=== PATIENT | male | born 1945 | race African-American/Black ===

== ENCOUNTER 2016-09-16 20:23 | Inpatient (IN) | payer MEDICARE, OTHER ==
[~2016-09-16] VITALS: Ht 175.3 cm; Wt 57.6 kg
[~2016-09-16 20:23] MED LIST: ASPI-650; AVAPRO; [UNRECOGNIZED DRUG - OTHER]
--- NOTE | 2016-09-16 20:32 | ERA ---
ER Documentation Chief Complaint Date/Time DATE: 09/16/16 TIME: 20:32 Chief Complaint Low O2 saturation HPI The patient is a 71-year-old male, presenting to the ER because of low O2 saturation, associated with cough and fever according to the new accounts representative. He is unable to provide any history, the history is is also obtained from the medical record from the long term. Past medical history: Chronic respiratory failure, anxiety, GERD, COPD, dysphagia, chronic kidney disease, anemia, overactive bladder Past surgical history: Tracheostomy, gastrostomy tube ROS All systems reviewed and are negative except as per history of present illness. Medications Home Meds Reported Medications Aspirin (Aspirin) 81 Mg Tablet 03/31/10 [Blodd Pressure Meds] No Conflict Check 03/31/10 [Avapro] TAB No Conflict Check 03/31/10 Allergies Allergies: Coded Allergies: No Known Allergies (Verified Allergy, Unknown, 03/31/10) PMhx/Soc History of Surgery: Yes (HEMMORHOIDECTOMY) Anesthesia Reaction: No Hx Neurological Disorder: No Hx Respiratory Disorders: No Hx Cardiac Disorders: Yes (TRANS ISCHEMIC ATTACK-SEPTEMBER 2009) Hx Psychiatric Problems: No Hx Miscellaneous Medical Probl: No Hx Alcohol Use: Yes Hx Substance Use: No Hx Tobacco Use: Yes (3-4 YEARS AGO) Physical Exam Vitals Vital Signs Date Time Temp Pulse Resp B/P Pulse Ox O2 Delivery O2 Flow Rate FiO2 09/17/16 00:07 100.5 106 28 122/61 97 Mask 6.0 Trach Collar 09/16/16 23:43 96 10.0 40 09/16/16 23:41 101 26 96 Aerosol 10.0 40 09/16/16 22:47 103 28 114/67 100 Mask 10.0 Trach Collar 09/16/16 20:43 Simple Mask 10 09/16/16 20:43 Simple Mask 10.0 09/16/16 20:37 101.7 149 43 144/74 86 09/16/16 20:35 100 10.0 100 09/16/16 20:35 89 44 98 Non Rebreather Mask 15.0 100 Physical Exam Const: Mild acute distress. Dehydrated Head: Atraumatic. Eyes: Normal Conjunctiva. ENT: Normal External Ears, Nose and Mouth. Neck: Full range of motion. No meningismus. Resp: Bilateral rhonchi anterior and lateral, tachypneic Cardio: Regular but tachycardic Abd: Soft, non distended, normal bowel sounds, non tender. Positive G -tube Skin: No petechiae or rashes. Back: No midline or flank tenderness. Ext: Contracted Neur: Unable to perform due to his condition Psych: Unable to perform due to his condition Result Diagram: 09/16/16212209/16/162122 Results 24 hrs Laboratory Tests Test 09/16/16 20:33 09/16/16 21:15 09/16/16 21:23 09/16/16 23:33 Blood Gas Specimen Source Blood arterial Arterial Blood Date Drawn 09/16/2016 9:00:42 PM Arterial Blood pH (Temp corrected) 7.542 Arterial Blood pCO2 (Temp correct) 29.9mmhg Arterial Blood pO2 (Temp corrected) 79.3mmHG Arterial Blood HCO3 25.1mmol/L Arterial Blood Base Excess 2.8mmol/L Arterial Blood Oxygen Saturation 95.8mmHG [place] Test N/A Arterial Blood Gas Puncture Site Right Brachial Arterial Blood Carboxyhemoglobin 0.3% Arterial Blood Methemoglobin 0.2% Blood Gas A-a O2 Differential 603.8mmHg Oxyhemoglobin Percent 95.3% Total Hemoglobin 9.1g/dl Blood Gas Temperature 37.0C Blood Gas Actual Respiration Rate 44 Blood Gas Modality TRACH COLLAR FiO2 100.0% Blood Gas Critical Value Read Back Mari HWANG Blood Gas Notified Whom BL Blood Gas Notified Time 09/16/2016 9:15:36 PM Urine Color LT. YELLOW Urine Clarity CLEAR Urine pH 7.0 Urine Specific [place] <=1.005 Urine Ketones NEGATIVE Urine Nitrite NEGATIVE Urine Bilirubin NEGATIVE Urine Urobilinogen 0.2 E.U./dL Urine Leukocyte Esterase NEGATIVE Urine Microscopic RBC 2-5/HPF Urine Microscopic WBC 0-2/HPF Urine Squamous Epithelial Cells MODERATE Urine Bacteria MODERATE Urine Hemoglobin TRACE Urine Glucose NEGATIVE% Urine Total Protein 1+ White Blood Count 17.110^3/ul Red Blood Count 3.6110^6/ul Hemoglobin 8.8g/dl Hematocrit 27.5% Mean Corpuscular Volume 76.2fl Mean Corpuscular Hemoglobin 24.4pg Mean Corpuscular Hemoglobin Concent 32.0g/dl Red Cell Distribution Width 19.8% Platelet Count 29016^3/UL Mean Platelet Volume 9.6fl Neutrophils % 91.3% Lymphocytes % 3.7% Monocytes % 3.9% Eosinophils % 0.4% Basophils % 0.2% Nucleated Red Blood Cells % 0.4/100WBC Neutrophils # 15.610^3/ul Lymphocytes # 0.610^3/ul Monocytes # 0.710^3/ul Eosinophils # 0.110^3/ul Basophils # 0.010^3/ul Nucleated Red Blood Cells # 0.110^3/ul Prothrombin Time 16.0Sec Prothrombin Time Ratio 1.3 INR International Normalized Ratio 1.27 Activated Partial Thromboplast Time 42.1Sec Sodium Level 149mmol/L Potassium Level 5.5mmol/L Chloride Level 114mmol/L Carbon Dioxide Level 27mmol/L Anion Gap 14 Blood Urea Nitrogen 48mg/dl Creatinine 1.19mg/dl Glucose Level 166mg/dl Lactic Acid Level 3.0mmol/L 0.6mmol/L Calcium Level 9.7mg/dl Total Bilirubin 0.3mg/dl Direct Bilirubin 0.00mg/dl Indirect Bilirubin 0.3mg/dl Aspartate Amino Transf (AST/SGOT) 49IU/L Alanine Aminotransferase (ALT/SGPT) 35IU/L Alkaline Phosphatase 90IU/L Troponin I < 0.012ng/ml Total Protein 9.8g/dl Albumin 3.5g/dl Globulin 6.30g/dl Albumin/Globulin Ratio 0.55 Current Medications Medications (Trade) Dose Ordered Sig/Lina Route PRN Reason Start Time Stop Time Status Last Admin Dose Admin Acetaminophen 650 mg 650 mg ONCE ONCE PA 09/16/16 21:00 09/16/16 21:01 DC 09/16/16 21:52 Sodium Chloride 2,110 ml @ 2,110 mls/hr BOLUS X1 ONCE IV 09/16/16 21:00 09/16/16 21:59 DC 09/16/16 21:52 Vancomycin HCl 250 ml @ 125 mls/hr ONCE IVPB 09/16/16 22:00 09/16/16 23:59 DC 09/16/16 22:40 Meropenem (Merrem 500 Mg/ 100 ml (Pmx)) 100 ml @ 200 mls/hr ONCE STAT IVPB 09/16/16 21:56 09/16/16 22:25 DC 09/16/16 22:14 Procedures/MDM [place] [address] Radiology Main Line: [phone] DIAGNOSTIC IMAGING REPORT Patient: FRANCI ALBRECHT : 1945 Age: 71 Sex: M MR #: [id number] DOS: 09/16/162032 Ordering MD: KRISTEN ROCHA MD Location: E/R Room/Bed: PROCEDURE: XR Chest. CLINICAL INDICATION: Sepsis TECHNIQUE: Anterior chest x-ray. COMPARISON: 04/20/2015 FINDINGS: There has been interval removal of tracheostomy tube and right-sided PICC line. There is pleural thickening in the right lung apex. There is central lucency in the right lung apex and there is patchy consolidation inferior to the area of apical lucency in the right suprahilar region. This finding is relatively stable compared to exam dated 03/31/2015, however there is more soft tissue density along the inferior aspect of the cavity. The right mid and lower lung is clear. The left lung is clear. No pleural effusion identified. There is no evidence of pneumothorax. The cardiomediastinal silhouette is unremarkable. The soft tissues are normal. Osseous structures are unremarkable. IMPRESSION: 1. There is abnormal density in the right lung apex in an area which measures 12 x 7 cm with pleural thickening and central lucency in the right lung apex, suggesting cavitary lesion. This is seen with patchy consolidation along the inferior aspect of the cavitary lesion, measuring 4 x 4 cm, which could represent pulmonary mass or large granuloma. The findings are overall nearly stable, however there is more soft tissue component along the inferior aspect of the cavitary lesion compared to exam from March 2015. The findings may represent granulomatous disease or malignancy. CT with contrast is suggested for further evaluation. 2. Interval removal of tracheostomy tube and right-sided PICC line. RPTAT: II .Donell Ceja MD, Date Time Electronically viewed and signed by .Donell Ceja MD, on 09/16/2016 21: 47 .M/ CC: KRISTEN ROCHA MD EKG: Read by emergency physician Rate/Rhythm: Sinus tachycardia 141 beats/min QRS, ST, T-waves: No ST elevation, no T inversion, artifacts, inferior ST and T abnormality Impression: Abnormal EKG MEDICAL MAKING DECISION: The patient is a 71-year-old male, presenting to the ER because of acute severe sepsis, acute pneumonia, acute dehydration, acute hyperkalemia. He was treated with normal saline 30 mL/kg IV, vancomycin IV, meropenem IV. Admit MDM: Patient's infectious symptoms have not stabilized and the patient is at risk of rapid decompensation. The patient will be admitted for careful hydration, antibiotic therapy, and infectious source control. Severe Sepsis criteria: Infectious source: Pneumonia End organ damage indicated by: Lactate > 2.0 mmol/L Acute Resp Failure (sat < 92% w/o oxygen) Sepsis Management: Time of recognition of severe sepsis/septic shock:9:30 PM Within 3 hours of recognition: Blood cultures x 2 before broad-spectrum antibiotics: Yes 30 ml/kg NS bolus completed Initial lactate 3 Repeat lactate pending Critical Care: Critical care time 35 minutes Emergent fluid management while maintaining close respiratory support. Provision of immediate and broad-spectrum antibiotic therapy. Simultaneous assessment for possible sources in order to direct targeted therapy. Consideration for invasive and chemical support to prevent cardiopulmonary collapse. Departure Diagnosis: Primary Impression: Severe sepsis Additional Impressions: Pneumonia Dehydration Hyperkalemia Condition: Stable Comments I discussed the findings with the patient. I discussed the patient with the on- call hospitalist Dr. Cruz who was made aware of the lab, the treatment, the patient condition. The patient is admitted to telemetry at 10:50 PM KRISTEN ROCHA MD September 16, 2016 20:32
[2016-09-16] MEDS ORDERED: ACETAMINOPHEN 650 MG SUPP PR ONE (21:00)
[2016-09-16] MEDS ORDERED: SOD CHLORIDE 0.9% 2,110 ML IV ONE (21:00)
[2016-09-16 21:16] LABS: AADO2 Arterial 603.8 mmHg (7.0-24.0); Arterial Base Excess 2.8 mmol/L (-3.0-3); Arterial COHb 0.3 % (0.0-3.0); Arterial Fraction of Oxyhgb 95.3 % (93.0-99.0); Arterial HCO3 25.1 mmol/L (22.0-26.0); Arterial MetHb 0.2 % (0.0-1.5); Arterial Total Hemglobin 9.1 g/dl (12.0-18.0); MODE TRACH COLLAR
[2016-09-16 21:38] LABS: ADD UMIC YES; URINE BILIRUBIN (Dip) NEGATIVE (NEGATIVE); URINE BLOOD (Dip) TRACE (NEGATIVE); URINE COLOR LT. YELLOW (YELLOW); URINE GLUCOSE (Dip) NEGATIVE (NEGATIVE); URINE KETONES (Dip) NEGATIVE (NEGATIVE); URINE LEUKOCYTE ESTERASE (Dip) NEGATIVE (NEGATIVE); URINE NITRITE (Dip) NEGATIVE (NEGATIVE); URINE TOTAL PROTEIN (Dip) 1+ (NEGATIVE); URINE UROBILINOGEN (Dip) 0.2 E.U./dL (0.1-1.0)
[2016-09-16 21:40] LABS: ADD SCAN DIFF NO
[2016-09-16 21:43] LABS: BASOPHILS % 0.2 % (0.0-2.0); EOSINOPHILS # 0.1 10^3/ul (0.0-0.5); EOSINOPHILS % 0.4 % (0.0-7.0); HEMATOCRIT 27.5 % (42.0-52.0); HEMOGLOBIN 8.8 g/dl (14.0-18.0); LYMPHOCYTES # 0.6 10^3/ul (0.8-2.9); LYMPHOCYTES % 3.7 % (15.0-51.0); MEAN CORPUSCULAR HEMOGLOBIN 24.4 pg (29.0-33.0); MEAN CORPUSCULAR VOLUME 76.2 fl (82.0-101.0); MEAN PLATELET VOLUME 9.6 fl (7.4-10.4); MONOCYTE # 0.7 10^3/ul (0.3-0.9); MONOCYTES % 3.9 % (0.0-11.0); NEUTROPHIL # 15.6 10^3/ul (1.6-7.5); NEUTROPHILS % 91.3 % (39.0-77.0); NUCLEATED RED BLOOD CELLS # 0.1 10^3/ul (0.0-0.0); NUCLEATED RED BLOOD CELLS% 0.4 /100WBC (0.0-0.0); PLATELET COUNT 422 10^3/UL (140-415); RED BLOOD COUNT 3.61 10^6/ul (4.70-6.10); RED CELL DISTRIBUTION WIDTH 19.8 % (11.5-14.5); WHITE BLOOD COUNT 17.1 10^3/ul (4.8-10.8)
--- NOTE | 2016-09-16 21:47 | RADRPT ---
PROCEDURE: XR Chest. CLINICAL INDICATION: Sepsis TECHNIQUE: Anterior chest x-ray. COMPARISON: 04/20/2015 FINDINGS: There has been interval removal of tracheostomy tube and right-sided PICC line. There is pleural thickening in the right lung apex. There is central lucency in the right lung apex and there is patchy consolidation inferior to the area of apical lucency in the right suprahilar re gion. This finding is relatively stable compared to exam dated 03/31/2015, however there is more soft tiss ue density along the inferior aspect of the cavity. The right mid and lower lung is clear. The left lung is clear. No pleural effusion identified. There is no evidence of pneumothorax. The cardiomediastinal silhouette is unremarkable. The soft tissues are normal. Osseous structures are unremarkable. IMPRESSION: 1. There is abnormal density in the right lung apex in an area which measures 12 x 7 cm with pleura l thickening and central lucency in the right lung apex, suggesting cavitary lesion. This is seen w ith patchy consolidation along the inferior aspect of the cavitary lesion, measuring 4 x 4 cm, which could represent pulmonary mass or large granuloma. The findings are overall nearly stable, however there is more soft tissue component along the inferior aspect of the cavitary lesion compared to exa m from March 2015. The findings may represent granulomatous disease or malignancy. CT with cont rast is suggested for further evaluation. 2. Interval removal of tracheostomy tube and right-sided PICC line. RPTAT: II .Donell Ceja MD, MD Date Time Electronically viewed and signed by .Donell Ceja MD, on 09/16/2016 21:47 .M/
[2016-09-16 21:50] LABS: BACTERIA,URINE MODERATE; SQUAMOUS EPITHELIAL CELL,UR MODERATE
[2016-09-16] MEDS ORDERED: MEROPENEM 500 MG/100 ML (PMX) 100 ML IVPB STA (21:56)
[2016-09-16] MEDS ORDERED: VANCOMYCIN 1 GM (PMX) 250 ML IVPB SCH (22:00)
[2016-09-16 22:11] LABS: ALBUMIN 3.5 g/dl (3.3-4.9); INR 1.27; PT RATIO 1.3
[2016-09-16 22:12] LABS: CHLORIDE 114 mmol/L (97-110); PARTIAL THROMBOPLASTIN TIME 42.1 Sec (25.0-35.0); POTASSIUM 5.5 mmol/L (3.5-5.1); SODIUM 149 mmol/L (135-144)
[2016-09-16 22:14] LABS: ANION GAP 14 (8-16); ASPARTATE AMINO TRANSFERASE 49 IU/L (15-46); BILIRUBIN,INDIRECT 0.3 mg/dl (0-1.1); BILIRUBIN,TOTAL 0.3 mg/dl (0.2-1.3); CARBON DIOXIDE 27 mmol/L (21-31); CREATININE 1.19 mg/dl (0.61-1.24)
[2016-09-16 22:15] LABS: ALANINE AMINOTRANSFERASE 35 IU/L (13-69); ALBUMIN/GLOBULIN RATIO 0.55; ALKALINE PHOSPHATASE 90 IU/L (42-121); BLOOD UREA NITROGEN 48 mg/dl (7-20); CALCIUM 9.7 mg/dl (8.4-10.2); GLUCOSE 166 mg/dl (70-220); TOTAL PROTEIN 9.8 g/dl (6.1-8.1)
[2016-09-16 22:28] LABS: TROPONIN-I < 0.012 ng/ml (0.00-0.12)
[2016-09-17] VITALS (13 sets, daily range): BP systolic 103–123; BP diastolic 43–56; PULSE 86–106; RESP 16–22; TEMP 100.5; Ht 175.3 cm; Wt 57.6 kg
[2016-09-17] MEDS ORDERED: POLY17PO6 PO (03:40)
[2016-09-17] MEDS ORDERED: OMEP40CA6 G-TUBE (03:40)
[2016-09-17] MEDS ORDERED: ASPI81TA3 G-TUBE (03:40)
[2016-09-17] MEDS ORDERED: HYDR-906 PO (03:40)
[2016-09-17] MEDS ORDERED: UDCOL GTB (03:40)
[2016-09-17] MEDS ORDERED: ASC500 G-TUBE (03:40)
[2016-09-17] MEDS ORDERED: MULT-761 PO (03:40)
[2016-09-17] MEDS ORDERED: LACTINEX PO (03:40)
[2016-09-17] MEDS ORDERED: ACET-2047 G-TUBE (03:40)
[2016-09-17] MEDS ORDERED: BETH25TA G-TUBE (03:40)
[2016-09-17] MEDS ORDERED: IPRA3AMP INHALATION (03:40)
[2016-09-17] MEDS ORDERED: SENS PO (03:40)
[2016-09-17] MEDS ORDERED: BISA10SU55 RC (03:40)
[2016-09-17] MEDS ORDERED: ALBUTEROL/IPRATROPIUM (NEB) 3 ML AMP HHN PRN (04:00)
[2016-09-17] MEDS ORDERED: HYDROCODONE/APAP (5/325) TAB PO PRN (04:00)
[2016-09-17] MEDS ORDERED: BISACODYL 10 MG SUPP PR PRN (04:00)
[2016-09-17] MEDS: ALBUTEROL/IPRATROPIUM (NEB) 3 ML AMP HHN SCH ×5 (04:50→20:52)
[2016-09-17] MEDS: LEVOFLOXACIN 500MG/D5W (PMX) 100 ML IVPB SCH (06:05)
[2016-09-17] MEDS: LANSOPRAZOLE 30 MG CAP GTB SCH (06:05)
[2016-09-17] MEDS: ACETAMINOPHEN 325 MG TAB GTB PRN (06:54)
--- NOTE | 2016-09-17 07:28 | HP ---
DATE OF ADMISSION: 09/17/2016 CHIEF COMPLAINT: Low oxygenation, cough and fever. HISTORY OF PRESENT ILLNESS: The patient is a 71-year-old male with a history of chronic respiratory failure, status post tracheostomy, anxiety, GERD, COPD, chronic kidney disease and anemia, bl adder, and dysphagia status post G-tube who was sent from [facility] for the above stated chief complaint. It seems like the family noted decreased oxygenation which had been fluctu ating. He had cough and fever, and as such, he was brought to the ER. The patient is not able to p rovide any history, and as such, information is gathered from chart review and from the ER physician . When he presented to the ER, blood pressure was 100/98, heart rate was 89, respiratory rate 44, oxyg en saturation was 86% on 10 liters. Shortly after, within about 2 to 3 minutes, his vitals were rec hecked today which showed a temperature of 101.7. Laboratory value shows a WBC of 17, hemoglobin 8. 8, platelet count 422, sodium 149, potassium 5.5, chloride 114, initial lactic acid 3, repeat 0.6. Chest x-ray shows abnormal density in the lung apex in an area which measures 14 x 17 cm with pleura l thickening suggesting cavitary lesion. While the patient was in the ER, very thick fluid was suctioned from his stoma. REVIEW OF SYSTEMS: Negative except as per the HPI. PAST MEDICAL HISTORY: As per HPI. SOCIAL HISTORY: Unknown. No reported alcohol or illicit drug use. ALLERGIES: NO KNOWN DRUG ALLERGIES. HOME MEDICATIONS: 1. Botanical . 2 Albuterol. 3. Tylenol. 4. Aspirin. 5. [place] 6. Dulcolax. 7. Lactobacillus. 8. Prilosec. 9. MiraLax. 10. Senna 11. Ascorbic acid. 12. Multi-vitamin. 13. Avapro. PHYSICAL EXAMINATION: VITAL SIGNS: Stable except heart rate in the high 90s. GENERAL: The patient lying in bed, looks in mild discomfort. CHEST: Decreased breath sounds at bases bilaterally. ABDOMEN: Soft with G-tube in place. Positive bowel sounds. EXTREMITIES: No edema. NEUROLOGIC: No focal deficits. LABORATORY DATA: Sodium 149, potassium 5.5, chloride 111. WBC 17,000, hemoglobin 8.8, platelet cou nt 422. IMPRESSION: 1. Sepsis as evidenced by tachycardia, fever and leukocytosis, most likely from pneumonia. 2. Hyponatremia. 3. History of chronic respiratory failure with tracheostomy. 4. GERD, COPD, chronic kidney disease. PLAN: He will placed on antibiotics. He will receive breathing treatments. We will add Mucomyst a s needed to help with thick secretions. We will also attempt to send tracheal aspirate for gram sta in and culture. We will continue his home medication with adjustment as needed. We will also follo w up on the blood culture and urine culture results. We will also obtain blood culture and urine cu lture results. The patient will have physical therapy prior to discharge. We will correct electrol ytes as needed, namely hypokalemia and hypernatremia in this case. Further workup and management per clinical course. Dictated By: YESI BYRD/ARPITA Conf#: [id number] DID#: [id number]
[2016-09-17] MEDS ORDERED: NON-FORMULARY/PATIENT OWN MED (Omeprazole* 40 MG) G-TUBE SCH (09:00)
[2016-09-17] MEDS ORDERED: NON-FORMULARY/PATIENT OWN MED (Lactobacillus Acidophilus* (Lactinex*) 1 TAB) PO SCH (09:00)
[2016-09-17] MEDS ORDERED: SENNA (PO SYG) PO SCH (09:00)
[2016-09-17] MEDS: ASPIRIN 81 MG TAB GTB SCH (09:17)
[2016-09-17] MEDS: L ACIDOPHIL/B LACTIS/B LONGUM CAPSULE PO SCH ×2 (09:17→20:38)
[2016-09-17] MEDS: DOCUSATE SODIUM 10 MG/ML (10ML CUP) GTB SCH ×2 (09:17→20:38)
[2016-09-17] MEDS: MULTIVITAMINS THERAPEUTIC TAB PO SCH (09:17)
[2016-09-17] MEDS: POLYETHYLENE GLYCOL 17 GM PACKET PO SCH (09:18)
[2016-09-17] MEDS: BETHANECHOL 25 MG TAB GTB SCH ×3 (09:18→20:38)
[2016-09-17] MEDS: ASCORBIC ACID 500 MG TAB GTB SCH (09:18)
[2016-09-17] MEDS: SENNA TAB GTB SCH (09:20)
[2016-09-17] MEDS: SOD CHLORIDE 0.45% 1,000 ML IV SCH ×2 (15:20→23:00)
--- NOTE | 2016-09-17 16:10 | CONS ---
Date/Time of Note Date/Time of Note DATE: 09/17/16 TIME: 16:08 Assessment/Plan Assessment/Plan Chief Complaint/Hosp Course RENAL [id number] CONSULT RITA DEHYDRATION AZOTEMIA PEG PNEUMONIA PLAN LYTES IV FREEE WATER Problems: Consultation Date/Type/Reason Admit Date/Time September 17, 2016 at 00:34 Initial Consult Date Type of Consultation: renal 24 HR Interval Summary Constitutional: no complaints Exam/Review of Systems Vital Signs Vitals Vital Signs Date Time Temp Pulse Resp B/P Pulse Ox O2 Delivery O2 Flow Rate FiO2 09/17/16 16:05 94 09/17/16 15:04 98.9 16 103/43 93 09/17/16 13:07 Aerosol Mask 10.0 40 T Tube Intake and Output 09/16/16 09/16/16 09/17/16 15:00 23:00 07:00 Intake Total 220 ml Output Total 200 ml Balance 20 ml Exam Constitutional: alert Head: normocephalic Eyes: nl conjunctiva ENMT: nl external ears & nose Neck: other (trach positive) Respiratory: clear to auscultation Cardiovascular: regular rate and rhythm Gastrointestinal: bowel sounds, soft Extremities: normal pulses Results Result Diagram: 09/16/16212209/16/162122 Results 24 hrs Laboratory Tests Test 09/16/16 20:33 09/16/16 21:15 09/16/16 21:23 09/16/16 23:33 Blood Gas Specimen Source Blood arterial Arterial Blood Date Drawn 09/16/2016 9:00:42 PM Arterial Blood pH (Temp corrected) 7.542 H Arterial Blood pCO2 (Temp correct) 29.9 L Arterial Blood pO2 (Temp corrected) 79.3 L Arterial Blood HCO3 25.1 Arterial Blood Base Excess 2.8 Arterial Blood Oxygen Saturation 95.8 [place] Test N/A Arterial Blood Gas Puncture Site Right Brachial Arterial Blood Carboxyhemoglobin 0.3 Arterial Blood Methemoglobin 0.2 Blood Gas A-a O2 Differential 603.8 H Oxyhemoglobin Percent 95.3 Total Hemoglobin 9.1 L Blood Gas Temperature 37.0 Blood Gas Actual Respiration Rate 44 Blood Gas Modality TRACH COLLAR FiO2 100.0 Blood Gas Critical Value Read Back Mari HWANG Blood Gas Notified Whom BL Blood Gas Notified Time 09/16/2016 9:15:36 PM Urine Color LT. YELLOW Urine Clarity CLEAR Urine pH 7.0 Urine Specific [place] <=1.005 L Urine Ketones NEGATIVE Urine Nitrite NEGATIVE Urine Bilirubin NEGATIVE Urine Urobilinogen 0.2 E.U./dL Urine Leukocyte Esterase NEGATIVE Urine Microscopic RBC 2-5 Urine Microscopic WBC 0-2 Urine Squamous Epithelial Cells MODERATE Urine Bacteria MODERATE Urine Hemoglobin TRACE Urine Glucose NEGATIVE Urine Total Protein 1+ H White Blood Count 17.1 #H Red Blood Count 3.61 L Hemoglobin 8.8 L Hematocrit 27.5 L Mean Corpuscular Volume 76.2 L Mean Corpuscular Hemoglobin 24.4 L Mean Corpuscular Hemoglobin Concent 32.0 Red Cell Distribution Width 19.8 H Platelet Count 422 H Mean Platelet Volume 9.6 # Neutrophils % 91.3 H Lymphocytes % 3.7 L Monocytes % 3.9 Eosinophils % 0.4 Basophils % 0.2 Nucleated Red Blood Cells % 0.4 H Neutrophils # 15.6 H Lymphocytes # 0.6 L Monocytes # 0.7 Eosinophils # 0.1 Basophils # 0.0 Nucleated Red Blood Cells # 0.1 H Prothrombin Time 16.0 H Prothrombin Time Ratio 1.3 INR International Normalized Ratio 1.27 Activated Partial Thromboplast Time 42.1 H Sodium Level 149 H Potassium Level 5.5 H Chloride Level 114 H Carbon Dioxide Level 27 Anion Gap 14 Blood Urea Nitrogen 48 H Creatinine 1.19 Glucose Level 166 Lactic Acid Level 3.0 H 0.6 Calcium Level 9.7 Total Bilirubin 0.3 Direct Bilirubin 0.00 Indirect Bilirubin 0.3 Aspartate Amino Transf (AST/SGOT) 49 H Alanine Aminotransferase (ALT/SGPT) 35 Alkaline Phosphatase 90 Troponin I < 0.012 Total Protein 9.8 H Albumin 3.5 Globulin 6.30 H Albumin/Globulin Ratio 0.55 Medications Medications Current Medications Acetaminophen (Tylenol Tab) 650 mg Q6H PRN GTB PAIN AND OR ELEVATED TEMP Last administered on 09/17/16 06:54; Admin Dose 650 MG; Start 09/17/16 at 04:00 Ascorbic Acid (Vitamin C) 500 mg DAILY GTB Last administered on 09/17/16 09:18 ; Admin Dose 500 MG; Start 09/17/16 at 09:00 Aspirin (Aspirin) 81 mg DAILY GTB Last administered on 09/17/16 09:17; Admin Dose 81 MG; Start 09/17/16 at 09:00 Bethanechol Chloride (Urecholine) 25 mg TID GTB Last administered on 09/17/16 12:55; Admin Dose 25 MG; Start 09/17/16 at 09:00 Bisacodyl (Dulcolax Supp) 10 mg DAILY PRN ID CONSTIPATION; Start 09/17/16 at 04 :00 Docusate Sodium (Colace Liquid Cup) 100 mg BID GTB Last administered on 09:17; Admin Dose 100 MG; Start 09/17/16 at 09:00 Acetaminophen/ Hydrocodone Bitart ([place] (5/325)) 1 tab Q6 PRN PO PAIN; Start 09/17/16 at 04:00 Multivitamins Therapeutic (Theragran) 1 tab DAILY PO Last administered on 09:17; Admin Dose 1 TAB; Start 09/17/16 at 09:00 Polyethylene Glycol (Miralax) 8.5 gm DAILY PO Last administered on 09/17/16 09 :18; Admin Dose 8.5 GM; Start 09/17/16 at 09:00 Ondansetron HCl 4 mg 4 mg Q6H PRN IV NAUSEA AND/OR VOMITING; Start 09/17/16 at 04:00 Levofloxacin/ Dextrose (Levaquin 500mg/ D5W 100 ml (Pmx)) 100 ml @ 100 mls/hr Q24H IVPB Last administered on 09/17/16 06:05; Admin Dose 100 MLS/HR; Start at 04:00 Lactobacillus Acidophilus (Florajen3 Capsule) 1 each BID PO Last administered on 09/17/16 09:17; Admin Dose 1 EACH; Start 09/17/16 at 09:00 Senna (Senokot) 1 tab DAILY GTB Last administered on 09/17/16 09:20; Admin Dose 1 TAB; Start 09/17/16 at 09:00 Lansoprazole 30 mg 30 mg DAILY@06 GTB Last administered on 09/17/16 06:05; Admin Dose 30 MG; Start 09/17/16 at 06:00 Sodium Chloride (1/2 NS) 1,000 ml @ 125 mls/hr Q8H IV Last administered on 15:20; Admin Dose 125 MLS/HR; Start 09/17/16 at 15:00 KANDICE DIXON MD September 17, 2016 16:10
--- NOTE | 2016-09-17 18:32 | CONS ---
DATE OF ADMISSION: 09/17/2016 DATE OF CONSULTATION: TYPE OF CONSULTATION: Nephrology . Thank you, Dr. Saleh, for kindly asking me to see this patient in nephrology consultation with Dr. Tato Cruz. HISTORY OF PRESENT ILLNESS: The patient is a 71-year-old male with a history of chronic respiratory failure, history of GERD, COPD, anxiety, tracheostomy and G-tube placement, [facility] with electrolyte imbalance and sepsis. The patient has tachycardia and electrolyte imbalance an d nephrology consultation requested. PAST MEDICAL HISTORY: Positive for tracheostomy and G-tube placement, COPD, GERD. The patient has history of dyspepsia. ALLERGY HISTORY: NEGATIVE. FAMILY HISTORY: Noncontributory at this point. SOCIAL HISTORY: Negative. MEDICATION HISTORY: Patient's home medication is to include: 1. Tylenol. 2. Albuterol. 3. Atrovent. 4. Ascorbic acid. 5. Aspirin. 6. Betacol. 7. Bisacodyl. 8. Docusate sodium. 9. Hydrocodone. 10. Lactobacillus. 11. Multiple vitamin. 12. Omeprazole. 13. MiraLax. 14. Senna. 15. Avapro. REVIEW OF HEENT: Unremarkable. RESPIRATORY: Unremarkable. CARDIOVASCULAR: No chest pain on palpitation. ABDOMEN: No diarrhea. GENITOURINARY: Unremarkable for any dysuria, hematuria. EXTREMITIES: Unremarkable. PHYSICAL EXAMINATION: GENERAL: Thin-looking male, awake, alert. VITAL SIGNS: Pulse 92, blood pressure 103/43. HEAD: Atraumatic, normocephalic. Pupils equal, reactive. NECK: Supple. Tracheostomy present. LUNGS: Few rhonchi. CARDIOVASCULAR: S1, S2 normal. ABDOMEN: Soft. SKIN: G-tube in place. EXTREMITIES: No cyanosis, clubbing, or edema. LABORATORY DATA: WBC 17.1, hematocrit 27.5, platelet count of 422. Sodium 149, potassium 5.5, BUN 14, creatinine 1.19. Lactic acid 3, albumin 3.5. Chest x-ray shows abnormal density in the right lung apex in the area which measures 12 x 7 cm with a little thickening and central lucency in the right lung apex, suggesting cavitary lesion. The aruna ent also has patchy consolidation in the inferior aspect of the ____, pulmonary mass or large granul sury. IMPRESSION: 1. Patient has acute kidney injury. 2. Prerenal azotemia. 3. Hypernatremia. 4. Hyperkalemia. 5. Azotemia. 6. Lung mass. 7. Pneumonia. 8. Cavitary lung lesion. 9. Tracheostomy and G-tube placement. 10. Sepsis. PLAN: The patient is currently on normal saline at 125 cm an hour, ascorbic acid, aspirin, urecholi ne, Colace, multiple vitamin, MiraLax. The patient is also getting G-tube water. Patient's electro lytes will be monitored very closely. Thank you, Dr. Cruz and Dr. Saleh, for kindly asking me to see this patient in nephrology consulta tion. Dictated By: KANDICE DIXON MD BS/NTS Conf#: [id number] DID#: [id number] CC: MANAV SALEH MD;*EndCC*
[2016-09-18] VITALS (14 sets, daily range): BP systolic 114–143; BP diastolic 53–67; PULSE 83–114; RESP 18–20
[2016-09-18] MEDS: ALBUTEROL/IPRATROPIUM (NEB) 3 ML AMP HHN SCH ×6 (01:14→21:10)
[2016-09-18] MEDS: LEVOFLOXACIN 500MG/D5W (PMX) 100 ML IVPB SCH (04:02)
[2016-09-18] MEDS: SOD CHLORIDE 0.45% 1,000 ML IV SCH ×4 (04:24→21:04)
[2016-09-18] MEDS: LANSOPRAZOLE 30 MG CAP GTB SCH (05:20)
[2016-09-18] MEDS: DOCUSATE SODIUM 10 MG/ML (10ML CUP) GTB SCH ×2 (08:39→21:01)
[2016-09-18] MEDS: SENNA TAB GTB SCH (08:40)
[2016-09-18] MEDS: POLYETHYLENE GLYCOL 17 GM PACKET PO SCH (08:40)
[2016-09-18] MEDS: BETHANECHOL 25 MG TAB GTB SCH ×3 (08:40→21:01)
[2016-09-18] MEDS: ASCORBIC ACID 500 MG TAB GTB SCH (08:40)
[2016-09-18] MEDS: MULTIVITAMINS THERAPEUTIC TAB PO SCH (08:40)
[2016-09-18] MEDS: ACETAMINOPHEN 325 MG TAB GTB PRN (08:40)
[2016-09-18] MEDS: L ACIDOPHIL/B LACTIS/B LONGUM CAPSULE PO SCH ×2 (08:40→21:01)
[2016-09-18] MEDS: ASPIRIN 81 MG TAB GTB SCH (08:43)
[2016-09-18] MEDS ORDERED: SOD CHLORIDE 0.9% 100 ML ONE (10:11)
[2016-09-18] MEDS ORDERED: IODIXANOL LOCM 100 ML BTL ONE (10:11)
--- NOTE | 2016-09-18 10:49 | RADRPT ---
PROCEDURE: CT Chest with contrast. CLINICAL INDICATION: Possible mass TECHNIQUE: CT scan of the chest with contrast was performed on the [employer] CT scanner. The pat ient was scanned following the uncomplicated intravenous administration of 80 cc of Visipaque 320 in travenous contrast. Coronal and sagittal reformatted images were obtained from the axial source imag es. One or more of the following dose reduction techniques were used: - Automated exposure control. - Adjustment of the mA and/or kV according to patient size. Use of iterative reconstruction technique. DLP 464.3 mGycm CTDIvol 12.3 mGy COMPARISON: Chest x-ray 09/16/2016 FINDINGS: Prominent emphysema is seen in the lungs bilaterally. There is a confluent area of opacity in the r ight upper lobe where there is a cavitary lesion and this measures up to 8.5 x 7.4 cm which is indet erminate and could wall. Surrounding consolidation is seen within the right upper lung which has a peribronchial appearance. There is a trace amount of layering left pleural fluid and there is a sma ll amount of right apical pleural fluid along with a small amount of pleural air at the right lung a pex. There is soft tissue thickening seen around the right upper lobe airway which has a slightly i rregular appearance. Mild edematous changes seen in the remainder of the lungs. There is bilateral airways wall thickening seen with scattered foci of mucus plugging near the bases. There is an enlarged lymph nodes seen within the precarinal space that measures 2.2 x 1.2 cm on seri es 3, image 36. Other mildly enlarged lymph nodes are seen in the right paratracheal space. There are no enlarged axillary nodes. Aortic and coronary artery atherosclerotic calcifications are present. The heart is borderline enla rged. There is no acute upper abdominal abnormality. Gallstone is seen in the gallbladder which is contra cted. Hepatic cysts are present. There is a gastrostomy tube in place. Degenerative changes are s een within the thoracic spine and shoulders with no acute osseous abnormality. There is a defect in the anterior neck seen extending from the airway to the calcaneus surface. IMPRESSION: There is a confluent area of consolidation in the right upper lobe with a large cavitary lesion and this is also seen with a small amount of apical air and fluid in the pleural space and this could re present a cavitary neoplasm or cavitary infection. Enlarged mediastinal and carinal lymph nodes could represent reactive nodes of infection or neoplast ic nodes depending on the right upper lobe abnormality. Emphysema is seen within the lungs bilaterally with findings of pulmonary edema. There is a trace l ayering left effusion. Airways wall thickening is seen bilaterally suggestive for airways inflammation with foci of mucus p lugging. There is cardiomegaly and prominent atherosclerotic disease. There is a defect in the anterior neck seen extending from the trachea to the cutaneous surface and could represent sequelae of a prior tracheostomy. Gastrostomy tube is present. Cholelithiasis. RPTAT: AA .Eveline Alicia MD, MD Date Time Electronically viewed and signed by .Eveline Alicia MD, on 09/18/2016 10:49 .J/
--- NOTE | 2016-09-18 11:13 | PN ---
Date/Time of Note Date/Time of Note DATE: 09/18/16 TIME: 11:01 Assessment/Plan VTE Prophylaxis VTE Prophylaxis Intervention: SCD's Lines/Catheters IV Catheter Type (from Nrs): Peripheral IV Urinary Cath still in place: Yes Reason Cath still needed: other (indicate) Assessment/Plan Assessment/Plan 1. Sepsis with lactic acidosis likely secondary to #2 and 3 2. Probable bilateral pneumonia which could be obstructive from #4 3. Highly probable urinary tract infection 4. Chronic respiratory failure status post tracheostomy 5. Large right upper lobe cavitary lesion which could be neoplasm versus infection, associated enlarged mediastinal and carinal nodes 6. Hypernatremic dehydration 7. Hyperkalemia likely secondary to #6 8. Hypochromic anemia 9. Hx of GERD 10. Hx of COPD 11. Chronic dysphagia status post G-tube 12. Refusal of therapy 13. PVD with toe ulcer PLAN: * Unable to do much without labs * Spoke with patient's daughter, she will come speak to him / recommended PICC line. * Continue current abx and fluids / Patient clinically improved. * Also recommended tele Psych. Patient's daughter wants to speak with him first * Will review CT findings with family once present at bedside * Continue bronchodilators and mucolytics * f/u final cultures Subjective 24 Hr Interval Summary Free Text/Dictation patient reports being "ok" refusing all lab and blood draw despite multiple explanations of risks Patient frustrated by inability to communicate easily Exam/Review of Systems Vital Signs Vitals Vital Signs Date Time Temp Pulse Resp B/P Pulse Ox O2 Delivery O2 Flow Rate FiO2 09/18/16 09:39 101 20 92 Aerosol 10.0 40 09/18/16 07:54 98.0 114/53 Intake and Output 09/17/16 09/17/16 09/18/16 15:00 23:00 07:00 Intake Total 1385 ml 1350 ml Output Total 800 ml 1600 ml Balance 585 ml -250 ml Exam Constitutional: alert, frail, non-verbal (2/2 trach), other (calm) Psych: other (?frustration) Head: normocephalic Eyes: PERRL Neck: other (Trach to Tpiece with thick secretions) Respiratory: diminished breath sounds, other (coarse breath sounds) Cardiovascular: regular rate and rhythm, No murmurs/extra sounds Gastrointestinal: soft Musculoskeletal: other (chronic msc wasting) Neurological: No confused Results Result Diagram: 09/16/16212209/16/162122 Results 24 hrs Laboratory Tests Test 09/18/16 00:05 Urine Osmolality 601 Urine Random Sodium > 198 H Medications Medications Current Medications Acetaminophen (Tylenol Tab) 650 mg Q6H PRN GTB PAIN AND OR ELEVATED TEMP Last administered on 09/18/16 08:40; Admin Dose 650 MG; Start 09/17/16 at 04:00 Ascorbic Acid (Vitamin C) 500 mg DAILY GTB Last administered on 09/18/16 08:40 ; Admin Dose 500 MG; Start 09/17/16 at 09:00 Aspirin (Aspirin) 81 mg DAILY GTB Last administered on 09/18/16 08:43; Admin Dose 81 MG; Start 09/17/16 at 09:00 Bethanechol Chloride (Urecholine) 25 mg TID GTB Last administered on 09/18/16 08:40; Admin Dose 25 MG; Start 09/17/16 at 09:00 Bisacodyl (Dulcolax Supp) 10 mg DAILY PRN [place] CONSTIPATION; Start 09/17/16 at 04 :00 Docusate Sodium (Colace Liquid Cup) 100 mg BID GTB Last administered on 08:39; Admin Dose 100 MG; Start 09/17/16 at 09:00 Acetaminophen/ Hydrocodone Bitart ([place] (5/325)) 1 tab Q6 PRN PO PAIN; Start 09/17/16 at 04:00 Multivitamins Therapeutic (Theragran) 1 tab DAILY PO Last administered on 08:40; Admin Dose 1 TAB; Start 09/17/16 at 09:00 Polyethylene Glycol (Miralax) 8.5 gm DAILY PO Last administered on 09/18/16 08 :40; Admin Dose 8.5 GM; Start 09/17/16 at 09:00 Ondansetron HCl 4 mg 4 mg Q6H PRN IV NAUSEA AND/OR VOMITING; Start 09/17/16 at 04:00 Levofloxacin/ Dextrose (Levaquin 500mg/ D5W 100 ml (Pmx)) 100 ml @ 100 mls/hr Q24H IVPB Last administered on 09/18/16 04:02; Admin Dose 100 MLS/HR; Start at 04:00 Lactobacillus Acidophilus (Florajen3 Capsule) 1 each BID PO Last administered on 09/18/16 08:40; Admin Dose 1 EACH; Start 09/17/16 at 09:00 Senna (Senokot) 1 tab DAILY GTB Last administered on 09/18/16 08:40; Admin Dose 1 TAB; Start 09/17/16 at 09:00 Lansoprazole 30 mg 30 mg DAILY@06 GTB Last administered on 09/18/16 05:20; Admin Dose 30 MG; Start 09/17/16 at 06:00 Sodium Chloride (1/2 NS) 1,000 ml @ 125 mls/hr Q8H IV Last administered on 08:41; Admin Dose 125 MLS/HR; Start 09/17/16 at 15:00 Procedures Procedures PROCEDURE: CT Chest with contrast. CLINICAL INDICATION: Possible mass TECHNIQUE: CT scan of the chest with contrast was performed on the [employer] CT scanner. The patient was scanned following the uncomplicated intravenous administration of 80 cc of Visipaque 320 intravenous contrast. Coronal and sagittal reformatted images were obtained from the axial source images. One or more of the following dose reduction techniques were used: - Automated exposure control. - Adjustment of the mA and/or kV according to patient size. Use of iterative reconstruction technique. DLP 464.3 mGycm CTDIvol 12.3 mGy COMPARISON: Chest x-ray 09/16/2016 FINDINGS: Prominent emphysema is seen in the lungs bilaterally. There is a confluent area of opacity in the right upper lobe where there is a cavitary lesion and this measures up to 8.5 x 7.4 cm which is indeterminate and could wall. Surrounding consolidation is seen within the right upper lung which has a peribronchial appearance. There is a trace amount of layering left pleural fluid and there is a small amount of right apical pleural fluid along with a small amount of pleural air at the right lung apex. There is soft tissue thickening seen around the right upper lobe airway which has a slightly irregular appearance. Mild edematous changes seen in the remainder of the lungs. There is bilateral airways wall thickening seen with scattered foci of mucus plugging near the bases. There is an enlarged lymph nodes seen within the precarinal space that measures 2.2 x 1.2 cm on series 3, image 36. Other mildly enlarged lymph nodes are seen in the right paratracheal space. There are no enlarged axillary nodes. Aortic and coronary artery atherosclerotic calcifications are present. The heart is borderline enlarged. There is no acute upper abdominal abnormality. Gallstone is seen in the gallbladder which is contracted. Hepatic cysts are present. There is a gastrostomy tube in place. Degenerative changes are seen within the thoracic spine and shoulders with no acute osseous abnormality. There is a defect in the anterior neck seen extending from the airway to the calcaneus surface. IMPRESSION: There is a confluent area of consolidation in the right upper lobe with a large cavitary lesion and this is also seen with a small amount of apical air and fluid in the pleural space and this could represent a cavitary neoplasm or cavitary infection. Enlarged mediastinal and carinal lymph nodes could represent reactive nodes of infection or neoplastic nodes depending on the right upper lobe abnormality. Emphysema is seen within the lungs bilaterally with findings of pulmonary edema. There is a trace layering left effusion. Airways wall thickening is seen bilaterally suggestive for airways inflammation with foci of mucus plugging. There is cardiomegaly and prominent atherosclerotic disease. There is a defect in the anterior neck seen extending from the trachea to the cutaneous surface and could represent sequelae of a prior tracheostomy. Gastrostomy tube is present. Cholelithiasis. RPTAT: AA .Eveline Alicia MD, Date Time Electronically viewed and signed by .Eveline Alicia MD, on 09/18/2016 10:49 .CATERINA MCLAIN September 18, 2016 11:11
[2016-09-18] MEDS: PIPER-TAZO 3.375 GM IV (PMX) 100 ML IVPB SCH ×2 (13:21→17:15)
--- NOTE | 2016-09-18 14:19 | CONS ---
Date/Time of Note Date/Time of Note DATE: 09/18/16 TIME: 14:18 Assessment/Plan Assessment/Plan Chief Complaint/Hosp Course 1. Patient has acute kidney injury. 2. Prerenal azotemia. 3. Hypernatremia. 4. Hyperkalemia. 5. Azotemia. 6. Lung mass. 7. Pneumonia. 8. Cavitary lung lesion. 9. Tracheostomy and G-tube placement. 10. Sepsis Problems: Additional Assessment/Plan 1. OT 2. Optimization kidney function Consultation Date/Type/Reason Admit Date/Time September 17, 2016 at 00:34 Initial Consult Date 09/16/2016 Type of Consultation: renal Reason for Consultation Dr Fay Exam/Review of Systems Vital Signs Vitals Vital Signs Date Time Temp Pulse Resp B/P Pulse Ox O2 Delivery O2 Flow Rate FiO2 09/18/16 14:02 110 09/18/16 13:33 20 94 Aerosol 10.0 40 09/18/16 11:33 98.0 119/58 Intake and Output 09/17/16 09/17/16 09/18/16 15:00 23:00 07:00 Intake Total 1385 ml 1350 ml Output Total 800 ml 1600 ml Balance 585 ml -250 ml Exam Constitutional: alert, oriented Psych: no complaints Eyes: nl conjunctiva Neck: other (tracheostomy) Respiratory: diminished breath sounds Cardiovascular: regular rate and rhythm Results Result Diagram: 09/16/16212209/16/162122 Results 24 hrs Laboratory Tests Test 09/18/16 00:05 Urine Osmolality 601 Urine Random Sodium > 198 H Medications Medications Current Medications Acetaminophen (Tylenol Tab) 650 mg Q6H PRN GTB PAIN AND OR ELEVATED TEMP Last administered on 09/18/16 08:40; Admin Dose 650 MG; Start 09/17/16 at 04:00 Ascorbic Acid (Vitamin C) 500 mg DAILY GTB Last administered on 09/18/16 08:40 ; Admin Dose 500 MG; Start 09/17/16 at 09:00 Aspirin (Aspirin) 81 mg DAILY GTB Last administered on 09/18/16 08:43; Admin Dose 81 MG; Start 09/17/16 at 09:00 Bethanechol Chloride (Urecholine) 25 mg TID GTB Last administered on 09/18/16 13:21; Admin Dose 25 MG; Start 09/17/16 at 09:00 Bisacodyl (Dulcolax Supp) 10 mg DAILY PRN [place] CONSTIPATION; Start 09/17/16 at 04 :00 Docusate Sodium (Colace Liquid Cup) 100 mg BID GTB Last administered on 08:39; Admin Dose 100 MG; Start 09/17/16 at 09:00 Acetaminophen/ Hydrocodone Bitart ([place] (5/325)) 1 tab Q6 PRN PO PAIN; Start 09/17/16 at 04:00 Multivitamins Therapeutic (Theragran) 1 tab DAILY PO Last administered on 08:40; Admin Dose 1 TAB; Start 09/17/16 at 09:00 Polyethylene Glycol (Miralax) 8.5 gm DAILY PO Last administered on 09/18/16 08 :40; Admin Dose 8.5 GM; Start 09/17/16 at 09:00 Ondansetron HCl 4 mg 4 mg Q6H PRN IV NAUSEA AND/OR VOMITING; Start 09/17/16 at 04:00 Levofloxacin/ Dextrose (Levaquin 500mg/ D5W 100 ml (Pmx)) 100 ml @ 100 mls/hr Q24H IVPB Last administered on 09/18/16 04:02; Admin Dose 100 MLS/HR; Start at 04:00 Lactobacillus Acidophilus (Florajen3 Capsule) 1 each BID PO Last administered on 09/18/16 08:40; Admin Dose 1 EACH; Start 09/17/16 at 09:00 Senna (Senokot) 1 tab DAILY GTB Last administered on 09/18/16 08:40; Admin Dose 1 TAB; Start 09/17/16 at 09:00 Lansoprazole 30 mg 30 mg DAILY@06 GTB Last administered on 09/18/16 05:20; Admin Dose 30 MG; Start 09/17/16 at 06:00 Sodium Chloride 1,000 ml @ 125 mls/hr Q8H IV Last administered on 09/18/16 08 :41; Admin Dose 125 MLS/HR; Start 09/17/16 at 15:00 Piperacillin Sod/ Tazobactam Sod (Zosyn 3.375gm/ 100 ml (Pmx)) 100 ml @ 200 mls /hr Q6 IVPB Last administered on 5/29/17at 13:21; Admin Dose 200 MLS/HR; Start 09/18/16 at 13:30 KARTHIKEYAN SUERO September 18, 2016 14:19
[2016-09-18 23:12] LABS: AADO2 Arterial 613.8 mmHg (7.0-24.0); Allen Test ACCEPTAB; Arterial Base Excess -2.9 mmol/L (-3.0-3); Arterial COHb 0.3 % (0.0-3.0); Arterial Fraction of Oxyhgb 90.8 % (93.0-99.0); Arterial HCO3 18.6 mmol/L (22.0-26.0); Arterial MetHb 0.4 % (0.0-1.5); Arterial Total Hemglobin 9.7 g/dl (12.0-18.0); MODE TRACH COLLAR
--- NOTE | 2016-09-18 23:25 | CONS ---
Date/Time of Note Date/Time of Note DATE: 09/18/16 TIME: 23:19 Assessment/Plan Assessment/Plan Problems: (1) Ingrown left big toenail (2) Ingrown right big toenail (3) Pneumonia Status: Acute (4) Dehydration Status: Acute Additional Assessment/Plan Patient will require bedside debridement of toenails. I will order sterile instruments to bedside. Patient will be monitored in house. Thank you again for involving me in the care of this patient. If you have any questions regarding this case, please feel free to contact me at pager: [phone] or reach me at mobile: [phone]. Consultation Date/Type/Reason Admit Date/Time September 17, 2016 at 00:34 Hx of Present Illness Thank you for your kind consultation. As you know, this is a 71-year-old male with multiple medical problems including chronic respiratory failure, status post tracheostomy, anxiety, GERD, COPD, chronic kidney disease and anemia, and dysphagia status post G-tube who was sent from [facility]. Apparently his family noted decreased oxygenation which had been fluctuating. He had cough and fever, and as such, he was brought to the ER. The patient is not able to provide any history, and as such, information is gathered from chart review. Patient was found to have possible infection in his big toes and I was contacted for evaluation and treatment. Currently patient is taken to the ICU secondary to decreased O2 sat. Patient was seen in the ICU. Constitutional: no complaints, No chills, No diaphoresis, No disoriented, No febrile, No improved, No other , No poor po, No requiring IVF, No requiring O2 Eyes: No discharge, No no complaints, No other, No pain, No redness, No visual change Psychological: no complaints Past Medical History As per HPI. Past Surgical History As per HPI. Social History Smoking Status: Former smoker Exam/Review of Systems Vital Signs Vitals Vital Signs Date Time Temp Pulse Resp B/P Pulse Ox O2 Delivery O2 Flow Rate FiO2 09/18/16 21:35 10.0 98 09/18/16 21:34 93 09/18/16 21:17 111 38 Aerosol 09/18/16 19:35 98.1 143/67 Intake and Output 09/17/16 09/17/16 09/18/16 14:59 22:59 06:59 Intake Total 1385 ml 1350 ml Output Total 800 ml 1600 ml Balance 585 ml -250 ml Exam Patient is laying supine in bed. His big toes on both feet have bandages. Bandages were removed. Patient has ingrown toenails on both big toes with the right worse that the left. There is edema and erythema with incurvation of toenail into the nail fold. There is no pus and no bleeding noted on exam. There is no malodor present. Toenails are elongated, dystrophic on both big toes. Pedal pulses are palpable and CFT is delayed on all toes. Results Result Diagram: 09/16/16212209/16/162122 Results 24 hrs Laboratory Tests Test 09/18/16 00:05 09/18/16 23:07 Urine Osmolality 601 Urine Random Sodium > 198 H Blood Gas Specimen Source Blood arterial Arterial Blood Date Drawn 09/18/2016 11:03:06 PM Arterial Blood pH (Temp corrected) 7.533 H Arterial Blood pCO2 (Temp correct) 22.6 L Arterial Blood pO2 (Temp corrected) 62.2 L Arterial Blood HCO3 18.6 L Arterial Blood Base Excess -2.9 Arterial Blood Oxygen Saturation 91.4 L [place] Test ACCEPTAB Arterial Blood Gas Puncture Site Right Radial Arterial Blood Carboxyhemoglobin 0.3 Arterial Blood Methemoglobin 0.4 Blood Gas A-a O2 Differential 613.8 H Oxyhemoglobin Percent 90.8 L Total Hemoglobin 9.7 L Blood Gas Temperature 37.0 Blood Gas Modality TRACH COLLAR FiO2 98.0 Blood Gas Notified Whom BR Blood Gas Notified Time 09/18/2016 11:11:48 PM Medications Medications Current Medications Acetaminophen (Tylenol Tab) 650 mg Q6H PRN GTB PAIN AND OR ELEVATED TEMP Last administered on 09/18/16 08:40; Admin Dose 650 MG; Start 09/17/16 at 04:00 Ascorbic Acid (Vitamin C) 500 mg DAILY GTB Last administered on 09/18/16 08:40 ; Admin Dose 500 MG; Start 09/17/16 at 09:00 Aspirin (Aspirin) 81 mg DAILY GTB Last administered on 09/18/16 08:43; Admin Dose 81 MG; Start 09/17/16 at 09:00 Bethanechol Chloride (Urecholine) 25 mg TID GTB Last administered on 09/18/16 21:01; Admin Dose 25 MG; Start 09/17/16 at 09:00 Bisacodyl (Dulcolax Supp) 10 mg DAILY PRN [place] CONSTIPATION; Start 09/17/16 at 04 :00 Docusate Sodium (Colace Liquid Cup) 100 mg BID GTB Last administered on 21:01; Admin Dose 100 MG; Start 09/17/16 at 09:00 Acetaminophen/ Hydrocodone Bitart ([place] (5/325)) 1 tab Q6 PRN PO PAIN; Start 09/17/16 at 04:00 Multivitamins Therapeutic (Theragran) 1 tab DAILY PO Last administered on 08:40; Admin Dose 1 TAB; Start 09/17/16 at 09:00 Polyethylene Glycol (Miralax) 8.5 gm DAILY PO Last administered on 09/18/16 08 :40; Admin Dose 8.5 GM; Start 09/17/16 at 09:00 Ondansetron HCl 4 mg 4 mg Q6H PRN IV NAUSEA AND/OR VOMITING; Start 09/17/16 at 04:00 Levofloxacin/ Dextrose (Levaquin 500mg/ D5W 100 ml (Pmx)) 100 ml @ 100 mls/hr Q24H IVPB Last administered on 09/18/16 04:02; Admin Dose 100 MLS/HR; Start at 04:00 Lactobacillus Acidophilus (Florajen3 Capsule) 1 each BID PO Last administered on 09/18/16 21:01; Admin Dose 1 EACH; Start 09/17/16 at 09:00 Senna (Senokot) 1 tab DAILY GTB Last administered on 09/18/16 08:40; Admin Dose 1 TAB; Start 09/17/16 at 09:00 Lansoprazole 30 mg 30 mg DAILY@06 GTB Last administered on 09/18/16 05:20; Admin Dose 30 MG; Start 09/17/16 at 06:00 Sodium Chloride 1,000 ml @ 125 mls/hr Q8H IV Last administered on 09/18/16 21 :04; Admin Dose 125 MLS/HR; Start 09/17/16 at 15:00 Piperacillin Sod/ Tazobactam Sod (Zosyn 3.375gm/ 100 ml (Pmx)) 100 ml @ 200 mls /hr Q6 IVPB Last administered on 09/18/16t 17:15; Admin Dose 200 MLS/HR; Start 09/18/16 at 13:30 LENCHO ROMERO DPMontez September 18, 2016 23:24
[2016-09-19] VITALS (27 sets, daily range): BP systolic 71–130; BP diastolic 46–89; PULSE 87–135; RESP 19–37
[2016-09-19] MEDS: ALBUTEROL/IPRATROPIUM (NEB) 3 ML AMP HHN SCH ×6 (00:13→21:28)
[2016-09-19] MEDS: ACETAMINOPHEN 650MG/20.3ML CUP GTB PRN (00:37)
[2016-09-19] MEDS: PIPER-TAZO 3.375 GM IV (PMX) 100 ML IVPB SCH ×5 (01:24→23:30)
[2016-09-19] MEDS ORDERED: VANCOMYCIN IV PER PHARMACY XX SCH (02:00)
[2016-09-19] MEDS: SOD CHLORIDE 0.45% 1,000 ML IV SCH ×3 (02:58→23:22)
[2016-09-19] MEDS ORDERED: SOD CHLORIDE 0.9% 500 ML IV ONE (03:00)
[2016-09-19] MEDS: LEVOFLOXACIN 500MG/D5W (PMX) 100 ML IVPB SCH (03:56)
[2016-09-19] MEDS: VANCOMYCIN 1 GM in NS 250 ML IVPB SCH (04:39)
[2016-09-19] MEDS: LANSOPRAZOLE 30 MG CAP GTB SCH ×2 (05:06→10:03)
--- NOTE | 2016-09-19 07:33 | CONS ---
DATE OF ADMISSION: 09/17/2016 DATE OF CONSULTATION: 09/18/2016 PULMONARY CONSULTATION PRIMARY PHYSICIAN: . REASON FOR CONSULTATION: History of chronic respiratory failure. HISTORY OF PRESENT ILLNESS: Briefly, this is a 71-year-old gentleman with history of chronic respir atory failure status post tracheostomy not however chronically vent dependent, history of severe [employer] D, chronic kidney disease, anemia, also history of G-tube placement as well as anxiety and gastroeso phageal reflux disease, who was admitted 2 days prior for signs and symptoms concerning for sepsis a s well as fluctuating arterial oxygen saturations. Currently, he is being treated for possible pneu monia and is not requiring mechanical ventilation. PAST MEDICAL HISTORY: As noted in the HPI. PAST SURGICAL HISTORY: History of tracheostomy and G-tube placement. SOCIAL HISTORY: Resident of [facility]. Prior tobacco. No alcohol or illicit drug use. ALLERGIES: NO KNOWN DRUG ALLERGIES. MEDICATIONS: Please see MAR. REVIEW OF SYSTEMS: As noted in the HPI. PHYSICAL EXAMINATION: GENERAL: Elderly cachectic male with a tracheostomy in place, in no acute distress. VITAL SIGNS: Heart rate is 98. Blood pressure is 119/58. Oxygen saturation is 98% on 40% via trac h collar. HEENT: Tracheostomy site is clear. NECK: There is no jugular venous distension, no thyromegaly. CARDIOVASCULAR: Regular rate and rhythm. S1, S2 with no murmurs, rubs, or gallops. CHEST: There are coarse rhonchi heard bilaterally with decreased breath sounds throughout. ABDOMEN: Soft. G-tube site is intact. There is no organomegaly. EXTREMITIES: Cachectic. No cyanosis, clubbing, or edema. LABORATORY DATA: WBC is 17.1. Hemoglobin is 8.8. Platelets are 422. BUN is 48. Creatinine is 1. 18. ABG: PH is 7.54, PaCO2 of 30, pO2 of 79. Sodium is 149. K is 5.5. UA is negative. INR is 1 .27. Chest x-ray including chest CT were reviewed and compared to prior. 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 This appears relatively stable compared to prior imaging from 2 ye ars' past. IMPRESSION: 1. Sepsis with associated mild lactic acidosis and mild acute kidney injury, possibly related to a mild healthcare-associated pneumonia versus tracheobronchitis in a patient with severe structural deborah ng disease. 2. Chronic respiratory failure, status post tracheostomy, not requiring mechanical ventilation. 3. 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 4. Mild acute kidney injury. 5. Lactic acidosis, resolved. 6. Hyperkalemia. 7. Hypernatremia. RECOMMENDATIONS: 1. IV fluids. 2. Monitoring of lactic acid which appears to be clear, showing a lactate clearance. 3. Extended enteric gram-negative antibiotic coverage with plans to de-escalated following cultures . 4. Send sputum for Gram stain and culture. 5. Bronchodilators, chest PT, and suctioning as needed. 6. In terms of the right upper lobe mycetoma, at this point there is no indication for any type of management unless there is complication such as hemoptysis. Dictated By: SILVANA MACKAY MD NK/NTS Conf#: [id number] DID#: [id number] CC: SILVERIO MANNING MD; CATERINA GREEN MD;*EndCC*
[2016-09-19] MEDS: DOCUSATE SODIUM 10 MG/ML (10ML CUP) GTB SCH ×2 (10:02→21:02)
[2016-09-19] MEDS: POLYETHYLENE GLYCOL 17 GM PACKET PO SCH (10:02)
[2016-09-19] MEDS: MULTIVITAMINS THERAPEUTIC TAB PO SCH (10:03)
[2016-09-19] MEDS: ASCORBIC ACID 500 MG TAB GTB SCH (10:03)
[2016-09-19] MEDS: BETHANECHOL 25 MG TAB GTB SCH ×3 (10:03→21:02)
[2016-09-19] MEDS: SENNA TAB GTB SCH (10:03)
[2016-09-19] MEDS: ASPIRIN 81 MG TAB GTB SCH (10:05)
--- NOTE | 2016-09-19 10:49 | CONS ---
DATE OF ADMISSION: 09/17/2016 DATE OF CONSULTATION: 09/19/2016 TYPE OF CONSULTATION: Palliative Care HISTORY OF PRESENT ILLNESS: The patient is non-historian. He has a PEG and trach in the intensive care unit at [facility]. He was admitted on 09/17/2016 with sepsis syndrome. The family noticed he had desaturated at the [facility] unit. He was actively transferred to [facility]. Workup done in the emergency room was consistent with sepsis syndrome and hypoxic respiratory failure. Other comorbid medical problems include a history of chronic obstruct javi pulmonary disease, gastrointestinal reflux disease, bilateral pneumonia, and sepsis secondary to pneumonia. Other comorbid problems which were found incidentally on this hospitalization, please r efer to dictated CT scan of Dr. Donell Ceja dated 09/16/2016. The impression otherwise: 1. There is abnormal density in the right lung apex and an area which measures approximately 12 x 7 cm with pleuritic thickening and central lucency in the right lung apex, suggesting a cavitary lesi on. This is seen with patchy consolidation along the inferior aspect of the cavitary lesion measuri ng 4 x 4 cm, which could represent pulmonary mass or large granuloma, but findings are overall stabl e. However, there is more soft tissue component along the inferior aspect of the cavitary lesion co mpared to the exam from 03/2015. The findings may represent granulomatous disease or malignancy. C T scan with contrast is suggested for further evaluation. 2. Interval removal of the trach and right-sided PICC line. The patient is awake, alert in the intensive care unit, but unable to participate in providing a pas t medical history. By speaking to Dr. Grey, family members have refused some appropriate care. I am asked to speak to family members and establish what the goals of care. The patient is a FULL CODE. Family members are not available in the intensive care unit at this time; therefore full palliativ e care consultation note cannot be done at this time and will defer until speaking to family members in person. MEDICATIONS: Please refer to reconciliation. ALLERGIES: NO KNOWN DRUG ALLERGIES. MAJOR MEDICAL PROBLEMS IN THE PAST: Per history of present illness, although we also have an incomp lete database. SOCIAL HISTORY: Unknown, except the patient does live in a subacute unit. FAMILY HISTORY: To be determined. REVIEW OF SYSTEMS: Cannot be obtained. PHYSICAL EXAMINATION: GENERAL: Shows an ill-appearing, elderly gentleman, who looks cachectic on examination, but in no a cute distress. VITAL SIGNS: Blood pressure 119/57, pulse 104 and regular, respirations are 30, pulse oximetry 93% on 10 liters. HEENT: He is normocephalic and atraumatic. Anicteric, acyanotic on examination. CHEST: Shows distant breath sounds throughout both lung chacko, bilateral inspiratory and expirator y rhonchi. COR: S1, S2, without S3, S4, murmur, gallop, rub. Normal rate, normal rhythm on examination. ABDOMEN: Grossly benign. NEUROLOGIC: He follows all simple commands, nods yes, nods, points, denies pain. Cranial nerves II through XII are grossly intact. Motor and sensory findings are grossly within normal limits. LABORATORY DATA: Laboratory tests have been reviewed from a palliative care standpoint. ASSESSMENT AND PLAN: This is a gentleman in the intensive care unit with hypoxic respiratory failur e, sepsis syndrome, bilateral pneumonia, cavitary lesions and family members are refusing some inter ventions. I will have a conference with them to establish goals of care. Dictated By: JOE SANDERSON MD, LP/ARPITA Conf#: [id number] DID#: [id number]
--- NOTE | 2016-09-19 10:55 | PN ---
Date/Time of Note Date/Time of Note DATE: 09/19/16 TIME: 10:40 Assessment/Plan VTE Prophylaxis VTE Prophylaxis Intervention: SCD's Lines/Catheters IV [facility] Saline Lock Urinary Cath still in place: Yes Reason Cath still needed: other (indicate) Assessment/Plan Chief Complaint/Hosp Course Assessment/Plan 1. Sepsis with lactic acidosis secondary to bacteremia and cellulitis Continue vancomycin and Zosyn, follow up sensitivity Patient has been refusing blood draws 2. bilateral pneumonia Continue IV antibiotics Fence Installer Foreman has been consulted, continue medical management 3. Highly probable urinary tract infection Continue Zosyn 4. Chronic respiratory failure status post tracheostomy Continue vent management and breathing treatment 5. Large right upper lobe cavitary lesion which could be neoplasm versus infection, associated enlarged mediastinal and carinal nodes Fence Installer Foreman has been consulted, follow up his recommendations 6. Hypernatremic dehydration Continue IV fluid 7. Chronic dysphagia status post G-tube Restart tube feeding 8. COPD Continue breathing treatment 9. Refusal of therapy 10. PVD with toe ulcer PLAN: * Unable to do much without labs * Spoke with patient's daughter, she will come speak to him / recommended PICC line. * Continue current abx and fluids / Patient clinically improved. * Also recommended tele Psych. Patient's daughter wants to speak with him first * Will review CT findings with family once present at bedside * Continue bronchodilators and mucolytics * f/u final cultures * Continue to monitor in ICU secondary to hypotension Problems: Subjective 24 Hr Interval Summary Free Text/Dictation Patient has been refusing blood draws He has been having frequent coughs and secretions from trach Tube feeding has been placed on hold Patient has been found to be hypotensive with systolic blood pressure ranging between 80s-90s Denies of any abdominal discomfort Exam/Review of Systems Vital Signs Vitals Vital Signs Date Time Temp Pulse Resp B/P Pulse Ox O2 Delivery O2 Flow Rate FiO2 09/19/16 09:00 104 30 90/57 93 Trach Collar 09/19/16 08:37 10.0 98 09/19/16 08:00 99.5 Intake and Output 09/18/16 09/18/16 09/19/16 15:00 23:00 07:00 Intake Total 1525 ml 625 ml Output Total 700 ml 950 ml Balance 825 ml -325 ml Exam General: The patient is well-developed, Not in acute distress. HEENT: Atraumatic, normocephalic. The pupils are equal Neck: Supple, trach in place . Chest: Normal Lungs: Decreased breath sounds bilateral lower lung field, no wheezing Heart: Normal S1-S2, Regular rhythm and rate. Abdomen: Soft , nontender, nondistended , bowel sounds are present. PEG tube in place Extremities: Bilateral upper extremity weakness with flexion of the right wrist , no edema no cyanosis Neurologic: Normal mental status,The patient is awake, alert Results Result Diagram: 09/16/16212209/16/162122 Results 24 hrs Laboratory Tests Test 09/18/16 23:07 Blood Gas Specimen Source Blood arterial Arterial Blood Date Drawn 09/18/2016 11:03:06 PM Arterial Blood pH (Temp corrected) 7.533 H Arterial Blood pCO2 (Temp correct) 22.6 L Arterial Blood pO2 (Temp corrected) 62.2 L Arterial Blood HCO3 18.6 L Arterial Blood Base Excess -2.9 Arterial Blood Oxygen Saturation 91.4 L [place] Test ACCEPTAB Arterial Blood Gas Puncture Site Right Radial Arterial Blood Carboxyhemoglobin 0.3 Arterial Blood Methemoglobin 0.4 Blood Gas A-a O2 Differential 613.8 H Oxyhemoglobin Percent 90.8 L Total Hemoglobin 9.7 L Blood Gas Temperature 37.0 Blood Gas Modality TRACH COLLAR FiO2 98.0 Blood Gas Notified Whom BR Blood Gas Notified Time 09/18/2016 11:11:48 PM Medications Medications Current Medications Acetaminophen (Tylenol Tab) 650 mg Q6H PRN GTB PAIN AND OR ELEVATED TEMP Last administered on 09/18/16 08:40; Admin Dose 650 MG; Start 09/17/16 at 04:00 Ascorbic Acid (Vitamin C) 500 mg DAILY GTB Last administered on 09/19/16 10:03 ; Admin Dose 500 MG; Start 09/17/16 at 09:00 Aspirin (Aspirin) 81 mg DAILY GTB Last administered on 09/19/16 10:05; Admin Dose 81 MG; Start 09/17/16 at 09:00 Bethanechol Chloride (Urecholine) 25 mg TID GTB Last administered on 09/19/16 10:03; Admin Dose 25 MG; Start 09/17/16 at 09:00 Bisacodyl (Dulcolax Supp) 10 mg DAILY PRN [place] CONSTIPATION; Start 09/17/16 at 04 :00 Docusate Sodium (Colace Liquid Cup) 100 mg BID GTB Last administered on 10:02; Admin Dose 100 MG; Start 09/17/16 at 09:00 Acetaminophen/ Hydrocodone Bitart ([place] (5/325)) 1 tab Q6 PRN PO PAIN; Start 09/17/16 at 04:00 Multivitamins Therapeutic (Theragran) 1 tab DAILY PO Last administered on 10:03; Admin Dose 1 TAB; Start 09/17/16 at 09:00 Polyethylene Glycol (Miralax) 8.5 gm DAILY PO Last administered on 09/19/16 10 :02; Admin Dose 8.5 GM; Start 09/17/16 at 09:00 Ondansetron HCl 4 mg 4 mg Q6H PRN IV NAUSEA AND/OR VOMITING; Start 09/17/16 at 04:00 Levofloxacin/ Dextrose (Levaquin 500mg/ D5W 100 ml (Pmx)) 100 ml @ 100 mls/hr Q24H IVPB Last administered on 09/19/16 03:56; Admin Dose 100 MLS/HR; Start at 04:00 Lactobacillus Acidophilus (Florajen3 Capsule) 1 each BID PO Last administered on 09/18/16 21:01; Admin Dose 1 EACH; Start 09/17/16 at 09:00 Senna (Senokot) 1 tab DAILY GTB Last administered on 09/19/16 10:03; Admin Dose 1 TAB; Start 09/17/16 at 09:00 Lansoprazole 30 mg 30 mg DAILY@06 GTB Last administered on 09/19/16 10:03; Admin Dose 30 MG; Start 09/17/16 at 06:00 Sodium Chloride 1,000 ml @ 125 mls/hr Q8H IV Last administered on 09/19/16 02 :58; Admin Dose 125 MLS/HR; Start 09/17/16 at 15:00 Piperacillin Sod/ Tazobactam Sod (Zosyn 3.375gm/ 100 ml (Pmx)) 100 ml @ 200 mls /hr Q6 IVPB Last administered on 09/19/16 05:06; Admin Dose 200 MLS/HR; Start 09/18/16 at 13:30 Acetaminophen 650 mg 650 mg Q4H PRN GTB PAIN AND OR ELEVATED TEMP Last administered on 09/19/16 00:37; Admin Dose 650 MG; Start 09/19/16 at 00:00 Vancomycin HCl (Vancocin) 250 ml @ 125 mls/hr Q24H IVPB Last administered on 04:39; Admin Dose 125 MLS/HR; Start 09/19/16 at 03:00 MELANI WALTERS MD September 19, 2016 10:50
[2016-09-19] MEDS: L ACIDOPHIL/B LACTIS/B LONGUM CAPSULE PO SCH ×2 (11:11→21:02)
--- NOTE | 2016-09-19 11:31 | CONS ---
Date/Time of Note Date/Time of Note DATE: 09/19/16 TIME: 11:29 Consult Date/Type/Reason Admit Date/Time September 17, 2016 at 00:34 Initial Consult Date Type of Consultation: Pulmonary Subjective Awake alert oriented comfortable on cool aerosol Objective Vital Signs Date Time Temp Pulse Resp B/P Pulse Ox O2 Delivery O2 Flow Rate FiO2 09/19/16 09:00 104 30 90/57 93 Trach Collar 09/19/16 08:37 10.0 98 09/19/16 08:00 99.5 Intake and Output 09/18/16 09/18/16 09/19/16 14:59 22:59 06:59 Intake Total 1400 ml 750 ml Output Total 700 ml 950 ml Balance 700 ml -200 ml Exam PHYSICAL EXAMINATION: GENERAL: Elderly cachectic male with a tracheostomy in place, in no acute distress. VITAL SIGNS: as above HEENT: Tracheostomy site is clear. NECK: There is no jugular venous distension, no thyromegaly. CARDIOVASCULAR: Regular rate and rhythm. S1, S2 with no murmurs, rubs, or gallops. CHEST: There are coarse rhonchi heard bilaterally with decreased breath sounds throughout. ABDOMEN: Soft. G-tube site is intact. There is no organomegaly. EXTREMITIES: Cachectic. No cyanosis, clubbing, or edema. Results/Medications Result Diagram: 09/16/16212209/16/162122 Results 24 hrs Laboratory Tests Test 09/18/16 23:07 Blood Gas Specimen Source Blood arterial Arterial Blood Date Drawn 09/18/2016 11:03:06 PM Arterial Blood pH (Temp corrected) 7.533 H Arterial Blood pCO2 (Temp correct) 22.6 L Arterial Blood pO2 (Temp corrected) 62.2 L Arterial Blood HCO3 18.6 L Arterial Blood Base Excess -2.9 Arterial Blood Oxygen Saturation 91.4 L [place] Test ACCEPTAB Arterial Blood Gas Puncture Site Right Radial Arterial Blood Carboxyhemoglobin 0.3 Arterial Blood Methemoglobin 0.4 Blood Gas A-a O2 Differential 613.8 H Oxyhemoglobin Percent 90.8 L Total Hemoglobin 9.7 L Blood Gas Temperature 37.0 Blood Gas Modality TRACH COLLAR FiO2 98.0 Blood Gas Notified Whom BR Blood Gas Notified Time 09/18/2016 11:11:48 PM Medications Current Medications Acetaminophen (Tylenol Tab) 650 mg Q6H PRN GTB PAIN AND OR ELEVATED TEMP Last administered on 09/18/16 08:40; Admin Dose 650 MG; Start 09/17/16 at 04:00 Ascorbic Acid (Vitamin C) 500 mg DAILY GTB Last administered on 09/19/16 10:03 ; Admin Dose 500 MG; Start 09/17/16 at 09:00 Aspirin (Aspirin) 81 mg DAILY GTB Last administered on 09/19/16 10:05; Admin Dose 81 MG; Start 09/17/16 at 09:00 Bethanechol Chloride (Urecholine) 25 mg TID GTB Last administered on 09/19/16 10:03; Admin Dose 25 MG; Start 09/17/16 at 09:00 Bisacodyl (Dulcolax Supp) 10 mg DAILY PRN [place] CONSTIPATION; Start 09/17/16 at 04 :00 Docusate Sodium (Colace Liquid Cup) 100 mg BID GTB Last administered on 10:02; Admin Dose 100 MG; Start 09/17/16 at 09:00 Acetaminophen/ Hydrocodone Bitart ([place] (5/325)) 1 tab Q6 PRN PO PAIN; Start 09/17/16 at 04:00 Multivitamins Therapeutic (Theragran) 1 tab DAILY PO Last administered on 10:03; Admin Dose 1 TAB; Start 09/17/16 at 09:00 Polyethylene Glycol (Miralax) 8.5 gm DAILY PO Last administered on 09/19/16 10 :02; Admin Dose 8.5 GM; Start 09/17/16 at 09:00 Ondansetron HCl 4 mg 4 mg Q6H PRN IV NAUSEA AND/OR VOMITING; Start 09/17/16 at 04:00 Levofloxacin/ Dextrose (Levaquin 500mg/ D5W 100 ml (Pmx)) 100 ml @ 100 mls/hr Q24H IVPB Last administered on 09/19/16 03:56; Admin Dose 100 MLS/HR; Start at 04:00 Lactobacillus Acidophilus (Florajen3 Capsule) 1 each BID PO Last administered on 09/19/16 11:11; Admin Dose 1 EACH; Start 09/17/16 at 09:00 Senna (Senokot) 1 tab DAILY GTB Last administered on 09/19/16 10:03; Admin Dose 1 TAB; Start 09/17/16 at 09:00 Lansoprazole 30 mg 30 mg DAILY@06 GTB Last administered on 09/19/16 10:03; Admin Dose 30 MG; Start 09/17/16 at 06:00 Sodium Chloride 1,000 ml @ 125 mls/hr Q8H IV Last administered on 09/19/16 02 :58; Admin Dose 125 MLS/HR; Start 09/17/16 at 15:00 Piperacillin Sod/ Tazobactam Sod (Zosyn 3.375gm/ 100 ml (Pmx)) 100 ml @ 200 mls /hr Q6 IVPB Last administered on 09/19/16 05:06; Admin Dose 200 MLS/HR; Start 09/18/16 at 13:30 Acetaminophen 650 mg 650 mg Q4H PRN GTB PAIN AND OR ELEVATED TEMP Last administered on 09/19/16 00:37; Admin Dose 650 MG; Start 09/19/16 at 00:00 Vancomycin HCl (Vancocin) 250 ml @ 125 mls/hr Q24H IVPB Last administered on 04:39; Admin Dose 125 MLS/HR; Start 09/19/16 at 03:00 Assessment/Plan Chief Complaint/Hosp Course IMPRESSION: 1. Sepsis with associated mild lactic acidosis and mild acute kidney injury, possibly related to a mild healthcare-associated pneumonia versus tracheobronchitis in a patient with severe structural lung disease. 2. Chronic respiratory failure, status post tracheostomy, not requiring mechanical ventilation. 3. 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 4. Mild acute kidney injury. 5. Lactic acidosis, resolved. 6. Hyperkalemia. 7. Hypernatremia. RECOMMENDATIONS: 1. IV fluids. 2. Monitor lactic acid 3. Extended enteric gram-negative antibiotic coverage with plans to de- escalated following cultures. 4. Send sputum for Gram stain and culture. 5. Bronchodilators, chest PT, and suctioning as needed. 6. No further recommendations regarding mycetoma Transfer to telemetry okay from pulmonary standpoint Problems: SILVERIO [facility]ANNING [facility], [facility] September 19, 2016 11:30
--- NOTE | 2016-09-19 18:36 | CONS ---
Date/Time of Note Date/Time of Note DATE: 09/19/16 TIME: 18:35 Assessment/Plan Assessment/Plan Chief Complaint/Hosp Course RENAL RITA DEHYDRATION AZOTEMIA PEG PNEUMONIA PLAN LYTES IV FREEE WATER ck labs Problems: Consultation Date/Type/Reason Admit Date/Time September 17, 2016 at 00:34 Type of Consultation: renal 24 HR Interval Summary Constitutional: no complaints, other (refusing labs) Exam/Review of Systems Vital Signs Vitals Vital Signs Date Time Temp Pulse Resp B/P Pulse Ox O2 Delivery O2 Flow Rate FiO2 09/19/16 18:00 104 31 98/62 88 Trach Collar 09/19/16 16:30 10.0 60 09/19/16 16:00 98.6 Intake and Output 09/18/16 09/18/16 09/19/16 15:00 23:00 07:00 Intake Total 1525 ml 975 ml Output Total 700 ml 950 ml Balance 825 ml 25 ml Exam Respiratory: clear to auscultation Cardiovascular: regular rate and rhythm Gastrointestinal: soft Results Result Diagram: 09/16/16212209/16/162122 Results 24 hrs Laboratory Tests Test 09/18/16 23:07 Blood Gas Specimen Source Blood arterial Arterial Blood Date Drawn 09/18/2016 11:03:06 PM Arterial Blood pH (Temp corrected) 7.533 H Arterial Blood pCO2 (Temp correct) 22.6 L Arterial Blood pO2 (Temp corrected) 62.2 L Arterial Blood HCO3 18.6 L Arterial Blood Base Excess -2.9 Arterial Blood Oxygen Saturation 91.4 L [place] Test ACCEPTAB Arterial Blood Gas Puncture Site Right Radial Arterial Blood Carboxyhemoglobin 0.3 Arterial Blood Methemoglobin 0.4 Blood Gas A-a O2 Differential 613.8 H Oxyhemoglobin Percent 90.8 L Total Hemoglobin 9.7 L Blood Gas Temperature 37.0 Blood Gas Modality TRACH COLLAR FiO2 98.0 Blood Gas Notified Whom BR Blood Gas Notified Time 09/18/2016 11:11:48 PM Medications Medications Current Medications Acetaminophen (Tylenol Tab) 650 mg Q6H PRN GTB PAIN AND OR ELEVATED TEMP Last administered on 09/18/16 08:40; Admin Dose 650 MG; Start 09/17/16 at 04:00 Ascorbic Acid (Vitamin C) 500 mg DAILY GTB Last administered on 09/19/16 10:03 ; Admin Dose 500 MG; Start 09/17/16 at 09:00 Aspirin (Aspirin) 81 mg DAILY GTB Last administered on 09/19/16 10:05; Admin Dose 81 MG; Start 09/17/16 at 09:00 Bethanechol Chloride (Urecholine) 25 mg TID GTB Last administered on 09/19/16 12:32; Admin Dose 25 MG; Start 09/17/16 at 09:00 Bisacodyl (Dulcolax Supp) 10 mg DAILY PRN [place] CONSTIPATION; Start 09/17/16 at 04 :00 Docusate Sodium (Colace Liquid Cup) 100 mg BID GTB Last administered on 10:02; Admin Dose 100 MG; Start 09/17/16 at 09:00 Acetaminophen/ Hydrocodone Bitart ([place] (5/325)) 1 tab Q6 PRN PO PAIN; Start 09/17/16 at 04:00 Multivitamins Therapeutic (Theragran) 1 tab DAILY PO Last administered on 10:03; Admin Dose 1 TAB; Start 09/17/16 at 09:00 Polyethylene Glycol (Miralax) 8.5 gm DAILY PO Last administered on 09/19/16 10 :02; Admin Dose 8.5 GM; Start 09/17/16 at 09:00 Ondansetron HCl 4 mg 4 mg Q6H PRN IV NAUSEA AND/OR VOMITING; Start 09/17/16 at 04:00 Levofloxacin/ Dextrose (Levaquin 500mg/ D5W 100 ml (Pmx)) 100 ml @ 100 mls/hr Q24H IVPB Last administered on 09/19/16 03:56; Admin Dose 100 MLS/HR; Start at 04:00 Lactobacillus Acidophilus (Florajen3 Capsule) 1 each BID PO Last administered on 09/19/16 11:11; Admin Dose 1 EACH; Start 09/17/16 at 09:00 Senna (Senokot) 1 tab DAILY GTB Last administered on 09/19/16 10:03; Admin Dose 1 TAB; Start 09/17/16 at 09:00 Lansoprazole 30 mg 30 mg DAILY@06 GTB Last administered on 09/19/16 10:03; Admin Dose 30 MG; Start 09/17/16 at 06:00 Sodium Chloride 1,000 ml @ 125 mls/hr Q8H IV Last administered on 09/19/16 14 :05; Admin Dose 125 MLS/HR; Start 09/17/16 at 15:00 Piperacillin Sod/ Tazobactam Sod (Zosyn 3.375gm/ 100 ml (Pmx)) 100 ml @ 200 mls /hr Q6 IVPB Last administered on 09/19/16 17:45; Admin Dose 200 MLS/HR; Start 09/18/16 at 13:30 Acetaminophen 650 mg 650 mg Q4H PRN GTB PAIN AND OR ELEVATED TEMP Last administered on 09/19/16 00:37; Admin Dose 650 MG; Start 09/19/16 at 00:00 Vancomycin HCl (Vancocin) 250 ml @ 125 mls/hr Q24H IVPB Last administered on 04:39; Admin Dose 125 MLS/HR; Start 09/19/16 at 03:00 KANDICE DIXON MD September 19, 2016 18:36
[2016-09-20] VITALS (24 sets, daily range): BP systolic 89–142; BP diastolic 53–83; PULSE 94–116; RESP 20–34
[2016-09-20] MEDS: ALBUTEROL/IPRATROPIUM (NEB) 3 ML AMP HHN SCH ×6 (01:36→20:14)
[2016-09-20] MEDS: VANCOMYCIN 1 GM in NS 250 ML IVPB SCH (02:58)
[2016-09-20] MEDS: LEVOFLOXACIN 500MG/D5W (PMX) 100 ML IVPB SCH (04:32)
[2016-09-20] MEDS: SOD CHLORIDE 0.45% 1,000 ML IV SCH ×3 (05:05→20:51)
[2016-09-20] MEDS: PIPER-TAZO 3.375 GM IV (PMX) 100 ML IVPB SCH ×3 (05:38→17:20)
[2016-09-20] MEDS: DOCUSATE SODIUM 10 MG/ML (10ML CUP) GTB SCH ×2 (08:26→20:49)
[2016-09-20] MEDS: POLYETHYLENE GLYCOL 17 GM PACKET PO SCH (08:27)
[2016-09-20] MEDS: SENNA TAB GTB SCH (08:27)
[2016-09-20] MEDS: ASPIRIN 81 MG TAB GTB SCH (08:35)
[2016-09-20] MEDS: BETHANECHOL 25 MG TAB GTB SCH ×3 (08:35→20:49)
[2016-09-20] MEDS: MULTIVITAMINS THERAPEUTIC TAB PO SCH (08:36)
[2016-09-20] MEDS: ASCORBIC ACID 500 MG TAB GTB SCH (08:36)
[2016-09-20] MEDS: L ACIDOPHIL/B LACTIS/B LONGUM CAPSULE PO SCH ×2 (08:38→20:51)
--- NOTE | 2016-09-20 09:52 | CONS ---
Date/Time of Note Date/Time of Note DATE: 09/20/16 TIME: 09:46 Consult Date/Type/Reason Admit Date/Time September 17, 2016 at 00:34 Type of Consultation: Pulmonary ICU Subjective Patient remains stable in the intensive care unit tolerating tube feeding no significant shortness of breath Moderate oral secretions Objective Vital Signs Date Time Temp Pulse Resp B/P Pulse Ox O2 Delivery O2 Flow Rate FiO2 09/20/16 08:00 101 33 102/71 98 Trach Collar 09/20/16 08:00 10.0 09/20/16 08:00 99.0 09/20/16 05:00 98 Intake and Output 09/19/16 09/19/16 09/20/16 15:00 23:00 07:00 Intake Total 1145 ml 1577.5 ml 1695 ml Output Total 930 ml 1020 ml 850 ml Balance 215 ml 557.5 ml 845 ml Exam PHYSICAL EXAMINATION: GENERAL: Elderly cachectic male with a tracheostomy in place, in no acute distress. VITAL SIGNS: as above HEENT: Tracheostomy site is clear. NECK: There is no jugular venous distension, no thyromegaly. CARDIOVASCULAR: Regular rate and rhythm. S1, S2 with no murmurs, rubs, or gallops. CHEST: There are coarse rhonchi heard bilaterally with decreased breath sounds throughout. ABDOMEN: Soft. G-tube site is intact. There is no organomegaly. EXTREMITIES: Cachectic. No cyanosis, clubbing, or edema. Results/Medications Result Diagram: 09/16/16212209/16/162122 Medications Current Medications Acetaminophen (Tylenol Tab) 650 mg Q6H PRN GTB PAIN AND OR ELEVATED TEMP Last administered on 09/18/16 08:40; Admin Dose 650 MG; Start 09/17/16 at 04:00 Ascorbic Acid (Vitamin C) 500 mg DAILY GTB Last administered on 09/20/16 08:36 ; Admin Dose 500 MG; Start 09/17/16 at 09:00 Aspirin (Aspirin) 81 mg DAILY GTB Last administered on 09/20/16 08:35; Admin Dose 81 MG; Start 09/17/16 at 09:00 Bethanechol Chloride (Urecholine) 25 mg TID GTB Last administered on 09/20/16 08:35; Admin Dose 25 MG; Start 09/17/16 at 09:00 Bisacodyl (Dulcolax Supp) 10 mg DAILY PRN [place] CONSTIPATION; Start 09/17/16 at 04 :00 Docusate Sodium (Colace Liquid Cup) 100 mg BID GTB Last administered on 21:02; Admin Dose 100 MG; Start 09/17/16 at 09:00 Acetaminophen/ Hydrocodone Bitart ([place] (5/325)) 1 tab Q6 PRN PO PAIN; Start 09/17/16 at 04:00 Multivitamins Therapeutic (Theragran) 1 tab DAILY PO Last administered on 08:36; Admin Dose 1 TAB; Start 09/17/16 at 09:00 Polyethylene Glycol (Miralax) 8.5 gm DAILY PO Last administered on 09/19/16 10 :02; Admin Dose 8.5 GM; Start 09/17/16 at 09:00 Ondansetron HCl 4 mg 4 mg Q6H PRN IV NAUSEA AND/OR VOMITING; Start 09/17/16 at 04:00 Levofloxacin/ Dextrose (Levaquin 500mg/ D5W 100 ml (Pmx)) 100 ml @ 100 mls/hr Q24H IVPB Last administered on 09/20/16 04:32; Admin Dose 100 MLS/HR; Start at 04:00 Lactobacillus Acidophilus (Florajen3 Capsule) 1 each BID PO Last administered on 09/20/16 08:38; Admin Dose 1 EACH; Start 09/17/16 at 09:00 Senna (Senokot) 1 tab DAILY GTB Last administered on 09/19/16 10:03; Admin Dose 1 TAB; Start 09/17/16 at 09:00 Lansoprazole 30 mg 30 mg DAILY@06 GTB Last administered on 09/19/16 10:03; Admin Dose 30 MG; Start 09/17/16 at 06:00 Sodium Chloride 1,000 ml @ 125 mls/hr Q8H IV Last administered on 09/19/16 23 :22; Admin Dose 125 MLS/HR; Start 09/17/16 at 15:00 Piperacillin Sod/ Tazobactam Sod (Zosyn 3.375gm/ 100 ml (Pmx)) 100 ml @ 200 mls /hr Q6 IVPB Last administered on 09/20/16 05:38; Admin Dose 200 MLS/HR; Start 09/18/16 at 13:30 Acetaminophen 650 mg 650 mg Q4H PRN GTB PAIN AND OR ELEVATED TEMP Last administered on 09/19/16 00:37; Admin Dose 650 MG; Start 09/19/16 at 00:00 Vancomycin HCl (Vancocin) 250 ml @ 125 mls/hr Q24H IVPB Last administered on 02:58; Admin Dose 125 MLS/HR; Start 09/19/16 at 03:00 Assessment/Plan Chief Complaint/Hosp Course IMPRESSION: 1. Sepsis with associated mild lactic acidosis and mild acute kidney injury, possibly related to a mild healthcare-associated pneumonia versus tracheobronchitis in a patient with severe structural lung disease. Clinically improving 2. Chronic respiratory failure, status post tracheostomy, not requiring mechanical ventilation. 3. 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 4. Mild acute kidney injury. 5. Lactic acidosis, resolved. 6. Hyperkalemia. 7. Hypernatremia. RECOMMENDATIONS: 1. IV fluids. 2. Monitor lactic acid 3. Extended enteric gram-negative antibiotic coverage with plans to de- escalated following cultures. 4. Send sputum for Gram stain and culture. 5. Bronchodilators, chest PT, and suctioning as needed. 6. No further recommendations regarding mycetoma 7. ID consult Dr. Diaz Transfer to telemetry [place] from pulmonary standpoint Follow consult for ongoing antibiotics, abnormal electrolytes and trach site care Problems: [facility]IL[facility] September 20, 2016 09:51
--- NOTE | 2016-09-20 11:14 | PN ---
Date/Time of Note Date/Time of Note DATE: 09/20/16 TIME: 11:08 Assessment/Plan VTE Prophylaxis VTE Prophylaxis Intervention: SCD's Lines/Catheters IV Catheter Type (from Rust): Peripheral IV Urinary Cath still in place: Yes Reason Cath still needed: other (indicate) Assessment/Plan Chief Complaint/Hosp Course Assessment/Plan 1. Sepsis with lactic acidosis secondary to bacteremia and cellulitis Continue vancomycin and Zosyn, follow up sensitivity Patient has been refusing blood draws 2. Bilateral pneumonia Continue IV antibiotics Full Stack Software Engineer has been consulted, continue medical management 3. Highly probable urinary tract infection Continue Zosyn 4. Ventilator dependent respiratory failure status post tracheostomy Continue vent management and breathing treatment Cannon eval 5. Large right upper lobe cavitary lesion which could be neoplasm versus infection, associated enlarged mediastinal and carinal nodes Full Stack Software Engineer has been consulted, follow up his recommendations 6. Hypernatremic dehydration Continue IV fluid 7. Chronic dysphagia status post G-tube Continue tube feeding 8. COPD Continue breathing treatment 9. Refusal of therapy 10. PVD with toe ulcer PLAN: * Unable to do much without labs * Spoke with patient's daughter, she will come speak to him / recommended PICC line. * Continue current abx and fluids / Patient clinically improved. * Also recommended tele Psych. Patient's daughter wants to speak with him first * Will review CT findings with family once present at bedside * Continue bronchodilators and mucolytics * f/u final cultures * Transfer to telemetry floor Problems: Subjective 24 Hr Interval Summary Free Text/Dictation Patient has been refusing blood draws on medical management He has been started on PEG tube feeding and he has been tolerating the feeding Continues to have frequent coughs and secretions Denies of any chest pain Exam/Review of Systems Vital Signs Vitals Vital Signs Date Time Temp Pulse Resp B/P Pulse Ox O2 Delivery O2 Flow Rate FiO2 09/20/16 09:05 97 26 94 Aerosol Mask 10.0 98 09/20/16 08:00 102/71 09/20/16 08:00 99.0 Intake and Output 09/19/16 09/19/16 09/20/16 15:00 23:00 07:00 Intake Total 1145 ml 1577.5 ml 1695 ml Output Total 930 ml 1020 ml 850 ml Balance 215 ml 557.5 ml 845 ml Exam General: The patient is well-developed, Not in acute distress. HEENT: Atraumatic, normocephalic. The pupils are equal and round . Neck: Supple, trach in place Chest: Normal expansion of the thorax during inspiration Lungs: Positive crackles bilateral lower lung field Heart: Normal S1-S2, Regular rhythm and rate. Abdomen: Soft , nontender, nondistended , bowel sounds are present. PEG tube in place Extremities: Bilateral upper extremity weakness with flexion of the wrist, bilateral lower extremity weakness and muscle wasting, no edema no cyanosis Neurologic: Normal mental status,The patient is awake, alert . Results Result Diagram: 09/16/16212209/16/162122 Medications Medications Current Medications Acetaminophen (Tylenol Tab) 650 mg Q6H PRN GTB PAIN AND OR ELEVATED TEMP Last administered on 09/18/16 08:40; Admin Dose 650 MG; Start 09/17/16 at 04:00 Ascorbic Acid (Vitamin C) 500 mg DAILY GTB Last administered on 09/20/16 08:36 ; Admin Dose 500 MG; Start 09/17/16 at 09:00 Aspirin (Aspirin) 81 mg DAILY GTB Last administered on 09/20/16 08:35; Admin Dose 81 MG; Start 09/17/16 at 09:00 Bethanechol Chloride (Urecholine) 25 mg TID GTB Last administered on 09/20/16 08:35; Admin Dose 25 MG; Start 09/17/16 at 09:00 Bisacodyl (Dulcolax Supp) 10 mg DAILY PRN [place] CONSTIPATION; Start 09/17/16 at 04 :00 Docusate Sodium (Colace Liquid Cup) 100 mg BID GTB Last administered on 21:02; Admin Dose 100 MG; Start 09/17/16 at 09:00 Acetaminophen/ Hydrocodone Bitart ([place] (5/325)) 1 tab Q6 PRN PO PAIN; Start 09/17/16 at 04:00 Multivitamins Therapeutic (Theragran) 1 tab DAILY PO Last administered on 08:36; Admin Dose 1 TAB; Start 09/17/16 at 09:00 Polyethylene Glycol (Miralax) 8.5 gm DAILY PO Last administered on 09/19/16 10 :02; Admin Dose 8.5 GM; Start 09/17/16 at 09:00 Ondansetron HCl 4 mg 4 mg Q6H PRN IV NAUSEA AND/OR VOMITING; Start 09/17/16 at 04:00 Levofloxacin/ Dextrose (Levaquin 500mg/ D5W 100 ml (Pmx)) 100 ml @ 100 mls/hr Q24H IVPB Last administered on 09/20/16 04:32; Admin Dose 100 MLS/HR; Start at 04:00 Lactobacillus Acidophilus (Florajen3 Capsule) 1 each BID PO Last administered on 09/20/16 08:38; Admin Dose 1 EACH; Start 09/17/16 at 09:00 Senna (Senokot) 1 tab DAILY GTB Last administered on 09/19/16 10:03; Admin Dose 1 TAB; Start 09/17/16 at 09:00 Lansoprazole 30 mg 30 mg DAILY@06 GTB Last administered on 09/19/16 10:03; Admin Dose 30 MG; Start 09/17/16 at 06:00 Sodium Chloride 1,000 ml @ 125 mls/hr Q8H IV Last administered on 09/19/16 23 :22; Admin Dose 125 MLS/HR; Start 09/17/16 at 15:00 Piperacillin Sod/ Tazobactam Sod (Zosyn 3.375gm/ 100 ml (Pmx)) 100 ml @ 200 mls /hr Q6 IVPB Last administered on 09/20/16 05:38; Admin Dose 200 MLS/HR; Start 09/18/16 at 13:30 Acetaminophen 650 mg 650 mg Q4H PRN GTB PAIN AND OR ELEVATED TEMP Last administered on 09/19/16 00:37; Admin Dose 650 MG; Start 09/19/16 at 00:00 Vancomycin HCl (Vancocin) 250 ml @ 125 mls/hr Q24H IVPB Last administered on 02:58; Admin Dose 125 MLS/HR; Start 09/19/16 at 03:00 MELANI WALTERS MD September 20, 2016 11:14
--- NOTE | 2016-09-20 13:50 | CONS ---
DATE OF ADMISSION: 09/17/2016 DATE OF CONSULTATION: 09/20/2016 INFECTIOUS DISEASE CONSULT REASON FOR CONSULTATION: Antibiotic management. HISTORY OF PRESENT ILLNESS: Joe Rodriguez is a 71-year-old male admitted on the with fever, cough and low oxygenation. His past problems include: 1. Chronic respiratory failure, status post tracheostomy. 2. COPD. 3. GERD. 4. Anxiety. 5. Chronic renal disease. 6. Anemia. 7. Dysphagia, status post G-tube placement. The patient was sent from halfway facility with lowered oxygen saturation, fever and cough. In the emergency room, his blood pressure was 100/98 and his oxygen saturation was 86% on 10 liters , temperature was 101.7. His white count was 17,000, hemoglobin 8.8, platelet count 422,000. His B UN and creatinine was 48/1.19, AST 49, ALT 35, total protein 9.8, albumin 3.5. Urine was negative f or nitrites and for leukocyte esterase. A chest x-ray showed an abnormal density at the right lung apex, an area which measures 12 x 7 cm with pleural thickening and central lucency in the right lung apex, suggesting a cavitary lesion. This is seen with patchy consolidation along the inferior aspe ct of the cavitary lesion measuring 4 x 4 cm, which could represent pulmonary masses or large granul sury. The findings are overall nearly stable. There is a soft tissue component along the medial inf erior aspect of the cavitary lesion compared to exam from 03/2015 and interval removal of tracheosto my tube with right-sided decline. Findings may represent granulomatous disease and malignancy, CT w ith contrast was suggested. This was done on the . His blood cultures are growing gram-positiv e cocci in clusters. There is a wound which is growing Staph aureus. The patient was placed on ant ibiotic therapy with vancomycin, Zosyn, and Levaquin. HOSPITAL COURSE: The patient was seen by Dr. Fay in nephrology consultation. The patient with de hydration, azotemia and G-tube pneumonia. He was seen by Dr. Sim for ingrown left big toenail an d ingrown right big toenail, which required bedside debridement of the toenails. The patient was no tamika to have dysphagia with G-tube in place, status post tracheostomy; cultures were done. On the 27 th his white count was 17.1. Currently he is stable in the intensive care unit. He has a tracheost rosales in place. He is septic with lactic acidosis secondary to bacteremia and cellulitis, as well as bilateral pneumonia. PAST MEDICAL AND SURGICAL HISTORY: Operations as outlined. FAMILY HISTORY: Noncontributory. SOCIAL HISTORY: He does not smoke, drink or abuse drugs at this point. ALLERGIES: NONE TO PENICILLIN, SULFA OR FOODS. MEDICATIONS: Per chart. REVIEW OF SYSTEMS: As per HPI. PHYSICAL EXAMINATION: GENERAL: The patient is an elderly cachectic male with tracheostomy in place, in no acute distress. VITAL SIGNS: Stable. He is afebrile. SKIN: Without generalized rash. He had a debridement to both of his big toes. HEENT: Within normal limits. NECK: Tracheostomy in place. Tracheostomy site is clear. LYMPH NODES: None palpable. CHEST: Decreased breath sounds at the bases with coarse rhonchi bilaterally. ABDOMEN: Soft, nontender, without organosplenomegaly or masses. G-tube is intact. EXTREMITIES: Without cyanosis, clubbing, or edema. The patient is cachectic. RECTAL AND GENITAL: Deferred. NEUROLOGIC: No focal neurological abnormality. IMPRESSION AND PLAN: The patient has sepsis with associated lactic acidosis, mild acute kidney inju ry and healthcare-associated pneumonia in the setting of severe obstructive pulmonary disease. At t his point, he is not requiring mechanical ventilation. 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 I doubt that we need to treat that. We will continue him on his regimen of vancomycin and Zosyn for the time being. I will dictate my findings to the hospital ist and to Dr. Strauss, seeing Roney. Dictated By: TAMMIE DELGADO MD, JD/NTS Conf#: [id number] DID#: [id number] CC: YESI MOELLER MD;*End*
--- NOTE | 2016-09-20 19:47 | CONS ---
Date/Time of Note Date/Time of Note DATE: 09/20/16 TIME: 19:47 Assessment/Plan Assessment/Plan Chief Complaint/Hosp Course RENAL RITA DEHYDRATION AZOTEMIA PEG PNEUMONIA PLAN LYTES IV FREEE WATER ck labs pt refused Problems: Consultation Date/Type/Reason Admit Date/Time September 17, 2016 at 00:34 Type of Consultation: renal 24 HR Interval Summary Constitutional: other (no labs) Exam/Review of Systems Vital Signs Vitals Vital Signs Date Time Temp Pulse Resp B/P Pulse Ox O2 Delivery O2 Flow Rate FiO2 09/20/16 18:00 101 28 102/73 97 Trach Collar 09/20/16 16:58 10.0 40 09/20/16 16:00 98.6 Intake and Output 09/19/16 09/19/16 09/20/16 15:00 23:00 07:00 Intake Total 1145 ml 1577.5 ml 1605 ml Output Total 930 ml 1020 ml 1000 ml Balance 215 ml 557.5 ml 605 ml Exam Respiratory: diminished breath sounds Cardiovascular: regular rate and rhythm Gastrointestinal: soft Results Result Diagram: 09/16/163 09/16/163 Medications Medications Current Medications Acetaminophen (Tylenol Tab) 650 mg Q6H PRN GTB PAIN AND OR ELEVATED TEMP Last administered on 09/18/16 08:40; Admin Dose 650 MG; Start 09/17/16 at 04:00 Ascorbic Acid (Vitamin C) 500 mg DAILY GTB Last administered on 09/20/16 08:36 ; Admin Dose 500 MG; Start 09/17/16 at 09:00 Aspirin (Aspirin) 81 mg DAILY GTB Last administered on 09/20/16 08:35; Admin Dose 81 MG; Start 09/17/16 at 09:00 Bethanechol Chloride (Urecholine) 25 mg TID GTB Last administered on 09/20/16 12:24; Admin Dose 25 MG; Start 09/17/16 at 09:00 Bisacodyl (Dulcolax Supp) 10 mg DAILY PRN [place] CONSTIPATION; Start 09/17/16 at 04 :00 Docusate Sodium (Colace Liquid Cup) 100 mg BID GTB Last administered on 21:02; Admin Dose 100 MG; Start 09/17/16 at 09:00 Acetaminophen/ Hydrocodone Bitart ([place] (5/325)) 1 tab Q6 PRN PO PAIN; Start 09/17/16 at 04:00 Multivitamins Therapeutic (Theragran) 1 tab DAILY PO Last administered on 08:36; Admin Dose 1 TAB; Start 09/17/16 at 09:00 Polyethylene Glycol (Miralax) 8.5 gm DAILY PO Last administered on 09/19/16 10 :02; Admin Dose 8.5 GM; Start 09/17/16 at 09:00 Ondansetron HCl 4 mg 4 mg Q6H PRN IV NAUSEA AND/OR VOMITING; Start 09/17/16 at 04:00 Levofloxacin/ Dextrose (Levaquin 500mg/ D5W 100 ml (Pmx)) 100 ml @ 100 mls/hr Q24H IVPB Last administered on 09/20/16 04:32; Admin Dose 100 MLS/HR; Start at 04:00 Lactobacillus Acidophilus (Florajen3 Capsule) 1 each BID PO Last administered on 09/20/16 08:38; Admin Dose 1 EACH; Start 09/17/16 at 09:00 Senna (Senokot) 1 tab DAILY GTB Last administered on 09/19/16 10:03; Admin Dose 1 TAB; Start 09/17/16 at 09:00 Lansoprazole 30 mg 30 mg DAILY@06 GTB Last administered on 09/19/16 10:03; Admin Dose 30 MG; Start 09/17/16 at 06:00 Sodium Chloride 1,000 ml @ 125 mls/hr Q8H IV Last administered on 09/20/16 12 :08; Admin Dose 125 MLS/HR; Start 09/17/16 at 15:00 Piperacillin Sod/ Tazobactam Sod (Zosyn 3.375gm/ 100 ml (Pmx)) 100 ml @ 200 mls /hr Q6 IVPB Last administered on 09/20/16 17:20; Admin Dose 200 MLS/HR; Start 09/18/16 at 13:30 Acetaminophen 650 mg 650 mg Q4H PRN GTB PAIN AND OR ELEVATED TEMP Last administered on 09/19/16 00:37; Admin Dose 650 MG; Start 09/19/16 at 00:00 Vancomycin HCl (Vancocin) 250 ml @ 125 mls/hr Q24H IVPB Last administered on t 02:58; Admin Dose 125 MLS/HR; Start 09/19/16 at 03:00 Miscellaneous Information (*Rx Drug Level Order Reminder*) VANCOMYCIN TROUGH 09/21 AT 0200 ONCE ONCE XX ; Start 09/21/16 at 02:00; Stop 09/21/16 at 02:01 KANDICE DIXON MD September 20, 2016 19:47
[2016-09-21] VITALS (15 sets, daily range): BP systolic 91–122; BP diastolic 54–73; PULSE 92–126; RESP 18–34
[2016-09-21] MEDS: PIPER-TAZO 3.375 GM IV (PMX) 100 ML IVPB SCH ×4 (00:09→17:34)
[2016-09-21] MEDS: ALBUTEROL/IPRATROPIUM (NEB) 3 ML AMP HHN SCH ×6 (00:58→20:24)
[2016-09-21] MEDS ORDERED: LORAZEPAM 2 MG INJ IV ONE (02:25)
[2016-09-21] MEDS: VANCOMYCIN 1 GM in NS 250 ML IVPB SCH (03:26)
[2016-09-21] MEDS: LEVOFLOXACIN 500MG/D5W (PMX) 100 ML IVPB SCH (05:56)
[2016-09-21] MEDS: LANSOPRAZOLE 30 MG CAP GTB SCH (05:57)
[2016-09-21] MEDS: L ACIDOPHIL/B LACTIS/B LONGUM CAPSULE PO SCH ×2 (09:00→21:26)
[2016-09-21] MEDS: MULTIVITAMINS THERAPEUTIC TAB PO SCH (10:27)
[2016-09-21] MEDS: ONDANSETRON 4 MG INJ IV PRN ×3 (10:27→23:28)
[2016-09-21] MEDS: ASPIRIN 81 MG TAB GTB SCH (10:27)
[2016-09-21] MEDS: BETHANECHOL 25 MG TAB GTB SCH ×3 (10:27→21:26)
[2016-09-21] MEDS: SENNA TAB GTB SCH (10:27)
[2016-09-21] MEDS: DOCUSATE SODIUM 10 MG/ML (10ML CUP) GTB SCH ×2 (10:27→21:26)
[2016-09-21] MEDS: ASCORBIC ACID 500 MG TAB GTB SCH (10:27)
[2016-09-21] MEDS: POLYETHYLENE GLYCOL 17 GM PACKET PO SCH (10:28)
[2016-09-21] MEDS: SOD CHLORIDE 0.45% 1,000 ML IV SCH ×3 (10:28→23:00)
--- NOTE | 2016-09-21 12:21 | CONS ---
Date/Time of Note Date/Time of Note DATE: 09/21/16 TIME: 12:19 Assessment/Plan Assessment/Plan Additional Assessment/Plan Assessment and recommendations; 1. Patient admitted for acute bronchopneumonia with significant clinical improvement. 2. History of CVA. 3. Likely right upper lobe chronic appearing fibrotic cavitary changes from prior necrotizing pneumonia. 4. Severe COPD. 5. Hypernatremia. Continue current treatment. Patient responding well to current treatment regimen. Consultation Date/Type/Reason Admit Date/Time September 17, 2016 at 00:34 Initial Consult Date Type of Consultation: Pulmonary 24 HR Interval Summary Free Text/Dictation Patient condition is gradually improving. Patient remains completely awake and alert. There is a mild chest congestion. With improving shortness of breath. General exam; elderly male, awake alert currently in no distress. Exam/Review of Systems Vital Signs Vitals Vital Signs Date Time Temp Pulse Resp B/P Pulse Ox O2 Delivery O2 Flow Rate FiO2 09/21/16 12:00 97 09/21/16 11:56 99.5 18 91/54 97 09/21/16 08:59 Nasal Cannula 4.0 09/20/16 20:14 40 Intake and Output 09/20/16 09/20/16 09/21/16 15:00 23:00 07:00 Intake Total 480 ml 1335 ml 1425 ml Output Total 850 ml 810 ml 465 ml Balance -370 ml 525 ml 960 ml Exam HEENT examined; supple neck, no JVD. No lymphadenopathy. Midline trachea. No thyromegaly. Patient is edentulous. Neck Chest examined; diminished but clear breath sound. S1-S2 audible, no murmurs. Regular rhythm. Abdomen examination; soft, scaphoid. No organomegaly. G-tube in place. Bowel sounds audible. Extremity exam; no peripheral edema. Patient does have contractures involving both lower extremities as well as right upper extremity. 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 Able to talk. Has paraplegia as well as contracture involving the right hand. Medications Medications Current Medications Acetaminophen (Tylenol Tab) 650 mg Q6H PRN GTB PAIN AND OR ELEVATED TEMP Last administered on 09/18/16 08:40; Admin Dose 650 MG; Start 09/17/16 at 04:00 Ascorbic Acid (Vitamin C) 500 mg DAILY GTB Last administered on 09/21/16 10:27 ; Admin Dose 500 MG; Start 09/17/16 at 09:00 Aspirin (Aspirin) 81 mg DAILY GTB Last administered on 09/21/16 10:27; Admin Dose 81 MG; Start 09/17/16 at 09:00 Bethanechol Chloride (Urecholine) 25 mg TID GTB Last administered on 09/21/16 10:27; Admin Dose 25 MG; Start 09/17/16 at 09:00 Bisacodyl (Dulcolax Supp) 10 mg DAILY PRN [place] CONSTIPATION; Start 09/17/16 at 04 :00 Docusate Sodium (Colace Liquid Cup) 100 mg BID GTB Last administered on 10:; Admin Dose 100 MG; Start 09/17/16 at 09:00 Acetaminophen/ Hydrocodone Bitart ([place] (5/325)) 1 tab Q6 PRN PO PAIN; Start 09/17/16 at 04:00 Multivitamins Therapeutic (Theragran) 1 tab DAILY PO Last administered on 10:27; Admin Dose 1 TAB; Start 09/17/16 at 09:00 Polyethylene Glycol (Miralax) 8.5 gm DAILY PO Last administered on 09/21/16 10: 28; Admin Dose 8.5 GM; Start 09/17/16 at 09:00 Ondansetron HCl 4 mg 4 mg Q6H PRN IV NAUSEA AND/OR VOMITING Last administered on 09/21/16 10:27; Admin Dose 4 MG; Start 09/17/16 at 04:00 Levofloxacin/ Dextrose (Levaquin 500mg/ D5W 100 ml (Pmx)) 100 ml @ 100 mls/hr Q24H IVPB Last administered on 09/21/16 05:56; Admin Dose 100 MLS/HR; Start at 04:00 Lactobacillus Acidophilus (Florajen3 Capsule) 1 each BID PO Last administered on 09/21/16 09:00; Admin Dose 1 EACH; Start 09/17/16 at 09:00 Senna (Senokot) 1 tab DAILY GTB Last administered on 09/21/16 10:27; Admin Dose 1 TAB; Start 09/17/16 at 09:00 Lansoprazole 30 mg 30 mg DAILY@06 GTB Last administered on 09/21/16 05:57; Admin Dose 30 MG; Start 09/17/16 at 06:00 Sodium Chloride 1,000 ml @ 125 mls/hr Q8H IV Last administered on 09/21/16 10: 28; Admin Dose 125 MLS/HR; Start 09/17/16 at 15:00 Piperacillin Sod/ Tazobactam Sod (Zosyn 3.375gm/ 100 ml (Pmx)) 100 ml @ 200 mls /hr Q6 IVPB Last administered on 09/21/16 05:57; Admin Dose 200 MLS/HR; Start 09/18/16 at 13:30 Acetaminophen 650 mg 650 mg Q4H PRN GTB PAIN AND OR ELEVATED TEMP Last administered on 09/19/16 00:37; Admin Dose 650 MG; Start 09/19/16 at 00:00 Vancomycin HCl (Vancocin) 250 ml @ 125 mls/hr Q24H IVPB Last administered on 03:26; Admin Dose 125 MLS/HR; Start 09/19/16 at 03:00 Miscellaneous Information (*Rx Drug Level Order Reminder*) 1 ONCE ONCE XX ; Start 09/22/16 at 02:00; Stop 09/22/16 at 02:01 FLACO NICHOLS Sep 21, 2016 12:21
--- NOTE | 2016-09-21 12:36 | PN ---
Date/Time of Note Date/Time of Note DATE: 09/21/16 TIME: 12:36 Assessment/Plan Lines/Catheters IV Catheter Type (from Nrsg): Peripheral IV Zepeda in Place (from Nrsg): Yes Assessment/Plan Problems: (1) Ingrown right big toenail (2) Ingrown left big toenail Assessment/Plan Continue to monitor her feet. Moisturize daily. Apply heel elevators at all times. Patient will be followed in-house. Subjective 24 Hr Interval Summary Patient was seen at bedside. Patient is in no acute distress. Patient reports no new adverse events. Patient denies fever, chills, nausea or vomiting. Patient denies pain. Patient denies recent trauma. Patient reports bandages are being changed as directed. Patient does not report any new problems. Constitutional: no complaints Exam/Review of Systems Vital Signs Vitals Vital Signs Date Time Temp Pulse Resp B/P Pulse Ox O2 Delivery O2 Flow Rate FiO2 09/22/16 20:13 88 09/22/16 20:04 17 96 Nasal Cannula 3.0 09/22/16 20:00 98.3 118/69 Exam Free Text/Dictation Patient is laying supine in bed. His big toes on both feet have bandages. Bandages were removed. Patient has ingrown toenails on both big toes with the right worse that the left. There is edema and erythema with incurvation of toenail into the nail fold. There is no pus and no bleeding noted on exam. There is no malodor present. Toenails are elongated, dystrophic on both big toes. Pedal pulses are palpable and CFT is delayed on all toes. Results Result Diagram: 09/21/16 1250 09/21/16 1250 LENCHO ROMERO DPM Sep 21, 2016 12:36
[2016-09-21 13:15] LABS: ADD SCAN DIFF NO
[2016-09-21 13:27] LABS: ABNORMAL IP MESSAGE 1; HEMATOCRIT 18.3 % (42.0-52.0); MEAN CORPUSCULAR HEMOGLOBIN 24.6 pg (29.0-33.0); MEAN CORPUSCULAR HGB CONC 34.4 g/dl (32.0-37.0); MEAN CORPUSCULAR VOLUME 71.5 fl (82.0-101.0); MEAN PLATELET VOLUME 8.9 fl (7.4-10.4); PLATELET COUNT 353 10^3/UL (140-415); RED BLOOD COUNT 2.56 10^6/ul (4.70-6.10); RED CELL DISTRIBUTION WIDTH 19.1 % (11.5-14.5); WHITE BLOOD COUNT 11.7 10^3/ul (4.8-10.8)
[2016-09-21 13:36] LABS: CALCIUM 8.4 mg/dl (8.4-10.2); CREATININE 1.02 mg/dl (0.61-1.24); MAGNESIUM 1.8 mg/dl (1.7-2.5); PHOSPHORUS 3.7 mg/dl (2.5-4.9); POTASSIUM 3.8 mmol/L (3.5-5.1)
[2016-09-21 13:45] LABS: HEMOGLOBIN 6.3 g/dl (14.0-18.0)
--- NOTE | 2016-09-21 13:53 | PN ---
DATE: 09/21/2016 SUBJECTIVE: No events overnight. The patient is awake, looks comfortable. T-max this morning was 101.4, T-current 99.5, pulse 96, respirations 18, blood pressure 91/54, saturation 99% on 4 liters. No labs since 09/16/2016. ANTIMICROBIALS: Patient is on: 1. Vancomycin. 2. Zosyn. 3. Levaquin. MICROBIOLOGY: Blood culture on admission grew coagulase-negative staph species. Left lower extremi ty wound growing Staphylococcus aureus. Urine culture negative. DIAGNOSTICS: CT of the chest on 09/18 revealed consolidative area of the right upper lobe with a la rge cavitary lesion, questionable cavitary neoplasm, emphysema and pulmonary edema. INDWELLINGS: G tube, Zepeda. PHYSICAL EXAMINATION: GENERAL: This is a chronically ill-appearing, elderly man who is awake, in no dist ress. HEENT: Head atraumatic, normocephalic. Sclerae anicteric. Buccal mucosa dry. NECK: Supple, trachea midline. CHEST: Rise symmetrical. Breath sounds with bilateral rhonchi. HEART: S1, S2. ABDOMEN: Soft. Bowel tones present. EXTREMITIES: Without cyanosis. ASSESSMENT: 1. Sepsis with acute respiratory failure on admission. 2. Severe pneumonia. 3. Multiple decubitus. 4. Right upper lobe cavitary lesion. 5. Chronic obstructive pulmonary disease. 6. History of cerebrovascular accident and dysphagia. PLAN: The patient remains clinically stable, covered with appropriate antimicrobials. We are going to repeat blood cultures. We are going to try and obtain sputum culture, order labs and follow rec ommendations of consultants. The patient is also being followed by podiatry. Dictated By: VICTORINO YEBOAH PATENT COUNSEL for TAMMIE DELGADO MD NI/NTS Conf#: [id number] DID#: [id number]
[2016-09-21 14:06] LABS: EOSINOPHILS # 0.2 10^3/ul (0.0-0.5); LYMPHOCYTES # 2.2 10^3/ul (0.8-2.9); MONOCYTE # 1.1 10^3/ul (0.3-0.9); NEUTROPHIL # 8.2 10^3/ul (1.6-7.5); PLATELET ESTIMATE PLT APPEAR INCREASED
[2016-09-21] MEDS ORDERED: LIDOCAINE 1% (MPF) 5 ML VIAL SC ONE (14:30)
--- NOTE | 2016-09-21 15:55 | PN ---
Date/Time of Note Date/Time of Note DATE: 09/21/16 TIME: 15:53 Assessment/Plan VTE Prophylaxis VTE Prophylaxis Intervention: SCD's Lines/Catheters IV C[facility]ter Type ([facility] Peripheral IV Urinary Cath still in place: Yes Reason Cath still needed: other (indicate) Assessment/Plan Chief Complaint/Hosp Course Assessment/Plan 1. Sepsis with lactic acidosis secondary to bacteremia and cellulitis Continue vancomycin and Zosyn, follow up sensitivity Patient has been refusing blood draws 2. Bilateral pneumonia Continue IV antibiotics Culinary Intern has been consulted, continue medical management 3. Highly probable urinary tract infection Continue Zosyn 4. Ventilator dependent respiratory failure status post tracheostomy Continue vent management and breathing treatment Cannon eval 5. Large right upper lobe cavitary lesion which could be neoplasm versus infection, associated enlarged mediastinal and carinal nodes Culinary Intern has been consulted, follow up his recommendations 6. Hypernatremic dehydration Continue IV fluid 7. Chronic dysphagia status post G-tube Hold tube feeding 4 hours secondary to vomiting and restart a lower rate 8. COPD Continue breathing treatment 9. Refusal of therapy 10. PVD with toe ulcer 11. Anemia. Patient has refused blood transfusion, follow up stool guaiac PLAN: * Unable to do much without labs * Spoke with patient's daughter, she will come speak to him / recommended PICC line. * Continue current abx and fluids / Patient clinically improved. * Also recommended tele Psych. Patient's daughter wants to speak with him first * Will review CT findings with family once present at bedside * Continue bronchodilators and mucolytics * f/u final cultures * Transfer to telemetry floor Problems: Subjective 24 Hr Interval Summary Free Text/Dictation Patient has been refusing medical management Denies of any chest pain of the continues to complain of having frequent coughs Despite of being anemic and explanation regarding the transfusion patient has refused transfusion and type and screen A call was placed and I spoke to his daughter regarding this manner Patient had an episode of vomiting this morning and PEG tube feeding has been placed on hold Exam/Review of Systems Vital Signs Vitals Vital Signs Date Time Temp Pulse Resp B/P Pulse Ox O2 Delivery O2 Flow Rate FiO2 09/21/16 12:56 96 30 99 Nasal Cannula 4.0 09/21/16 11:56 99.5 91/54 09/20/16 20:14 40 Intake and Output 09/20/16 09/20/1617 14:59 22:59 06:59 Intake Total 480 ml 1210 ml 1610 ml Output Total 900 ml 840 ml 535 ml Balance -420 ml 370 ml 1075 ml Exam General: The patient is underweight, Not in acute distress. HEENT: Atraumatic, normocephalic. The pupils are equal and round . Neck: Trach in place Chest: Normal expansion of the thorax during inspiration Lungs: Clear to auscultation bilaterally Heart: Normal S1-S2, Regular rhythm and rate. Abdomen: Soft , nontender, nondistended , bowel sounds are present. PEG tube in place Extremities: Normal to inspection, no edema no cyanosis Neurologic: Normal mental status,The patient is awake, alert and oriented . Results Result Diagram: 09/21/16 1250 09/21/16 1250 Results 24 hrs Laboratory Tests Test 09/21/16 12:50 White Blood Count 11.7 #H Red Blood Count 2.56 #L Hemoglobin 6.3 #*L Hematocrit 18.3 #L Mean Corpuscular Volume 71.5 L Mean Corpuscular Hemoglobin 24.6 L Mean Corpuscular Hemoglobin Concent 34.4 Red Cell Distribution Width 19.1 H Platelet Count 353 Mean Platelet Volume 8.9 Neutrophils % 70.0 Lymphocytes % 19.0 Monocytes % 9.0 Eosinophils % 2.0 Neutrophils # 8.2 H Lymphocytes # 2.2 Monocytes # 1.1 H Eosinophils # 0.2 Platelet Estimate PLT APPEAR INCREASED Sodium Level 138 Potassium Level 3.8 Chloride Level 113 H Carbon Dioxide Level 21 Anion Gap 8 Blood Urea Nitrogen 12 Creatinine 1.02 Glucose Level 130 Calcium Level 8.4 Phosphorus Level 3.7 Magnesium Level 1.8 Vancomycin Level Trough 13.7 Medications Medications Current Medications Acetaminophen (Tylenol Tab) 650 mg Q6H PRN GTB PAIN AND OR ELEVATED TEMP Last administered on 09/18/16 08:40; Admin Dose 650 MG; Start 09/17/16 at 04:00 Ascorbic Acid (Vitamin C) 500 mg DAILY GTB Last administered on 09/21/16 10:27 ; Admin Dose 500 MG; Start 09/17/16 at 09:00 Aspirin (Aspirin) 81 mg DAILY GTB Last administered on 09/21/16 10:27; Admin Dose 81 MG; Start 09/17/16 at 09:00 Bethanechol Chloride (Urecholine) 25 mg TID GTB Last administered on 09/21/16 14:12; Admin Dose 25 MG; Start 09/17/16 at 09:00 Bisacodyl (Dulcolax Supp) 10 mg DAILY PRN [place] CONSTIPATION; Start 09/17/16 at 04 :00 Docusate Sodium (Colace Liquid Cup) 100 mg BID GTB Last administered on 10:27; Admin Dose 100 MG; Start 09/17/16 at 09:00 Acetaminophen/ Hydrocodone Bitart ([place] (5/325)) 1 tab Q6 PRN PO PAIN; Start 09/17/16 at 04:00 Multivitamins Therapeutic (Theragran) 1 tab DAILY PO Last administered on 10:27; Admin Dose 1 TAB; Start 09/17/16 at 09:00 Polyethylene Glycol (Miralax) 8.5 gm DAILY PO Last administered on 09/21/16 10: 28; Admin Dose 8.5 GM; Start 09/17/16 at 09:00 Ondansetron HCl 4 mg 4 mg Q6H PRN IV NAUSEA AND/OR VOMITING Last administered on 09/21/16 10:27; Admin Dose 4 MG; Start 09/17/16 at 04:00 Levofloxacin/ Dextrose (Levaquin 500mg/ D5W 100 ml (Pmx)) 100 ml @ 100 mls/hr Q24H IVPB Last administered on 09/21/16 05:56; Admin Dose 100 MLS/HR; Start at 04:00 Lactobacillus Acidophilus (Florajen3 Capsule) 1 each BID PO Last administered on 09/21/16 09:00; Admin Dose 1 EACH; Start 09/17/16 at 09:00 Senna (Senokot) 1 tab DAILY GTB Last administered on 09/21/16 10:27; Admin Dose 1 TAB; Start 09/17/16 at 09:00 Lansoprazole 30 mg 30 mg DAILY@06 GTB Last administered on 09/21/16 05:57; Admin Dose 30 MG; Start 09/17/16 at 06:00 Sodium Chloride 1,000 ml @ 125 mls/hr Q8H IV Last administered on 09/21/16 14: 12; Admin Dose 125 MLS/HR; Start 09/17/16 at 15:00 Piperacillin Sod/ Tazobactam Sod (Zosyn 3.375gm/ 100 ml (Pmx)) 100 ml @ 200 mls /hr Q6 IVPB Last administered on 09/21/16 14:11; Admin Dose 200 MLS/HR; Start 09/18/16 at 13:30 Acetaminophen (Tylenol Liquid) 650 mg Q4H PRN GTB PAIN AND OR ELEVATED TEMP Last administered on 09/19/16 00:37; Admin Dose 650 MG; Start 09/19/16 at 00:00 MELANI WALTERS MD Sep 21, 2016 15:55
--- NOTE | 2016-09-21 17:56 | RADRPT ---
PROCEDURE: XR Chest. CLINICAL INDICATION: Vomiting. Pneumonia. TECHNIQUE: Portable single view of the chest COMPARISON: 04/20/2015 FINDINGS: Tracheostomy tube has been removed. Right hilar retraction and right pleural thickening and underly ing parenchymal disease is seen, largely chronic. There may be some superimposed acute infiltrate i n the right upper lobe as well. Lung volumes are reduced significantly compared with prior, however . Increased interstitial markings at the left lung base is partially due to shallower lung volumes. Top normal heart size. Degenerative change of the spine. IMPRESSION: Removal of tracheostomy tube. Chronic right upper lobe changes with possible acute right upper lobe infiltrate. Accentuated right lung opacity may be due to shallower lung volumes, however. RPTAT: HLBE Physician Felicitas Date Time Electronically viewed and signed by Julia Anderson Physician on 09/21/2016 17:56 LE/
[2016-09-21] MEDS: METOCLOPRAMIDE 10 MG INJ IV SCH (18:08)
--- NOTE | 2016-09-21 20:05 | CONS ---
Date/Time of Note Date/Time of Note DATE: 09/21/16 TIME: 20:04 Assessment/Plan Assessment/Plan Chief Complaint/Hosp Course RENAL RITA better DEHYDRATION AZOTEMIA PEG anemia PNEUMONIA PLAN LYTES IV FREEE WATER ck labs pt refused Problems: Consultation Date/Type/Reason Admit Date/Time September 17, 2016 at 00:34 Type of Consultation: renal 24 HR Interval Summary Constitutional: no complaints Exam/Review of Systems Vital Signs Vitals Vital Signs Date Time Temp Pulse Resp B/P Pulse Ox O2 Delivery O2 Flow Rate FiO2 09/21/16 19:49 99.8 105 19 122/60 95 09/21/16 17:43 3.0 09/21/16 17:43 Nasal Cannula 09/20/16 20:14 40 Intake and Output 09/20/16 09/20/16 09/21/16 15:00 23:00 07:00 Intake Total 480 ml 1335 ml 1425 ml Output Total 850 ml 810 ml 465 ml Balance -370 ml 525 ml 960 ml Exam Neck: supple Respiratory: clear to auscultation Cardiovascular: regular rate and rhythm Gastrointestinal: soft Musculoskeletal: nl extremities to inspection Results Result Diagram: 09/21/16 1250 09/21/16 1250 Results 24 hrs Laboratory Tests Test 09/21/16 12:50 White Blood Count 11.7 #H Red Blood Count 2.56 #L Hemoglobin 6.3 #*L Hematocrit 18.3 #L Mean Corpuscular Volume 71.5 L Mean Corpuscular Hemoglobin 24.6 L Mean Corpuscular Hemoglobin Concent 34.4 Red Cell Distribution Width 19.1 H Platelet Count 353 Mean Platelet Volume 8.9 Neutrophils % 70.0 Lymphocytes % 19.0 Monocytes % 9.0 Eosinophils % 2.0 Neutrophils # 8.2 H Lymphocytes # 2.2 Monocytes # 1.1 H Eosinophils # 0.2 Platelet Estimate PLT APPEAR INCREASED Sodium Level 138 Potassium Level 3.8 Chloride Level 113 H Carbon Dioxide Level 21 Anion Gap 8 Blood Urea Nitrogen 12 Creatinine 1.02 Glucose Level 130 Calcium Level 8.4 Phosphorus Level 3.7 Magnesium Level 1.8 Vancomycin Level Trough 13.7 Medications Medications Current Medications Acetaminophen (Tylenol Tab) 650 mg Q6H PRN GTB PAIN AND OR ELEVATED TEMP Last administered on 09/18/16t 08:40; Admin Dose 650 MG; Start 09/17/16 at 04:00 Ascorbic Acid (Vitamin C) 500 mg DAILY GTB Last administered on 09/21/16 10:27 ; Admin Dose 500 MG; Start 09/17/16 at 09:00 Aspirin (Aspirin) 81 mg DAILY GTB Last administered on 09/21/16 10:27; Admin Dose 81 MG; Start 09/17/16 at 09:00 Bethanechol Chloride (Urecholine) 25 mg TID GTB Last administered on 09/21/16 14:12; Admin Dose 25 MG; Start 09/17/16 at 09:00 Bisacodyl (Dulcolax Supp) 10 mg DAILY PRN [place] CONSTIPATION; Start 09/17/16 at 04 :00 Docusate Sodium (Colace Liquid Cup) 100 mg BID GTB Last administered on 10:; Admin Dose 100 MG; Start 09/17/16 at 09:00 Acetaminophen/ Hydrocodone Bitart ([place] (5/325)) 1 tab Q6 PRN PO PAIN; Start 09/17/16 at 04:00 Multivitamins Therapeutic (Theragran) 1 tab DAILY PO Last administered on 10:27; Admin Dose 1 TAB; Start 09/17/16 at 09:00 Polyethylene Glycol (Miralax) 8.5 gm DAILY PO Last administered on 09/21/16 10: 28; Admin Dose 8.5 GM; Start 09/17/16 at 09:00 Ondansetron HCl 4 mg 4 mg Q6H PRN IV NAUSEA AND/OR VOMITING Last administered on 09/21/16 17:34; Admin Dose 4 MG; Start 09/17/16 at 04:00 Levofloxacin/ Dextrose (Levaquin 500mg/ D5W 100 ml (Pmx)) 100 ml @ 100 mls/hr Q24H IVPB Last administered on 09/21/16 05:56; Admin Dose 100 MLS/HR; Start at 04:00 Lactobacillus Acidophilus (Florajen3 Capsule) 1 each BID PO Last administered on 09/21/16 09:00; Admin Dose 1 EACH; Start 09/17/16 at 09:00 Senna (Senokot) 1 tab DAILY GTB Last administered on 09/21/16 10:27; Admin Dose 1 TAB; Start 09/17/16 at 09:00 Lansoprazole 30 mg 30 mg DAILY@06 GTB Last administered on 09/21/16 05:57; Admin Dose 30 MG; Start 09/17/16 at 06:00 Sodium Chloride 1,000 ml @ 125 mls/hr Q8H IV Last administered on 09/21/16 14: 12; Admin Dose 125 MLS/HR; Start 09/17/16 at 15:00 Piperacillin Sod/ Tazobactam Sod (Zosyn 3.375gm/ 100 ml (Pmx)) 100 ml @ 200 mls /hr Q6 IVPB Last administered on 09/21/16 17:34; Admin Dose 200 MLS/HR; Start 09/18/16 at 13:30 Acetaminophen (Tylenol Liquid) 650 mg Q4H PRN GTB PAIN AND OR ELEVATED TEMP Last administered on 09/19/16 00:37; Admin Dose 650 MG; Start 09/19/16 at 00:00 Ferrous Sulfate (Feosol Liquid Cup) 300 mg DAILY GTB ; Start 09/22/16 at 09:00 Metoclopramide HCl (Reglan) 10 mg Q6 IV Last administered on 09/21/16 18:08; Admin Dose 10 MG; Start 09/21/16 at 18:00; Stop 09/23/16 at 17:59 KANDICE DIXON MD Sep 21, 2016 20:05
[2016-09-22] VITALS (12 sets, daily range): BP systolic 89–122; BP diastolic 50–82; PULSE 83–103; RESP 18–20
[2016-09-22] MEDS: METOCLOPRAMIDE 10 MG INJ IV SCH ×4 (00:04→17:54)
[2016-09-22] MEDS: ALBUTEROL/IPRATROPIUM (NEB) 3 ML AMP HHN SCH ×6 (01:48→20:01)
[2016-09-22] MEDS: ACETAMINOPHEN 650MG/20.3ML CUP GTB PRN ×2 (03:13→18:06)
[2016-09-22] MEDS: LEVOFLOXACIN 500MG/D5W (PMX) 100 ML IVPB SCH (04:00)
[2016-09-22] MEDS: PIPER-TAZO 3.375 GM IV (PMX) 100 ML IVPB SCH ×4 (06:00→17:54)
[2016-09-22] MEDS: LANSOPRAZOLE 30 MG CAP GTB SCH (06:01)
[2016-09-22] MEDS: SOD CHLORIDE 0.45% 1,000 ML IV SCH ×2 (06:11→14:24)
[2016-09-22] MEDS: BETHANECHOL 25 MG TAB GTB SCH ×3 (08:16→22:30)
[2016-09-22] MEDS: SENNA TAB GTB SCH (08:16)
[2016-09-22] MEDS: ASPIRIN 81 MG TAB GTB SCH (08:16)
[2016-09-22] MEDS: ASCORBIC ACID 500 MG TAB GTB SCH (08:16)
[2016-09-22] MEDS: POLYETHYLENE GLYCOL 17 GM PACKET PO SCH (08:16)
[2016-09-22] MEDS: MULTIVITAMINS THERAPEUTIC TAB PO SCH (08:16)
[2016-09-22] MEDS: DOCUSATE SODIUM 10 MG/ML (10ML CUP) GTB SCH ×2 (08:17→22:30)
[2016-09-22] MEDS: L ACIDOPHIL/B LACTIS/B LONGUM CAPSULE PO SCH ×2 (08:17→22:30)
[2016-09-22] MEDS ORDERED: LIDOCAINE 1% (MPF) 5 ML VIAL SC ONE (09:00)
[2016-09-22] MEDS ORDERED: FERROUS SULFATE 60 MG/ML 5ML CUP GTB SCH (09:00)
--- NOTE | 2016-09-22 10:58 | RADRPT ---
PROCEDURE: US guidance for PICC line CLINICAL INDICATION: PICC line placement TECHNIQUE: Multiple real-time images were acquired of the patient's arm utilizing a high resolutio n transducer. This was performed by the PICC line nurse for venous access. COMPARISON: None FINDINGS: Ultrasound guidance for PICC line placement. IMPRESSION: Ultrasound guidance for PICC line placement. RPTAT: AA .Graham Bullock MD, MD Date Time Electronically viewed and signed by .Graham Bullock MD, on 09/22/2016 10:57 .S/
--- NOTE | 2016-09-22 10:58 | RADRPT ---
PROCEDURE: XR Chest. CLINICAL INDICATION: PICC line placement TECHNIQUE: Single frontal view of the chest was obtained COMPARISON: Yesterday FINDINGS: There is a new left-sided PICC line in place with its tip overlying the mid SVC. The heart, mediastinum, and lungs are unchanged. The heart is normal in size. There are chronic changes in the right upper lobe with cavitation. The thoracic aorta is calcified. RPTAT: AA IMPRESSION: New PICC line in appropriate position. .Graham Bullock MD, MD Date Time Electronically viewed and signed by .Graham Bullock MD, MD on 09/22/2016 10:57 .S/
--- NOTE | 2016-09-22 11:14 | PDOCDIS ---
Discharge Instructions CONDITION Patient Condition: Fair HOME CARE INSTRUCTIONS: Special Diet: tube feeding @ 50 cc/hr ACTIVITY: Activity Restrictions: Special Program MELANI WALTERS MD Sep 22, 2016 11:14
[2016-09-22] MEDS ORDERED: UDFER GTB (11:18)
--- NOTE | 2016-09-22 12:02 | CONS ---
Date/Time of Note Date/Time of Note DATE: 09/22/16 TIME: 12:00 Assessment/Plan Assessment/Plan Additional Assessment/Plan Assessment and recommendations; next 1. Patient admitted for bronchopneumonia currently on appropriate broad- spectrum antibiotic coverage. 2. Chronic dysphagia, status post G-tube placement with tracheostomy decannulation with a persistently open seroma. 3. CVA. 4. Possibly scleroderma. 5. Chronic right upper lobe fibrocavitary changes. 6. Improving hypernatremia. 7. Anemia. Continue current treatment. Patient responding well to current treatment regimen. Patient to be transfused blood today. Consultation Date/Type/Reason Admit Date/Time September 17, 2016 at 00:34 Type of Consultation: Pulmonary 24 HR Interval Summary Free Text/Dictation Patient condition is stable. Remains awake alert. According the patient shortness of breath is improving. Still complains of chest congestion. General exam; elderly male, awake alert currently in no distress. Exam/Review of Systems Vital Signs Vitals Vital Signs Date Time Temp Pulse Resp B/P Pulse Ox O2 Delivery O2 Flow Rate FiO2 09/22/16 11:38 98.0 107 20 102/61 95 09/22/16 08:47 Nasal Cannula 3.0 09/20/16 20:14 40 Intake and Output 09/21/16 09/21/16 09/22/16 15:00 23:00 07:00 Intake Total 1125 ml 100 ml Output Total 450 ml 900 ml Balance 675 ml -800 ml Exam HEENT examination; supple neck, no JVD. No lymphadenopathy midline trachea. Patient is mostly edentulous. Pupils are midsize and reactive to light. There is ostomy stoma with a dressing applied over it. Chest exam; diminished breath sound bilaterally. S1-S2 audible, no murmurs. Regular rhythm. Abdomen examination; soft, G-tube in place. No organomegaly. Bowel sounds audible. Extremity exam; patient has ulcerations involving both feet. There is significant skin tightness indicative of underlying scleroderma. APPLIANCE TECHNICIAN examination a micro patient is awake alert responds appropriately to commands has contractures involving all 4 extremities. Able to move left upper extremity to some extent. Results Result Diagram: 09/21/16 1250 09/21/16 1250 Results 24 hrs Laboratory Tests Test 09/21/16 12:50 White Blood Count 11.7 #H Red Blood Count 2.56 #L Hemoglobin 6.3 #*L Hematocrit 18.3 #L Mean Corpuscular Volume 71.5 L Mean Corpuscular Hemoglobin 24.6 L Mean Corpuscular Hemoglobin Concent 34.4 Red Cell Distribution Width 19.1 H Platelet Count 353 Mean Platelet Volume 8.9 Neutrophils % 70.0 Lymphocytes % 19.0 Monocytes % 9.0 Eosinophils % 2.0 Neutrophils # 8.2 H Lymphocytes # 2.2 Monocytes # 1.1 H Eosinophils # 0.2 Platelet Estimate PLT APPEAR INCREASED Sodium Level 138 Potassium Level 3.8 Chloride Level 113 H Carbon Dioxide Level 21 Anion Gap 8 Blood Urea Nitrogen 12 Creatinine 1.02 Glucose Level 130 Calcium Level 8.4 Phosphorus Level 3.7 Magnesium Level 1.8 Vancomycin Level Trough 13.7 Medications Medications Current Medications Acetaminophen (Tylenol Tab) 650 mg Q6H PRN GTB PAIN AND OR ELEVATED TEMP Last administered on 09/18/16 08:40; Admin Dose 650 MG; Start 09/17/16 at 04:00 Ascorbic Acid (Vitamin C) 500 mg DAILY GTB Last administered on 09/22/16 08:16 ; Admin Dose 500 MG; Start 09/17/16 at 09:00 Aspirin (Aspirin) 81 mg DAILY GTB Last administered on 09/22/16 08:16; Admin Dose 81 MG; Start 09/17/16 at 09:00 Bethanechol Chloride (Urecholine) 25 mg TID GTB Last administered on 09/22/16 08:16; Admin Dose 25 MG; Start 09/17/16 at 09:00 Bisacodyl (Dulcolax Supp) 10 mg DAILY PRN [place] CONSTIPATION; Start 09/17/16 at 04 :00 Docusate Sodium (Colace Liquid Cup) 100 mg BID GTB Last administered on 08:17; Admin Dose 100 MG; Start 09/17/16 at 09:00 Acetaminophen/ Hydrocodone Bitart ([place] (5/325)) 1 tab Q6 PRN PO PAIN; Start 09/17/16 at 04:00 Multivitamins Therapeutic (Theragran) 1 tab DAILY PO Last administered on 08:16; Admin Dose 1 TAB; Start 09/17/16 at 09:00 Polyethylene Glycol (Miralax) 8.5 gm DAILY PO Last administered on 09/22/16 08: 16; Admin Dose 8.5 GM; Start 09/17/16 at 09:00 Ondansetron HCl 4 mg 4 mg Q6H PRN IV NAUSEA AND/OR VOMITING Last administered on 09/21/16 23:28; Admin Dose 4 MG; Start 09/17/16 at 04:00 Levofloxacin/ Dextrose (Levaquin 500mg/ D5W 100 ml (Pmx)) 100 ml @ 100 mls/hr Q24H IVPB Last administered on 09/21/16 05:56; Admin Dose 100 MLS/HR; Start at 04:00 Lactobacillus Acidophilus (Florajen3 Capsule) 1 each BID PO Last administered on 09/22/16 08:17; Admin Dose 1 EACH; Start 09/17/16 at 09:00 Senna (Senokot) 1 tab DAILY GTB Last administered on 09/22/16 08:16; Admin Dose 1 TAB; Start 09/17/16 at 09:00 Lansoprazole 30 mg 30 mg DAILY@06 GTB Last administered on 09/22/16 06:01; Admin Dose 30 MG; Start 09/17/16 at 06:00 Sodium Chloride 1,000 ml @ 125 mls/hr Q8H IV Last administered on 09/21/16 14: 12; Admin Dose 125 MLS/HR; Start 09/17/16 at 15:00 Piperacillin Sod/ Tazobactam Sod (Zosyn 3.375gm/ 100 ml (Pmx)) 100 ml @ 200 mls /hr Q6 IVPB Last administered on 09/21/16 17:34; Admin Dose 200 MLS/HR; Start 09/18/16 at 13:30 Acetaminophen (Tylenol Liquid) 650 mg Q4H PRN GTB PAIN AND OR ELEVATED TEMP Last administered on 09/22/16 03:13; Admin Dose 650 MG; Start 09/19/16 at 00:00 Ferrous Sulfate (Feosol Liquid Cup) 300 mg DAILY GTB Last administered on 08:17; Admin Dose 300 MG; Start 09/22/16 at 09:00 Metoclopramide HCl (Reglan) 10 mg Q6 IV Last administered on 09/22/16 06:01; Admin Dose 10 MG; Start 09/21/16 at 18:00; Stop 09/23/16 at 17:59 IV Flush (NS 10 ml) 10 ml PRN PRN IV IV PROTOCOL; Start 09/22/16 at 11:30 FLACO NICHOLS Sep 22, 2016 12:02
--- NOTE | 2016-09-22 12:08 | DS ---
DATE OF ADMISSION: 09/17/2016 DATE OF DISCHARGE: 09/21/2016 CONSULTANTS: 1. Dr. Blaine Diaz 2. Dr. Ritesh Fay 3. Dr. Judd Sim 4. Dr. Person. 5. Dr. Romeo Strauss. PROCEDURES: None. DIAGNOSES: 1. Sepsis with lactic acidosis secondary to bacteremia, cellulitis, status post vancomycin and Zosy n. 2. Bilateral pneumonia as above. 3. Urinary tract infection. Continue Zosyn. 4. Ventilator-dependent respiratory failure, status post tracheostomy. Continue ventilator managem ent. 5. Right upper lobe cavitary lesion which could be neoplasm versus infection. Pulmonology was foll owing. 6. Hypernatremic dehydration. Continue intravenous fluid. 7. Chronic dysphagia, status post gastrostomy tube. Continue gastrostomy tube feeding. 8. Chronic obstructive pulmonary disease. Continue breathing treatment. 9. Noncompliance with medical therapy. 10. Anemia. The patient has refused blood transfusion. MEDICATIONS: 1. Tylenol. 2. Albuterol. 3. DuoNeb. 4. Vitamin C. 5. Aspirin. 6. Bethanechol. 7. Dulcolax. 8. Colace. 9. Ferrous sulfate. 10. [place]. 11. Florajen capsule. 12. Prevacid. 13. Levaquin. 14. Reglan. 15. Multivitamin. 16. Zosyn. 17. MiraLax. 18. Senna. 19. IV fluid. 20. Avapro. PROCEDURE: PICC line placement. ALLERGIES: NO KNOWN DRUG ALLERGIES. LABORATORIES: As stated above, patient has been refusing blood draws. His last lab on 09/21/2016 w ith WBC 11.7, hemoglobin 6.3, hematocrit 18.3, platelets 353. Sodium 138, potassium 3.8, chloride 1 13, bicarbonate 21, BUN 8, creatinine 1.02, glucose 130, calcium 8.4. HOSPITAL COURSE: This is a 71-year-old gentleman with past medical history of chronic respiratory failure, status post tracheostomy and vent dependent, anxiety, GERD, COPD, chronic kidney disease, a nemia, dysphagia status post G-tube, essential hypertension, chronic constipation, debility, bedbou nd, who resides at [facility], was brought in to [facility] nd[facility] to hypoxemia, fever and cough. The patient's WBC was found to be 17, hemoglobin 8.8, platelet s 422. Patient was started on broad spectrum IV antibiotics, Zosyn, vancomycin, and Levaquin. The p atient was admitted to ICU secondary to sepsis. having elevated lactic acid. His vitals, he was fou nd to be hypotensive with blood pressure 92/55, he was started on aggressive IV fluid, pressors, he was seen by wastewater treatment plant chemist and infectious disease doctor. His vancomycin was discontinued secondary to patient was not compliant with medical management, and he was refusing blood draws. There was no trough ____ was able to be monitored. On 09/21/2016 patient was found to be anemic with hemoglobin of 6.1. He had refused type and screen and transfusion. I had a discussion with him and also disc ussed this with his daughter and he obtained a PICC line today and he will be obtaining a blood stephenson sfusion if he allows, and he will be transferred to [facility] for further evaluation and treat ment. CONDITION AT TIME OF DISCHARGE: Fair. Dictated By: MELANI WALTERS MD PN/NTS Conf#: [id number] DID#: [id number]
[2016-09-22] MEDS ORDERED: SOD CHLORIDE 0.9% 100 ML ONE (13:46)
--- NOTE | 2016-09-22 14:55 | PN ---
DATE: 09/22/2016 INFECTIOUS DISEASE PROGRESS NOTE SUBJECTIVE: No acute changes overnight. The patient is lying comfortably in bed. No fevers. T-max 99.6. WBC today 11.7, H and H 6.3 and 18.3, platelets 353. No shift, no bands. BUN 12, creatinine 1.02. INDWELLINGS: PICC line placed today. ANTIMICROBIALS: The patient is on Zosyn and Levaquin. He is also on vancomycin. PHYSICAL EXAMINATION: GENERAL: Chronically ill-appearing, elderly man, who is awake, in no distress. HEENT: Head atraumatic, normocephalic. Sclerae anicteric. Buccal mucosa dry. NECK: Supple, trachea midline. CHEST: Chest rise is symmetrical. Breath sounds diminished to the bases. HEART: S1, S2. ABDOMEN: Soft, bowel tones present. EXTREMITIES: No cyanosis. ASSESSMENT: 1. Sepsis, status post shock, resolving. 2. Healthcare-associated pneumonia. 3. Left second toe decubitus, with culture growing Staphylococcus aureus. 4. Coag-negative staph bacteremia. 5. Chronic obstructive pulmonary disease. 7. History of cerebrovascular accident and dysphagia. PLAN: The patient is stable. White blood cells tracing down. He is being followed by multiple consultants. Plan to transfuse him. We are going to discontinue Levaquin and keep him on Zosyn and vancomycin for another 7 days. Follow chest x-ray. Dictated By: VICTORINO YEBOAH RN ENDOCRINOLOGY for TAMMIE THOMAS/ARPITA Conf#: [id number] DID#: [id number] KARMEN
--- NOTE | 2016-09-22 15:05 | CONS ---
Date/Time of Note Date/Time of Note DATE: 09/22/16 TIME: 15:03 Assessment/Plan Assessment/Plan Chief Complaint/Hosp Course 1. Patient has acute kidney injury, improved 2. Prerenal azotemia. 3. Hypernatremia, improved. 4. Hyperkalemia. 5. Azotemia. 6. Lung mass. 7. Pneumonia. 8. Cavitary lung lesion. 9. Tracheostomy and G-tube placement. 10. Sepsis Problems: Additional Assessment/Plan 1. Kidney function optimization Consultation Date/Type/Reason Admit Date/Time September 17, 2016 at 00:34 Initial Consult Date 09/16/2016 Type of Consultation: Nephrology Reason for Consultation Dr Fay Exam/Review of Systems Vital Signs Vitals Vital Signs Date Time Temp Pulse Resp B/P Pulse Ox O2 Delivery O2 Flow Rate FiO2 09/22/16 13:29 95 22 96 Nasal Cannula 3.0 09/22/16 11:38 98.0 102/61 09/20/16 20:14 40 Intake and Output 09/21/16 09/21/16 09/22/16 15:00 23:00 07:00 Intake Total 1125 ml 100 ml Output Total 450 ml 900 ml Balance 675 ml -800 ml Exam Constitutional: alert Psych: no complaints Respiratory: diminished breath sounds, other (tracheostomy) Cardiovascular: regular rate and rhythm Results Result Diagram: 09/21/16 1250 09/21/16 1250 Medications Medications Current Medications Acetaminophen (Tylenol Tab) 650 mg Q6H PRN GTB PAIN AND OR ELEVATED TEMP Last administered on 09/18/16 08:40; Admin Dose 650 MG; Start 09/17/16 at 04:00 Ascorbic Acid (Vitamin C) 500 mg DAILY GTB Last administered on 09/22/16 08:16 ; Admin Dose 500 MG; Start 09/17/16 at 09:00 Aspirin (Aspirin) 81 mg DAILY GTB Last administered on 09/22/16 08:16; Admin Dose 81 MG; Start 09/17/16 at 09:00 Bethanechol Chloride (Urecholine) 25 mg TID GTB Last administered on 09/22/16 12:11; Admin Dose 25 MG; Start 09/17/16 at 09:00 Bisacodyl (Dulcolax Supp) 10 mg DAILY PRN [place] CONSTIPATION; Start 09/17/16 at 04 :00 Docusate Sodium (Colace Liquid Cup) 100 mg BID GTB Last administered on 08:17; Admin Dose 100 MG; Start 09/17/16 at 09:00 Acetaminophen/ Hydrocodone Bitart ([place] (5/325)) 1 tab Q6 PRN PO PAIN; Start 09/17/16 at 04:00 Multivitamins Therapeutic (Theragran) 1 tab DAILY PO Last administered on 08:16; Admin Dose 1 TAB; Start 09/17/16 at 09:00 Polyethylene Glycol (Miralax) 8.5 gm DAILY PO Last administered on 09/22/16 08: 16; Admin Dose 8.5 GM; Start 09/17/16 at 09:00 Ondansetron HCl (Zofran Inj) 4 mg Q6H PRN IV NAUSEA AND/OR VOMITING Last administered on 09/21/16 23:28; Admin Dose 4 MG; Start 09/17/16 at 04:00 Lactobacillus Acidophilus (Florajen3 Capsule) 1 each BID PO Last administered on 09/22/16 08:17; Admin Dose 1 EACH; Start 09/17/16 at 09:00 Senna (Senokot) 1 tab DAILY GTB Last administered on 09/22/16 08:16; Admin Dose 1 TAB; Start 09/17/16 at 09:00 Lansoprazole 30 mg 30 mg DAILY@06 GTB Last administered on 09/22/16 06:01; Admin Dose 30 MG; Start 09/17/16 at 06:00 Sodium Chloride 1,000 ml @ 125 mls/hr Q8H IV Last administered on 09/21/16 14: 12; Admin Dose 125 MLS/HR; Start 09/17/16 at 15:00 Piperacillin Sod/ Tazobactam Sod (Zosyn 3.375gm/ 100 ml (Pmx)) 100 ml @ 200 mls /hr Q6 IVPB Last administered on 09/22/16 12:11; Admin Dose 200 MLS/HR; Start 09/18/16 at 13:30 Acetaminophen (Tylenol Liquid) 650 mg Q4H PRN GTB PAIN AND OR ELEVATED TEMP Last administered on 09/22/16 03:13; Admin Dose 650 MG; Start 09/19/16 at 00:00 Ferrous Sulfate (Feosol Liquid Cup) 300 mg DAILY GTB Last administered on 08:17; Admin Dose 300 MG; Start 09/22/16 at 09:00 Metoclopramide HCl (Reglan) 10 mg Q6 IV Last administered on 09/22/16 12:10; Admin Dose 10 MG; Start 09/21/16 at 18:00; Stop 09/23/16 at 17:59 IV Flush (NS 10 ml) 10 ml PRN PRN IV IV PROTOCOL; Start 09/22/16 at 11:30 KARTHIKEYAN SUERO Sep 22, 2016 15:05
== END 2016-09-22 22:45 | DRG 871 ==
LOC: E/R 20:23 → TEL 09-17 00:34 → ICU 09-17 01:24 → TEL 09-21 05:01
PROVIDERS: ADMIT Internal Medicine; ATTEND Internal Medicine
PROC: 02HV33Z Insertion of Infusion Device into Superior Vena Cava, Percutaneous Approach (ICD-10-PCS; principal; 2016-09-22)
PROC: 30243N1 Transfusion of Nonautologous Red Blood Cells into Central Vein, Percutaneous Approach (ICD-10-PCS; 2016-09-22)
DX: A41.9 Sepsis, unspecified organism (principal); J18.9 Pneumonia, unspecified organism; J96.21 Acute and chronic respiratory failure with hypoxia; E87.0 Hyperosmolality and hypernatremia; N17.9 Acute kidney failure, unspecified; Z93.0 Tracheostomy status; N39.0 Urinary tract infection, site not specified; R13.10 Dysphagia, unspecified; E87.5 Hyperkalemia; E86.0 Dehydration; L03.90 Cellulitis, unspecified; J44.9 Chronic obstructive pulmonary disease, unspecified; R91.1 Solitary pulmonary nodule; D64.9 Anemia, unspecified; I12.9 Hypertensive chronic kidney disease with stage 1 through stage 4 chronic kidney disease, or unspecified chronic kidney disease; R65.20 Severe sepsis without septic shock; N18.9 Chronic kidney disease, unspecified; L60.0 Ingrowing nail; F41.9 Anxiety disorder, unspecified; K21.9 Gastro-esophageal reflux disease without esophagitis; Z93.1 Gastrostomy status; Z91.19 Patient's noncompliance with other medical treatment and regimen
CPT/HCPCS: 36415; 36430; 36569; 36600; 71010; 71260; 76937; 80048; 80053; 80202; 81001; 82803; 83605; 83735; 83935; 84100; 84300; 84484; 85025; 85610; 85730; 86850; 86900; 86901; 86920; 87040; 87070; 87081; 87086; 93005; 94640; 94664; 96374; 96375; C1769; J1956; J2060; J2185; J2405; J2543; J2765; J3370; J7030; J7040; P9016; Q9967

== ENCOUNTER 2017-01-06 11:55 | Inpatient (IN) | payer MEDICARE, OTHER ==
[~2017-01-06] VITALS: Ht 170.2 cm; Wt 66.1 kg
[~2017-01-06 11:55] MED LIST changes: +ACET-2047 G-TUBE; +ASC500 G-TUBE; +ASPI81TA3 G-TUBE; +BETH25TA G-TUBE; +BISA10SU55 RC; +HYDR-906 PO; +IPRA3AMP INHALATION; +LACTINEX PO; +MULT-761 PO; +OMEP40CA6 G-TUBE; +POLY17PO6 PO; +SENS PO; +UDCOL GTB; +UDFER GTB; -[UNRECOGNIZED DRUG - OTHER]
[2017-01-06 12:39] LABS: ABNORMAL IP MESSAGE 1; BASOPHIL # 0.1 10^3/ul (0.0-0.1); BASOPHILS % 0.3 % (0.0-2.0); EOSINOPHILS % 0.1 % (0.0-7.0); HEMOGLOBIN 10.7 g/dl (14.0-18.0); LYMPHOCYTES # 3.2 10^3/ul (0.8-2.9); LYMPHOCYTES % 15.2 % (15.0-51.0); MEAN CORPUSCULAR HEMOGLOBIN 26.8 pg (29.0-33.0); MEAN CORPUSCULAR HGB CONC 34.5 g/dl (32.0-37.0); MEAN CORPUSCULAR VOLUME 77.5 fl (82.0-101.0); MEAN PLATELET VOLUME 7.8 fl (7.4-10.4); MONOCYTE # 1.6 10^3/ul (0.3-0.9); MONOCYTES % 7.4 % (0.0-11.0); NEUTROPHIL # 16.1 10^3/ul (1.6-7.5); NEUTROPHILS % 76.5 % (39.0-77.0); PLATELET COUNT 314 10^3/UL (140-415); POSITIVE DIFF @See below; RED CELL DISTRIBUTION WIDTH 20.2 % (11.5-14.5)
[2017-01-06] MEDS ORDERED: LACTINEX GTB (12:42)
[2017-01-06] MEDS ORDERED: ALBU2.5V3 NEB ×2 (12:45)
[2017-01-06] MEDS ORDERED: ASPI81TA3 GTB (12:45)
[2017-01-06] MEDS ORDERED: BETH25TA GTB (12:47)
[2017-01-06] MEDS ORDERED: CHLO473M7 MM (12:49)
[2017-01-06] MEDS ORDERED: BISA10SU75 PR (12:50)
[2017-01-06] MEDS ORDERED: FERR220S13 GTB (12:51)
[2017-01-06 12:55] LABS: INR 1.27; PT RATIO 1.3
[2017-01-06 12:56] LABS: PARTIAL THROMBOPLASTIN TIME 49.3 Sec (25.0-35.0)
[2017-01-06] MEDS ORDERED: NA P230E RC (13:02)
[2017-01-06] MEDS ORDERED: MINE133E23 RC (13:02)
[2017-01-06] MEDS ORDERED: LANS30CA GTB (13:03)
[2017-01-06] MEDS ORDERED: ENOX40DI2 SC (13:04)
[2017-01-06] MEDS ORDERED: MAGN400O4 GTB (13:04)
[2017-01-06] MEDS ORDERED: MULT-105 GTB (13:05)
[2017-01-06] MEDS ORDERED: HYDR-906 GTB (13:07)
[2017-01-06] MEDS ORDERED: CALC-133 GTB (13:09)
[2017-01-06] MEDS ORDERED: METO5TAB58 GTB (13:10)
[2017-01-06] MEDS ORDERED: SENN-53 GTB (13:11)
[2017-01-06] MEDS ORDERED: SODIUM CHLORIDE 0.9% 1L BAG IV* STA (13:12)
[2017-01-06 13:15] LABS: ANION GAP 14 (8-16); BLOOD UREA NITROGEN 44 mg/dl (7-20); CALCIUM 9.8 mg/dl (8.4-10.2); CARBON DIOXIDE 28 mmol/L (21-31); CHLORIDE 98 mmol/L (97-110); CREATININE 1.38 mg/dl (0.61-1.24); GLUCOSE 129 mg/dl (70-220); POTASSIUM 4.8 mmol/L (3.5-5.1); SODIUM 135 mmol/L (135-144)
[2017-01-06] MEDS ORDERED: ACET325T33 GTB ×3 (13:18)
[2017-01-06] MEDS ORDERED: TYL500 GTB (13:19)
[2017-01-06] MEDS ORDERED: ASC500 GTB (13:20)
[2017-01-06] MEDS ORDERED: ZINC220T GTB (13:21)
[2017-01-06] MEDS ORDERED: ONDA-43 GTB (13:21)
[2017-01-06 13:30] LABS: TROPONIN-I < 0.012 ng/ml (0.00-0.12)
[2017-01-06] MEDS ORDERED: CEFEPIME 2GM/50 ML (PMX) 50 ML IVPB STA (13:37)
[2017-01-06] MEDS ORDERED: VANCOMYCIN 1 GM (PMX) 250 ML IVPB STA (13:37)
[2017-01-06] MEDS ORDERED: ACETAMINOPHEN 325 MG TAB PO PRN ×2 (14:00→15:30)
[2017-01-06] MEDS ORDERED: ONDANSETRON 4 MG INJ IV PRN (14:00)
[2017-01-06 14:04] LABS: UR RBC 9 /HPF (0-5)
--- NOTE | 2017-01-06 14:04 | ERA ---
ER Documentation Chief Complaint Date/Time DATE: 01/06/17 TIME: 13:57 Chief Complaint NON TRAUMATIC BLEEDING ON TRACHEOSTOMY SITE. MILD BLEEDING HPI This 71-year-old male presents to the emergency room with his caregiver for evaluation of bleeding on his tracheostomy site. This patient is a vent dependent and does have severe does have a trach however he is not vent dependent. The patient does have severe COPD and trach was placed years ago. According to his caregiver is having some bleeding around the site. The patient is on Coumadin for blood thinning according to the caregiver. This patient has been afebrile, and has not had any diarrhea or chest pain according to the caregiver. The patient is unable to give a detailed history secondary to his clinical condition and dementia. ROS All systems reviewed and are negative except as per history of present illness. Medications Home Meds Reported Medications Ondansetron Hcl* (Zofran*) 4 Mg Tab, 4 MG GTB Q6H Y for NAUSEA AND OR VOMITING, TAB 01/06/17 Zinc Sulfate* (Zinc Sulfate*) 220 Mg Tablet, 220 MG GTB DAILY, TAB 01/06/17 Ascorbic Acid (Vitamin C) 500 Mg Tab, 500 MG GTB DAILY, TAB 01/06/17 Acetaminophen* (Tylenol*) 500 Mg Tab, 1000 MG GTB Q4H Y for PAIN LEVEL 4-6/10, TAB 01/06/17 Acetaminophen* (Tylenol*) 325 Mg Tablet, 650 MG GTB BID Y for PRN, TAB 01/06/17 Acetaminophen* (Tylenol*) 325 Mg Tablet, 650 MG GTB Q4H Y for MILD PAIN LEVEL 1- 3, TAB FOR FEVER 101 AND ABOVE 01/06/17 Acetaminophen* (Tylenol*) 325 Mg Tablet, 650 MG GTB NEEDED Y for TRACH TUBE CHANGE, TAB 01/06/17 Sennosides* (Senna Lax*) 8.6 Mg Tablet, 1 TAB GTB QHS, TAB 01/06/17 Metoclopramide* (Reglan*) 5 Mg Tablet, 5 MG GTB AC MEALS, TAB 01/06/17 Calcium Carbonate/Vitamin D3 (Oyster Shell Calcium +D Tablet) 1 Each Tablet, 1 EACH GTB DAILY, TAB TAKE [id number] 01/06/17 Hydrocodone/Acetaminophen ([place] 5-325 Tablet) 1 Each Tablet, 1 EACH GTB Q6H Y for PAIN LEVEL 7-10, TAB 01/06/17 Multivitamin with Minerals (Multivitamins with Minerals) 1 Each Tablet, 1 EACH GTB DAILY, TAB 01/06/17 Magnesium Hydroxide* (Milk Of Magnesia*) 400 Mg/5 Ml Oral.susp, 30 ML GTB Q24H for CONSTIPATION, ML 01/06/17 Enoxaparin Sodium* (Enoxaparin Sodium*) 40 Mg/0.4 Ml Syringe, 40 MG SC DAILY, SYR 01/06/17 Lansoprazole* (Lansoprazole*) 30 Mg Capsule.dr, 30 MG GTB DAILY, CAP 01/06/17 Mineral Oil (Fleet Mineral Oil Enema) 133 Ml Enema, 1 APPLIC RC Q2DAYS, ENEMA 01/06/17 Na Phos,M-B/Na Phos,Di-Ba (Fleet Enema Extra) 230 Ml Enema, 230 ML RC, ENEMA 01/06/17 Ferrous Sulfate* (Ferrous Sulfate*) 220 Mg/5 Ml Solution, 7.5 ML GTB DAILY, ML 01/06/17 Bisacodyl* (Bisacodyl*) 10 Mg Supp, 10 MG ME Q24H for CONSTIPATION, SUPP 01/06/17 Chlorhexidine Gluconate (Paroex) 473 Ml Mouthwash, 473 ML MM Q12H, BOTTLE 01/06/17 Bethanechol Chloride* (Bethanechol Chloride*) 25 Mg Tablet, 25 MG GTB TID, TAB 01/06/17 Aspirin* (Aspirin* Chew) 81 Mg Tab.chew, 81 MG GTB DAILY, TAB.CHEW 01/06/17 Albuterol Sulfate* (Albuterol Sulfate* Neb) 0.083%-3 Ml Neb, 2.5 MG NEB Q6H, # 30 VIAL SOB,WHEEZING AND RESPIRATORY DISTRESS 2ND TO RESPIRETORY FAILURE 01/06/17 Albuterol Sulfate* (Albuterol Sulfate* Neb) 0.083%-3 Ml Neb, 2.5 MG NEB Q3H Y for WHEEZING AND SOB, #30 VIAL 01/06/17 Lactobacillus Acidophilus* (Lactinex*) 1 Tab Chew, 1 TAB GTB BID, TAB 01/06/17 Discontinued Reported Medications Senna* (Senokot*) 5 Ml Syrup, 5 ML PO DAILY, ML 09/17/16 Omeprazole* (Omeprazole*) 40 Mg Capsule.dr, 40 MG G-TUBE DAILY, #30 CAP 09/17/16 Hydrocodone/Acetaminophen ([place] 5-325 Tablet) 1 Each Tablet, 1 EACH PO Q6, TAB 09/17/16 Multivitamin (MULTI VITAMIN DAILY) 1 Each Tablet, 1 TAB PO DAILY, TAB 09/17/16 Polyethylene Glycol* (Miralax*) 17 Gm Powd.pack, 8.5 GM PO DAILY, #30 PACKET 09/17/16 Lactobacillus Acidophilus* (Lactinex*) 1 Tab Chew, 1 TAB PO BID, TAB 09/17/16 Ipratropium-Albuterol (Ipratropium-Albuterol) 0.5-3 Mg/3 Ml Ampul.neb, 3 ML INHALATION Q2H for SHORTNESS OF BREATH, #30 VIAL 09/17/16 Bisacodyl (Dulcolax) 10 Mg Supp.rect, 10 MG RC, SUPP.RECT 09/17/16 Docusate Sodium* (Docusate Sodium* Liq) 50 Mg/5 Ml Liquid, 100 MG GTB BID, ML 09/17/16 Bethanechol Chloride* (Bethanechol Chloride*) 25 Mg Tablet, 25 MG G-TUBE TID, TAB 09/17/16 Aspirin* (Aspirin* Chew) 81 Mg Tab.chew, 81 MG G-TUBE DAILY, TAB.CHEW 09/17/16 Ascorbic Acid (Vitamin C) 500 Mg Tab, 500 MG G-TUBE DAILY, TAB 09/17/16 Acetaminophen* (Acetaminophen*) 650 Mg Tablet, 650 MG G-TUBE Q6H Y for PAIN AND OR ELEVATED TEMP, #30 TAB 09/17/16 Aspirin (Aspirin) 81 Mg Tablet 03/31/10 [Avapro] TAB No Conflict Check 03/31/10 Discontinued Scripts Ferrous Sulfate (Ferrous Sulfate) 300 Mg/5 Ml Liquid, 300 MG GTB DAILY for 1 Day Prov:MELANI WALTERS MD 09/22/16 Allergies Allergies: Coded Allergies: No Known Allergies (Verified Allergy, Unknown, 01/06/17) PMhx/Soc History of Surgery: Yes (TRACH, G-TUBE) Anesthesia Reaction: No Hx Neurological Disorder: No (OLD TRAC PT) Hx Respiratory Disorders: Yes (RESPIRATORY FAILURE) Hx Cardiac Disorders: Yes Hx Psychiatric Problems: No Hx Miscellaneous Medical Probl: Yes (G-TUBE) Hx Alcohol Use: Yes (10 YRS AGO) Hx Substance Use: No (NON VERBAL) Hx Tobacco Use: Yes (3-4 YRS AGO) Smoking Status: Former smoker Physical Exam Vitals Vital Signs Date Time Temp Pulse Resp B/P Pulse Ox O2 Delivery O2 Flow Rate FiO2 01/06/17 12:03 98.7 102 18 87/58 95 Physical Exam INITIAL VITAL SIGNS: Reviewed by me GENERAL: The patient is Frail-appearing elderly gentleman no apparent distress HEENT: Pupils equal, round, and reactive to light. EOMI. There is no scleral icterus. NECK: Tracheostomy in place, uncuffed trach collar with mild bleeding around the ostomy site, no pulsatile bleeding, C-spine is soft and supple, there is no meningismus. There is no cervical lymphadenopathy. LUNGS: Coarse breath sounds bilaterally. There are no rales, wheezes or rhonchi. HEART: Tachycardic, no murmurs, clicks, rubs or gallops. ABDOMEN: Soft, non-tender, non-distended. There are bowel sounds in all four quadrants. No rebound or guarding. EXTREMITIES: There is no peripheral cyanosis or edema. No focal swelling or erythema. NEUROLOGICAL: Contracted upper extremities, Cranial nerves II - XII are intact.. Alert and oriented SKIN: There is no apparent rash or petechiae. HEME/LYMPHATIC: There is no evidence of excessive bruising or lymphedema. PSYCHIATRIC: The patient does not appear anxious or depressed. Result Diagram: 01/06/17 1230 01/06/17 1230 Results 24 hrs Laboratory Tests Test 01/06/17 12:30 White Blood Count 21.010^3/ul Red Blood Count 4.0010^6/ul Hemoglobin 10.7g/dl Hematocrit 31.0% Mean Corpuscular Volume 77.5fl Mean Corpuscular Hemoglobin 26.8pg Mean Corpuscular Hemoglobin Concent 34.5g/dl Red Cell Distribution Width 20.2% Platelet Count 99067^3/UL Mean Platelet Volume 7.8fl Neutrophils % 76.5% Lymphocytes % 15.2% Monocytes % 7.4% Eosinophils % 0.1% Basophils % 0.3% Nucleated Red Blood Cells % 0.0/100WBC Neutrophils # 16.110^3/ul Lymphocytes # 3.210^3/ul Monocytes # 1.610^3/ul Eosinophils # 0.010^3/ul Basophils # 0.110^3/ul Nucleated Red Blood Cells # 0.010^3/ul Prothrombin Time 16.0Sec Prothrombin Time Ratio 1.3 INR International Normalized Ratio 1.27 Activated Partial Thromboplast Time 49.3Sec Sodium Level 135mmol/L Potassium Level 4.8mmol/L Chloride Level 98mmol/L Carbon Dioxide Level 28mmol/L Anion Gap 14 Blood Urea Nitrogen 44mg/dl Creatinine 1.38mg/dl Glucose Level 129mg/dl Calcium Level 9.8mg/dl Troponin I < 0.012ng/ml Current Medications Medications (Trade) Dose Ordered Sig/Lina Route PRN Reason Start Time Stop Time Status Last Admin Dose Admin Sodium Chloride 2000 ml 2,000 ml BOLUS OVER 2 HOURS STAT IV* 01/06/17 13:12 01/06/17 13:13 DC 01/06/17 13:37 Vancomycin HCl 250 ml @ 125 mls/hr ONCE STAT IVPB 01/06/17 13:37 01/06/17 15:36 Cefepime HCl (Maxipime 2gm/50 ml (Pmx)) 50 ml @ 100 mls/hr ONCE STAT IVPB 01/06/17 13:37 01/06/17 14:06 Ondansetron HCl (Zofran Inj) 4 mg ER BRIDGE PRN IV NAUSEA AND/OR VOMITING 01/06/17 14:00 01/07/17 13:59 Acetaminophen (Tylenol Tab) 650 mg ER BRIDGE PRN PO MILD PAIN/FEVER 01/06/17 14:00 01/07/17 13:59 Procedures/MDM EKG: Rate/Rhythm: Sinus tachycardia QRS, ST, T-waves: [No changes consistent w/ acute ischemia] Impression: [No evidence of ischemia or arrhythmia] Chest X-ray 1V Interpreted by me: Soft Tissue: No acute abnormalities Bones: No acute abnormalities Mediastinum/Cardiac Silhouette/Lungs: Right upper lobe pneumonia This is a 71-year-old male who presents to the emergency room for evaluation of some bleeding around his trach collar. The patient did have some bleeding however there was no active pulsatile bleeding. Patient did have a blood pressure of 88/72 was tachycardic at 104. I did obtain blood work to make sure this patient's hemoglobin levels were within normal limits. After obtaining CBC the patient was found to have a white blood cell count of 21,000. The patient then underwent a septic workup and that did reveal a right upper lobe pneumonia. The patient does have a leukocytosis with tachycardia and source of infection and does meet sepsis criteria. He was given greater than 30 cc/kg of IV normal saline. After his normal saline bolus this patient's blood pressure normalized, and his mean arterial pressures greater than 65. This patient does have a recent hospitalization and will be treated with vancomycin and cefepime for hospital-acquired pneumonia. Previous x-rays do show a lobulated area in the right upper lobe which was decreasing in size however today's x-ray does show that it has increased in size. This patient also had his trach collar removed, the ostomy site was cleaned out, and suction. The patient had a new trach collar place and he has no active bleeding or oozing at this time. He will be placed in for admission at this time under the care of her panel physician Dr. willoughby Critical Care: Excluding all billable procedures Time: 38 minutes Treatments/Evaluations: Close monitoring and treatment of unstable vital signs, cardiorespiratory, and neurologic status, while maintaining tight balance of fluid, respiratory, and cardiac interventions. Departure Diagnosis: Primary Impression: Sepsis Additional Impressions: Tracheostomy hemorrhage Right upper lobe pneumonia Microcytic anemia Condition: Stable LUCIANO JUAREZ DO Jan 06, 2017 14:04
[2017-01-06 14:05] LABS: ALBUMIN 3.7 g/dl (3.3-4.9); BILIRUBIN,INDIRECT 0.1 mg/dl (0-1.1); BILIRUBIN,TOTAL 0.1 mg/dl (0.2-1.3); TOTAL PROTEIN 8.5 g/dl (6.1-8.1)
[2017-01-06 14:05] LABS: ADD UMIC NO; UR ASCORBIC ACID 40 mg/dL (NEGATIVE); UR BILIRUBIN (Dip) NEGATIVE (NEGATIVE); UR BLOOD (Dip) NEGATIVE (NEGATIVE); UR CLARITY SLIGHTLY CLOUDY (CLEAR); UR COLOR AMBER (YELLOW); UR GLUCOSE (Dip) NEGATIVE (NEGATIVE); UR KETONES (Dip) NEGATIVE (NEGATIVE); UR LEUKOCYTE ESTERASE (Dip) NEGATIVE Leu/ul (NEGATIVE); UR NITRITE (Dip) NEGATIVE (NEGATIVE); UR SPECIFIC GRAVITY (Dip) 1.019 (1.003-1.030); UR TOTAL PROTEIN (Dip) NEGATIVE (NEGATIVE); UR UROBILINOGEN (Dip) NEGATIVE (NEGATIVE)
--- NOTE | 2017-01-06 14:05 | RADRPT ---
PROCEDURE: Chest radiograph CLINICAL INDICATION: Chest Pain.. COMPARISON: Radiograph 04/20/2015. TECHNIQUE: Single frontal chest radiograph. FINDINGS: Tracheostomy tube terminates at the level of the clavicular heads in expected position. There are no lung markings in the right upper lung which may represent surgical resection or a large bulla. Pleural thickening on the right lateral chest wall The left lung is clear. The cardiomediastinal silhouette is normal. No suspicious bone lesion. IMPRESSION: 1. Increased cavitation at the right lung apex with pleural thickening or fluid. Chest CT should be considered for further evaluation. 2. The tracheostomy tube position is unchanged. RPTAT: [facility] Physician Keenan Date Time Electronically viewed and signed by Physician Keenan on 01/06/2017 13:19 /
[2017-01-06] MEDS ORDERED: BISACODYL 10 MG SUPP PR PRN (15:30)
[2017-01-06] MEDS ORDERED: ACETAMINOPHEN 500 MG TAB PO PRN (15:30)
[2017-01-06] MEDS ORDERED: VANCOMYCIN IV PER PHARMACY XX SCH (15:30)
[2017-01-06] MEDS ORDERED: ONDANSETRON 4 MG TAB GTB PRN (15:30)
[2017-01-06] MEDS ORDERED: morphine 2 MG INJ IV PRN (15:30)
[2017-01-06] MEDS ORDERED: HYDROCODONE/APAP (5/325) TAB GTB PRN (15:30)
[2017-01-06] MEDS ORDERED: MAGNESIUM HYDROXIDE 30ML CUP PO PRN (15:30)
[2017-01-06] MEDS ORDERED: NACL 0.9% 3 ML SYG IV SCH (15:30)
[2017-01-06] MEDS ORDERED: ACETAMINOPHEN 650 MG SUPP PR PRN (15:30)
[2017-01-06] MEDS ORDERED: BISACODYL 10 MG SUPP PR SCH (15:30)
[2017-01-06] MEDS ORDERED: MAGNESIUM HYDROXIDE 30ML CUP GTB SCH (15:30)
--- NOTE | 2017-01-06 15:44 | HP ---
Date/Time of Note Date/Time of Note DATE: 01/06/17 TIME: 15:38 Assessment/Plan VTE Prophylaxis VTE Prophylaxis Intervention: SCD's Lines/Catheters IV [facility] Saline Lock Assessment/Plan Chief Complaint/Hosp Course Impression and plan 1. Suspect sepsis secondary to pneumonia. Patient did have x-ray of his chest that did show increased cavitation at the right lung apex with pleural thickening. CT scan of the chest is pending. We will get curtain worker follow. Continue on antibiotics. Will also get ID consultation. 2. Reported bleeding from tracheostomy site. Patient per med radha was on Lovenox at [facility] where he resided. No reports of being on Coumadin or any other anticoagulation. Apparel Cutter to follow. Anticoagulation stopped for now. 3. History of respiratory failure. Patient appears stable with trach to mask at this time. Continue with bronchodilators as needed. Apparel Cutter to follow. 4. Essential hypertension. Was noted to be hypertensive initially. Blood pressure stable at this time. Will monitor. 5. Iron deficiency anemia. Continue iron supplement 6. Debilitated state. Turn every 2 hours and as needed to prevent pressure ulcer. 7. History of COPD. No active bronchospasm time. Bronchodilators as needed 8. History of dysphagia. Will resume PEG tube feedings. Admission process time greater than 40 minutes Problems: HPI/ROS Admit Date/Time Admit Date/Time Hx of Present Illness This is a 71-year-old male with history of chronic respiratory failure status post tracheostomy she is not currently vent dependent), anxiety, GERD, COPD, CKD , anemia, dysphagia, essential hypertension, debility, bedbound status, constipation, who came to [facility] after reportedly having some bleeding from his tracheostomy site. No other reported symptoms were mentioned including shortness of breath or chest pain or dysuria. Patient was in his normal state of health but due to the bleeding on his tracheostomy site [place] [facility] [place]. Incidentally on laboratory findings he will had a white count of 21. There is also slightly anemic with hemoglobin of 10.7 and hematocrit 31.0, likely of chronic disease. There is also noted with acute renal insufficiency with creatinine of 1.38. Lactic acid was 1.4. No fever was seen. He was slightly hypotensive with blood pressure as low as 87/58. Initial chest x-ray did show increased cavitation at the right lung apex with pleural thickening or fluid with clinical picture of that of pneumonia. Patient remains alert he is aware but dysphasic and aphasic at this time. We will evaluate him for the aformentiond issues. ROS Unable to fully obtain , patient nonverbal PMH/Family/Social Past Medical History Medical/surgical history 1. Chronic respiratory failure status post tracheostomy (not vent dependent) 2. Reported complicated lung surgery leading to debilitated state (details unknown) 2. Anxiety 3. GERD 4. COPD 5. CKD 6. Anemia 7. Dysphagia 8. Hypertension 9. Debility 10. Bedbound status 11. Constipation Family History Significant Family History: no pertinent family hx Social History Smoking Status: Former smoker Exam/Review of Systems Vital Signs Vitals Vital Signs Date Time Temp Pulse Resp B/P Pulse Ox O2 Delivery O2 Flow Rate FiO2 01/06/17 14:58 90 20 111/63 96 01/06/17 13:45 8.0 35 01/06/17 13:35 Aerosol 01/06/17 12:03 98.7 Exam Constitutional: alert, other (Nonverbal) Eyes: nl conjunctiva Neck: other (Tracheostomy in place) Respiratory: other Cardiovascular: other (Regular rate tachycardic) Gastrointestinal: non-tender, other (Tube in place), soft Musculoskeletal: No swelling Neurological: other (Her to self) Skin: other (Previously noted decubitus ulcer noted) Labs Result Diagram: 01/06/17 1230 01/06/17 1230 Medications Medications Current Medications Acetaminophen (Tylenol Tab) 1,000 mg Q4H PRN PO PAIN LEVEL 4-6/10; Start at 15:30 Ascorbic Acid (Vitamin C) 500 mg DAILY GTB ; Start 01/07/17 at 09:00 Aspirin (Aspirin) 81 mg DAILY GTB ; Start 01/07/17 at 09:00 Bethanechol Chloride (Urecholine) 25 mg TID GTB ; Start 01/06/17 at 21:00 Bisacodyl (Dulcolax Supp) 10 mg Q24H [place] ; Start 01/06/17 at 15:30; Status UNV Calcium/Vitamin D (Oyster Shell/ Vit-D (500/200)) 1 tab DAILY GTB ; Start at 09:00; Status UNV Chlorhexidine Gluconate (Peridex) 473 ml Q12H MM ; Start 01/06/17 at 15:30; Status UNV Ferrous Sulfate (Ferrous Sulfate) 330 mg DAILY GTB ; Start 01/07/17 at 09:00; Status UNV Acetaminophen/ Hydrocodone Bitart ([place]ity (5/325)) 1 tab Q6H PRN GTB PAIN LEVEL 7-9/10; Start 01/06/17 at 15:30; Status UNV Magnesium Hydroxide (Milk Of Mag) 30 ml Q24H GTB ; Start 01/06/17 at 15:30; Status UNV Ondansetron HCl (Zofran Tab) 4 mg Q6H PRN GTB NAUSEA AND/OR VOMITING; Start at 15:30; Status UNV Senna (Senokot) 1 tab QHS GTB ; Start 01/06/17 at 21:00; Status UNV Zinc Sulfate (Zinc Sulfate) 220 mg DAILY GTB ; Start 01/07/17 at 09:00; Status UNV Miscellaneous Information 1 tab BID GTB ; Start 01/06/17 at 21:00; Status UNV Miscellaneous Information 1 each 1 each DAILY GTB ; Start 01/07/17 at 09:00; Status UNV Sodium Chloride (NS) 1,000 ml @ 60 mls/hr [id number] IV ; Start 01/06/17 at 15:11 ; Status UNV Acetaminophen (Tylenol Tab) 650 mg Q6H PRN PO PAIN LEVEL 1-3 OR FEVER; Start at 15:30 Acetaminophen (Tylenol Supp) 650 mg Q6H PRN [place] PAIN LEVEL 1-3 OR FEVER; Start 01/06/17 at 15:30 Morphine Sulfate (morphine) 2 mg Q4H PRN IV SEVERE PAIN LEVEL 7-10; Start 01/06 at 15:30; Status UNV Docusate Sodium (Colace) 100 mg Q12H PRN PO CONSTIPATION; Start 01/06/17 at 15: 30; Status UNV Magnesium Hydroxide (Milk Of Mag) 30 ml DAILY PRN PO CONSTIPATION; Start at 15:30; Status UNV Bisacodyl (Dulcolax Supp) 10 mg DAILY PRN [place] CONSTIPATION; Start 01/06/17 at 15 :30; Status UNV Pantoprazole 40 mg 40 mg DAILY@06 IV ; Start 01/07/17 at 06:00; Status UNV Cefepime HCl (Maxipime 2gm/50 ml (Pmx)) 50 ml @ 100 mls/hr BID IVPB ; Start at 21:00; Status UNV NORBERTO PRYOR Jan 06, 2017 15:44
[2017-01-06] MEDS ORDERED: DOCUSATE SODIUM 10 MG/ML (10ML CUP) GTB PRN (16:00)
[2017-01-06] MEDS: FERROUS SULFATE 60 MG/ML 5ML CUP GTB SCH (17:14)
[2017-01-06] MEDS: SOD CHLORIDE 0.9% 1,000 ML IV SCH (17:15)
[2017-01-06] MEDS: METOCLOPRAMIDE (1 MG/ML) 10 ML CUP GTB SCH (17:15)
[2017-01-06 17:20] VITALS: TEMP 98.9
--- NOTE | 2017-01-06 17:31 | RADRPT ---
PROCEDURE: CT Chest without contrast. CLINICAL INDICATION: Follow-up lung cavitation TECHNIQUE: CT scan of the chest without contrast was performed on a multidetector high-resolution CT scanner. Coronal and sagittal reformatted images were obtained from the axial source images. The total exam CTDI equals 11.78 mGy and the total exam DLP equals 419.13 mGy-cm. One or more of the fo llowing dose reduction techniques were used: automated exposure control, adjustment of the mA and/or kV according to patient size, or use of iterative reconstruction technique. COMPARISON: 11/02/2016 FINDINGS: The exam is limited due to streak artifact and lack of contrast. There is extensive centrilobular emphysema. There is decreased opacification, increase gas lucency i n the right upper lobe cavitary lesion with a large air-fluid level. The cavity measures approximate ly 13 cm in length, 5 cm transverse, 7 cm AP dimension. Consolidation in the posterior right upper l obe is similar in appearance. There is right pleural thickening. An enlarged lymph node in the precarinal space is unchanged. Tracheostomy tube is in satisfactory position. The left PICC line has been removed. There is no axillary, supraclavicular, or internal mammary lymphadenopathy. The thoracic aorta is normal in caliber. There is calcification in the aorta consistent with atheros clerosis. The heart is enlarged. There is coronary artery calcification. There is no pleural effusion or pericardial effusion. Images through the upper abdomen demonstrate benign hepatic cysts and a left renal cyst, unchanged. The bones are sclerotic.. There is no fracture or lytic lesion. IMPRESSION: 1. Extensive centrilobular emphysema. 2. Decreased opacification of the right upper lobe cavitary lesion with a large air-fluid level. Sim ilar appearing consolidation posterior to the cavity. Evaluation limited without contrast. 3. Tracheostomy tube in satisfactory position. Removal of the left PICC line. 4. Cardiomegaly and atherosclerosis. Coronary artery calcification. 5. Sclerotic bones. Question renal osteodystrophy. RPTAT: HCNS Physician Lisette Date Time Electronically viewed and signed by Physician Lisette on 01/06/2017 17:31 CS/
--- NOTE | 2017-01-06 17:46 | CONS ---
Date/Time of Note Date/Time of Note DATE: 01/06/17 TIME: 17:44 Assessment/Plan Assessment/Plan Chief Complaint/Hosp Course A/P RITA COPD RES FAILURE PLAN IV FLUID URINE LYTES Problems: Consultation Date/Type/Reason Admit Date/Time renal on vent Initial Consult Date Exam/Review of Systems Vital Signs Vitals Vital Signs Date Time Temp Pulse Resp B/P Pulse Ox O2 Delivery O2 Flow Rate FiO2 01/06/17 17:20 98.9 99 20 105/64 96 01/06/17 16:10 Aerosol 8.0 35 Exam Respiratory: diminished breath sounds Cardiovascular: regular rate and rhythm Gastrointestinal: soft Musculoskeletal: nl extremities to inspection Extremities: normal pulses Results Result Diagram: 01/06/17 1230 01/06/17 1230 Results 24 hrs Laboratory Tests Test 01/06/17 12:30 01/06/17 13:15 01/06/17 13:30 01/06/17 15:45 White Blood Count 21.0 #H Red Blood Count 4.00 L Hemoglobin 10.7 #L Hematocrit 31.0 L Mean Corpuscular Volume 77.5 L Mean Corpuscular Hemoglobin 26.8 L Mean Corpuscular Hemoglobin Concent 34.5 Red Cell Distribution Width 20.2 H Platelet Count 314 Mean Platelet Volume 7.8 Neutrophils % 76.5 Lymphocytes % 15.2 Monocytes % 7.4 Eosinophils % 0.1 Basophils % 0.3 Nucleated Red Blood Cells % 0.0 Neutrophils # 16.1 H Lymphocytes # 3.2 H Monocytes # 1.6 H Eosinophils # 0.0 Basophils # 0.1 Nucleated Red Blood Cells # 0.0 Prothrombin Time 16.0 H Prothrombin Time Ratio 1.3 INR International Normalized Ratio 1.27 Activated Partial Thromboplast Time 49.3 H Sodium Level 135 Potassium Level 4.8 Chloride Level 98 Carbon Dioxide Level 28 Anion Gap 14 Blood Urea Nitrogen 44 H Creatinine 1.38 H Glucose Level 129 Calcium Level 9.8 Total Bilirubin 0.1 L Direct Bilirubin 0.00 Indirect Bilirubin 0.1 Aspartate Amino Transf (AST/SGOT) 24 Alanine Aminotransferase (ALT/SGPT) 28 Alkaline Phosphatase 86 Troponin I < 0.012 Total Protein 8.5 H Albumin 3.7 Lactic Acid Level 1.4 1.7 Urine Color ROBBY Urine Clarity SLIGHTLY CLOUDY A Urine pH 5.0 Urine Specific [place] 1.019 Urine Ketones NEGATIVE Urine Nitrite NEGATIVE Urine Bilirubin NEGATIVE Urine Urobilinogen NEGATIVE Urine Leukocyte Esterase NEGATIVE Urine Microscopic RBC 9 H Urine Microscopic WBC 1 Urine Hyaline Casts FEW A Urine Hemoglobin NEGATIVE Urine Glucose NEGATIVE Urine Total Protein NEGATIVE Medications Medications Current Medications Acetaminophen (Tylenol Tab) 1,000 mg Q4H PRN PO PAIN LEVEL 4-6/10; Start at 15:30 Ascorbic Acid (Vitamin C) 500 mg DAILY GTB ; Start 01/07/17 at 09:00 Aspirin (Aspirin) 81 mg DAILY GTB ; Start 01/07/17 at 09:00 Bethanechol Chloride (Urecholine) 25 mg TID GTB ; Start 01/06/17 at 21:00 Calcium/Vitamin D (Oyster Shell/ Vit-D (500/200)) 1 tab DAILY GTB ; Start at 09:00 Chlorhexidine Gluconate (Peridex) 15 ml Q12 MM ; Start 01/06/17 at 21:00 Ferrous Sulfate (Feosol Liquid Cup) 300 mg DAILY GTB Last administered on t 17:14; Admin Dose 300 MG; Start 01/06/17 at 16:00 Acetaminophen/ Hydrocodone Bitart ([place] (5/325)) 1 tab Q6H PRN GTB PAIN LEVEL 7-9/10; Start 01/06/17 at 15:30 Ondansetron HCl (Zofran Tab) 4 mg Q6H PRN GTB NAUSEA AND/OR VOMITING; Start at 15:30 Senna (Senokot) 1 tab QHS GTB ; Start 01/06/17 at 21:00 Zinc Sulfate (Zinc Sulfate) 220 mg DAILY GTB ; Start 01/07/17 at 09:00 Lactobacillus Acidophilus/ Rhamnosus (Culturelle) 1 cap BID GTB ; Start at 21:00 Multivitamins 30 ml 30 ml DAILY GTB ; Start 01/07/17 at 09:00 Sodium Chloride (NS) 1,000 ml @ 60 mls/hr [id number] IV Last administered on 01/06t 17:15; Admin Dose 60 MLS/HR; Start 01/06/17 at 15:11 Acetaminophen (Tylenol Tab) 650 mg Q6H PRN PO PAIN LEVEL 1-3 OR FEVER; Start at 15:30 Acetaminophen (Tylenol Supp) 650 mg Q6H PRN [place] PAIN LEVEL 1-3 OR FEVER; Start 01/06/17 at 15:30 Morphine Sulfate (morphine) 2 mg Q4H PRN IV SEVERE PAIN LEVEL 7-10; Start 01/06 at 15:30 Docusate Sodium (Colace Liquid Cup) 100 mg Q12H PRN GTB CONSTIPATION; Start at 16:00 Magnesium Hydroxide (Milk Of Mag) 30 ml DAILY PRN PO CONSTIPATION; Start at 15:30 Bisacodyl (Dulcolax Supp) 10 mg DAILY PRN [place] CONSTIPATION; Start 01/06/17 at 15 :30 Pantoprazole 40 mg 40 mg DAILY@06 IV ; Start 01/07/17 at 06:00 Cefepime HCl 50 ml @ 100 mls/hr BID IVPB ; Start 01/06/17 at 21:00 Vancomycin HCl (Vancocin) 250 ml @ 125 mls/hr Q24H IVPB ; Start 01/07/17 at 06: 00 KANDICE DIXON MD Jan 06, 2017 17:46
[2017-01-06 18:48] VITALS: PULSE 101
[2017-01-06 18:58] LABS: CREATINE KINASE 33 IU/L (23-200)
[2017-01-06 19:00] VITALS: BP 117/67; RESP 20
--- NOTE | 2017-01-06 19:33 | CONS ---
Date/Time of Note Date/Time of Note DATE: 01/06/17 TIME: 19:27 Assessment/Plan Assessment/Plan Additional Assessment/Plan IMP: 1. Hemoptysis v. bleeding from trach site--likely due to severe underlying fibrotic/cavitary lung disease with known RUL infected bulla and mycetoma RECS: 1. Quantify ALL hemoptysis 2. If decompensates, place right lung down and transfer to ICU and place on vent 3. Agree with Abx as ordered 4. Sputa for GS/Cx 5. May benefit bronchoscopy if hemoptysis does not improve Consultation Date/Type/Reason Admit Date/Time renal on vent Type of Consultation: Pulm Hx of Present Illness This is a 71-year-old male with history of chronic respiratory failure status post tracheostomy (not currently vent dependent), anxiety, GERD, COPD, CKD, anemia, dysphagia, essential hypertension, debility, bedbound status, constipation, severe emphysema, know RUL infected bulla with mycetoma, presenting with bleeding from trach site. Subjective hx not possible: pt non-verbal Constitutional: no complaints Eyes: no complaints Past Medical History as per HPI Medical History: hypertension Past Surgical History Past Surgical Hx: other (trach and PEG) Family History Significant Family History: no pertinent family hx Social History Alcohol Use: none Smoking Status: Former smoker Drug Use: none Exam/Review of Systems Vital Signs Vitals Vital Signs Date Time Temp Pulse Resp B/P Pulse Ox O2 Delivery O2 Flow Rate FiO2 01/06/17 18:58 96 8.0 40 01/06/17 18:48 101 01/06/17 17:20 98.9 20 105/64 01/06/17 16:10 Aerosol Exam Constitutional: alert, oriented, well developed Psych: no complaints Head: atraumatic, normocephalic Eyes: EOMI, nl conjunctiva, nl lids Neck: other (bleeding noted at trach site) Respiratory: crackles/rales, diminished breath sounds Cardiovascular: regular rate and rhythm Gastrointestinal: nl liver, spleen, non-tender, soft Musculoskeletal: nl extremities to inspection Extremities: normal pulses Results Result Diagram: 01/06/17 1230 01/06/17 1230 Results 24 hrs Laboratory Tests Test 01/06/17 12:30 01/06/17 13:15 01/06/17 13:30 01/06/17 15:45 White Blood Count 21.0 #H Red Blood Count 4.00 L Hemoglobin 10.7 #L Hematocrit 31.0 L Mean Corpuscular Volume 77.5 L Mean Corpuscular Hemoglobin 26.8 L Mean Corpuscular Hemoglobin Concent 34.5 Red Cell Distribution Width 20.2 H Platelet Count 314 Mean Platelet Volume 7.8 Neutrophils % 76.5 Lymphocytes % 15.2 Monocytes % 7.4 Eosinophils % 0.1 Basophils % 0.3 Nucleated Red Blood Cells % 0.0 Neutrophils # 16.1 H Lymphocytes # 3.2 H Monocytes # 1.6 H Eosinophils # 0.0 Basophils # 0.1 Nucleated Red Blood Cells # 0.0 Prothrombin Time 16.0 H Prothrombin Time Ratio 1.3 INR International Normalized Ratio 1.27 Activated Partial Thromboplast Time 49.3 H Sodium Level 135 Potassium Level 4.8 Chloride Level 98 Carbon Dioxide Level 28 Anion Gap 14 Blood Urea Nitrogen 44 H Creatinine 1.38 H Glucose Level 129 Calcium Level 9.8 Total Bilirubin 0.1 L Direct Bilirubin 0.00 Indirect Bilirubin 0.1 Aspartate Amino Transf (AST/SGOT) 24 Alanine Aminotransferase (ALT/SGPT) 28 Alkaline Phosphatase 86 Troponin I < 0.012 Total Protein 8.5 H Albumin 3.7 Lactic Acid Level 1.4 1.7 Urine Color ROBBY Urine Clarity SLIGHTLY CLOUDY A Urine pH 5.0 Urine Specific [place] 1.019 Urine Ketones NEGATIVE Urine Nitrite NEGATIVE Urine Bilirubin NEGATIVE Urine Urobilinogen NEGATIVE Urine Leukocyte Esterase NEGATIVE Urine Microscopic RBC 9 H Urine Microscopic WBC 1 Urine Hyaline Casts FEW A Urine Hemoglobin NEGATIVE Urine Glucose NEGATIVE Urine Total Protein NEGATIVE Test 01/06/17 18:10 Lactic Acid Level 1.5 Creatine Kinase 33 Creatine Kinase Index Pending Creatinine Kinase MB (Mass) Pending Troponin I Pending Medications Medications Current Medications Acetaminophen (Tylenol Tab) 1,000 mg Q4H PRN PO PAIN LEVEL 4-6/10; Start at 15:30 Ascorbic Acid (Vitamin C) 500 mg DAILY GTB ; Start 01/07/17 at 09:00 Aspirin (Aspirin) 81 mg DAILY GTB ; Start 01/07/17 at 09:00 Bethanechol Chloride (Urecholine) 25 mg TID GTB ; Start 01/06/17 at 21:00 Calcium/Vitamin D (Oyster Shell/ Vit-D (500/200)) 1 tab DAILY GTB ; Start at 09:00 Chlorhexidine Gluconate (Peridex) 15 ml Q12 MM ; Start 01/06/17 at 21:00 Ferrous Sulfate (Feosol Liquid Cup) 300 mg DAILY GTB Last administered on t 17:14; Admin Dose 300 MG; Start 01/06/17 at 16:00 Acetaminophen/ Hydrocodone Bitart ([place] (5/325)) 1 tab Q6H PRN GTB PAIN LEVEL 7-9/10; Start 01/06/17 at 15:30 Ondansetron HCl (Zofran Tab) 4 mg Q6H PRN GTB NAUSEA AND/OR VOMITING; Start at 15:30 Senna (Senokot) 1 tab QHS GTB ; Start 01/06/17 at 21:00 Zinc Sulfate (Zinc Sulfate) 220 mg DAILY GTB ; Start 01/07/17 at 09:00 Lactobacillus Acidophilus/ Rhamnosus (Culturelle) 1 cap BID GTB ; Start at 21:00 Multivitamins 30 ml 30 ml DAILY GTB ; Start 01/07/17 at 09:00 Sodium Chloride (NS) 1,000 ml @ 60 mls/hr [id number] IV Last administered on 01/06t 17:15; Admin Dose 60 MLS/HR; Start 01/06/17 at 15:11 Acetaminophen (Tylenol Tab) 650 mg Q6H PRN PO PAIN LEVEL 1-3 OR FEVER; Start at 15:30 Acetaminophen (Tylenol Supp) 650 mg Q6H PRN [place] PAIN LEVEL 1-3 OR FEVER; Start 01/06/17 at 15:30 Morphine Sulfate (morphine) 2 mg Q4H PRN IV SEVERE PAIN LEVEL 7-10; Start 01/06 at 15:30 Docusate Sodium (Colace Liquid Cup) 100 mg Q12H PRN GTB CONSTIPATION; Start at 16:00 Magnesium Hydroxide (Milk Of Mag) 30 ml DAILY PRN PO CONSTIPATION; Start at 15:30 Bisacodyl (Dulcolax Supp) 10 mg DAILY PRN [place] CONSTIPATION; Start 01/06/17 at 15 :30 Pantoprazole 40 mg 40 mg DAILY@06 IV ; Start 9/17/17 at 06:00 Cefepime HCl 50 ml @ 100 mls/hr BID IVPB ; Start 01/06/17 at 21:00 Vancomycin HCl (Vancocin) 250 ml @ 125 mls/hr Q24H IVPB ; Start 01/07/17 at 06: 00 SILVANA MACKAY MD Jan 06, 2017 19:33
[2017-01-06 19:40] VITALS: Ht 170.2 cm; Wt 66.1 kg
[2017-01-06 19:40] LABS: TROPONIN-I < 0.012 ng/ml (0.00-0.12)
[2017-01-06 19:41] LABS: CK-MB 0.47 ng/ml (0.0-2.4)
[2017-01-06 19:45] VITALS: BP 117/67; PULSE 100; RESP 20
[2017-01-06 19:58] LABS: PROTEIN/CREAT RATIO 0.05 RATIO
[2017-01-06] MEDS: ALBUTEROL 0.083% (NEB) 2.5 MG/3 ML AMP NEB PRN (20:23)
[2017-01-06 20:28] VITALS: PULSE 97
[2017-01-06] MEDS: CHLORHEXIDINE GLUCONATE 15 ML UD CUP MM SCH (21:27)
[2017-01-06] MEDS: SENNA TAB GTB SCH (21:28)
[2017-01-06] MEDS: LACTOBACILLUS RHAMNOSUS CAP GTB SCH (21:28)
--- NOTE | 2017-01-06 22:07 | CONS ---
DATE OF ADMISSION: 01/06/2017 DATE OF CONSULTATION: 01/06/2017 REASON FOR CONSULTATION: Antibiotic management. The patient is a 71-year-old male with numerous problems, who comes in with presumed pneumonia, and is being seen for antibiotic management. His problems include, 1. Chronic respiratory failure, status post tracheostomy, not currently vent dependent. 2. COPD. 3. Anxiety. 4. GERD. 5. Chronic renal disease. 6. Dysphagia. 7. Anemia of chronic disease. 8. Hypertension. 9. Debility with bed bound status. 10. Constipation. Patient comes in with bleeding from his tracheostomy site. He does not have shortness of breath, chest pain, dysuria, pyuria, or hematuria. LABORATORY: On admission, his white count was 21,000, H and H 10.7 and 31, platelet count 314,000. BUN creatinine 44 and 1.38, random glucose of 129. His chest x-ray showed increased cavitation at the right lung apex with fold thickening. A CT scan of the chest was done and shows extensive sentry lobular emphysema, decreased opacifications of the right upper lobe cavitary lesion with large air fluid level, similar appearing consolidation posterior to the cavity evaluation limited without contrast. Tracheostomy tube in satisfactory position. Removal of left PICC line. Cardiomegaly, atherosclerosis, sclerotic bones, question of renal osteo dystrophy. PAST MEDICAL HISTORY: Operations as outlined. FAMILY HISTORY: Noncontributory. SOCIAL HISTORY: He does not smoke at present, does not drink or abuse drugs. He was a former smoker. ALLERGIES: NONE TO PENICILLIN, SULFA, OR FOODS. MEDICATIONS: Per chart. REVIEW OF SYSTEMS: Noncontributory. PHYSICAL EXAMINATION: GENERAL: Patient is nonverbal, is alert, responsive, in no acute distress. VITAL SIGNS: Stable. He is afebrile. SKIN: Without generalized rash. He has no rash or petechiae. He has decubitus ulcer. HEENT: Within normal limits. NECK: Supple. Tracheostomy in place. Uncuffed trach collar with mild bleeding around the ostomy site. Lymph nodes nonpalpable. CHEST: Decreased breath sounds at the bases with . HEART: Tachycardic without murmur or gallop. ABDOMEN: Soft, nontender. He has a G-tube in place. No organosplenomegaly or masses. EXTREMITIES: Without cyanosis, clubbing, or edema. RECTAL/GENITAL: Deferred. NEUROLOGIC: No focal neurological abnormalities. IMPRESSION AND PLAN: The patient comes in with significant leukocytosis as well as some degree of renal failure. His chest x-ray shows increased. cavitation, decreased opacification of the right upper lobe cavity lesion with large air-fluid level. Had blood cultures, respiratory cultures, urine culture. I do not believe that we are dealing with tuberculosis at this point. I think we are dealing with emphysema with pneumonia. On that basis, we may want to consider doing sputum for AFB, but his presentation at this time appears to be more acute. Of note is the fact that the patient has been hospitalized previously. At that time he had a Pseudomonas in his sputum. Currently he is on vancomycin and cefepime. I will dictate my findings to the hospitalist and to Dr. Fay. Dictated By: Blaine Diaz MD JD/brianna/nava /Document#: [id number]
[2017-01-06] MEDS: BETHANECHOL 25 MG TAB GTB SCH (23:12)
[2017-01-06] MEDS: CEFEPIME 2GM/50 ML (PMX) 50 ML IVPB SCH (23:54)
[2017-01-07] VITALS (12 sets, daily range): BP systolic 80–116; BP diastolic 48–63; PULSE 93–112; RESP 15–28
[2017-01-07 01:26] LABS: TROPONIN-I < 0.012 ng/ml (0.00-0.12)
[2017-01-07 01:28] LABS: CREATINE KINASE < 20 IU/L (23-200)
[2017-01-07] MEDS: PANTOPRAZOLE 40 MG INJ IV SCH (05:44)
[2017-01-07 07:39] LABS: ALBUMIN/GLOBULIN RATIO 0.71; BILIRUBIN,INDIRECT 0.3 mg/dl (0-1.1); BILIRUBIN,TOTAL 0.3 mg/dl (0.2-1.3); CALCIUM 9.4 mg/dl (8.4-10.2); CHOL/HDL RATIO 3.3 RATIO; CREATININE 0.92 mg/dl (0.61-1.24); MAGNESIUM 2.1 mg/dl (1.7-2.5); PHOSPHORUS 3.2 mg/dl (2.5-4.9); POTASSIUM 4.5 mmol/L (3.5-5.1); TOTAL PROTEIN 7.2 g/dl (6.1-8.1)
[2017-01-07] MEDS: SOD CHLORIDE 0.9% 1,000 ML IV SCH (07:51)
[2017-01-07] MEDS: ALBUTEROL 0.083% (NEB) 2.5 MG/3 ML AMP NEB PRN ×3 (08:28→17:02)
[2017-01-07] MEDS: ASPIRIN 81 MG TAB GTB SCH (09:00)
[2017-01-07] MEDS: METOCLOPRAMIDE (1 MG/ML) 10 ML CUP GTB SCH ×3 (09:22→18:25)
[2017-01-07] MEDS: FERROUS SULFATE 60 MG/ML 5ML CUP GTB SCH (09:22)
[2017-01-07] MEDS: MULTIVITAMINS 30 ML CUP GTB SCH (09:22)
[2017-01-07] MEDS: LACTOBACILLUS RHAMNOSUS CAP GTB SCH ×2 (09:22→21:37)
[2017-01-07] MEDS: BETHANECHOL 25 MG TAB GTB SCH ×3 (09:22→21:38)
[2017-01-07] MEDS: CHLORHEXIDINE GLUCONATE 15 ML UD CUP MM SCH ×2 (09:22→21:37)
[2017-01-07] MEDS: ASCORBIC ACID 500 MG TAB GTB SCH (09:23)
[2017-01-07] MEDS: CALCIUM/VITAMIN D (500/200) TAB GTB SCH (09:23)
[2017-01-07] MEDS: ZINC SULFATE 220 MG CAP GTB SCH (09:23)
[2017-01-07] MEDS: VANCOMYCIN 1 GM in NS 250 ML IVPB SCH (09:45)
[2017-01-07 10:14] LABS: THYROID STIMULATING HORMONE 1.47 MIU/L (0.465-4.680)
[2017-01-07] MEDS: CEFEPIME 2GM/50 ML (PMX) 50 ML IVPB SCH ×2 (10:55→21:37)
[2017-01-07] MEDS ORDERED: SOD CHLORIDE 0.9% 1,000 ML IV ONE (12:00)
[2017-01-07 12:15] LABS: BASOPHILS % 0.2 % (0.0-2.0); EOSINOPHILS # 0.1 10^3/ul (0.0-0.5); EOSINOPHILS % 0.5 % (0.0-7.0); HEMATOCRIT 24.7 % (42.0-52.0); HEMOGLOBIN 8.2 g/dl (14.0-18.0); LYMPHOCYTES # 2.1 10^3/ul (0.8-2.9); LYMPHOCYTES % 15.8 % (15.0-51.0); MEAN CORPUSCULAR HEMOGLOBIN 26.2 pg (29.0-33.0); MEAN CORPUSCULAR HGB CONC 33.2 g/dl (32.0-37.0); MEAN CORPUSCULAR VOLUME 78.9 fl (82.0-101.0); MEAN PLATELET VOLUME 8.4 fl (7.4-10.4); MONOCYTE # 0.9 10^3/ul (0.3-0.9); MONOCYTES % 6.9 % (0.0-11.0); NEUTROPHIL # 9.9 10^3/ul (1.6-7.5); NEUTROPHILS % 76.1 % (39.0-77.0); PLATELET COUNT 264 10^3/UL (140-415); RED BLOOD COUNT 3.13 10^6/ul (4.70-6.10); RED CELL DISTRIBUTION WIDTH 19.9 % (11.5-14.5)
--- NOTE | 2017-01-07 12:39 | PN ---
Date/Time of Note Date/Time of Note DATE: 01/07/17 TIME: 12:36 Assessment/Plan VTE Prophylaxis VTE Prophylaxis Intervention: SCD's Lines/Catheters IV Catheter Type (from Rust): Saline Lock Urinary Cath still in place: No Assessment/Plan Chief Complaint/Hosp Course Impression and plan 1. Suspect sepsis secondary to pneumonia. Patient did have x-ray of his chest that did show increased cavitation at the right lung apex with pleural thickening. CT scan of the chest showed extensive centrilobular emphysema as well as decreased opacification of the right upper lobe cavitary lesion with a large air fluid level. Continue membership secretary recommendations and possible need for bronchoscopy if not improved. continue abx 2. Reported bleeding from tracheostomy site. Patient per med recon was on Lovenox at nursing home facility where he resided. No reports of being on Coumadin or any other anticoagulation. Shearing Shed Worker following. Anticoagulation stopped for now. 3. History of respiratory failure. Patient appears stable with trach to mask at this time. Continue with bronchodilators as needed. Shearing Shed Worker to follow. 4. Essential hypertension. Was noted to be hypertensive initially. Blood pressure stable at this time. Will monitor. 5. Iron deficiency anemia. Continue iron supplement 6. Debilitated state. Turn every 2 hours and as needed to prevent pressure ulcer. 7. History of COPD. No active bronchospasm time. Bronchodilators as needed 8. History of dysphagia. Will resume PEG tube feedings. DISPO/PLAN: cont on abx. Await for clinical improvement of resp status. Continue with membership secretary recs. continue inpatient monitoring discussed plan of care with Dr. Jacobs Problems: Subjective 24 Hr Interval Summary Free Text/Dictation no s/s of distress. comfortable at present. no resp distress. Exam/Review of Systems Vital Signs Vitals Vital Signs Date Time Temp Pulse Resp B/P Pulse Ox O2 Delivery O2 Flow Rate FiO2 01/07/17 12:20 93 01/07/17 12:16 98.1 26 80/48 97 01/07/17 08:28 10.0 60 01/07/17 08:28 Aerosol T Tube Intake and Output 01/06/17 01/06/17 01/07/17 15:00 23:00 07:00 Intake Total 100 ml Balance 100 ml Exam Constitutional: alert, other (Nonverbal) Eyes: nl conjunctiva Neck: other (Tracheostomy in place) Respiratory: other, noted with blood suctioned from tracheostomy Cardiovascular: other (Regular rate tachycardic) Gastrointestinal: non-tender, other (Tube in place), soft Musculoskeletal: No swelling Neurological: other (Her to self) Skin: other (Previously noted decubitus ulcer noted) Results Result Diagram: 01/07/17 1142 01/07/17 0701 Results 24 hrs Laboratory Tests Test 01/06/17 13:15 01/06/17 13:30 01/06/17 15:45 01/06/17 18:10 Lactic Acid Level 1.4 1.7 1.5 Urine Color ROBBY Urine Clarity SLIGHTLY CLOUDY A Urine pH 5.0 Urine Specific [place] 1.019 Urine Ketones NEGATIVE Urine Nitrite NEGATIVE Urine Bilirubin NEGATIVE Urine Urobilinogen NEGATIVE Urine Leukocyte Esterase NEGATIVE Urine Microscopic RBC 9 H Urine Microscopic WBC 1 Urine Hyaline Casts FEW A Urine Hemoglobin NEGATIVE Urine Random Creatinine 186.39 Urine Random Sodium 17 L Urine Protein/Creatinine Ratio 0.05 Urine Glucose NEGATIVE Urine Total Protein 10.0 Creatine Kinase 33 Creatine Kinase Index 1.4 Creatinine Kinase MB (Mass) 0.47 Troponin I < 0.012 Test 01/07/17 00:36 01/07/17 07:01 01/07/17 11:42 Creatine Kinase < 20 L Creatine Kinase Index Creatinine Kinase MB (Mass) 0.50 Troponin I < 0.012 Sodium Level 136 Potassium Level 4.5 Chloride Level 108 # Carbon Dioxide Level 21 Anion Gap 12 Blood Urea Nitrogen 26 #H Creatinine 0.92 Glucose Level 84 # Hemoglobin A1c 5.2 Calcium Level 9.4 Phosphorus Level 3.2 Magnesium Level 2.1 Total Bilirubin 0.3 Direct Bilirubin 0.00 Indirect Bilirubin 0.3 Aspartate Amino Transf (AST/SGOT) 18 Alanine Aminotransferase (ALT/SGPT) 28 Alkaline Phosphatase 69 Total Protein 7.2 # Albumin 3.0 L Globulin 4.20 H Albumin/Globulin Ratio 0.71 Triglycerides Level 70 Cholesterol Level 60 L LDL Cholesterol, Calculated 28 HDL Cholesterol 18 L Cholesterol/HDL Ratio 3.3 Thyroid Stimulating Hormone (TSH) 1.470 Free Thyroxine Index 4.45 H Thyroxine (T4) 8.9 Triiodothyronine (T3) Uptake 50.0 H White Blood Count 13.0 #H Red Blood Count 3.13 #L Hemoglobin 8.2 #L Hematocrit 24.7 #L Mean Corpuscular Volume 78.9 L Mean Corpuscular Hemoglobin 26.2 L Mean Corpuscular Hemoglobin Concent 33.2 Red Cell Distribution Width 19.9 H Platelet Count 264 Mean Platelet Volume 8.4 Neutrophils % 76.1 Lymphocytes % 15.8 Monocytes % 6.9 Eosinophils % 0.5 Basophils % 0.2 Nucleated Red Blood Cells % 0.0 Neutrophils # 9.9 H Lymphocytes # 2.1 Monocytes # 0.9 Eosinophils # 0.1 Basophils # 0.0 Nucleated Red Blood Cells # 0.0 Medications Medications Current Medications Acetaminophen (Tylenol Tab) 1,000 mg Q4H PRN PO PAIN LEVEL 4-6/10; Start at 15:30 Ascorbic Acid (Vitamin C) 500 mg DAILY GTB Last administered on 01/07/17 09:23 ; Admin Dose 500 MG; Start 01/07/17 at 09:00 Aspirin (Aspirin) 81 mg DAILY GTB ; Start 01/07/17 at 09:00 Bethanechol Chloride (Urecholine) 25 mg TID GTB Last administered on 01/07/17 12:33; Admin Dose 25 MG; Start 01/06/17 at 21:00 Calcium/Vitamin D (Oyster Shell/ Vit-D (500/200)) 1 tab DAILY GTB Last administered on 01/07/17 09:23; Admin Dose 1 TAB; Start 01/07/17 at 09:00 Chlorhexidine Gluconate (Peridex) 15 ml Q12 MM Last administered on 01/07/17 09:22; Admin Dose 15 ML; Start 01/06/17 at 21:00 Ferrous Sulfate (Feosol Liquid Cup) 300 mg DAILY GTB Last administered on 09:22; Admin Dose 300 MG; Start 01/06/17 at 16:00 Acetaminophen/ Hydrocodone Bitart ([place] (5/325)) 1 tab Q6H PRN GTB PAIN LEVEL 7-9/10; Start 01/06/17 at 15:30 Ondansetron HCl (Zofran Tab) 4 mg Q6H PRN GTB NAUSEA AND/OR VOMITING; Start at 15:30 Senna (Senokot) 1 tab QHS GTB Last administered on 01/06/17 21:28; Admin Dose 1 TAB; Start 01/06/17 at 21:00 Zinc Sulfate (Zinc Sulfate) 220 mg DAILY GTB Last administered on 01/07/17 09: 23; Admin Dose 220 MG; Start 01/07/17 at 09:00 Lactobacillus Acidophilus/ Rhamnosus (Culturelle) 1 cap BID GTB Last administered on 01/07/17 09:22; Admin Dose 1 CAP; Start 01/06/17 at 21:00 Multivitamins 30 ml 30 ml DAILY GTB Last administered on 01/07/17 09:22; Admin Dose 30 ML; Start 01/07/17 at 09:00 Sodium Chloride (NS) 1,000 ml @ 60 mls/hr [id number] IV Last administered on 01/07 07:51; Admin Dose 60 MLS/HR; Start 01/06/17 at 15:11 Acetaminophen (Tylenol Tab) 650 mg Q6H PRN PO PAIN LEVEL 1-3 OR FEVER; Start at 15:30 Acetaminophen (Tylenol Supp) 650 mg Q6H PRN [place] PAIN LEVEL 1-3 OR FEVER; Start 01/06/17 at 15:30 Morphine Sulfate (morphine) 2 mg Q4H PRN IV SEVERE PAIN LEVEL 7-10; Start 01/06 at 15:30 Docusate Sodium (Colace Liquid Cup) 100 mg Q12H PRN GTB CONSTIPATION; Start at 16:00 Magnesium Hydroxide (Milk Of Mag) 30 ml DAILY PRN PO CONSTIPATION; Start at 15:30 Bisacodyl (Dulcolax Supp) 10 mg DAILY PRN [place] CONSTIPATION; Start 01/06/17 at 15 :30 Pantoprazole 40 mg 40 mg DAILY@06 IV Last administered on 01/07/17 05:44; Admin Dose 40 MG; Start 01/07/17 at 06:00 Cefepime HCl 50 ml @ 100 mls/hr BID IVPB Last administered on 01/07/17 10:55 ; Admin Dose 100 MLS/HR; Start 01/06/17 at 21:00 Vancomycin HCl 250 ml @ 125 mls/hr Q24H IVPB Last administered on 01/07/17 09 :45; Admin Dose 125 MLS/HR; Start 01/07/17 at 06:00 Sodium Chloride (NS) 1,000 ml @ 1,000 mls/hr Q1H ONCE IV Last administered on 01/07/17t 12:33; Admin Dose 1,000 MLS/HR; Start 01/07/17 at 12:00; Stop at 12:59 NORBERTO PRYOR Jan 07, 2017 12:39
--- NOTE | 2017-01-07 14:22 | CONS ---
Date/Time of Note Date/Time of Note DATE: 01/07/17 TIME: 14:22 Assessment/Plan Assessment/Plan Chief Complaint/Hosp Course ID PROGRESS NOTE CURRENT ABX: =>Vanco IV + Cefepime 24H INTERVAL SUMMARY * Tc 99.3, w/low B/P 80/43 range, Dr. Avendaño recommended TNS to unit pulmonary sepsis * 01/06 BCx(-); Urine Cx(-) * Hemoptysis v. bleeding from trach site--likely due to known infected bullous cavitary disease 01/07/17 1142 01/07/17 0701 EXAM GEN: VSS, NAD, nonverbal, chronic debility HEENT: Unremarkable NECK: Trach -> bleeding noted CVS: RRR CHEST: Equal chest rise bilaterally, course BS ABD: Soft, NT, peg EXT: warm -> see photos decubs SKIN: No rash, no diaphoresis ID ASSESSMENT 71 yo M admit with: 1. Systemic inflammatory response syndrome -> s/p sepsis w/transient hypotension, leukocytosis on admission, lactic acid elevation to 1.7 * Due to PNA, decubs * 01/06 BCx(-)24H; Urine (-) 24H 2. 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 Bleeding from trach vs hemoptysis 4. Chronic respiratory failure, status post tracheostomy, not currently vent dependent. 3. 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 Chronic renal disease. 6. Dysphagia. 7. Anemia of chronic disease. 8. Hypertension. 9. GERD. 10. Constipation. 11. Debility with bed bound status. 12. Anxiety. 13. Decub ulcers ABX ALLERGY: KNDA CURRENT ABX: =>Vanco IV + Cefepime ID RECOMMENDATIONS 1. TNS to ICU in process 2. Continue ABX 3. Await sputum cx, AFB x3 [address]. Place PPD . \\ Problems: Consultation Date/Type/Reason Admit Date/Time Jan 06, 2017 at 13:44 Initial Consult Date Type of Consultation: Pulm Exam/Review of Systems Vital Signs Vitals Vital Signs Date Time Temp Pulse Resp B/P Pulse Ox O2 Delivery O2 Flow Rate FiO2 01/07/17 12:20 93 01/07/17 12:16 98.1 26 80/48 97 01/07/17 08:28 10.0 60 01/07/17 08:28 Aerosol T Tube Intake and Output 01/06/17 01/06/17 01/07/17 15:00 23:00 07:00 Intake Total 100 ml Balance 100 ml Results Result Diagram: 01/07/17 1142 01/07/17 0701 Results 24 hrs Laboratory Tests Test 01/06/17 15:45 01/06/17 18:10 01/07/17 00:36 01/07/17 07:01 Lactic Acid Level 1.7 1.5 Creatine Kinase 33 < 20 L Creatine Kinase Index 1.4 Creatinine Kinase MB (Mass) 0.47 0.50 Troponin I < 0.012 < 0.012 Sodium Level 136 Potassium Level 4.5 Chloride Level 108 # Carbon Dioxide Level 21 Anion Gap 12 Blood Urea Nitrogen 26 #H Creatinine 0.92 Glucose Level 84 # Hemoglobin A1c 5.2 Calcium Level 9.4 Phosphorus Level 3.2 Magnesium Level 2.1 Total Bilirubin 0.3 Direct Bilirubin 0.00 Indirect Bilirubin 0.3 Aspartate Amino Transf (AST/SGOT) 18 Alanine Aminotransferase (ALT/SGPT) 28 Alkaline Phosphatase 69 Total Protein 7.2 # Albumin 3.0 L Globulin 4.20 H Albumin/Globulin Ratio 0.71 Triglycerides Level 70 Cholesterol Level 60 L LDL Cholesterol, Calculated 28 HDL Cholesterol 18 L Cholesterol/HDL Ratio 3.3 Thyroid Stimulating Hormone (TSH) 1.470 Free Thyroxine Index 4.45 H Thyroxine (T4) 8.9 Triiodothyronine (T3) Uptake 50.0 H Test 01/07/17 11:42 White Blood Count 13.0 #H Red Blood Count 3.13 #L Hemoglobin 8.2 #L Hematocrit 24.7 #L Mean Corpuscular Volume 78.9 L Mean Corpuscular Hemoglobin 26.2 L Mean Corpuscular Hemoglobin Concent 33.2 Red Cell Distribution Width 19.9 H Platelet Count 264 Mean Platelet Volume 8.4 Neutrophils % 76.1 Lymphocytes % 15.8 Monocytes % 6.9 Eosinophils % 0.5 Basophils % 0.2 Nucleated Red Blood Cells % 0.0 Neutrophils # 9.9 H Lymphocytes # 2.1 Monocytes # 0.9 Eosinophils # 0.1 Basophils # 0.0 Nucleated Red Blood Cells # 0.0 Medications Medications Current Medications Acetaminophen (Tylenol Tab) 1,000 mg Q4H PRN PO PAIN LEVEL 4-6/10; Start at 15:30 Ascorbic Acid (Vitamin C) 500 mg DAILY GTB Last administered on 01/07/17 09:23 ; Admin Dose 500 MG; Start 01/07/17 at 09:00 Aspirin (Aspirin) 81 mg DAILY GTB ; Start 01/07/17 at 09:00 Bethanechol Chloride (Urecholine) 25 mg TID GTB Last administered on 01/07/17 12:33; Admin Dose 25 MG; Start 01/06/17 at 21:00 Calcium/Vitamin D (Oyster Shell/ Vit-D (500/200)) 1 tab DAILY GTB Last administered on 01/07/17 09:23; Admin Dose 1 TAB; Start 01/07/17 at 09:00 Chlorhexidine Gluconate (Peridex) 15 ml Q12 MM Last administered on 01/07/17 09:22; Admin Dose 15 ML; Start 01/06/17 at 21:00 Ferrous Sulfate (Feosol Liquid Cup) 300 mg DAILY GTB Last administered on 09:22; Admin Dose 300 MG; Start 01/06/17 at 16:00 Acetaminophen/ Hydrocodone Bitart ([place] (5/325)) 1 tab Q6H PRN GTB PAIN LEVEL 7-9/10; Start 01/06/17 at 15:30 Ondansetron HCl (Zofran Tab) 4 mg Q6H PRN GTB NAUSEA AND/OR VOMITING; Start at 15:30 Senna (Senokot) 1 tab QHS GTB Last administered on 01/06/17 21:28; Admin Dose 1 TAB; Start 01/06/17 at 21:00 Zinc Sulfate (Zinc Sulfate) 220 mg DAILY GTB Last administered on 01/07/17 09: 23; Admin Dose 220 MG; Start 01/07/17 at 09:00 Lactobacillus Acidophilus/ Rhamnosus (Culturelle) 1 cap BID GTB Last administered on 01/07/17 09:22; Admin Dose 1 CAP; Start 01/06/17 at 21:00 Multivitamins 30 ml 30 ml DAILY GTB Last administered on 01/07/17 09:22; Admin Dose 30 ML; Start 01/07/17 at 09:00 Sodium Chloride (NS) 1,000 ml @ 60 mls/hr [id number] IV Last administered on 01/07 07:51; Admin Dose 60 MLS/HR; Start 01/06/17 at 15:11 Acetaminophen (Tylenol Tab) 650 mg Q6H PRN PO PAIN LEVEL 1-3 OR FEVER; Start at 15:30 Acetaminophen (Tylenol Supp) 650 mg Q6H PRN [place] PAIN LEVEL 1-3 OR FEVER; Start 01/06/17 at 15:30 Morphine Sulfate (morphine) 2 mg Q4H PRN IV SEVERE PAIN LEVEL 7-10; Start 01/06 at 15:30 Docusate Sodium (Colace Liquid Cup) 100 mg Q12H PRN GTB CONSTIPATION; Start at 16:00 Magnesium Hydroxide (Milk Of Mag) 30 ml DAILY PRN PO CONSTIPATION; Start at 15:30 Bisacodyl (Dulcolax Supp) 10 mg DAILY PRN [place] CONSTIPATION; Start 01/06/17 at 15 :30 Pantoprazole 40 mg 40 mg DAILY@06 IV Last administered on 01/07/17 05:44; Admin Dose 40 MG; Start 01/07/17 at 06:00 Cefepime HCl 50 ml @ 100 mls/hr BID IVPB Last administered on 01/07/17 10:55 ; Admin Dose 100 MLS/HR; Start 01/06/17 at 21:00 Vancomycin HCl (Vancocin) 250 ml @ 125 mls/hr Q24H IVPB Last administered on 09:45; Admin Dose 125 MLS/HR; Start 01/07/17 at 06:00 FELIX BARLOW NP Jan 07, 2017 14:22
--- NOTE | 2017-01-07 19:09 | CONS ---
Date/Time of Note Date/Time of Note DATE: 01/07/17 TIME: 19:05 Consult Date/Type/Reason Admit Date/Time Jan 06, 2017 at 13:44 Initial Consult Date Type of Consultation: Pulm Subjective No events. Still moderate amount of hemoptysis noted in suction canister. Objective Vital Signs Date Time Temp Pulse Resp B/P Pulse Ox O2 Delivery O2 Flow Rate FiO2 01/07/17 18:41 10.0 60 01/07/17 17:00 97 22 93 Aerosol T Tube 01/07/17 16:24 98.7 105/58 Intake and Output 01/06/17 01/06/17 01/07/17 15:00 23:00 07:00 Intake Total 100 ml Balance 100 ml Exam HEENT: Neck supple; no JVD; no LAD, trach site with minimal blood noted CVS: RRR, S1 and S2 CHEST: Decreased with rhonchi R>L ABD: Soft, NT, + BS EXT: No c/c/e Results/Medications Result Diagram: 01/07/17 1142 01/07/17 0701 Results 24 hrs Laboratory Tests Test 01/07/17 00:36 01/07/17 07:01 01/07/17 11:42 Creatine Kinase < 20 L Creatine Kinase Index Creatinine Kinase MB (Mass) 0.50 Troponin I < 0.012 Sodium Level 136 Potassium Level 4.5 Chloride Level 108 # Carbon Dioxide Level 21 Anion Gap 12 Blood Urea Nitrogen 26 #H Creatinine 0.92 Glucose Level 84 # Hemoglobin A1c 5.2 Calcium Level 9.4 Phosphorus Level 3.2 Magnesium Level 2.1 Total Bilirubin 0.3 Direct Bilirubin 0.00 Indirect Bilirubin 0.3 Aspartate Amino Transf (AST/SGOT) 18 Alanine Aminotransferase (ALT/SGPT) 28 Alkaline Phosphatase 69 Total Protein 7.2 # Albumin 3.0 L Globulin 4.20 H Albumin/Globulin Ratio 0.71 Triglycerides Level 70 Cholesterol Level 60 L LDL Cholesterol, Calculated 28 HDL Cholesterol 18 L Cholesterol/HDL Ratio 3.3 Thyroid Stimulating Hormone (TSH) 1.470 Free Thyroxine Index 4.45 H Thyroxine (T4) 8.9 Triiodothyronine (T3) Uptake 50.0 H White Blood Count 13.0 #H Red Blood Count 3.13 #L Hemoglobin 8.2 #L Hematocrit 24.7 #L Mean Corpuscular Volume 78.9 L Mean Corpuscular Hemoglobin 26.2 L Mean Corpuscular Hemoglobin Concent 33.2 Red Cell Distribution Width 19.9 H Platelet Count 264 Mean Platelet Volume 8.4 Neutrophils % 76.1 Lymphocytes % 15.8 Monocytes % 6.9 Eosinophils % 0.5 Basophils % 0.2 Nucleated Red Blood Cells % 0.0 Neutrophils # 9.9 H Lymphocytes # 2.1 Monocytes # 0.9 Eosinophils # 0.1 Basophils # 0.0 Nucleated Red Blood Cells # 0.0 Medications Current Medications Acetaminophen (Tylenol Tab) 1,000 mg Q4H PRN PO PAIN LEVEL 4-6/10; Start at 15:30 Ascorbic Acid (Vitamin C) 500 mg DAILY GTB Last administered on 01/07/17 09:23 ; Admin Dose 500 MG; Start 01/07/17 at 09:00 Aspirin (Aspirin) 81 mg DAILY GTB ; Start 01/07/17 at 09:00 Bethanechol Chloride (Urecholine) 25 mg TID GTB Last administered on 01/07/17 12:33; Admin Dose 25 MG; Start 01/06/17 at 21:00 Calcium/Vitamin D (Oyster Shell/ Vit-D (500/200)) 1 tab DAILY GTB Last administered on 01/07/17 09:23; Admin Dose 1 TAB; Start 01/07/17 at 09:00 Chlorhexidine Gluconate (Peridex) 15 ml Q12 MM Last administered on 01/07/17 09:22; Admin Dose 15 ML; Start 01/06/17 at 21:00 Ferrous Sulfate (Feosol Liquid Cup) 300 mg DAILY GTB Last administered on 09:22; Admin Dose 300 MG; Start 01/06/17 at 16:00 Acetaminophen/ Hydrocodone Bitart ([place] (5/325)) 1 tab Q6H PRN GTB PAIN LEVEL 7-9/10; Start 01/06/17 at 15:30 Ondansetron HCl (Zofran Tab) 4 mg Q6H PRN GTB NAUSEA AND/OR VOMITING; Start at 15:30 Senna (Senokot) 1 tab QHS GTB Last administered on 01/06/17 21:28; Admin Dose 1 TAB; Start 01/06/17 at 21:00 Zinc Sulfate (Zinc Sulfate) 220 mg DAILY GTB Last administered on 01/07/17 09: 23; Admin Dose 220 MG; Start 01/07/17 at 09:00 Lactobacillus Acidophilus/ Rhamnosus (Culturelle) 1 cap BID GTB Last administered on 01/07/17 09:22; Admin Dose 1 CAP; Start 01/06/17 at 21:00 Multivitamins 30 ml 30 ml DAILY GTB Last administered on 01/07/17 09:22; Admin Dose 30 ML; Start 01/07/17 at 09:00 Sodium Chloride (NS) 1,000 ml @ 60 mls/hr [id number] IV Last administered on 01/07 07:51; Admin Dose 60 MLS/HR; Start 01/06/17 at 15:11 Acetaminophen (Tylenol Tab) 650 mg Q6H PRN PO PAIN LEVEL 1-3 OR FEVER; Start at 15:30 Acetaminophen (Tylenol Supp) 650 mg Q6H PRN [place] PAIN LEVEL 1-3 OR FEVER; Start 01/06/17 at 15:30 Morphine Sulfate (morphine) 2 mg Q4H PRN IV SEVERE PAIN LEVEL 7-10; Start 01/06 at 15:30 Docusate Sodium (Colace Liquid Cup) 100 mg Q12H PRN GTB CONSTIPATION; Start at 16:00 Magnesium Hydroxide (Milk Of Mag) 30 ml DAILY PRN PO CONSTIPATION; Start at 15:30 Bisacodyl (Dulcolax Supp) 10 mg DAILY PRN [place] CONSTIPATION; Start 01/06/17 at 15 :30 Pantoprazole 40 mg 40 mg DAILY@06 IV Last administered on 01/07/17 05:44; Admin Dose 40 MG; Start 01/07/17 at 06:00 Cefepime HCl 50 ml @ 100 mls/hr BID IVPB Last administered on 01/07/17 10:55 ; Admin Dose 100 MLS/HR; Start 01/06/17 at 21:00 Vancomycin HCl (Vancocin) 250 ml @ 125 mls/hr Q24H IVPB Last administered on 09:45; Admin Dose 125 MLS/HR; Start 01/07/17 at 06:00 Assessment/Plan Chief Complaint/Hosp Course This is a 71-year-old male with history of chronic respiratory failure status post tracheostomy (not currently vent dependent), anxiety, GERD, COPD, CKD, anemia, dysphagia, essential hypertension, debility, bedbound status, constipation, severe emphysema, know RUL infected bulla with mycetoma, presenting with bleeding from trach site. Problems: Additional Assessment/Plan IMP: 1. 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 There appears to be no progression or worsening of his lung disease/RUL cavity and mycetoma. Suspect bleeding is related to the RUL mycetoma vs. more proximal related ectatic disease RECS: 1. Quantify ALL hemoptysis 2. If decompensates, place right lung down and transfer to ICU and place on vent 3. Suggest de-escalation of Abx 4. May benefit bronchoscopy if hemoptysis does not improve 5. Also, if bleeding persists and is noted to originate from RUL, would consider BERTRAM by SILVANA BURRIS MD Jan 07, 2017 19:09
--- NOTE | 2017-01-07 19:43 | CONS ---
Date/Time of Note Date/Time of Note DATE: 01/07/17 TIME: 19:42 Assessment/Plan Assessment/Plan Chief Complaint/Hosp Course A/P RITA [id number] CONSULT COPD RES FAILURE PLAN IV FLUID HHN CK BMP Problems: Consultation Date/Type/Reason Admit Date/Time Jan 06, 2017 at 13:44 Type of Consultation: RENAL 24 HR Interval Summary Constitutional: no complaints Exam/Review of Systems Vital Signs Vitals Vital Signs Date Time Temp Pulse Resp B/P Pulse Ox O2 Delivery O2 Flow Rate FiO2 01/07/17 18:41 10.0 60 01/07/17 17:00 97 22 93 Aerosol T Tube 01/07/17 16:24 98.7 105/58 Intake and Output 01/06/17 01/06/17 01/07/17 15:00 23:00 07:00 Intake Total 100 ml Balance 100 ml Exam Neck: supple Respiratory: diminished breath sounds Cardiovascular: regular rate and rhythm Gastrointestinal: bowel sounds (+), soft Extremities: No edema Results Result Diagram: 01/07/17 1142 01/07/17 0701 Results 24 hrs Laboratory Tests Test 01/07/17 00:36 01/07/17 07:01 01/07/17 11:42 Creatine Kinase < 20 L Creatine Kinase Index Creatinine Kinase MB (Mass) 0.50 Troponin I < 0.012 Sodium Level 136 Potassium Level 4.5 Chloride Level 108 # Carbon Dioxide Level 21 Anion Gap 12 Blood Urea Nitrogen 26 #H Creatinine 0.92 Glucose Level 84 # Hemoglobin A1c 5.2 Calcium Level 9.4 Phosphorus Level 3.2 Magnesium Level 2.1 Total Bilirubin 0.3 Direct Bilirubin 0.00 Indirect Bilirubin 0.3 Aspartate Amino Transf (AST/SGOT) 18 Alanine Aminotransferase (ALT/SGPT) 28 Alkaline Phosphatase 69 Total Protein 7.2 # Albumin 3.0 L Globulin 4.20 H Albumin/Globulin Ratio 0.71 Triglycerides Level 70 Cholesterol Level 60 L LDL Cholesterol, Calculated 28 HDL Cholesterol 18 L Cholesterol/HDL Ratio 3.3 Thyroid Stimulating Hormone (TSH) 1.470 Free Thyroxine Index 4.45 H Thyroxine (T4) 8.9 Triiodothyronine (T3) Uptake 50.0 H White Blood Count 13.0 #H Red Blood Count 3.13 #L Hemoglobin 8.2 #L Hematocrit 24.7 #L Mean Corpuscular Volume 78.9 L Mean Corpuscular Hemoglobin 26.2 L Mean Corpuscular Hemoglobin Concent 33.2 Red Cell Distribution Width 19.9 H Platelet Count 264 Mean Platelet Volume 8.4 Neutrophils % 76.1 Lymphocytes % 15.8 Monocytes % 6.9 Eosinophils % 0.5 Basophils % 0.2 Nucleated Red Blood Cells % 0.0 Neutrophils # 9.9 H Lymphocytes # 2.1 Monocytes # 0.9 Eosinophils # 0.1 Basophils # 0.0 Nucleated Red Blood Cells # 0.0 Medications Medications Current Medications Acetaminophen (Tylenol Tab) 1,000 mg Q4H PRN PO PAIN LEVEL 4-6/10; Start at 15:30 Ascorbic Acid (Vitamin C) 500 mg DAILY GTB Last administered on 01/07/17 09:23 ; Admin Dose 500 MG; Start 01/07/17 at 09:00 Aspirin (Aspirin) 81 mg DAILY GTB ; Start 01/07/17 at 09:00 Bethanechol Chloride (Urecholine) 25 mg TID GTB Last administered on 01/07/17 12:33; Admin Dose 25 MG; Start 01/06/17 at 21:00 Calcium/Vitamin D (Oyster Shell/ Vit-D (500/200)) 1 tab DAILY GTB Last administered on 01/07/17 09:23; Admin Dose 1 TAB; Start 01/07/17 at 09:00 Chlorhexidine Gluconate (Peridex) 15 ml Q12 MM Last administered on 01/07/17 09:22; Admin Dose 15 ML; Start 01/06/17 at 21:00 Ferrous Sulfate (Feosol Liquid Cup) 300 mg DAILY GTB Last administered on 09:22; Admin Dose 300 MG; Start 01/06/17 at 16:00 Acetaminophen/ Hydrocodone Bitart ([place] (5/325)) 1 tab Q6H PRN GTB PAIN LEVEL 7-9/10; Start 01/06/17 at 15:30 Ondansetron HCl (Zofran Tab) 4 mg Q6H PRN GTB NAUSEA AND/OR VOMITING; Start at 15:30 Senna (Senokot) 1 tab QHS GTB Last administered on 01/06/17 21:28; Admin Dose 1 TAB; Start 01/06/17 at 21:00 Zinc Sulfate (Zinc Sulfate) 220 mg DAILY GTB Last administered on 01/07/17 09: 23; Admin Dose 220 MG; Start 01/07/17 at 09:00 Lactobacillus Acidophilus/ Rhamnosus (Culturelle) 1 cap BID GTB Last administered on 01/07/17 09:22; Admin Dose 1 CAP; Start 01/06/17 at 21:00 Multivitamins 30 ml 30 ml DAILY GTB Last administered on 01/07/17 09:22; Admin Dose 30 ML; Start 01/07/17 at 09:00 Sodium Chloride (NS) 1,000 ml @ 60 mls/hr [id number] IV Last administered on 01/07 07:51; Admin Dose 60 MLS/HR; Start 01/06/17 at 15:11 Acetaminophen (Tylenol Tab) 650 mg Q6H PRN PO PAIN LEVEL 1-3 OR FEVER; Start at 15:30 Acetaminophen (Tylenol Supp) 650 mg Q6H PRN [place] PAIN LEVEL 1-3 OR FEVER; Start 01/06/17 at 15:30 Morphine Sulfate (morphine) 2 mg Q4H PRN IV SEVERE PAIN LEVEL 7-10; Start 01/06 at 15:30 Docusate Sodium (Colace Liquid Cup) 100 mg Q12H PRN GTB CONSTIPATION; Start at 16:00 Magnesium Hydroxide (Milk Of Mag) 30 ml DAILY PRN PO CONSTIPATION; Start at 15:30 Bisacodyl (Dulcolax Supp) 10 mg DAILY PRN [place] CONSTIPATION; Start 01/06/17 at 15 :30 Pantoprazole 40 mg 40 mg DAILY@06 IV Last administered on 01/07/17 05:44; Admin Dose 40 MG; Start 01/07/17 at 06:00 Cefepime HCl 50 ml @ 100 mls/hr BID IVPB Last administered on 01/07/17 10:55 ; Admin Dose 100 MLS/HR; Start 01/06/17 at 21:00 Vancomycin HCl (Vancocin) 250 ml @ 125 mls/hr Q24H IVPB Last administered on 09:45; Admin Dose 125 MLS/HR; Start 01/07/17 at 06:00 KANDICE DIXON MD Jan 07, 2017 19:43
[2017-01-07 21:35] LABS: TIME 2105
[2017-01-07] MEDS: SENNA TAB GTB SCH (21:38)
[2017-01-08] VITALS (13 sets, daily range): BP systolic 99–119; BP diastolic 56–76; PULSE 93–101; RESP 17–20
--- NOTE | 2017-01-08 00:01 | CONS ---
DATE OF ADMISSION: 01/06/2017 DATE OF CONSULTATION: 01/07/2017 Thank you, Dr. Mckay and Dr. Jacobs, for kindly asking me to see this patient in consultation. HISTORY OF PRESENT ILLNESS: The patient with history of CKD, history of respiratory failure, tracheostomy, G-tube placement, presented to this hospital with respiratory failure, short of breath, noted to have electrolyte imbalance. The patient had tracheostomy and unable to give any detailed history. PAST MEDICAL HISTORY: Positive for dysphagia, history of COPD, history of hypertension, anemia, respiratory failure, tracheostomy, G-tube placement. The patient has a history of azotemia, anemia, pneumonia. ALLERGIES: ALLERGY HISTORY LISTED NEGATIVE. FAMILY HISTORY: Noncontributory. SOCIAL HISTORY: Unobtainable. MEDICATIONS: The patient in the prison is on ascorbic acid, albuterol, aspirin, bisacodyl, calcium carbonate, Lovenox, iron sulfate, hydrocodone, lactobacillus, Prevacid, magnesium hydroxide, Reglan, mineral oil, multiple vitamin, Zofran, Senna, zinc. REVIEW OF SYSTEMS: Limited. PHYSICAL EXAMINATION: GENERAL: The patient is awake, alert, on vent. VITAL SIGNS: Pulse 107, blood pressure 105/58. HEENT: Head is atraumatic, normocephalic. Pupils equal and reactive. NECK: Supple. LUNGS: A few rhonchi. HEART: S1, S2 normal. ABDOMEN: Soft. Bowel sounds in place. EXTREMITIES: No cyanosis, clubbing, edema. LABORATORY DATA: WBC 22, hematocrit 31.0, platelet count 314. The patient has sodium 131, potassium 4.1, BUN 40, creatinine 1.38. Chest x-ray, increased cavitation of the right lung apex with pleural thickening or fluids. CT scan showed extensive central lobar emphysema and decreased opacification of the right upper lobe, cavitary lesion, tracheostomy, cardiomegaly. IMPRESSION: 1. Acute kidney disease. 2. Dehydration. 3. Sepsis. 4. Chronic obstructive pulmonary disease. 5. Emphysema. 6. Leukocytosis. 7. Anemia. 8. Dehydration. PLAN: To continue gentle IV fluids overnight. Electrolytes will be followed. The patient already had a workup done for kidney disease in the past which will repeated. Thank you doctors for kindly asking me to see this patient in consultation. Dictated By: Ritesh Fay MD /brianna/nava /Document#: [id number]
[2017-01-08] MEDS: SOD CHLORIDE 0.9% 1,000 ML IV SCH ×2 (00:31→17:11)
[2017-01-08] MEDS: PANTOPRAZOLE 40 MG INJ IV SCH (05:27)
[2017-01-08] MEDS: VANCOMYCIN 1 GM in NS 250 ML IVPB SCH (05:28)
[2017-01-08] MEDS: METOCLOPRAMIDE (1 MG/ML) 10 ML CUP GTB SCH ×3 (07:30→17:35)
[2017-01-08] MEDS: ASPIRIN 81 MG TAB GTB SCH (08:55)
[2017-01-08] MEDS: MULTIVITAMINS 30 ML CUP GTB SCH (08:55)
[2017-01-08] MEDS: LACTOBACILLUS RHAMNOSUS CAP GTB SCH ×2 (08:55→20:49)
[2017-01-08] MEDS: CALCIUM/VITAMIN D (500/200) TAB GTB SCH (08:55)
[2017-01-08] MEDS: FERROUS SULFATE 60 MG/ML 5ML CUP GTB SCH (08:55)
[2017-01-08] MEDS: CHLORHEXIDINE GLUCONATE 15 ML UD CUP MM SCH ×2 (08:56→20:49)
[2017-01-08] MEDS: BETHANECHOL 25 MG TAB GTB SCH ×3 (08:56→20:49)
[2017-01-08] MEDS: ASCORBIC ACID 500 MG TAB GTB SCH (08:56)
[2017-01-08] MEDS: ZINC SULFATE 220 MG CAP GTB SCH (08:56)
[2017-01-08] MEDS: CEFEPIME 2GM/50 ML (PMX) 50 ML IVPB SCH ×2 (09:02→20:49)
--- NOTE | 2017-01-08 10:35 | CONS ---
Date/Time of Note Date/Time of Note DATE: 01/08/17 TIME: 10:33 Assessment/Plan Assessment/Plan Additional Assessment/Plan Assessment recommendations; 1. Patient admitted with recurrent hemoptysis which has been an ongoing complaint for the last several months with multiple admissions at [facility]. 2. Fibrocavitary lung disease. 3. Chronic respiratory failure, patient however doing very well on tracheal T piece. Marilee current treatment. Consultation Date/Type/Reason Admit Date/Time Jan 06, 2017 at 13:44 Initial Consult Date Type of Consultation: Pulmonary 24 HR Interval Summary Free Text/Dictation Since condition is stable. Remains awake and alert. Still having hemoptysis off and on. General exam; elderly male, awake. Currently in no distress. Exam/Review of Systems Vital Signs Vitals Vital Signs Date Time Temp Pulse Resp B/P Pulse Ox O2 Delivery O2 Flow Rate FiO2 01/08/17 08:35 98 01/08/17 08:14 99.1 17 108/56 91 01/08/17 07:39 10.0 60 01/08/17 07:39 Aerosol Intake and Output 01/07/17 01/07/17 01/08/17 15:00 23:00 07:00 Intake Total 100 ml 500 ml Balance 100 ml 500 ml Exam ENT exam; supple neck, no JVD. No lymphadenopathy. Midline trachea. No thyromegaly. Tracheostomy in place attached to T-piece.. He is edentulous. Has a right intraocular lens implant. Chest exam; diminished breath sounds bilaterally. S1-S2 audible, no murmurs. Regular rhythm. Abdomen exam; soft, no organomegaly. Bowel sounds audible. Nontender. Extremity exam; no peripheral edema. MANAGER HEART exam; no focal motor deficit, patient however has generalized muscular weakness. Results Result Diagram: 01/07/17 1142 01/07/17 0701 Results 24 hrs Laboratory Tests Test 01/07/17 11:42 01/07/17 21:05 White Blood Count 13.0 #H Red Blood Count 3.13 #L Hemoglobin 8.2 #L Hematocrit 24.7 #L Mean Corpuscular Volume 78.9 L Mean Corpuscular Hemoglobin 26.2 L Mean Corpuscular Hemoglobin Concent 33.2 Red Cell Distribution Width 19.9 H Platelet Count 264 Mean Platelet Volume 8.4 Neutrophils % 76.1 Lymphocytes % 15.8 Monocytes % 6.9 Eosinophils % 0.5 Basophils % 0.2 Nucleated Red Blood Cells % 0.0 Neutrophils # 9.9 H Lymphocytes # 2.1 Monocytes # 0.9 Eosinophils # 0.1 Basophils # 0.0 Nucleated Red Blood Cells # 0.0 TB Skin Test Induration Pending TB Skin Test Administer Date [id number] TB Skin Test Administer Time 2104 TB Skin Test Injection Site Right Upper Forearm Medications Medications Current Medications Acetaminophen (Tylenol Tab) 1,000 mg Q4H PRN PO PAIN LEVEL 4-6/10; Start at 15:30 Ascorbic Acid (Vitamin C) 500 mg DAILY GTB Last administered on 01/08/17 08:56 ; Admin Dose 500 MG; Start 01/07/17 at 09:00 Aspirin (Aspirin) 81 mg DAILY GTB ; Start 01/07/17 at 09:00 Bethanechol Chloride (Urecholine) 25 mg TID GTB Last administered on 01/08/17 08:56; Admin Dose 25 MG; Start 01/06/17 at 21:00 Calcium/Vitamin D (Oyster Shell/ Vit-D (500/200)) 1 tab DAILY GTB Last administered on 01/08/17 08:55; Admin Dose 1 TAB; Start 01/07/17 at 09:00 Chlorhexidine Gluconate (Peridex) 15 ml Q12 MM Last administered on 01/08/17 08:56; Admin Dose 15 ML; Start 01/06/17 at 21:00 Ferrous Sulfate (Feosol Liquid Cup) 300 mg DAILY GTB Last administered on 08:55; Admin Dose 300 MG; Start 01/06/17 at 16:00 Acetaminophen/ Hydrocodone Bitart ([place] (5/325)) 1 tab Q6H PRN GTB PAIN LEVEL 7-9/10; Start 01/06/17 at 15:30 Ondansetron HCl (Zofran Tab) 4 mg Q6H PRN GTB NAUSEA AND/OR VOMITING; Start at 15:30 Senna (Senokot) 1 tab QHS GTB Last administered on 01/07/17 21:38; Admin Dose 1 TAB; Start 01/06/17 at 21:00 Zinc Sulfate (Zinc Sulfate) 220 mg DAILY GTB Last administered on 01/08/17 08: 56; Admin Dose 220 MG; Start 01/07/17 at 09:00 Lactobacillus Acidophilus/ Rhamnosus (Culturelle) 1 cap BID GTB Last administered on 01/08/17 08:55; Admin Dose 1 CAP; Start 01/06/17 at 21:00 Multivitamins 30 ml 30 ml DAILY GTB Last administered on 01/08/17 08:55; Admin Dose 30 ML; Start 01/07/17 at 09:00 Sodium Chloride (NS) 1,000 ml @ 60 mls/hr [id number] IV Last administered on 01/07 07:51; Admin Dose 60 MLS/HR; Start 01/06/17 at 15:11 Acetaminophen (Tylenol Tab) 650 mg Q6H PRN PO PAIN LEVEL 1-3 OR FEVER; Start at 15:30 Acetaminophen (Tylenol Supp) [address] PAIN LEVEL 1-3 OR FEVER; Start 01/06/17 at 15:30 Morphine Sulfate (morphine) 2 mg Q4H PRN IV SEVERE PAIN LEVEL 7-10; Start 01/06 at 15:30 Docusate Sodium (Colace Liquid Cup) 100 mg Q12H PRN GTB CONSTIPATION; Start at 16:00 Magnesium Hydroxide (Milk Of Mag) 30 ml DAILY PRN PO CONSTIPATION; Start at 15:30 Bisacodyl (Dulcolax Supp) [address] CONSTIPATION; Start 01/06/17 at 15 :30 Pantoprazole 40 mg 40 mg DAILY@06 IV Last administered on 01/08/17 05:27; Admin Dose 40 MG; Start 01/07/17 at 06:00 Cefepime HCl 50 ml @ 100 mls/hr BID IVPB Last administered on 01/08/17 09:02 ; Admin Dose 100 MLS/HR; Start 01/06/17 at 21:00 Vancomycin HCl (Vancocin) 250 ml @ 125 mls/hr Q24H IVPB Last administered on 05:28; Admin Dose 125 MLS/HR; Start 01/07/17 at 06:00 FLACO NICHOLS Jan 08, 2017 10:35
--- NOTE | 2017-01-08 13:16 | PN ---
Date/Time of Note Date/Time of Note DATE: 01/08/17 TIME: 13:13 Assessment/Plan VTE Prophylaxis VTE Prophylaxis Intervention: SCD's Lines/Catheters IV Catheter Type (from [facility]): [facility] Urinary Cath still in place: No Assessment/Plan Chief Complaint/Hosp Course 1. Bleeding from tracheostomy site. CT scan showing extensive centrilobular emphysema with a right upper lobe cavitary lesion. Being followed by pulmonary and infectious diseases. Sputum AFB 3 pending. 2. Status post sepsis with leukocytosis and lactic acidosis upon admission. No evidence of septic shock. Continue microbials as per infectious diseases. 3. Healthcare associated pneumonia. 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 Antimicrobials as per infectious diseases. 4. Microcytic, hypochromic anemia. Continue iron supplements. 5. Acute kidney injury. Resolved. Being followed by nephrology. 6. Chronic respiratory failure. Continue inhaled bronchodilators. Tracheostomy currently to cool aerosol mask. 7. COPD. Continue inhaled bronchodilators. 8. Dysphagia. Continue G-tube feeds. 9. Fluids, electrolytes, and nutrition. G-tube feeds. 10. DVT prophylaxis. Bilateral sequential compression devices. 11. Plan. Continue antimicrobials as per infectious diseases. Await further recommendations from pulmonology and infectious diseases. Case discussed with Dr. Saleh. Problems: Subjective 24 Hr Interval Summary Free Text/Dictation Patient continues to have some bleeding from the tracheostomy site. Low-grade fever today. Exam/Review of Systems Vital Signs Vitals Vital Signs Date Time Temp Pulse Resp B/P Pulse Ox O2 Delivery O2 Flow Rate FiO2 01/08/17 12:26 96 01/08/17 12:07 99.5 18 118/58 88 01/08/17 07:39 10.0 60 01/08/17 07:39 Aerosol Intake and Output 01/07/17 01/07/17 01/08/17 15:00 23:00 07:00 Intake Total 100 ml 500 ml Balance 100 ml 500 ml Exam General: Adequately build 71 year-old male lying in bed in no apparent distress. HEENT: Normocephalic, atraumatic. Eyes: Anicteric sclerae, conjunctivae clear. ENT: Nasal septum midline, oral mucosa moist. Neck. Tracheostomy connected to cool aerosol mask. Respiratory: Bilaterally diminished breath sounds. No use of accessory muscles of respiration. No adventitious breath sounds. Cardiovascular: S1, S2 heard. No murmurs or gallops. Abdomen: Soft, nontender, and nondistended. Bowel sounds positive in all 4 quadrants. Genitourinary: Deferred. Extremities: No cyanosis, no clubbing, no edema. Peripheral pulses palpable. Neurologic: The patient is awake, alert, and oriented. Follows commands. Results Result Diagram: 01/07/17 1142 01/07/17 0701 Results 24 hrs Laboratory Tests Test 01/07/17 21:05 TB Skin Test Induration Pending TB Skin Test Administer Date [id number] TB Skin Test Administer Time 2104 TB Skin Test Injection Site Right Upper Forearm Medications Medications Current Medications Acetaminophen (Tylenol Tab) 1,000 mg Q4H PRN PO PAIN LEVEL 4-6/10; Start at 15:30 Ascorbic Acid (Vitamin C) 500 mg DAILY GTB Last administered on 01/08/17 08:56 ; Admin Dose 500 MG; Start 01/07/17 at 09:00 Aspirin (Aspirin) 81 mg DAILY GTB ; Start 01/07/17 at 09:00 Bethanechol Chloride (Urecholine) 25 mg TID GTB Last administered on 01/08/17 08:56; Admin Dose 25 MG; Start 01/06/17 at 21:00 Calcium/Vitamin D (Oyster Shell/ Vit-D (500/200)) 1 tab DAILY GTB Last administered on 01/08/17 08:55; Admin Dose 1 TAB; Start 01/07/17 at 09:00 Chlorhexidine Gluconate (Peridex) 15 ml Q12 MM Last administered on 01/08/17 08:56; Admin Dose 15 ML; Start 01/06/17 at 21:00 Ferrous Sulfate (Feosol Liquid Cup) 300 mg DAILY GTB Last administered on 08:55; Admin Dose 300 MG; Start 01/06/17 at 16:00 Acetaminophen/ Hydrocodone Bitart ([place] (5/325)) 1 tab Q6H PRN GTB PAIN LEVEL 7-9/10; Start 01/06/17 at 15:30 Ondansetron HCl (Zofran Tab) 4 mg Q6H PRN GTB NAUSEA AND/OR VOMITING; Start at 15:30 Senna (Senokot) 1 tab QHS GTB Last administered on 01/07/17 21:38; Admin Dose 1 TAB; Start 01/06/17 at 21:00 Zinc Sulfate (Zinc Sulfate) 220 mg DAILY GTB Last administered on 01/08/17 08: 56; Admin Dose 220 MG; Start 01/07/17 at 09:00 Lactobacillus Acidophilus/ Rhamnosus (Culturelle) 1 cap BID GTB Last administered on 01/08/17 08:55; Admin Dose 1 CAP; Start 01/06/17 at 21:00 Multivitamins 30 ml 30 ml DAILY GTB Last administered on 01/08/17 08:55; Admin Dose 30 ML; Start 01/07/17 at 09:00 Sodium Chloride (NS) 1,000 ml @ 60 mls/hr [id number] IV Last administered on 01/07 07:51; Admin Dose 60 MLS/HR; Start 01/06/17 at 15:11 Acetaminophen (Tylenol Tab) 650 mg Q6H PRN PO PAIN LEVEL 1-3 OR FEVER; Start at 15:30 Acetaminophen (Tylenol Supp) 650 mg Q6H PRN [place] PAIN LEVEL 1-3 OR FEVER; Start 01/06/17 at 15:30 Morphine Sulfate (morphine) 2 mg Q4H PRN IV SEVERE PAIN LEVEL 7-10; Start 01/06 at 15:30 Docusate Sodium (Colace Liquid Cup) 100 mg Q12H PRN GTB CONSTIPATION; Start at 16:00 Magnesium Hydroxide (Milk Of Mag) 30 ml DAILY PRN PO CONSTIPATION; Start at 15:30 Bisacodyl (Dulcolax Supp) 10 mg DAILY PRN [place] CONSTIPATION; Start 01/06/17 at 15 :30 Pantoprazole 40 mg 40 mg DAILY@06 IV Last administered on 01/08/17 05:27; Admin Dose 40 MG; Start 01/07/17 at 06:00 Cefepime HCl (Maxipime 2gm/50 ml (Pmx)) 50 ml @ 100 mls/hr BID IVPB Last administered on 01/08/17 09:02; Admin Dose 100 MLS/HR; Start 01/06/17 at 21:00 ARACELY THOMAS NP Jan 08, 2017 13:16
[2017-01-08 13:52] LABS: BASOPHILS % 0.2 % (0.0-2.0); EOSINOPHILS # 0.1 10^3/ul (0.0-0.5); EOSINOPHILS % 1.3 % (0.0-7.0); HEMATOCRIT 23.8 % (42.0-52.0); LYMPHOCYTES # 1.7 10^3/ul (0.8-2.9); LYMPHOCYTES % 17.6 % (15.0-51.0); MEAN CORPUSCULAR HEMOGLOBIN 26.1 pg (29.0-33.0); MEAN CORPUSCULAR HGB CONC 33.6 g/dl (32.0-37.0); MEAN CORPUSCULAR VOLUME 77.8 fl (82.0-101.0); MEAN PLATELET VOLUME 8.2 fl (7.4-10.4); MONOCYTE # 0.6 10^3/ul (0.3-0.9); MONOCYTES % 6.4 % (0.0-11.0); NEUTROPHIL # 7.1 10^3/ul (1.6-7.5); NEUTROPHILS % 74.1 % (39.0-77.0); PLATELET COUNT 273 10^3/UL (140-415); RED BLOOD COUNT 3.06 10^6/ul (4.70-6.10); RED CELL DISTRIBUTION WIDTH 19.8 % (11.5-14.5); WHITE BLOOD COUNT 9.6 10^3/ul (4.8-10.8)
[2017-01-08 14:27] LABS: ALBUMIN/GLOBULIN RATIO 0.66; BILIRUBIN,INDIRECT 0.2 mg/dl (0-1.1); BILIRUBIN,TOTAL 0.2 mg/dl (0.2-1.3); CALCIUM 9.3 mg/dl (8.4-10.2); CREATININE 0.82 mg/dl (0.61-1.24); TOTAL PROTEIN 7.5 g/dl (6.1-8.1)
--- NOTE | 2017-01-08 16:22 | CONS ---
Date/Time of Note Date/Time of Note DATE: 01/08/17 TIME: 16:16 Assessment/Plan Assessment/Plan Chief Complaint/Hosp Course 71 y/o with # RITA likely prerenal from sepsis/lactic acidosis resolved # Bleeding from tracheostomy site. CT scan showing extensive centrilobular emphysema with a right upper lobe cavitary lesion. # sepsis with leukocytosis and lactic acidosis upon admission. No evidence of septic shock. Continue microbials as per infectious diseases. # Healthcare associated pneumonia. . #. Chronic respiratory failure with COPD # G tube status Recs - c/w gentle iv fluids - labs am - on cefepime and tobramycin - check Fe panel and stool FOBT Problems: Consultation Date/Type/Reason Admit Date/Time Jan 06, 2017 at 13:44 Initial Consult Date Type of Consultation: Nephrology 24 HR Interval Summary Free Text/Dictation Some bleeding from tracheostomy site on iv fluids Exam/Review of Systems Vital Signs Vitals Vital Signs Date Time Temp Pulse Resp B/P Pulse Ox O2 Delivery O2 Flow Rate FiO2 01/08/17 16:16 93 01/08/17 16:03 98.7 18 99/61 89 01/08/17 13:50 Aerosol 10.0 60 Intake and Output 01/07/17 01/07/17 01/08/17 15:00 23:00 07:00 Intake Total 100 ml 500 ml Balance 100 ml 500 ml Results Result Diagram: 01/08/17 1336 01/08/17 1336 Results 24 hrs Laboratory Tests Test 01/07/17 21:05 01/08/17 13:36 TB Skin Test Induration Pending TB Skin Test Administer Date [id number] TB Skin Test Administer Time 2104 TB Skin Test Injection Site Right Upper Forearm White Blood Count 9.6 # Red Blood Count 3.06 L Hemoglobin 8.0 L Hematocrit 23.8 L Mean Corpuscular Volume 77.8 L Mean Corpuscular Hemoglobin 26.1 L Mean Corpuscular Hemoglobin Concent 33.6 Red Cell Distribution Width 19.8 H Platelet Count 273 Mean Platelet Volume 8.2 Neutrophils % 74.1 Lymphocytes % 17.6 Monocytes % 6.4 Eosinophils % 1.3 Basophils % 0.2 Nucleated Red Blood Cells % 0.0 Neutrophils # 7.1 Lymphocytes # 1.7 Monocytes # 0.6 Eosinophils # 0.1 Basophils # 0.0 Nucleated Red Blood Cells # 0.0 Sodium Level 137 Potassium Level 4.0 Chloride Level 109 Carbon Dioxide Level 22 Anion Gap 10 Blood Urea Nitrogen 18 Creatinine 0.82 Glucose Level 111 Calcium Level 9.3 Total Bilirubin 0.2 Direct Bilirubin 0.00 Indirect Bilirubin 0.2 Aspartate Amino Transf (AST/SGOT) 19 Alanine Aminotransferase (ALT/SGPT) 26 Alkaline Phosphatase 78 Total Protein 7.5 Albumin 3.0 L Globulin 4.50 H Albumin/Globulin Ratio 0.66 Medications Medications Current Medications Acetaminophen (Tylenol Tab) 1,000 mg Q4H PRN PO PAIN LEVEL 4-6/10; Start at 15:30 Ascorbic Acid (Vitamin C) 500 mg DAILY GTB Last administered on 01/08/17 08:56 ; Admin Dose 500 MG; Start 01/07/17 at 09:00 Aspirin (Aspirin) 81 mg DAILY GTB ; Start 01/07/17 at 09:00 Bethanechol Chloride (Urecholine) 25 mg TID GTB Last administered on 01/08/17 13:05; Admin Dose 25 MG; Start 01/06/17 at 21:00 Calcium/Vitamin D (Oyster Shell/ Vit-D (500/200)) 1 tab DAILY GTB Last administered on 01/08/17 08:55; Admin Dose 1 TAB; Start 01/07/17 at 09:00 Chlorhexidine Gluconate (Peridex) 15 ml Q12 MM Last administered on 01/08/17 08:56; Admin Dose 15 ML; Start 01/06/17 at 21:00 Ferrous Sulfate (Feosol Liquid Cup) 300 mg DAILY GTB Last administered on 08:55; Admin Dose 300 MG; Start 01/06/17 at 16:00 Acetaminophen/ Hydrocodone Bitart ([place] (5/325)) 1 tab Q6H PRN GTB PAIN LEVEL 7-9/10; Start 01/06/17 at 15:30 Ondansetron HCl (Zofran Tab) 4 mg Q6H PRN GTB NAUSEA AND/OR VOMITING; Start at 15:30 Senna (Senokot) 1 tab QHS GTB Last administered on 01/07/17 21:38; Admin Dose 1 TAB; Start 01/06/17 at 21:00 Zinc Sulfate (Zinc Sulfate) 220 mg DAILY GTB Last administered on 01/08/17 08: 56; Admin Dose 220 MG; Start 01/07/17 at 09:00 Lactobacillus Acidophilus/ Rhamnosus (Culturelle) 1 cap BID GTB Last administered on 01/08/17 08:55; Admin Dose 1 CAP; Start 01/06/17 at 21:00 Multivitamins 30 ml 30 ml DAILY GTB Last administered on 01/08/17 08:55; Admin Dose 30 ML; Start 01/07/17 at 09:00 Sodium Chloride (NS) 1,000 ml @ 60 mls/hr [id number] IV Last administered on 01/07 07:51; Admin Dose 60 MLS/HR; Start 01/06/17 at 15:11 Acetaminophen (Tylenol Tab) 650 mg Q6H PRN PO PAIN LEVEL 1-3 OR FEVER; Start at 15:30 Acetaminophen (Tylenol Supp) 650 mg Q6H PRN [place] PAIN LEVEL 1-3 OR FEVER; Start 01/06/17 at 15:30 Morphine Sulfate (morphine) 2 mg Q4H PRN IV SEVERE PAIN LEVEL 7-10; Start 01/06 at 15:30 Docusate Sodium (Colace Liquid Cup) 100 mg Q12H PRN GTB CONSTIPATION; Start at 16:00 Magnesium Hydroxide (Milk Of Mag) 30 ml DAILY PRN PO CONSTIPATION; Start at 15:30 Bisacodyl (Dulcolax Supp) 10 mg DAILY PRN [place] CONSTIPATION; Start 01/06/17 at 15 :30 Pantoprazole 40 mg 40 mg DAILY@06 IV Last administered on 01/08/17 05:27; Admin Dose 40 MG; Start 01/07/17 at 06:00 Cefepime HCl (Maxipime 2gm/50 ml (Pmx)) 50 ml @ 100 mls/hr BID IVPB Last administered on 01/08/17 09:02; Admin Dose 100 MLS/HR; Start 01/06/17 at 21:00 ROXANNE HOROWITZ MD Jan 08, 2017 16:22
--- NOTE | 2017-01-08 19:09 | PN ---
DATE: 01/08/2017 SUBJECTIVE DATA: No acute events overnight. The patient is awake, lying comfortably in bed. Afebrile. VITAL SIGNS: T-max current 99.5, pulse 104, respirations 18, blood pressure 118/58, saturation 98 percent. LABORATORY DATA: WBC yesterday was 13, no shift, no bands. BUN 26, creatinine 0.92. No labs this morning. MICROBIOLOGY: Blood, urine cultures remain negative. DIAGNOSTICS: CT of the chest on admission revealed extensive central lobular emphysema, decreased opacification of the right upper lobe cavitary lesion with a large air fluid level with a similar appearing consolidation posterior to the cavity, cardiomegaly sclerotic bones. Tracheostomy tube in satisfactory position. ANTIMICROBIALS: The patient is on IV vancomycin and cefepime. INDWELLINGS: Trach, PEG, Zepeda, peripheral IV. PHYSICAL EXAMINATION: GENERAL: This is a fragile, chronically ill-appearing, elderly man, who is very weak, lethargic, and in no distress. HEENT: Head atraumatic, normocephalic. Sclerae anicteric. Buccal mucosa dry. NECK: Supple. CHEST: Rise symmetrical. Breath sounds diminished at the bases. HEART: S1, S2. ABDOMEN: Soft, bowel sounds present. EXTREMITIES: Without cyanosis. ASSESSMENT: 1. Hemoptysis. 2. 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 3. Emphysema. 4. Dysphagia. 5. Cachexia. PLAN: We are going to discontinue vancomycin. Start the patient on tobramycin inhalation. Continue cefepime for now. Follow pulmonary recommendations. Dictated By: Krysta Lara NP /brianna/piotr /Document#: [id number] KARMEN
[2017-01-08] MEDS: TOBRAMYCIN/0.25NS 300 MG/5 ML INHAL NEB SCH (20:00)
[2017-01-08] MEDS: SENNA TAB GTB SCH (20:49)
[2017-01-09] VITALS (11 sets, daily range): BP systolic 103–129; BP diastolic 52–75; PULSE 89–117; RESP 17–20
[2017-01-09] MEDS: PANTOPRAZOLE 40 MG INJ IV SCH (05:38)
[2017-01-09] MEDS: TOBRAMYCIN/0.25NS 300 MG/5 ML INHAL NEB SCH ×2 (08:30→20:50)
[2017-01-09] MEDS: ASPIRIN 81 MG TAB GTB SCH (09:00)
[2017-01-09] MEDS: LACTOBACILLUS RHAMNOSUS CAP GTB SCH ×2 (09:00→20:46)
[2017-01-09] MEDS: METOCLOPRAMIDE (1 MG/ML) 10 ML CUP GTB SCH ×3 (09:00→17:39)
[2017-01-09] MEDS: BETHANECHOL 25 MG TAB GTB SCH ×3 (09:00→20:46)
[2017-01-09] MEDS: MULTIVITAMINS 30 ML CUP GTB SCH (09:00)
[2017-01-09] MEDS: FERROUS SULFATE 60 MG/ML 5ML CUP GTB SCH (09:00)
[2017-01-09] MEDS: CHLORHEXIDINE GLUCONATE 15 ML UD CUP MM SCH ×2 (09:00→20:46)
[2017-01-09] MEDS: ASCORBIC ACID 500 MG TAB GTB SCH (09:00)
[2017-01-09] MEDS: CALCIUM/VITAMIN D (500/200) TAB GTB SCH (09:00)
[2017-01-09] MEDS: ZINC SULFATE 220 MG CAP GTB SCH (09:01)
[2017-01-09] MEDS: CEFEPIME 2GM/50 ML (PMX) 50 ML IVPB SCH ×2 (09:09→20:46)
--- NOTE | 2017-01-09 11:53 | CONS ---
Date/Time of Note Date/Time of Note DATE: 01/09/17 TIME: 11:51 Assessment/Plan Assessment/Plan Additional Assessment/Plan Assessment and recommendations; 1. patient admitted for recurrent hemoptysis which has been an ongoing complaint for the last several months. However there has been interval improvement over the last 24 hours. 2. Fibrocavitary lung disease. 3. COPD. 4. Generalized deconditioning. Continue current treatment. Consultation Date/Type/Reason Admit Date/Time Jan 06, 2017 at 13:44 Type of Consultation: Pulmonary 24 HR Interval Summary Free Text/Dictation Patient condition is improved. No further hemoptysis. General exam; elderly male, awake alert. Currently in no distress. Exam/Review of Systems Vital Signs Vitals Vital Signs Date Time Temp Pulse Resp B/P Pulse Ox O2 Delivery O2 Flow Rate FiO2 01/09/17 11:49 99.2 101 17 111/65 94 01/09/17 08:35 10.0 80 01/09/17 08:33 Aerosol Exam HEENT exam; supple neck, no JVD. No lymphadenopathy. Midline trachea. Tracheostomy in place. Patient is edentulous. Chest exam; clear to auscultation. S1-S2 audible, no murmurs. Regular rhythm. Abdomen exam; soft, no organomegaly. Bowel sounds audible. Extremity exam; no peripheral edema. 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 Results Result Diagram: 01/08/17 1336 01/08/17 1336 Results 24 hrs Laboratory Tests Test 01/08/17 13:36 White Blood Count 9.6 # Red Blood Count 3.06 L Hemoglobin 8.0 L Hematocrit 23.8 L Mean Corpuscular Volume 77.8 L Mean Corpuscular Hemoglobin 26.1 L Mean Corpuscular Hemoglobin Concent 33.6 Red Cell Distribution Width 19.8 H Platelet Count 273 Mean Platelet Volume 8.2 Neutrophils % 74.1 Lymphocytes % 17.6 Monocytes % 6.4 Eosinophils % 1.3 Basophils % 0.2 Nucleated Red Blood Cells % 0.0 Neutrophils # 7.1 Lymphocytes # 1.7 Monocytes # 0.6 Eosinophils # 0.1 Basophils # 0.0 Nucleated Red Blood Cells # 0.0 Sodium Level 137 Potassium Level 4.0 Chloride Level 109 Carbon Dioxide Level 22 Anion Gap 10 Blood Urea Nitrogen 18 Creatinine 0.82 Glucose Level 111 Calcium Level 9.3 Total Bilirubin 0.2 Direct Bilirubin 0.00 Indirect Bilirubin 0.2 Aspartate Amino Transf (AST/SGOT) 19 Alanine Aminotransferase (ALT/SGPT) 26 Alkaline Phosphatase 78 Total Protein 7.5 Albumin 3.0 L Globulin 4.50 H Albumin/Globulin Ratio 0.66 Medications Medications Current Medications Acetaminophen (Tylenol Tab) 1,000 mg Q4H PRN PO PAIN LEVEL 4-6/10; Start at 15:30 Ascorbic Acid (Vitamin C) 500 mg DAILY GTB Last administered on 01/09/17 09:00 ; Admin Dose 500 MG; Start 01/07/17 at 09:00 Aspirin (Aspirin) 81 mg DAILY GTB ; Start 01/07/17 at 09:00 Bethanechol Chloride (Urecholine) 25 mg TID GTB Last administered on 01/09/17 09:00; Admin Dose 25 MG; Start 01/06/17 at 21:00 Calcium/Vitamin D (Oyster Shell/ Vit-D (500/200)) 1 tab DAILY GTB Last administered on 01/09/17 09:00; Admin Dose 1 TAB; Start 01/07/17 at 09:00 Chlorhexidine Gluconate (Peridex) 15 ml Q12 MM Last administered on 01/09/17 09:00; Admin Dose 15 ML; Start 01/06/17 at 21:00 Ferrous Sulfate (Feosol Liquid Cup) 300 mg DAILY GTB Last administered on 09:00; Admin Dose 300 MG; Start 01/06/17 at 16:00 Acetaminophen/ Hydrocodone Bitart ([place] (5/325)) 1 tab Q6H PRN GTB PAIN LEVEL 7-9/10; Start 01/06/17 at 15:30 Ondansetron HCl (Zofran Tab) 4 mg Q6H PRN GTB NAUSEA AND/OR VOMITING; Start at 15:30 Senna (Senokot) 1 tab QHS GTB Last administered on 01/08/17 20:49; Admin Dose 1 TAB; Start 01/06/17 at 21:00 Zinc Sulfate (Zinc Sulfate) 220 mg DAILY GTB Last administered on 01/09/17 09: 01; Admin Dose 220 MG; Start 01/07/17 at 09:00 Lactobacillus Acidophilus/ Rhamnosus (Culturelle) 1 cap BID GTB Last administered on 01/09/17 09:00; Admin Dose 1 CAP; Start 01/06/17 at 21:00 Multivitamins 30 ml 30 ml DAILY GTB Last administered on 01/09/17 09:00; Admin Dose 30 ML; Start 01/07/17 at 09:00 Sodium Chloride (NS) 1,000 ml @ 60 mls/hr [id number] IV Last administered on 01/08 17:11; Admin Dose 60 MLS/HR; Start 01/06/17 at 15:11 Acetaminophen (Tylenol Tab) 650 mg Q6H PRN PO PAIN LEVEL 1-3 OR FEVER; Start at 15:30 Acetaminophen (Tylenol Supp) 650 mg Q6H PRN [place] PAIN LEVEL 1-3 OR FEVER; Start 01/06/17 at 15:30 Morphine Sulfate (morphine) 2 mg Q4H PRN IV SEVERE PAIN LEVEL 7-10; Start 01/06 at 15:30 Docusate Sodium (Colace Liquid Cup) 100 mg Q12H PRN GTB CONSTIPATION; Start at 16:00 Magnesium Hydroxide (Milk Of Mag) 30 ml DAILY PRN PO CONSTIPATION; Start at 15:30 Bisacodyl (Dulcolax Supp) 10 mg DAILY PRN [place] CONSTIPATION; Start 01/06/17 at 15 :30 Pantoprazole 40 mg 40 mg DAILY@06 IV Last administered on 01/09/17 05:38; Admin Dose 40 MG; Start 01/07/17 at 06:00 Cefepime HCl (Maxipime 2gm/50 ml (Pmx)) 50 ml @ 100 mls/hr BID IVPB Last administered on 01/09/17 09:09; Admin Dose 100 MLS/HR; Start 01/06/17 at 21:00 FLACO NICHOLS Jan 09, 2017 11:53
--- NOTE | 2017-01-09 12:15 | PN ---
Date/Time of Note Date/Time of Note DATE: 01/09/17 TIME: 12:14 Assessment/Plan VTE Prophylaxis VTE Prophylaxis Intervention: SCD's Lines/Catheters IV Catheter Type (from [facility]): Saline Lock Urinary Cath still in place: No Assessment/Plan Chief Complaint/Hosp Course 1. Bleeding from tracheostomy site. CT scan showing extensive centrilobular emphysema with a right upper lobe cavitary lesion. Being followed by pulmonary and infectious diseases. Sputum AFB 3 pending. 2. Status post sepsis with leukocytosis and lactic acidosis upon admission. No evidence of septic shock. Continue antimicrobials as per infectious diseases. 3. Healthcare associated pneumonia. 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 Antimicrobials as per infectious diseases. 4. Microcytic, hypochromic anemia. Continue iron supplements. 5. Acute kidney injury. Resolved. Being followed by nephrology. 6. Chronic respiratory failure. Continue inhaled bronchodilators. Tracheostomy currently to cool aerosol mask. 7. COPD. Continue inhaled bronchodilators. 8. Dysphagia. Continue G-tube feeds. 9. Fluids, electrolytes, and nutrition. G-tube feeds. 10. DVT prophylaxis. Bilateral sequential compression devices. 11. Plan. Continue antimicrobials as per infectious diseases. Await further recommendations from pulmonology and infectious diseases. Case discussed with Dr. Knutson. Problems: Subjective 24 Hr Interval Summary Free Text/Dictation No changes in status. Patient remains afebrile. Exam/Review of Systems Vital Signs Vitals Vital Signs Date Time Temp Pulse Resp B/P Pulse Ox O2 Delivery O2 Flow Rate FiO2 01/09/17 11:49 99.2 101 17 111/65 94 01/09/17 08:35 10.0 80 01/09/17 08:33 Aerosol Exam General: Adequately build 71 year-old male lying in bed in no apparent distress. HEENT: Normocephalic, atraumatic. Eyes: Anicteric sclerae, conjunctivae clear. ENT: Nasal septum midline, oral mucosa moist. Neck. Tracheostomy connected to cool aerosol mask. Respiratory: Bilaterally diminished breath sounds. No use of accessory muscles of respiration. No adventitious breath sounds. Cardiovascular: S1, S2 heard. No murmurs or gallops. Abdomen: Soft, nontender, and nondistended. Bowel sounds positive in all 4 quadrants. Genitourinary: Deferred. Extremities: No cyanosis, no clubbing, no edema. Peripheral pulses palpable. Neurologic: The patient is awake, alert, and oriented. Follows commands. Results Result Diagram: 01/08/17 1336 01/08/17 1336 Results 24 hrs Laboratory Tests Test 01/08/17 13:36 White Blood Count 9.6 # Red Blood Count 3.06 L Hemoglobin 8.0 L Hematocrit 23.8 L Mean Corpuscular Volume 77.8 L Mean Corpuscular Hemoglobin 26.1 L Mean Corpuscular Hemoglobin Concent 33.6 Red Cell Distribution Width 19.8 H Platelet Count 273 Mean Platelet Volume 8.2 Neutrophils % 74.1 Lymphocytes % 17.6 Monocytes % 6.4 Eosinophils % 1.3 Basophils % 0.2 Nucleated Red Blood Cells % 0.0 Neutrophils # 7.1 Lymphocytes # 1.7 Monocytes # 0.6 Eosinophils # 0.1 Basophils # 0.0 Nucleated Red Blood Cells # 0.0 Sodium Level 137 Potassium Level 4.0 Chloride Level 109 Carbon Dioxide Level 22 Anion Gap 10 Blood Urea Nitrogen 18 Creatinine 0.82 Glucose Level 111 Calcium Level 9.3 Total Bilirubin 0.2 Direct Bilirubin 0.00 Indirect Bilirubin 0.2 Aspartate Amino Transf (AST/SGOT) 19 Alanine Aminotransferase (ALT/SGPT) 26 Alkaline Phosphatase 78 Total Protein 7.5 Albumin 3.0 L Globulin 4.50 H Albumin/Globulin Ratio 0.66 Medications Medications Current Medications Acetaminophen (Tylenol Tab) 1,000 mg Q4H PRN PO PAIN LEVEL 4-6/10; Start at 15:30 Ascorbic Acid (Vitamin C) 500 mg DAILY GTB Last administered on 01/09/17 09:00 ; Admin Dose 500 MG; Start 01/07/17 at 09:00 Aspirin (Aspirin) 81 mg DAILY GTB ; Start 01/07/17 at 09:00 Bethanechol Chloride (Urecholine) 25 mg TID GTB Last administered on 01/09/17 09:00; Admin Dose 25 MG; Start 01/06/17 at 21:00 Calcium/Vitamin D (Oyster Shell/ Vit-D (500/200)) 1 tab DAILY GTB Last administered on 01/09/17 09:00; Admin Dose 1 TAB; Start 01/07/17 at 09:00 Chlorhexidine Gluconate (Peridex) 15 ml Q12 MM Last administered on 01/09/17 09:00; Admin Dose 15 ML; Start 01/06/17 at 21:00 Ferrous Sulfate (Feosol Liquid Cup) 300 mg DAILY GTB Last administered on 09:00; Admin Dose 300 MG; Start 01/06/17 at 16:00 Acetaminophen/ Hydrocodone Bitart ([place] (5/325)) 1 tab Q6H PRN GTB PAIN LEVEL 7-9/10; Start 01/06/17 at 15:30 Ondansetron HCl (Zofran Tab) 4 mg Q6H PRN GTB NAUSEA AND/OR VOMITING; Start at 15:30 Senna (Senokot) 1 tab QHS GTB Last administered on 01/08/17 20:49; Admin Dose 1 TAB; Start 01/06/17 at 21:00 Zinc Sulfate (Zinc Sulfate) 220 mg DAILY GTB Last administered on 01/09/17 09: 01; Admin Dose 220 MG; Start 01/07/17 at 09:00 Lactobacillus Acidophilus/ Rhamnosus (Culturelle) 1 cap BID GTB Last administered on 01/09/17 09:00; Admin Dose 1 CAP; Start 01/06/17 at 21:00 Multivitamins 30 ml 30 ml DAILY GTB Last administered on 01/09/17 09:00; Admin Dose 30 ML; Start 01/07/17 at 09:00 Sodium Chloride (NS) 1,000 ml @ 60 mls/hr [id number] IV Last administered on 01/08 17:11; Admin Dose 60 MLS/HR; Start 01/06/17 at 15:11 Acetaminophen (Tylenol Tab) 650 mg Q6H PRN PO PAIN LEVEL 1-3 OR FEVER; Start at 15:30 Acetaminophen (Tylenol Supp) 650 mg Q6H PRN [place] PAIN LEVEL 1-3 OR FEVER; Start 01/06/17 at 15:30 Morphine Sulfate (morphine) 2 mg Q4H PRN IV SEVERE PAIN LEVEL 7-10; Start 01/06 at 15:30 Docusate Sodium (Colace Liquid Cup) 100 mg Q12H PRN GTB CONSTIPATION; Start at 16:00 Magnesium Hydroxide (Milk Of Mag) 30 ml DAILY PRN PO CONSTIPATION; Start at 15:30 Bisacodyl (Dulcolax Supp) 10 mg DAILY PRN [place] CONSTIPATION; Start 01/06/17 at 15 :30 Pantoprazole 40 mg 40 mg DAILY@06 IV Last administered on 01/09/17 05:38; Admin Dose 40 MG; Start 01/07/17 at 06:00 Cefepime HCl (Maxipime 2gm/50 ml (Pmx)) 50 ml @ 100 mls/hr BID IVPB Last administered on 01/09/17 09:09; Admin Dose 100 MLS/HR; Start 01/06/17 at 21:00 ARACELY THOMAS NP Jan 09, 2017 12:15
--- NOTE | 2017-01-09 12:50 | CONS ---
Date/Time of Note Date/Time of Note DATE: 01/09/17 TIME: 12:48 Assessment/Plan Assessment/Plan Chief Complaint/Hosp Course 71 y/o with # RITA likely prerenal from sepsis/lactic acidosis resolved # Bleeding from tracheostomy site. CT scan showing extensive centrilobular emphysema with a right upper lobe cavitary lesion. # sepsis with leukocytosis and lactic acidosis upon admission. No evidence of septic shock. Continue microbials as per infectious diseases. # Healthcare associated pneumonia. . #. Chronic respiratory failure with COPD # G tube status Recs - d/c fluids - labs am - on cefepime and tobramycin - check Fe panel and stool FOBT Problems: Consultation Date/Type/Reason Admit Date/Time Jan 06, 2017 at 13:44 Type of Consultation: Renal 24 HR Interval Summary Free Text/Dictation Bleeding from Trach site Exam/Review of Systems Vital Signs Vitals Vital Signs Date Time Temp Pulse Resp B/P Pulse Ox O2 Delivery O2 Flow Rate FiO2 01/09/17 12:34 95 10.0 80 01/09/17 12:29 92 01/09/17 11:49 99.2 17 111/65 01/09/17 08:33 Aerosol Exam GENERAL: This is a fragile, chronically ill-appearing, elderly man, who is very weak, lethargic, and in no distress. Trach HEENT: Head atraumatic, normocephalic. Sclerae anicteric. Buccal mucosa dry. NECK: Supple. CHEST: Rise symmetrical. Breath sounds diminished at the bases. HEART: S1, S2. ABDOMEN: Soft, bowel sounds present. EXTREMITIES: Without cyanosis. Results Result Diagram: 01/08/17 1336 01/08/17 1336 Results 24 hrs Laboratory Tests Test 01/08/17 13:36 White Blood Count 9.6 # Red Blood Count 3.06 L Hemoglobin 8.0 L Hematocrit 23.8 L Mean Corpuscular Volume 77.8 L Mean Corpuscular Hemoglobin 26.1 L Mean Corpuscular Hemoglobin Concent 33.6 Red Cell Distribution Width 19.8 H Platelet Count 273 Mean Platelet Volume 8.2 Neutrophils % 74.1 Lymphocytes % 17.6 Monocytes % 6.4 Eosinophils % 1.3 Basophils % 0.2 Nucleated Red Blood Cells % 0.0 Neutrophils # 7.1 Lymphocytes # 1.7 Monocytes # 0.6 Eosinophils # 0.1 Basophils # 0.0 Nucleated Red Blood Cells # 0.0 Sodium Level 137 Potassium Level 4.0 Chloride Level 109 Carbon Dioxide Level 22 Anion Gap 10 Blood Urea Nitrogen 18 Creatinine 0.82 Glucose Level 111 Calcium Level 9.3 Total Bilirubin 0.2 Direct Bilirubin 0.00 Indirect Bilirubin 0.2 Aspartate Amino Transf (AST/SGOT) 19 Alanine Aminotransferase (ALT/SGPT) 26 Alkaline Phosphatase 78 Total Protein 7.5 Albumin 3.0 L Globulin 4.50 H Albumin/Globulin Ratio 0.66 Medications Medications Current Medications Acetaminophen (Tylenol Tab) 1,000 mg Q4H PRN PO PAIN LEVEL 4-6/10; Start at 15:30 Ascorbic Acid (Vitamin C) 500 mg DAILY GTB Last administered on 01/09/17 09:00 ; Admin Dose 500 MG; Start 01/07/17 at 09:00 Aspirin (Aspirin) 81 mg DAILY GTB ; Start 01/07/17 at 09:00 Bethanechol Chloride (Urecholine) 25 mg TID GTB Last administered on 01/09/17 09:00; Admin Dose 25 MG; Start 01/06/17 at 21:00 Calcium/Vitamin D (Oyster Shell/ Vit-D (500/200)) 1 tab DAILY GTB Last administered on 01/09/17 09:00; Admin Dose 1 TAB; Start 01/07/17 at 09:00 Chlorhexidine Gluconate (Peridex) 15 ml Q12 MM Last administered on 01/09/17 09:00; Admin Dose 15 ML; Start 01/06/17 at 21:00 Ferrous Sulfate (Feosol Liquid Cup) 300 mg DAILY GTB Last administered on 09:00; Admin Dose 300 MG; Start 01/06/17 at 16:00 Acetaminophen/ Hydrocodone Bitart ([place] (5/325)) 1 tab Q6H PRN GTB PAIN LEVEL 7-9/10; Start 01/06/17 at 15:30 Ondansetron HCl (Zofran Tab) 4 mg Q6H PRN GTB NAUSEA AND/OR VOMITING; Start at 15:30 Senna (Senokot) 1 tab QHS GTB Last administered on 01/08/17 20:49; Admin Dose 1 TAB; Start 01/06/17 at 21:00 Zinc Sulfate (Zinc Sulfate) 220 mg DAILY GTB Last administered on 01/09/17 09: 01; Admin Dose 220 MG; Start 01/07/17 at 09:00 Lactobacillus Acidophilus/ Rhamnosus (Culturelle) 1 cap BID GTB Last administered on 01/09/17 09:00; Admin Dose 1 CAP; Start 01/06/17 at 21:00 Multivitamins 30 ml 30 ml DAILY GTB Last administered on 01/09/17 09:00; Admin Dose 30 ML; Start 01/07/17 at 09:00 Sodium Chloride (NS) 1,000 ml @ 60 mls/hr [id number] IV Last administered on 01/08 17:11; Admin Dose 60 MLS/HR; Start 01/06/17 at 15:11 Acetaminophen (Tylenol Tab) 650 mg Q6H PRN PO PAIN LEVEL 1-3 OR FEVER; Start at 15:30 Acetaminophen (Tylenol Supp) 650 mg Q6H PRN [place] PAIN LEVEL 1-3 OR FEVER; Start 01/06/17 at 15:30 Morphine Sulfate (morphine) 2 mg Q4H PRN IV SEVERE PAIN LEVEL 7-10; Start 01/06 at 15:30 Docusate Sodium (Colace Liquid Cup) 100 mg Q12H PRN GTB CONSTIPATION; Start at 16:00 Magnesium Hydroxide (Milk Of Mag) 30 ml DAILY PRN PO CONSTIPATION; Start at 15:30 Bisacodyl (Dulcolax Supp) 10 mg DAILY PRN [place] CONSTIPATION; Start 01/06/17 at 15 :30 Pantoprazole 40 mg 40 mg DAILY@06 IV Last administered on 01/09/17 05:38; Admin Dose 40 MG; Start 01/07/17 at 06:00 Cefepime HCl (Maxipime 2gm/50 ml (Pmx)) 50 ml @ 100 mls/hr BID IVPB Last administered on 01/09/17 09:09; Admin Dose 100 MLS/HR; Start 01/06/17 at 21:00 ROXANNE HOROWITZ MD Jan 09, 2017 12:50
[2017-01-09 15:55] LABS: IRON 20 ug/dl (35-150)
[2017-01-09 16:04] LABS: TOTAL IRON BINDING CAPACITY 164 ug/dl (241-421)
--- NOTE | 2017-01-09 17:34 | PN ---
DATE: 01/09/2017 SUBJECTIVE DATA: Patient is lying comfortably in bed. No fevers. No labs this morning. Endotracheal aspirate growing gram- negative rods. INDWELLINGS: Trach, PEG, Zepeda. ANTIMICROBIALS: 1. Tobramycin inhalation. 2. Cefepime. PHYSICAL EXAMINATION: GENERAL: This is a fragile, chronically ill-appearing, elderly man, who is in no distress. HEENT: Head atraumatic, normocephalic. Sclerae anicteric. Buccal mucosa dry. NECK: Supple. CHEST: Rise symmetrical. Breath sounds diminished at the bases. HEART: S1, S2. ABDOMEN: Soft, bowel sounds present. EXTREMITIES: Without cyanosis. ASSESSMENT: 1. Hemoptysis, resolving. 2. Chronic right upper lobe cavitary lesion with a history of sputum culture grew MDR PSA. 3. Emphysema. 4. Dysphagia. 5. Cachexia. PLAN: The patient remains stable. Hemoptysis, resolving. He is being seen by pulmonary team. We will continue him on current antibiotics and await for final cultures. Dictated By: Krysta Lara NP /brianna/pitor /Document#: [id number] KARMEN
[2017-01-09] MEDS: SENNA TAB GTB SCH (20:46)
[2017-01-09 21:05] LABS: FORTY EIGHT HOUR READING 0 mm (0-9)
[2017-01-10] VITALS (11 sets, daily range): BP systolic 87–136; BP diastolic 51–71; PULSE 81–97; RESP 17–20
[2017-01-10] MEDS: PANTOPRAZOLE 40 MG INJ IV SCH (06:56)
[2017-01-10] MEDS: METOCLOPRAMIDE (1 MG/ML) 10 ML CUP GTB SCH ×3 (07:30→17:14)
[2017-01-10 08:46] LABS: BASOPHILS % 0.3 % (0.0-2.0); EOSINOPHILS # 0.4 10^3/ul (0.0-0.5); EOSINOPHILS % 3.9 % (0.0-7.0); HEMATOCRIT 28.2 % (42.0-52.0); HEMOGLOBIN 9.2 g/dl (14.0-18.0); LYMPHOCYTES # 2.3 10^3/ul (0.8-2.9); LYMPHOCYTES % 22.8 % (15.0-51.0); MEAN CORPUSCULAR HEMOGLOBIN 25.6 pg (29.0-33.0); MEAN CORPUSCULAR HGB CONC 32.6 g/dl (32.0-37.0); MEAN CORPUSCULAR VOLUME 78.6 fl (82.0-101.0); MEAN PLATELET VOLUME 8.6 fl (7.4-10.4); MONOCYTE # 0.8 10^3/ul (0.3-0.9); MONOCYTES % 7.5 % (0.0-11.0); NEUTROPHIL # 6.5 10^3/ul (1.6-7.5); NEUTROPHILS % 65.1 % (39.0-77.0); PLATELET COUNT 294 10^3/UL (140-415); RED BLOOD COUNT 3.59 10^6/ul (4.70-6.10); RED CELL DISTRIBUTION WIDTH 19.9 % (11.5-14.5)
[2017-01-10] MEDS: TOBRAMYCIN/0.25NS 300 MG/5 ML INHAL NEB SCH ×2 (08:48→20:43)
[2017-01-10 09:13] LABS: ALBUMIN 3.1 g/dl (3.3-4.9); ALBUMIN/GLOBULIN RATIO 0.7; BILIRUBIN,INDIRECT 0.2 mg/dl (0-1.1); BILIRUBIN,TOTAL 0.2 mg/dl (0.2-1.3); CALCIUM 9.4 mg/dl (8.4-10.2); CREATININE 0.73 mg/dl (0.61-1.24); POTASSIUM 4.1 mmol/L (3.5-5.1); TOTAL PROTEIN 7.5 g/dl (6.1-8.1)
[2017-01-10] MEDS: FERROUS SULFATE 60 MG/ML 5ML CUP GTB SCH (09:30)
[2017-01-10] MEDS: ASCORBIC ACID 500 MG TAB GTB SCH (09:31)
[2017-01-10] MEDS: MULTIVITAMINS 30 ML CUP GTB SCH (09:31)
[2017-01-10] MEDS: CALCIUM/VITAMIN D (500/200) TAB GTB SCH (09:31)
[2017-01-10] MEDS: ZINC SULFATE 220 MG CAP GTB SCH (09:31)
[2017-01-10] MEDS: LACTOBACILLUS RHAMNOSUS CAP GTB SCH ×2 (09:31→21:23)
[2017-01-10] MEDS: CHLORHEXIDINE GLUCONATE 15 ML UD CUP MM SCH ×2 (09:31→21:23)
[2017-01-10] MEDS: ASPIRIN 81 MG TAB GTB SCH (09:31)
[2017-01-10] MEDS: BETHANECHOL 25 MG TAB GTB SCH ×3 (09:32→21:23)
[2017-01-10] MEDS: CEFEPIME 2GM/50 ML (PMX) 50 ML IVPB SCH (09:32)
--- NOTE | 2017-01-10 09:59 | CONS ---
Date/Time of Note Date/Time of Note DATE: 01/10/17 TIME: 09:59 Assessment/Plan Assessment/Plan Chief Complaint/Hosp Course 71 y/o with # RITA likely prerenal from sepsis/lactic acidosis resolved # Bleeding from tracheostomy site. CT scan showing extensive centrilobular emphysema with a right upper lobe cavitary lesion. # sepsis with leukocytosis and lactic acidosis upon admission. No evidence of septic shock. Continue microbials as per infectious diseases. # Healthcare associated pneumonia. . #. Chronic respiratory failure with COPD # G tube status Recs - labs am - on cefepime and tobramycin Problems: Consultation Date/Type/Reason Admit Date/Time Jan 06, 2017 at 13:44 Type of Consultation: Renal 24 HR Interval Summary Free Text/Dictation Bleeding thru trach site fluids stopped yesterday Exam/Review of Systems Vital Signs Vitals Vital Signs Date Time Temp Pulse Resp B/P Pulse Ox O2 Delivery O2 Flow Rate FiO2 01/10/17 08:35 97 01/10/17 08:22 98.0 20 136/71 91 01/10/17 05:56 Aerosol 10.0 60 T Tube Intake and Output 01/09/17 01/09/17 01/10/17 15:00 23:00 07:00 Intake Total 1150 ml 50 ml Output Total 60 ml Balance 1090 ml 50 ml Exam GENERAL: This is a fragile, chronically ill-appearing, elderly man, who is very weak, lethargic, and in no distress. Trach HEENT: Head atraumatic, normocephalic. Sclerae anicteric. Buccal mucosa dry. NECK: Supple. CHEST: Rise symmetrical. Breath sounds diminished at the bases. HEART: S1, S2. ABDOMEN: Soft, bowel sounds present. EXTREMITIES: Without cyanosis. Results Result Diagram: 01/10/1718 01/10/17 0818 Results 24 hrs Laboratory Tests Test 01/09/17 15:00 01/10/17 08:18 Iron Level 20 L Total Iron Binding Capacity 164 L Percent Iron Saturation 12 L Ferritin 1500.0 H White Blood Count 10.0 Red Blood Count 3.59 L Hemoglobin 9.2 L Hematocrit 28.2 L Mean Corpuscular Volume 78.6 L Mean Corpuscular Hemoglobin 25.6 L Mean Corpuscular Hemoglobin Concent 32.6 Red Cell Distribution Width 19.9 H Platelet Count 294 Mean Platelet Volume 8.6 Neutrophils % 65.1 Lymphocytes % 22.8 Monocytes % 7.5 Eosinophils % 3.9 Basophils % 0.3 Nucleated Red Blood Cells % 0.0 Neutrophils # 6.5 Lymphocytes # 2.3 Monocytes # 0.8 Eosinophils # 0.4 Basophils # 0.0 Nucleated Red Blood Cells # 0.0 Sodium Level 136 Potassium Level 4.1 Chloride Level 104 Carbon Dioxide Level 26 Anion Gap 10 Blood Urea Nitrogen 15 Creatinine 0.73 Glucose Level 114 Calcium Level 9.4 Magnesium Level 1.9 Total Bilirubin 0.2 Direct Bilirubin 0.00 Indirect Bilirubin 0.2 Aspartate Amino Transf (AST/SGOT) 17 Alanine Aminotransferase (ALT/SGPT) 21 Alkaline Phosphatase 86 Total Protein 7.5 Albumin 3.1 L Globulin 4.40 H Albumin/Globulin Ratio 0.70 Medications Medications Current Medications Acetaminophen (Tylenol Tab) 1,000 mg Q4H PRN PO PAIN LEVEL 4-6/10; Start at 15:30 Ascorbic Acid (Vitamin C) 500 mg DAILY GTB Last administered on 01/10/17 09:31 ; Admin Dose 500 MG; Start 01/07/17 at 09:00 Aspirin (Aspirin) 81 mg DAILY GTB Last administered on 01/10/17 09:31; Admin Dose 81 MG; Start 01/07/17 at 09:00 Bethanechol Chloride (Urecholine) 25 mg TID GTB Last administered on 01/10/17 09:32; Admin Dose 25 MG; Start 01/06/17 at 21:00 Calcium/Vitamin D (Oyster [place]/ Vit-D (500/200)) 1 tab DAILY GTB Last administered on 01/10/17 09:31; Admin Dose 1 TAB; Start 01/07/17 at 09:00 Chlorhexidine Gluconate (Peridex) 15 ml Q12 MM Last administered on 01/10/17 09:31; Admin Dose 15 ML; Start 01/06/17 at 21:00 Ferrous Sulfate (Feosol Liquid Cup) 300 mg DAILY GTB Last administered on 09:30; Admin Dose 300 MG; Start 01/06/17 at 16:00 Acetaminophen/ Hydrocodone Bitart ([place] (5/325)) 1 tab Q6H PRN GTB PAIN LEVEL 7-9/10; Start 01/06/17 at 15:30 Ondansetron HCl (Zofran Tab) 4 mg Q6H PRN GTB NAUSEA AND/OR VOMITING; Start at 15:30 Senna (Senokot) 1 tab QHS GTB Last administered on 01/09/17 20:46; Admin Dose 1 TAB; Start 01/06/17 at 21:00 Zinc Sulfate (Zinc Sulfate) 220 mg DAILY GTB Last administered on 01/10/17 09: 31; Admin Dose 220 MG; Start 01/07/17 at 09:00 Lactobacillus Acidophilus/ Rhamnosus (Culturelle) 1 cap BID GTB Last administered on 01/10/17 09:31; Admin Dose 1 CAP; Start 01/06/17 at 21:00 Multivitamins (Multivitamin) 30 ml DAILY GTB Last administered on 01/10/17 09: 31; Admin Dose 30 ML; Start 01/07/17 at 09:00 Acetaminophen (Tylenol Tab) 650 mg Q6H PRN PO PAIN LEVEL 1-3 OR FEVER; Start at 15:30 Acetaminophen (Tylenol Supp) 650 mg Q6H PRN [place] PAIN LEVEL 1-3 OR FEVER; Start 01/06/17 at 15:30 Morphine Sulfate (morphine) 2 mg Q4H PRN IV SEVERE PAIN LEVEL 7-10; Start 01/06 at 15:30 Docusate Sodium (Colace Liquid Cup) 100 mg Q12H PRN GTB CONSTIPATION; Start at 16:00 Magnesium Hydroxide (Milk Of Mag) 30 ml DAILY PRN PO CONSTIPATION; Start at 15:30 Bisacodyl (Dulcolax Supp) 10 mg DAILY PRN [place] CONSTIPATION; Start 01/06/17 at 15 :30 Pantoprazole 40 mg 40 mg DAILY@06 IV Last administered on 01/10/17 06:56; Admin Dose 40 MG; Start 01/07/17 at 06:00 Cefepime HCl (Maxipime 2gm/50 ml (Pmx)) 50 ml @ 100 mls/hr BID IVPB Last administered on 01/10/17 09:32; Admin Dose 100 MLS/HR; Start 01/06/17 at 21:00 ROXANNE HOROWITZ MD Jan 10, 2017 09:59
--- NOTE | 2017-01-10 11:49 | PN ---
Date/Time of Note Date/Time of Note DATE: 01/10/17 TIME: 11:47 Assessment/Plan VTE Prophylaxis VTE Prophylaxis Intervention: SCD's Lines/Catheters IV C[facility]ter Type (from [facility] Saline Lock Urinary Cath still in place: No Assessment/Plan Chief Complaint/Hosp Course 1. Bleeding from tracheostomy site. CT scan showing extensive centrilobular emphysema with a right upper lobe cavitary lesion. Being followed by pulmonary and infectious diseases. Sputum AFB 2 negative. 2. Status post sepsis with leukocytosis and lactic acidosis upon admission. No evidence of septic shock. Continue antimicrobials as per infectious diseases. 3. Healthcare associated pneumonia. 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 Antimicrobials as per infectious diseases. 4. Microcytic, hypochromic anemia. Continue iron supplements. 5. Acute kidney injury. Resolved. Being followed by nephrology. 6. Chronic respiratory failure. Continue inhaled bronchodilators. Tracheostomy currently to cool aerosol mask. 7. COPD. Continue inhaled bronchodilators. 8. Dysphagia. Continue G-tube feeds. 9. Fluids, electrolytes, and nutrition. G-tube feeds. 10. DVT prophylaxis. Bilateral sequential compression devices. 11. Plan. Continue antimicrobials as per infectious diseases. Await further recommendations from pulmonology and infectious diseases. Problems: Subjective 24 Hr Interval Summary Free Text/Dictation No changes in status. Exam/Review of Systems Vital Signs Vitals Vital Signs Date Time Temp Pulse Resp B/P Pulse Ox O2 Delivery O2 Flow Rate FiO2 01/10/17 08:48 86 20 93 Aerosol 10.0 60 T Tube 01/10/17 08:22 98.0 136/71 Intake and Output 01/09/17 01/09/17 01/10/17 15:00 23:00 07:00 Intake Total 1150 ml 50 ml Output Total 60 ml Balance 1090 ml 50 ml Exam General: Adequately build 71 year-old male lying in bed in no apparent distress. HEENT: Normocephalic, atraumatic. Eyes: Anicteric sclerae, conjunctivae clear. ENT: Nasal septum midline, oral mucosa moist. Neck. Tracheostomy connected to cool aerosol mask. Respiratory: Bilaterally diminished breath sounds. No use of accessory muscles of respiration. No adventitious breath sounds. Cardiovascular: S1, S2 heard. No murmurs or gallops. Abdomen: Soft, nontender, and nondistended. Bowel sounds positive in all 4 quadrants. Genitourinary: Deferred. Extremities: No cyanosis, no clubbing, no edema. Peripheral pulses palpable. Neurologic: The patient is awake, alert, and oriented. Follows commands. Results Result Diagram: 01/10/17 0818 01/10/17 0818 Results 24 hrs Laboratory Tests Test 01/09/17 15:00 01/10/17 08:18 Iron Level 20 L Total Iron Binding Capacity 164 L Percent Iron Saturation 12 L Ferritin 1500.0 H White Blood Count 10.0 Red Blood Count 3.59 L Hemoglobin 9.2 L Hematocrit 28.2 L Mean Corpuscular Volume 78.6 L Mean Corpuscular Hemoglobin 25.6 L Mean Corpuscular Hemoglobin Concent 32.6 Red Cell Distribution Width 19.9 H Platelet Count 294 Mean Platelet Volume 8.6 Neutrophils % 65.1 Lymphocytes % 22.8 Monocytes % 7.5 Eosinophils % 3.9 Basophils % 0.3 Nucleated Red Blood Cells % 0.0 Neutrophils # 6.5 Lymphocytes # 2.3 Monocytes # 0.8 Eosinophils # 0.4 Basophils # 0.0 Nucleated Red Blood Cells # 0.0 Sodium Level 136 Potassium Level 4.1 Chloride Level 104 Carbon Dioxide Level 26 Anion Gap 10 Blood Urea Nitrogen 15 Creatinine 0.73 Glucose Level 114 Calcium Level 9.4 Magnesium Level 1.9 Total Bilirubin 0.2 Direct Bilirubin 0.00 Indirect Bilirubin 0.2 Aspartate Amino Transf (AST/SGOT) 17 Alanine Aminotransferase (ALT/SGPT) 21 Alkaline Phosphatase 86 Total Protein 7.5 Albumin 3.1 L Globulin 4.40 H Albumin/Globulin Ratio 0.70 Medications Medications Current Medications Acetaminophen (Tylenol Tab) 1,000 mg Q4H PRN PO PAIN LEVEL 4-6/10; Start at 15:30 Ascorbic Acid (Vitamin C) 500 mg DAILY GTB Last administered on 01/10/17 09:31 ; Admin Dose 500 MG; Start 01/07/17 at 09:00 Aspirin (Aspirin) 81 mg DAILY GTB Last administered on 01/10/17 09:31; Admin Dose 81 MG; Start 01/07/17 at 09:00 Bethanechol Chloride (Urecholine) 25 mg TID GTB Last administered on 01/10/17 09:32; Admin Dose 25 MG; Start 01/06/17 at 21:00 Calcium/Vitamin D ([place]yster Shell/ Vit-D (500/200)) 1 tab DAILY GTB Last administered on 01/10/17 09:31; Admin Dose 1 TAB; Start 01/07/17 at 09:00 Chlorhexidine Gluconate (Peridex) 15 ml Q12 MM Last administered on 01/10/17 09:31; Admin Dose 15 ML; Start 01/06/17 at 21:00 Ferrous Sulfate (Feosol Liquid Cup) 300 mg DAILY GTB Last administered on 09:30; Admin Dose 300 MG; Start 01/06/17 at 16:00 Acetaminophen/ Hydrocodone Bitart ([place] (5/325)) 1 tab Q6H PRN GTB PAIN LEVEL 7-9/10; Start 01/06/17 at 15:30 Ondansetron HCl (Zofran Tab) 4 mg Q6H PRN GTB NAUSEA AND/OR VOMITING; Start at 15:30 Senna (Senokot) 1 tab QHS GTB Last administered on 01/09/17 20:46; Admin Dose 1 TAB; Start 01/06/17 at 21:00 Zinc Sulfate (Zinc Sulfate) 220 mg DAILY GTB Last administered on 01/10/17 09: 31; Admin Dose 220 MG; Start 01/07/17 at 09:00 Lactobacillus Acidophilus/ Rhamnosus (Culturelle) 1 cap BID GTB Last administered on 01/10/17 09:31; Admin Dose 1 CAP; Start 01/06/17 at 21:00 Multivitamins (Multivitamin) 30 ml DAILY GTB Last administered on 01/10/17 09: 31; Admin Dose 30 ML; Start 01/07/17 at 09:00 Acetaminophen (Tylenol Tab) 650 mg Q6H PRN PO PAIN LEVEL 1-3 OR FEVER; Start at 15:30 Acetaminophen (Tylenol Supp) 650 mg Q6H PRN [place] PAIN LEVEL 1-3 OR FEVER; Start 01/06/17 at 15:30 Morphine Sulfate (morphine) 2 mg Q4H PRN IV SEVERE PAIN LEVEL 7-10; Start 01/06 at 15:30 Docusate Sodium (Colace Liquid Cup) 100 mg Q12H PRN GTB CONSTIPATION; Start at 16:00 Magnesium Hydroxide (Milk Of Mag) 30 ml DAILY PRN PO CONSTIPATION; Start at 15:30 Bisacodyl (Dulcolax Supp) 10 mg DAILY PRN [place] CONSTIPATION; Start 01/06/17 at 15 :30 Pantoprazole 40 mg 40 mg DAILY@06 IV Last administered on 01/10/17 06:56; Admin Dose 40 MG; Start 01/07/17 at 06:00 Cefepime HCl (Maxipime 2gm/50 ml (Pmx)) 50 ml @ 100 mls/hr BID IVPB Last administered on 01/10/17 09:32; Admin Dose 100 MLS/HR; Start 01/06/17 at 21:00 ARACELY THOMAS NP Jan 10, 2017 11:49
--- NOTE | 2017-01-10 12:41 | CONS ---
Date/Time of Note Date/Time of Note DATE: 01/10/17 TIME: 12:39 Assessment/Plan Assessment/Plan Additional Assessment/Plan Assessment and recommendations; 1. Patient admitted with chronic hemoptysis with multiple admissions at [facility] due to underlying right upper lobe fibrocavitary lung disease. However there has been interval resolution since admission over here. Pseudomonas aeruginosa has been isolated from sputum. 2. COPD. 3. History of respiratory failure patient however very well on tracheostomy with T-piece. 4. Generalized deconditioning. Continue current treatment. Consider discharge. Consultation Date/Type/Reason Admit Date/Time Jan 06, 2017 at 13:44 Type of Consultation: Pulmonary 24 HR Interval Summary Free Text/Dictation Patient condition stable. Remains awake alert. Denies any shortness of breath. No further hemoptysis. General exam; elderly male, awake and alert. Currently in no distress. Doing fairly well on tracheal T piece. Exam/Review of Systems Vital Signs Vitals Vital Signs Date Time Temp Pulse Resp B/P Pulse Ox O2 Delivery O2 Flow Rate FiO2 01/10/17 12:20 85 01/10/17 08:48 20 93 Aerosol 10.0 60 T Tube 01/10/17 08:22 98.0 136/71 Intake and Output 01/09/17 01/09/17 01/10/17 15:00 23:00 07:00 Intake Total 1150 ml 50 ml Output Total 60 ml Balance 1090 ml 50 ml Exam HEENT exam; supple neck, no JVD. No lymphadenopathy. Midline trachea. Tracheostomy in place. Patient is edentulous. Chest exam; diminished but clear breath. S1-S2 audible, no murmurs. Regular rhythm. Abdomen exam; soft, not tender. No organomegaly. Bowel sounds audible. Extremity exam; no peripheral edema. TITLE CHECKER exam; no focal deficit. Results Result Diagram: 01/10/17 0818 01/10/17 0818 Results 24 hrs Laboratory Tests Test 01/09/17 15:00 01/10/17 08:18 Iron Level 20 L Total Iron Binding Capacity 164 L Percent Iron Saturation 12 L Ferritin 1500.0 H White Blood Count 10.0 Red Blood Count 3.59 L Hemoglobin 9.2 L Hematocrit 28.2 L Mean Corpuscular Volume 78.6 L Mean Corpuscular Hemoglobin 25.6 L Mean Corpuscular Hemoglobin Concent 32.6 Red Cell Distribution Width 19.9 H Platelet Count 294 Mean Platelet Volume 8.6 Neutrophils % 65.1 Lymphocytes % 22.8 Monocytes % 7.5 Eosinophils % 3.9 Basophils % 0.3 Nucleated Red Blood Cells % 0.0 Neutrophils # 6.5 Lymphocytes # 2.3 Monocytes # 0.8 Eosinophils # 0.4 Basophils # 0.0 Nucleated Red Blood Cells # 0.0 Sodium Level 136 Potassium Level 4.1 Chloride Level 104 Carbon Dioxide Level 26 Anion Gap 10 Blood Urea Nitrogen 15 Creatinine 0.73 Glucose Level 114 Calcium Level 9.4 Magnesium Level 1.9 Total Bilirubin 0.2 Direct Bilirubin 0.00 Indirect Bilirubin 0.2 Aspartate Amino Transf (AST/SGOT) 17 Alanine Aminotransferase (ALT/SGPT) 21 Alkaline Phosphatase 86 Total Protein 7.5 Albumin 3.1 L Globulin 4.40 H Albumin/Globulin Ratio 0.70 Medications Medications Current Medications Acetaminophen (Tylenol Tab) 1,000 mg Q4H PRN PO PAIN LEVEL 4-610; Start at 15:30 Ascorbic Acid (Vitamin C) 500 mg DAILY GTB Last administered on 01/10/17 09:31 ; Admin Dose 500 MG; Start 01/07/17 at 09:00 Aspirin (Aspirin) 81 mg DAILY GTB Last administered on 01/10/17 09:31; Admin Dose 81 MG; Start 01/07/17 at 09:00 Bethanechol Chloride (Urecholine) 25 mg TID GTB Last administered on 01/10/17 12:10; Admin Dose 25 MG; Start 01/06/17 at 21:00 Calcium/Vitamin D (Oyster Shell/ Vit-D (500/200)) 1 tab DAILY GTB Last administered on 01/10/17 09:31; Admin Dose 1 TAB; Start 01/07/17 at 09:00 Chlorhexidine Gluconate (Peridex) 15 ml Q12 MM Last administered on 01/10/17 09:31; Admin Dose 15 ML; Start 01/06/17 at 21:00 Ferrous Sulfate (Feosol Liquid Cup) 300 mg DAILY GTB Last administered on 09:30; Admin Dose 300 MG; Start 01/06/17 at 16:00 Acetaminophen/ Hydrocodone Bitart ([place] (5/325)) 1 tab Q6H PRN GTB PAIN LEVEL 7-10; Start 01/06/17 at 15:30 Ondansetron HCl (Zofran Tab) 4 mg Q6H PRN GTB NAUSEA AND/OR VOMITING; Start at 15:30 Senna (Senokot) 1 tab QHS GTB Last administered on 01/09/17 20:46; Admin Dose 1 TAB; Start 01/06/17 at 21:00 Zinc Sulfate (Zinc Sulfate) 220 mg DAILY GTB Last administered on 01/10/17 09: 31; Admin Dose 220 MG; Start 01/07/17 at 09:00 Lactobacillus Acidophilus/ Rhamnosus (Culturelle) 1 cap BID GTB Last administered on 01/10/17 09:31; Admin Dose 1 CAP; Start 01/06/17 at 21:00 Multivitamins (Multivitamin) 30 ml DAILY GTB Last administered on 01/10/17 09: 31; Admin Dose 30 ML; Start 01/07/17 at 09:00 Acetaminophen (Tylenol Tab) 650 mg Q6H PRN PO PAIN LEVEL 1-3 OR FEVER; Start at 15:30 Acetaminophen (Tylenol Supp) 650 mg Q6H PRN [place] PAIN LEVEL 1-3 OR FEVER; Start 01/06/17 at 15:30 Morphine Sulfate (morphine) 2 mg Q4H PRN IV SEVERE PAIN LEVEL 7-10; Start 01/06 at 15:30 Docusate Sodium (Colace Liquid Cup) 100 mg Q12H PRN GTB CONSTIPATION; Start at 16:00 Magnesium Hydroxide (Milk Of Mag) 30 ml DAILY PRN PO CONSTIPATION; Start at 15:30 Bisacodyl (Dulcolax Supp) 10 mg DAILY PRN [place] CONSTIPATION; Start 01/06/17 at 15 :30 Pantoprazole 40 mg 40 mg DAILY@06 IV Last administered on 01/10/17 06:56; Admin Dose 40 MG; Start 01/07/17 at 06:00 Cefepime HCl (Maxipime 2gm/50 ml (Pmx)) 50 ml @ 100 mls/hr BID IVPB Last administered on 01/10/17 09:32; Admin Dose 100 MLS/HR; Start 01/06/17 at 21:00 FLACO NICHOLS Jan 10, 2017 12:41
--- NOTE | 2017-01-10 13:06 | CONS ---
Date/Time of Note Date/Time of Note DATE: 01/10/17 TIME: 13:05 Assessment/Plan Assessment/Plan Chief Complaint/Hosp Course SUBJECTIVE DATA: Sleeping looks comfortable afebrile Temperature 98 pulse 97 respirations 20 blood pressure 136/71 saturation 93% on T-piece WBC 10 H&H 9.2 and 28.2 platelets 294 BUN 15 creatinine 0.73 Endotracheal aspirate growing pseudomonas aeruginosa susceptible to Fortaz and tobramycin INDWELLINGS: Trach, PEG, Zepeda. ANTIMICROBIALS: 1. Tobramycin inhalation. 2. Cefepime. PHYSICAL EXAMINATION: GENERAL: This is a fragile, chronically ill-appearing, elderly man, who is in no distress. HEENT: Head atraumatic, normocephalic. Sclerae anicteric. Buccal mucosa dry. NECK: Supple. CHEST: Rise symmetrical. Breath sounds diminished at the bases. HEART: S1, S2. ABDOMEN: Soft, bowel sounds present. EXTREMITIES: Without cyanosis. ASSESSMENT: 1. Hemoptysis, resolving. 2. Chronic right upper lobe cavitary lesion with a history of sputum culture grew MDR PSA. 3. Emphysema. 4. Dysphagia. 5. Cachexia. PLAN: The patient remains stable. We will change cefepime to Fortaz, continue tobramycin inhalation, follow pulmonary recommendations Problems: Consultation Date/Type/Reason Admit Date/Time Jan 06, 2017 at 13:44 Initial Consult Date Type of Consultation: ID Exam/Review of Systems Vital Signs Vitals Vital Signs Date Time Temp Pulse Resp B/P Pulse Ox O2 Delivery O2 Flow Rate FiO2 01/10/17 12:20 85 01/10/17 08:48 20 93 Aerosol 10.0 60 T Tube 01/10/17 08:22 98.0 136/71 Intake and Output 01/09/17 01/09/17 01/10/17 15:00 23:00 07:00 Intake Total 1150 ml 50 ml Output Total 60 ml Balance 1090 ml 50 ml Results Result Diagram: 01/10/17 0818 01/10/17 0818 Results 24 hrs Laboratory Tests Test 01/09/17 15:00 01/10/17 08:18 Iron Level 20 L Total Iron Binding Capacity 164 L Percent Iron Saturation 12 L Ferritin 1500.0 H White Blood Count 10.0 Red Blood Count 3.59 L Hemoglobin 9.2 L Hematocrit 28.2 L Mean Corpuscular Volume 78.6 L Mean Corpuscular Hemoglobin 25.6 L Mean Corpuscular Hemoglobin Concent 32.6 Red Cell Distribution Width 19.9 H Platelet Count 294 Mean Platelet Volume 8.6 Neutrophils % 65.1 Lymphocytes % 22.8 Monocytes % 7.5 Eosinophils % 3.9 Basophils % 0.3 Nucleated Red Blood Cells % 0.0 Neutrophils # 6.5 Lymphocytes # 2.3 Monocytes # 0.8 Eosinophils # 0.4 Basophils # 0.0 Nucleated Red Blood Cells # 0.0 Sodium Level 136 Potassium Level 4.1 Chloride Level 104 Carbon Dioxide Level 26 Anion Gap 10 Blood Urea Nitrogen 15 Creatinine 0.73 Glucose Level 114 Calcium Level 9.4 Magnesium Level 1.9 Total Bilirubin 0.2 Direct Bilirubin 0.00 Indirect Bilirubin 0.2 Aspartate Amino Transf (AST/SGOT) 17 Alanine Aminotransferase (ALT/SGPT) 21 Alkaline Phosphatase 86 Total Protein 7.5 Albumin 3.1 L Globulin 4.40 H Albumin/Globulin Ratio 0.70 Medications Medications Current Medications Acetaminophen (Tylenol Tab) 1,000 mg Q4H PRN PO PAIN LEVEL 4-6/10; Start at 15:30 Ascorbic Acid (Vitamin C) 500 mg DAILY GTB Last administered on 01/10/17 09:31 ; Admin Dose 500 MG; Start 01/07/17 at 09:00 Aspirin (Aspirin) 81 mg DAILY GTB Last administered on 01/10/17 09:31; Admin Dose 81 MG; Start 01/07/17 at 09:00 Bethanechol Chloride (Urecholine) 25 mg TID GTB Last administered on 01/10/17 12:10; Admin Dose 25 MG; Start 01/06/17 at 21:00 Calcium/Vitamin D (Oyster Shell/ Vit-D (500/200)) 1 tab DAILY GTB Last administered on 01/10/17 09:31; Admin Dose 1 TAB; Start 01/07/17 at 09:00 Chlorhexidine Gluconate (Peridex) 15 ml Q12 MM Last administered on 01/10/17 09:31; Admin Dose 15 ML; Start 01/06/17 at 21:00 Ferrous Sulfate (Feosol Liquid Cup) 300 mg DAILY GTB Last administered on 09:30; Admin Dose 300 MG; Start 01/06/17 at 16:00 Acetaminophen/ Hydrocodone Bitart ([place] (5/325)) 1 tab Q6H PRN GTB PAIN LEVEL 7-9/10; Start 01/06/17 at 15:30 Ondansetron HCl (Zofran Tab) 4 mg Q6H PRN GTB NAUSEA AND/OR VOMITING; Start at 15:30 Senna (Senokot) 1 tab QHS GTB Last administered on 01/09/17 20:46; Admin Dose 1 TAB; Start 01/06/17 at 21:00 Zinc Sulfate (Zinc Sulfate) 220 mg DAILY GTB Last administered on 01/10/17 09: 31; Admin Dose 220 MG; Start 01/07/17 at 09:00 Lactobacillus Acidophilus/ Rhamnosus (Culturelle) 1 cap BID GTB Last administered on 01/10/17 09:31; Admin Dose 1 CAP; Start 01/06/17 at 21:00 Multivitamins (Multivitamin) 30 ml DAILY GTB Last administered on 01/10/17 09: 31; Admin Dose 30 ML; Start 01/07/17 at 09:00 Acetaminophen (Tylenol Tab) 650 mg Q6H PRN PO PAIN LEVEL 1-3 OR FEVER; Start at 15:30 Acetaminophen (Tylenol Supp) 650 mg Q6H PRN [place] PAIN LEVEL 1-3 OR FEVER; Start 01/06/17 at 15:30 Morphine Sulfate (morphine) 2 mg Q4H PRN IV SEVERE PAIN LEVEL 7-10; Start 01/06 at 15:30 Docusate Sodium (Colace Liquid Cup) 100 mg Q12H PRN GTB CONSTIPATION; Start at 16:00 Magnesium Hydroxide (Milk Of Mag) 30 ml DAILY PRN PO CONSTIPATION; Start at 15:30 Bisacodyl (Dulcolax Supp) 10 mg DAILY PRN [place] CONSTIPATION; Start 01/06/17 at 15 :30 Pantoprazole 40 mg 40 mg DAILY@06 IV Last administered on 01/10/17 06:56; Admin Dose 40 MG; Start 01/07/17 at 06:00 Cefepime HCl (Maxipime 2gm/50 ml (Pmx)) 50 ml @ 100 mls/hr BID IVPB Last administered on 01/10/17 09:32; Admin Dose 100 MLS/HR; Start 01/06/17 at 21:00 VICTORINO YEBOAH NP Jan 10, 2017 13:06
[2017-01-10] MEDS: CEFTAZIDIME 1GM/50 ML (PMX) 50 ML IVPB SCH ×2 (14:00→21:24)
[2017-01-10 19:48] LABS: SEVENTY TWO HOUR READING 0 mm (0-9)
[2017-01-10] MEDS: SENNA TAB GTB SCH (21:23)
[2017-01-11] VITALS (10 sets, daily range): BP systolic 85–111; BP diastolic 53–65; PULSE 87–101; RESP 18–19
[2017-01-11] MEDS: LANSOPRAZOLE 30 MG CAP GTB SCH (05:53)
[2017-01-11] MEDS: METOCLOPRAMIDE (1 MG/ML) 10 ML CUP GTB SCH ×3 (05:54→16:55)
[2017-01-11] MEDS: CEFTAZIDIME 1GM/50 ML (PMX) 50 ML IVPB SCH ×3 (06:07→21:35)
[2017-01-11 08:52] LABS: BASOPHIL # 0.1 10^3/ul (0.0-0.1); BASOPHILS % 0.4 % (0.0-2.0); EOSINOPHILS # 0.5 10^3/ul (0.0-0.5); EOSINOPHILS % 3.7 % (0.0-7.0); HEMATOCRIT 27.9 % (42.0-52.0); HEMOGLOBIN 9.2 g/dl (14.0-18.0); LYMPHOCYTES # 3.5 10^3/ul (0.8-2.9); LYMPHOCYTES % 29.3 % (15.0-51.0); MEAN CORPUSCULAR HEMOGLOBIN 25.8 pg (29.0-33.0); MEAN CORPUSCULAR VOLUME 78.4 fl (82.0-101.0); MEAN PLATELET VOLUME 8.8 fl (7.4-10.4); MONOCYTE # 0.7 10^3/ul (0.3-0.9); NEUTROPHIL # 7.2 10^3/ul (1.6-7.5); NEUTROPHILS % 60.3 % (39.0-77.0); NUCLEATED RED BLOOD CELLS% 0.2 /100WBC (0.0-0.0); PLATELET COUNT 339 10^3/UL (140-415); RED BLOOD COUNT 3.56 10^6/ul (4.70-6.10); RED CELL DISTRIBUTION WIDTH 19.7 % (11.5-14.5)
[2017-01-11] MEDS: MULTIVITAMINS 30 ML CUP GTB SCH (08:55)
[2017-01-11] MEDS: BETHANECHOL 25 MG TAB GTB SCH ×3 (08:56→21:35)
[2017-01-11] MEDS: ASPIRIN 81 MG TAB GTB SCH (08:56)
[2017-01-11] MEDS: FERROUS SULFATE 60 MG/ML 5ML CUP GTB SCH (08:56)
[2017-01-11] MEDS: ASCORBIC ACID 500 MG TAB GTB SCH (08:56)
[2017-01-11] MEDS: CHLORHEXIDINE GLUCONATE 15 ML UD CUP MM SCH ×2 (08:56→21:35)
[2017-01-11] MEDS: LACTOBACILLUS RHAMNOSUS CAP GTB SCH ×2 (08:56→21:35)
[2017-01-11] MEDS: CALCIUM/VITAMIN D (500/200) TAB GTB SCH (08:56)
[2017-01-11] MEDS: ZINC SULFATE 220 MG CAP GTB SCH (08:56)
[2017-01-11] MEDS: TOBRAMYCIN/0.25NS 300 MG/5 ML INHAL NEB SCH ×2 (09:00→20:03)
[2017-01-11 09:19] LABS: ALBUMIN 3.3 g/dl (3.3-4.9); ALBUMIN/GLOBULIN RATIO 0.71; BILIRUBIN,INDIRECT 0.1 mg/dl (0-1.1); BILIRUBIN,TOTAL 0.1 mg/dl (0.2-1.3); CALCIUM 9.3 mg/dl (8.4-10.2); CREATININE 0.72 mg/dl (0.61-1.24); POTASSIUM 4.5 mmol/L (3.5-5.1); TOTAL PROTEIN 7.9 g/dl (6.1-8.1)
--- NOTE | 2017-01-11 09:52 | CONS ---
Date/Time of Note Date/Time of Note DATE: 01/11/17 TIME: 09:52 Assessment/Plan Assessment/Plan Chief Complaint/Hosp Course 71 y/o with # RITA likely prerenal from sepsis/lactic acidosis resolved # Bleeding from tracheostomy site. CT scan showing extensive centrilobular emphysema with a right upper lobe cavitary lesion. # sepsis with leukocytosis and lactic acidosis upon admission. No evidence of septic shock. Continue microbials as per infectious diseases. # Healthcare associated pneumonia. . #. Chronic respiratory failure with COPD # G tube status Recs - labs am - on cef tazidime and tobramycin - Kidney function stable Problems: Consultation Date/Type/Reason Admit Date/Time Jan 06, 2017 at 13:44 Type of Consultation: Renal 24 HR Interval Summary Free Text/Dictation No acute events Exam/Review of Systems Vital Signs Vitals Vital Signs Date Time Temp Pulse Resp B/P Pulse Ox O2 Delivery O2 Flow Rate FiO2 01/11/17 08:39 101 01/11/17 05:20 22 95 Aerosol 10.0 70 T Tube 01/11/17 04:00 97.8 107/53 Intake and Output 01/10/17 01/10/17 01/11/17 15:00 23:00 07:00 Intake Total 1000 ml 920 ml Output Total 50 ml 30 ml Balance 950 ml 890 ml Exam GENERAL: This is a fragile, chronically ill-appearing, elderly man, who is very weak, lethargic, and in no distress. Trach HEENT: Head atraumatic, normocephalic. Sclerae anicteric. Buccal mucosa dry. NECK: Supple. CHEST: Rise symmetrical. Breath sounds diminished at the bases. HEART: S1, S2. ABDOMEN: Soft, bowel sounds present. EXTREMITIES: Without cyanosis Results Result Diagram: 01/11/17 0810 01/11/17 0810 Results 24 hrs Laboratory Tests Test 01/11/17 08:10 White Blood Count 12.0 H Red Blood Count 3.56 L Hemoglobin 9.2 L Hematocrit 27.9 L Mean Corpuscular Volume 78.4 L Mean Corpuscular Hemoglobin 25.8 L Mean Corpuscular Hemoglobin Concent 33.0 Red Cell Distribution Width 19.7 H Platelet Count 339 Mean Platelet Volume 8.8 Neutrophils % 60.3 Lymphocytes % 29.3 Monocytes % 6.0 Eosinophils % 3.7 Basophils % 0.4 Nucleated Red Blood Cells % 0.2 H Neutrophils # 7.2 Lymphocytes # 3.5 H Monocytes # 0.7 Eosinophils # 0.5 Basophils # 0.1 Nucleated Red Blood Cells # 0.0 Sodium Level 135 Potassium Level 4.5 Chloride Level 103 Carbon Dioxide Level 25 Anion Gap 12 Blood Urea Nitrogen 16 Creatinine 0.72 Glucose Level 114 Calcium Level 9.3 Total Bilirubin 0.1 L Direct Bilirubin 0.00 Indirect Bilirubin 0.1 Aspartate Amino Transf (AST/SGOT) 31 # Alanine Aminotransferase (ALT/SGPT) 24 Alkaline Phosphatase 85 Total Protein 7.9 Albumin 3.3 Globulin 4.60 H Albumin/Globulin Ratio 0.71 Medications Medications Current Medications Acetaminophen (Tylenol Tab) 1,000 mg Q4H PRN PO PAIN LEVEL 4-6/10; Start at 15:30 Ascorbic Acid (Vitamin C) 500 mg DAILY GTB Last administered on 01/11/17 08:56 ; Admin Dose 500 MG; Start 01/07/17 at 09:00 Aspirin (Aspirin) 81 mg DAILY GTB Last administered on 01/11/17 08:56; Admin Dose 81 MG; Start 01/07/17 at 09:00 Bethanechol Chloride (Urecholine) 25 mg TID GTB Last administered on 01/11/17 08:56; Admin Dose 25 MG; Start 01/06/17 at 21:00 Calcium/Vitamin D (Oyster Shell/ Vit-D (500/200)) 1 tab DAILY GTB Last administered on 01/11/17 08:56; Admin Dose 1 TAB; Start 01/07/17 at 09:00 Chlorhexidine Gluconate (Peridex) 15 ml Q12 MM Last administered on 01/11/17 08:56; Admin Dose 15 ML; Start 01/06/17 at 21:00 Ferrous Sulfate (Feosol Liquid Cup) 300 mg DAILY GTB Last administered on 08:56; Admin Dose 300 MG; Start 01/06/17 at 16:00 Acetaminophen/ Hydrocodone Bitart ([place] (5/325)) 1 tab Q6H PRN GTB PAIN LEVEL 7-9/10; Start 01/06/17 at 15:30 Ondansetron HCl (Zofran Tab) 4 mg Q6H PRN GTB NAUSEA AND/OR VOMITING; Start at 15:30 Senna (Senokot) 1 tab QHS GTB Last administered on 01/10/17 21:23; Admin Dose 1 TAB; Start 01/06/17 at 21:00 Zinc Sulfate (Zinc Sulfate) 220 mg DAILY GTB Last administered on 01/11/17 08: 56; Admin Dose 220 MG; Start 01/07/17 at 09:00 Lactobacillus Acidophilus/ Rhamnosus (Culturelle) 1 cap BID GTB Last administered on 01/11/17 08:56; Admin Dose 1 CAP; Start 01/06/17 at 21:00 Multivitamins (Multivitamin) 30 ml DAILY GTB Last administered on 01/11/17 08: 55; Admin Dose 30 ML; Start 01/07/17 at 09:00 Acetaminophen (Tylenol Tab) 650 mg Q6H PRN PO PAIN LEVEL 1-3 OR FEVER; Start at 15:30 Acetaminophen (Tylenol Supp) 650 mg Q6H PRN [place] PAIN LEVEL 1-3 OR FEVER; Start 01/06/17 at 15:30 Morphine Sulfate (morphine) 2 mg Q4H PRN IV SEVERE PAIN LEVEL 7-10; Start 01/06 at 15:30 Docusate Sodium (Colace Liquid Cup) 100 mg Q12H PRN GTB CONSTIPATION; Start at 16:00 Magnesium Hydroxide (Milk Of Mag) 30 ml DAILY PRN PO CONSTIPATION; Start at 15:30 Bisacodyl 10 mg 10 mg DAILY PRN [place] CONSTIPATION; Start 01/06/17 at 15:30 Ceftazidime (Fortaz 1gm/50 ml (Pmx)) 50 ml @ 100 mls/hr Q8 IVPB Last administered on 01/11/17 06:07; Admin Dose 100 MLS/HR; Start 01/10/17 at 14:00 Lansoprazole (Prevacid) 30 mg DAILY@06 GTB Last administered on 01/11/17 05:53 ; Admin Dose 30 MG; Start 01/11/17 at 06:00 ROXANNE HOROWITZ MD Jan 11, 2017 09:52
--- NOTE | 2017-01-11 12:34 | CONS ---
Date/Time of Note Date/Time of Note DATE: 01/11/17 TIME: 12:33 Consult Date/Type/Reason Admit Date/Time Jan 06, 2017 at 13:44 Initial Consult Date Type of Consultation: PUlm Subjective Comfortable, no overnight events. Objective Vital Signs Date Time Temp Pulse Resp B/P Pulse Ox O2 Delivery O2 Flow Rate FiO2 01/11/17 12:26 92 01/11/17 11:51 98.5 19 85/63 94 01/11/17 05:20 Aerosol 10.0 70 T Tube Intake and Output 01/10/17 01/10/17 01/11/17 15:00 23:00 07:00 Intake Total 1000 ml 920 ml Output Total 50 ml 30 ml Balance 950 ml 890 ml Exam GENERAL: VITAL SIGNS: per chart NECK: Supple. No JVD or lymphadenopathy. CARDIAC EXAM: S1, S2. No added sounds or murmurs. CHEST: clear bilaterally, No added sounds, rales or wheezes ABDOMEN: Soft, nontender. No guarding or rebound. EXTREMITIES: No cyanosis, clubbing or edema. NEUROLOGIC: Generalized weakness. No focal deficits. Chronically ill- appearing gentleman with tracheostomy on full aerosol Results/Medications Result Diagram: 01/11/17 0810 01/11/17 0810 Results 24 hrs Laboratory Tests Test 01/11/17 08:10 White Blood Count 12.0 H Red Blood Count 3.56 L Hemoglobin 9.2 L Hematocrit 27.9 L Mean Corpuscular Volume 78.4 L Mean Corpuscular Hemoglobin 25.8 L Mean Corpuscular Hemoglobin Concent 33.0 Red Cell Distribution Width 19.7 H Platelet Count 339 Mean Platelet Volume 8.8 Neutrophils % 60.3 Lymphocytes % 29.3 Monocytes % 6.0 Eosinophils % 3.7 Basophils % 0.4 Nucleated Red Blood Cells % 0.2 H Neutrophils # 7.2 Lymphocytes # 3.5 H Monocytes # 0.7 Eosinophils # 0.5 Basophils # 0.1 Nucleated Red Blood Cells # 0.0 Sodium Level 135 Potassium Level 4.5 Chloride Level 103 Carbon Dioxide Level 25 Anion Gap 12 Blood Urea Nitrogen 16 Creatinine 0.72 Glucose Level 114 Calcium Level 9.3 Magnesium Level 1.9 Total Bilirubin 0.1 L Direct Bilirubin 0.00 Indirect Bilirubin 0.1 Aspartate Amino Transf (AST/SGOT) 31 # Alanine Aminotransferase (ALT/SGPT) 24 Alkaline Phosphatase 85 Total Protein 7.9 Albumin 3.3 Globulin 4.60 H Albumin/Globulin Ratio 0.71 Medications Current Medications Acetaminophen (Tylenol Tab) 1,000 mg Q4H PRN PO PAIN LEVEL 4-6/10; Start at 15:30 Ascorbic Acid (Vitamin C) 500 mg DAILY GTB Last administered on 01/11/17 08:56 ; Admin Dose 500 MG; Start 01/07/17 at 09:00 Aspirin (Aspirin) 81 mg DAILY GTB Last administered on 01/11/17 08:56; Admin Dose 81 MG; Start 01/07/17 at 09:00 Bethanechol Chloride (Urecholine) 25 mg TID GTB Last administered on 01/11/17 08:56; Admin Dose 25 MG; Start 01/06/17 at 21:00 Calcium/Vitamin D (Oyster Shell/ Vit-D (500/200)) 1 tab DAILY GTB Last administered on 01/11/17 08:56; Admin Dose 1 TAB; Start 01/07/17 at 09:00 Chlorhexidine Gluconate (Peridex) 15 ml Q12 MM Last administered on 01/11/17 08:56; Admin Dose 15 ML; Start 01/06/17 at 21:00 Ferrous Sulfate (Feosol Liquid Cup) 300 mg DAILY GTB Last administered on 08:56; Admin Dose 300 MG; Start 01/06/17 at 16:00 Acetaminophen/ Hydrocodone Bitart ([place] (5/325)) 1 tab Q6H PRN GTB PAIN LEVEL 7-9/10; Start 01/06/17 at 15:30 Ondansetron HCl (Zofran Tab) 4 mg Q6H PRN GTB NAUSEA AND/OR VOMITING; Start at 15:30 Senna (Senokot) 1 tab QHS GTB Last administered on 01/10/17 21:23; Admin Dose 1 TAB; Start 01/06/17 at 21:00 Zinc Sulfate (Zinc Sulfate) 220 mg DAILY GTB Last administered on 01/11/17 08: 56; Admin Dose 220 MG; Start 01/07/17 at 09:00 Lactobacillus Acidophilus/ Rhamnosus (Culturelle) 1 cap BID GTB Last administered on 01/11/17 08:56; Admin Dose 1 CAP; Start 01/06/17 at 21:00 Multivitamins (Multivitamin) 30 ml DAILY GTB Last administered on 01/11/17 08: 55; Admin Dose 30 ML; Start 01/07/17 at 09:00 Acetaminophen (Tylenol Tab) 650 mg Q6H PRN PO PAIN LEVEL 1-3 OR FEVER; Start at 15:30 Acetaminophen (Tylenol Supp) 650 mg Q6H PRN [place] PAIN LEVEL 1-3 OR FEVER; Start 01/06/17 at 15:30 Morphine Sulfate (morphine) 2 mg Q4H PRN IV SEVERE PAIN LEVEL 7-10; Start 01/06 at 15:30 Docusate Sodium (Colace Liquid Cup) 100 mg Q12H PRN GTB CONSTIPATION; Start at 16:00 Magnesium Hydroxide (Milk Of Mag) 30 ml DAILY PRN PO CONSTIPATION; Start at 15:30 Bisacodyl 10 mg 10 mg DAILY PRN [place] CONSTIPATION; Start 01/06/17 at 15:30 Ceftazidime (Fortaz 1gm/50 ml (Pmx)) 50 ml @ 100 mls/hr Q8 IVPB Last administered on 01/11/17 06:07; Admin Dose 100 MLS/HR; Start 01/10/17 at 14:00 Lansoprazole (Prevacid) 30 mg DAILY@06 GTB Last administered on 01/11/17 05:53 ; Admin Dose 30 MG; Start 01/11/17 at 06:00 Assessment/Plan Chief Complaint/Hosp Course Assessment: 1. Patient admitted with chronic hemoptysis with multiple admissions at [facility] due to underlying right upper lobe fibrocavitary lung disease. However there has been interval resolution since admission over here. Pseudomonas aeruginosa has been isolated from sputum. 2. COPD. 3. History of respiratory failure patient however very well on tracheostomy with T-piece. 4. Generalized deconditioning. Plan: 1. Continue ID recs 2. Continue cool aerosol. Problems: SILVERIO MANNING MD, [facility] Jan 11, 2017 12:34
--- NOTE | 2017-01-11 14:08 | PN ---
Date/Time of Note Date/Time of Note DATE: 01/11/17 TIME: 14:06 Assessment/Plan VTE Prophylaxis VTE Prophylaxis Intervention: SCD's Lines/Catheters IV Catheter Type (from [facility]): Saline Lock Urinary Cath still in place: No Assessment/Plan Chief Complaint/Hosp Course 1. Bleeding from tracheostomy site. CT scan showing extensive centrilobular emphysema with a right upper lobe cavitary lesion. Being followed by pulmonary and infectious diseases. Sputum AFB 2 negative. 2. Status post sepsis with leukocytosis and lactic acidosis upon admission. No evidence of septic shock. Continue antimicrobials as per infectious diseases. 3. Healthcare associated pneumonia. 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 Antimicrobials as per infectious diseases. 4. Microcytic, hypochromic anemia. Continue iron supplements. 5. Acute kidney injury. Resolved. Being followed by nephrology. 6. Chronic respiratory failure. Continue inhaled bronchodilators. Tracheostomy currently to cool aerosol mask. 7. COPD. Continue inhaled bronchodilators. 8. Dysphagia. Continue G-tube feeds. 9. Fluids, electrolytes, and nutrition. G-tube feeds. 10. DVT prophylaxis. Bilateral sequential compression devices. 11. Plan. Continue antimicrobials as per infectious diseases. Await further recommendations from pulmonology and infectious diseases. Case discussed with Dr. Knutson. Problems: Exam/Review of Systems Vital Signs Vitals Vital Signs Date Time Temp Pulse Resp B/P Pulse Ox O2 Delivery O2 Flow Rate FiO2 01/11/17 12:26 92 01/11/17 11:51 98.5 19 85/63 94 01/11/17 05:20 Aerosol 10.0 70 T Tube Intake and Output 01/10/17 01/10/17 01/11/17 15:00 23:00 07:00 Intake Total 1000 ml 920 ml Output Total 50 ml 30 ml Balance 950 ml 890 ml Exam General: Adequately build 71 year-old male lying in bed in no apparent distress. HEENT: Normocephalic, atraumatic. Eyes: Anicteric sclerae, conjunctivae clear. ENT: Nasal septum midline, oral mucosa moist. Neck. Tracheostomy connected to cool aerosol mask. Respiratory: Bilaterally diminished breath sounds. No use of accessory muscles of respiration. No adventitious breath sounds. Cardiovascular: S1, S2 heard. No murmurs or gallops. Abdomen: Soft, nontender, and nondistended. Bowel sounds positive in all 4 quadrants. Genitourinary: Deferred. Extremities: No cyanosis, no clubbing, no edema. Peripheral pulses palpable. Neurologic: The patient is awake, alert, and oriented. Follows commands. Results Result Diagram: 01/11/17 0810 01/11/17 0810 Results 24 hrs Laboratory Tests Test 01/11/17 08:10 White Blood Count 12.0 H Red Blood Count 3.56 L Hemoglobin 9.2 L Hematocrit 27.9 L Mean Corpuscular Volume 78.4 L Mean Corpuscular Hemoglobin 25.8 L Mean Corpuscular Hemoglobin Concent 33.0 Red Cell Distribution Width 19.7 H Platelet Count 339 Mean Platelet Volume 8.8 Neutrophils % 60.3 Lymphocytes % 29.3 Monocytes % 6.0 Eosinophils % 3.7 Basophils % 0.4 Nucleated Red Blood Cells % 0.2 H Neutrophils # 7.2 Lymphocytes # 3.5 H Monocytes # 0.7 Eosinophils # 0.5 Basophils # 0.1 Nucleated Red Blood Cells # 0.0 Sodium Level 135 Potassium Level 4.5 Chloride Level 103 Carbon Dioxide Level 25 Anion Gap 12 Blood Urea Nitrogen 16 Creatinine 0.72 Glucose Level 114 Calcium Level 9.3 Magnesium Level 1.9 Total Bilirubin 0.1 L Direct Bilirubin 0.00 Indirect Bilirubin 0.1 Aspartate Amino Transf (AST/SGOT) 31 # Alanine Aminotransferase (ALT/SGPT) 24 Alkaline Phosphatase 85 Total Protein 7.9 Albumin 3.3 Globulin 4.60 H Albumin/Globulin Ratio 0.71 Medications Medications Current Medications Acetaminophen (Tylenol Tab) 1,000 mg Q4H PRN PO PAIN LEVEL 4-6/10; Start at 15:30 Ascorbic Acid (Vitamin C) 500 mg DAILY GTB Last administered on 01/11/17 08:56 ; Admin Dose 500 MG; Start 01/07/17 at 09:00 Aspirin (Aspirin) 81 mg DAILY GTB Last administered on 01/11/17 08:56; Admin Dose 81 MG; Start 01/07/17 at 09:00 Bethanechol Chloride (Urecholine) 25 mg TID GTB Last administered on 01/11/17 13:55; Admin Dose 25 MG; Start 01/06/17 at 21:00 Calcium/Vitamin D (Oyster Shell/ Vit-D (500/200)) 1 tab DAILY GTB Last administered on 01/11/17 08:56; Admin Dose 1 TAB; Start 01/07/17 at 09:00 Chlorhexidine Gluconate (Peridex) 15 ml Q12 MM Last administered on 01/11/17 08:56; Admin Dose 15 ML; Start 01/06/17 at 21:00 Ferrous Sulfate (Feosol Liquid Cup) 300 mg DAILY GTB Last administered on 08:56; Admin Dose 300 MG; Start 01/06/17 at 16:00 Acetaminophen/ Hydrocodone Bitart ([place] (5/325)) 1 tab Q6H PRN GTB PAIN LEVEL 7-9/10; Start 01/06/17 at 15:30 Ondansetron HCl (Zofran Tab) 4 mg Q6H PRN GTB NAUSEA AND/OR VOMITING; Start at 15:30 Senna (Senokot) 1 tab QHS GTB Last administered on 01/10/17 21:23; Admin Dose 1 TAB; Start 01/06/17 at 21:00 Zinc Sulfate (Zinc Sulfate) 220 mg DAILY GTB Last administered on 01/11/17 08: 56; Admin Dose 220 MG; Start 01/07/17 at 09:00 Lactobacillus Acidophilus/ Rhamnosus (Culturelle) 1 cap BID GTB Last administered on 01/11/17 08:56; Admin Dose 1 CAP; Start 01/06/17 at 21:00 Multivitamins (Multivitamin) 30 ml DAILY GTB Last administered on 01/11/17 08: 55; Admin Dose 30 ML; Start 01/07/17 at 09:00 Acetaminophen (Tylenol Tab) 650 mg Q6H PRN PO PAIN LEVEL 1-3 OR FEVER; Start at 15:30 Acetaminophen (Tylenol Supp) 650 mg Q6H PRN [place] PAIN LEVEL 1-3 OR FEVER; Start 01/06/17 at 15:30 Morphine Sulfate (morphine) 2 mg Q4H PRN IV SEVERE PAIN LEVEL 7-10; Start 01/06 at 15:30 Docusate Sodium (Colace Liquid Cup) 100 mg Q12H PRN GTB CONSTIPATION; Start at 16:00 Magnesium Hydroxide (Milk Of Mag) 30 ml DAILY PRN PO CONSTIPATION; Start at 15:30 Bisacodyl 10 mg 10 mg DAILY PRN [place] CONSTIPATION; Start 01/06/17 at 15:30 Ceftazidime (Fortaz 1gm/50 ml (Pmx)) 50 ml @ 100 mls/hr Q8 IVPB Last administered on 01/11/17 06:07; Admin Dose 100 MLS/HR; Start 01/10/17 at 14:00 Lansoprazole (Prevacid) 30 mg DAILY@06 GTB Last administered on 01/11/17 05:53 ; Admin Dose 30 MG; Start 01/11/17 at 06:00 ARACELY THOMAS NP Jan 11, 2017 14:08
--- NOTE | 2017-01-11 14:36 | CONS ---
Date/Time of Note Date/Time of Note DATE: 01/11/17 TIME: 14:34 Assessment/Plan Assessment/Plan Chief Complaint/Hosp Course SUBJECTIVE DATA: Alert, looks comfortable no hemoptysis Temperature 98.5 pulse 90 respirations 19 blood pressure 85/63 saturation 94% WBC 12 H&H 9.2 and 27.9 platelets 339 BUN 16 creatinine 0.72 Sputum culture growing multidrug-resistant pseudomonas aeruginosa and Providencia stuartii. Sputum smear for AFB -2 sets INDWELLINGS: Trach, PEG, Zepeda. ANTIMICROBIALS: 1. Tobramycin inhalation. 2. Ceftazidime PHYSICAL EXAMINATION: GENERAL: This is a fragile, chronically ill-appearing, elderly man, who is in no distress. HEENT: Head atraumatic, normocephalic. Sclerae anicteric. Buccal mucosa dry. NECK: Supple. CHEST: Rise symmetrical. Breath sounds diminished at the bases. HEART: S1, S2. ABDOMEN: Soft, bowel sounds present. EXTREMITIES: Without cyanosis. ASSESSMENT: 1. Hemoptysis, resolving, likely secondary to acute bronchitis. 2. 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 3. Emphysema. 4. Dysphagia. 5. Cachexia. PLAN: The patient remains stable. Continue present care, antibiotics, follow pulmonary recommendations Problems: Consultation Date/Type/Reason Admit Date/Time Jan 06, 2017 at 13:44 Type of Consultation: id Exam/Review of Systems Vital Signs Vitals Vital Signs Date Time Temp Pulse Resp B/P Pulse Ox O2 Delivery O2 Flow Rate FiO2 01/11/17 12:26 92 01/11/17 11:51 98.5 19 85/63 94 01/11/17 05:20 Aerosol 10.0 70 T Tube Intake and Output 01/10/17 01/10/17 01/11/17 15:00 23:00 07:00 Intake Total 1000 ml 920 ml Output Total 50 ml 30 ml Balance 950 ml 890 ml Results Result Diagram: 01/11/17 0810 01/11/17 0810 Results 24 hrs Laboratory Tests Test 01/11/17 08:10 White Blood Count 12.0 H Red Blood Count 3.56 L Hemoglobin 9.2 L Hematocrit 27.9 L Mean Corpuscular Volume 78.4 L Mean Corpuscular Hemoglobin 25.8 L Mean Corpuscular Hemoglobin Concent 33.0 Red Cell Distribution Width 19.7 H Platelet Count 339 Mean Platelet Volume 8.8 Neutrophils % 60.3 Lymphocytes % 29.3 Monocytes % 6.0 Eosinophils % 3.7 Basophils % 0.4 Nucleated Red Blood Cells % 0.2 H Neutrophils # 7.2 Lymphocytes # 3.5 H Monocytes # 0.7 Eosinophils # 0.5 Basophils # 0.1 Nucleated Red Blood Cells # 0.0 Sodium Level 135 Potassium Level 4.5 Chloride Level 103 Carbon Dioxide Level 25 Anion Gap 12 Blood Urea Nitrogen 16 Creatinine 0.72 Glucose Level 114 Calcium Level 9.3 Magnesium Level 1.9 Total Bilirubin 0.1 L Direct Bilirubin 0.00 Indirect Bilirubin 0.1 Aspartate Amino Transf (AST/SGOT) 31 # Alanine Aminotransferase (ALT/SGPT) 24 Alkaline Phosphatase 85 Total Protein 7.9 Albumin 3.3 Globulin 4.60 H Albumin/Globulin Ratio 0.71 Medications Medications Current Medications Acetaminophen (Tylenol Tab) 1,000 mg Q4H PRN PO PAIN LEVEL 4-610; Start at 15:30 Ascorbic Acid (Vitamin C) 500 mg DAILY GTB Last administered on 01/11/17 08:56 ; Admin Dose 500 MG; Start 01/07/17 at 09:00 Aspirin (Aspirin) 81 mg DAILY GTB Last administered on 01/11/17 08:56; Admin Dose 81 MG; Start 01/07/17 at 09:00 Bethanechol Chloride (Urecholine) 25 mg TID GTB Last administered on 01/11/17 13:55; Admin Dose 25 MG; Start 01/06/17 at 21:00 Calcium/Vitamin D (Oyster Shell/ Vit-D (500/200)) 1 tab DAILY GTB Last administered on 01/11/17 08:56; Admin Dose 1 TAB; Start 01/07/17 at 09:00 Chlorhexidine Gluconate (Peridex) 15 ml Q12 MM Last administered on 01/11/17 08:56; Admin Dose 15 ML; Start 01/06/17 at 21:00 Ferrous Sulfate (Feosol Liquid Cup) 300 mg DAILY GTB Last administered on 08:56; Admin Dose 300 MG; Start 01/06/17 at 16:00 Acetaminophen/ Hydrocodone Bitart ([place] (5/325)) 1 tab Q6H PRN GTB PAIN LEVEL 7-10; Start 01/06/17 at 15:30 Ondansetron HCl (Zofran Tab) 4 mg Q6H PRN GTB NAUSEA AND/OR VOMITING; Start at 15:30 Senna (Senokot) 1 tab QHS GTB Last administered on 01/10/17 21:23; Admin Dose 1 TAB; Start 01/06/17 at 21:00 Zinc Sulfate (Zinc Sulfate) 220 mg DAILY GTB Last administered on 01/11/17 08: 56; Admin Dose 220 MG; Start 01/07/17 at 09:00 Lactobacillus Acidophilus/ Rhamnosus (Culturelle) 1 cap BID GTB Last administered on 01/11/17 08:56; Admin Dose 1 CAP; Start 01/06/17 at 21:00 Multivitamins (Multivitamin) 30 ml DAILY GTB Last administered on 01/11/17 08: 55; Admin Dose 30 ML; Start 01/07/17 at 09:00 Acetaminophen (Tylenol Tab) 650 mg Q6H PRN PO PAIN LEVEL 1-3 OR FEVER; Start at 15:30 Acetaminophen (Tylenol Supp) 650 mg Q6H PRN [place] PAIN LEVEL 1-3 OR FEVER; Start 01/06/17 at 15:30 Morphine Sulfate (morphine) 2 mg Q4H PRN IV SEVERE PAIN LEVEL 7-10; Start 01/06 at 15:30 Docusate Sodium (Colace Liquid Cup) 100 mg Q12H PRN GTB CONSTIPATION; Start at 16:00 Magnesium Hydroxide (Milk Of Mag) 30 ml DAILY PRN PO CONSTIPATION; Start at 15:30 Bisacodyl 10 mg 10 mg DAILY PRN [place] CONSTIPATION; Start 01/06/17 at 15:30 Ceftazidime (Fortaz 1gm/50 ml (Pmx)) 50 ml @ 100 mls/hr Q8 IVPB Last administered on 01/11/17 06:07; Admin Dose 100 MLS/HR; Start 01/10/17 at 14:00 Lansoprazole (Prevacid) 30 mg DAILY@06 GTB Last administered on 01/11/17 05:53 ; Admin Dose 30 MG; Start 01/11/17 at 06:00 VICTORINO YEBOAH NP Jan 11, 2017 14:36
[2017-01-11] MEDS: SENNA TAB GTB SCH (21:35)
[2017-01-12] VITALS (13 sets, daily range): BP systolic 97–139; BP diastolic 55–69; PULSE 88–105; RESP 18–20
[2017-01-12] MEDS: LANSOPRAZOLE 30 MG CAP GTB SCH (05:19)
[2017-01-12] MEDS: CEFTAZIDIME 1GM/50 ML (PMX) 50 ML IVPB SCH ×3 (05:19→20:54)
[2017-01-12] MEDS: METOCLOPRAMIDE (1 MG/ML) 10 ML CUP GTB SCH ×3 (05:19→16:27)
[2017-01-12] MEDS: ASCORBIC ACID 500 MG TAB GTB SCH (08:51)
[2017-01-12] MEDS: FERROUS SULFATE 60 MG/ML 5ML CUP GTB SCH (08:51)
[2017-01-12] MEDS: ASPIRIN 81 MG TAB GTB SCH (08:51)
[2017-01-12] MEDS: CHLORHEXIDINE GLUCONATE 15 ML UD CUP MM SCH ×2 (08:51→20:55)
[2017-01-12] MEDS: BETHANECHOL 25 MG TAB GTB SCH ×3 (08:51→20:55)
[2017-01-12] MEDS: ZINC SULFATE 220 MG CAP GTB SCH (08:51)
[2017-01-12] MEDS: MULTIVITAMINS 30 ML CUP GTB SCH (08:51)
[2017-01-12] MEDS: CALCIUM/VITAMIN D (500/200) TAB GTB SCH (08:51)
[2017-01-12] MEDS: LACTOBACILLUS RHAMNOSUS CAP GTB SCH ×2 (08:51→20:55)
[2017-01-12] MEDS: TOBRAMYCIN/0.25NS 300 MG/5 ML INHAL NEB SCH ×2 (09:50→20:34)
--- NOTE | 2017-01-12 11:57 | PN ---
Date/Time of Note Date/Time of Note DATE: 01/12/17 TIME: 11:57 Assessment/Plan VTE Prophylaxis VTE Prophylaxis Intervention: SCD's Lines/Catheters IV [facility] Type [facility]from [facility] Saline Lock Urinary Cath still in place: No Assessment/Plan Chief Complaint/Hosp Course 1. Bleeding from tracheostomy site. CT scan showing extensive centrilobular emphysema with a right upper lobe cavitary lesion. Being followed by pulmonary and infectious diseases. Sputum AFB 2 negative. 2. Status post sepsis with leukocytosis and lactic acidosis upon admission. No evidence of septic shock. Continue antimicrobials as per infectious diseases. 3. Healthcare associated pneumonia. 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 Antimicrobials as per infectious diseases. 4. Microcytic, hypochromic anemia. Continue iron supplements. 5. Acute kidney injury. Resolved. Being followed by nephrology. 6. Chronic respiratory failure. Continue inhaled bronchodilators. Tracheostomy currently to cool aerosol mask. 7. COPD. Continue inhaled bronchodilators. 8. Dysphagia. Continue G-tube feeds. 9. Fluids, electrolytes, and nutrition. G-tube feeds. 10. DVT prophylaxis. Bilateral sequential compression devices. 11. Plan. Continue antimicrobials as per infectious diseases. Await further recommendations from pulmonology and infectious diseases. Problems: Subjective 24 Hr Interval Summary Free Text/Dictation Remains afebrile. Exam/Review of Systems Vital Signs Vitals Vital Signs Date Time Temp Pulse Resp B/P Pulse Ox O2 Delivery O2 Flow Rate FiO2 01/12/17 10:20 10.0 70 01/12/17 10:20 108 20 95 Aerosol 01/12/17 07:57 98.1 103/57 Intake and Output 01/11/17 01/11/17 01/12/17 15:00 23:00 07:00 Intake Total 800 ml 700 ml Output Total 50 ml Balance 750 ml 700 ml Exam General: Adequately build 71 year-old male lying in bed in no apparent distress. HEENT: Normocephalic, atraumatic. Eyes: Anicteric sclerae, conjunctivae clear. ENT: Nasal septum midline, oral mucosa moist. Neck. Tracheostomy connected to cool aerosol mask. Respiratory: Bilaterally diminished breath sounds. No use of accessory muscles of respiration. No adventitious breath sounds. Cardiovascular: S1, S2 heard. No murmurs or gallops. Abdomen: Soft, nontender, and nondistended. Bowel sounds positive in all 4 quadrants. Genitourinary: Deferred. Extremities: No cyanosis, no clubbing, no edema. Peripheral pulses palpable. Neurologic: The patient is awake, alert, and oriented. Follows commands. Results Result Diagram: 01/11/17 0810 01/11/1710 Medications Medications Current Medications Acetaminophen (Tylenol Tab) 1,000 mg Q4H PRN PO PAIN LEVEL 4-6/10; Start at 15:30 Ascorbic Acid (Vitamin C) 500 mg DAILY GTB Last administered on 01/12/17 08:51 ; Admin Dose 500 MG; Start 01/07/17 at 09:00 Aspirin (Aspirin) 81 mg DAILY GTB Last administered on 01/12/17 08:51; Admin Dose 81 MG; Start 01/07/17 at 09:00 Bethanechol Chloride (Urecholine) 25 mg TID GTB Last administered on 01/12/17 08:51; Admin Dose 25 MG; Start 01/06/17 at 21:00 Calcium/Vitamin D (Oyster Shell/ Vit-D (500/200)) 1 tab DAILY GTB Last administered on 01/12/17 08:51; Admin Dose 1 TAB; Start 01/07/17 at 09:00 Chlorhexidine Gluconate (Peridex) 15 ml Q12 MM Last administered on 01/12/17 08:51; Admin Dose 15 ML; Start 01/06/17 at 21:00 Ferrous Sulfate (Feosol Liquid Cup) 300 mg DAILY GTB Last administered on 08:51; Admin Dose 300 MG; Start 01/06/17 at 16:00 Acetaminophen/ Hydrocodone Bitart ([place] (5/325)) 1 tab Q6H PRN GTB PAIN LEVEL 7-9/10; Start 01/06/17 at 15:30 Ondansetron HCl (Zofran Tab) 4 mg Q6H PRN GTB NAUSEA AND/OR VOMITING; Start at 15:30 Senna (Senokot) 1 tab QHS GTB Last administered on 01/11/17 21:35; Admin Dose 1 TAB; Start 01/06/17 at 21:00 Zinc Sulfate (Zinc Sulfate) 220 mg DAILY GTB Last administered on 01/12/17 08: 51; Admin Dose 220 MG; Start 01/07/17 at 09:00 Lactobacillus Acidophilus/ Rhamnosus (Culturelle) 1 cap BID GTB Last administered on 01/12/17 08:51; Admin Dose 1 CAP; Start 01/06/17 at 21:00 Multivitamins (Multivitamin) 30 ml DAILY GTB Last administered on 01/12/17 08: 51; Admin Dose 30 ML; Start 01/07/17 at 09:00 Acetaminophen (Tylenol Tab) 650 mg Q6H PRN PO PAIN LEVEL 1-3 OR FEVER; Start at 15:30 Acetaminophen (Tylenol Supp) 650 mg Q6H PRN [place] PAIN LEVEL 1-3 OR FEVER; Start 01/06/17 at 15:30 Morphine Sulfate (morphine) 2 mg Q4H PRN IV SEVERE PAIN LEVEL 7-10; Start 01/06 at 15:30 Docusate Sodium (Colace Liquid Cup) 100 mg Q12H PRN GTB CONSTIPATION; Start at 16:00 Magnesium Hydroxide (Milk Of Mag) 30 ml DAILY PRN PO CONSTIPATION; Start at 15:30 Bisacodyl 10 mg 10 mg DAILY PRN [place] CONSTIPATION; Start 01/06/17 at 15:30 Ceftazidime (Fortaz 1gm/50 ml (Pmx)) 50 ml @ 100 mls/hr Q8 IVPB Last administered on 01/12/17 05:19; Admin Dose 100 MLS/HR; Start 01/10/17 at 14:00 Lansoprazole (Prevacid) 30 mg DAILY@06 GTB Last administered on 01/12/17 05:19 ; Admin Dose 30 MG; Start 01/11/17 at 06:00 ARACELY THOMAS NP Jan 12, 2017 11:57
--- NOTE | 2017-01-12 12:48 | CONS ---
KARTHIKEYAN BOSS 01/12/17 1248: Date/Time of Note Date/Time of Note DATE: 01/12/17 TIME: 12:45 Assessment/Plan Assessment/Plan Chief Complaint/Hosp Course 1. RITA likely prerenal from sepsis/lactic acidosis resolved 2. Bleeding from tracheostomy site, resolved. 3. Sepsis with leukocytosis and lactic acidosis upon admission. No evidence of septic shock. Continue microbials as per infectious diseases. 4. Healthcare associated pneumonia. . 5. Chronic respiratory failure with COPD 6. G tube status 7. cachexia. 8. CT scan showing extensive centrilobular emphysema with a right upper lobe cavitary lesion. Problems: Additional Assessment/Plan 1. continue airborne isolation 2. electrolytesare stable 3. optimization of kidney function: no nephrotoxic drugs found Consultation Date/Type/Reason Admit Date/Time Jan 06, 2017 at 13:44 Initial Consult Date 01/06/17 Type of Consultation: Renal Reason for Consultation Dr Fay 24 HR Interval Summary Subjective hx not possible: pt non-verbal Exam/Review of Systems Vital Signs Vitals Vital Signs Date Time Temp Pulse Resp B/P Pulse Ox O2 Delivery O2 Flow Rate FiO2 01/12/17 12:15 98.3 98 19 97/55 95 01/12/17 10:20 10.0 70 01/12/17 10:20 Aerosol Intake and Output 01/11/17 01/11/17 01/12/17 15:00 23:00 07:00 Intake Total 800 ml 700 ml Output Total 50 ml Balance 750 ml 700 ml Exam Constitutional: alert, oriented (name) Head: normocephalic Eyes: nl conjunctiva Neck: other (tracheostomy), supple Respiratory: clear to auscultation Gastrointestinal: other (g tube) Results Result Diagram: 01/11/17 0810 01/11/17 0810 Medications Medications Current Medications Acetaminophen (Tylenol Tab) 1,000 mg Q4H PRN PO PAIN LEVEL 4-6/10; Start at 15:30 Ascorbic Acid (Vitamin C) 500 mg DAILY GTB Last administered on 01/12/17 08:51 ; Admin Dose 500 MG; Start 01/07/17 at 09:00 Aspirin (Aspirin) 81 mg DAILY GTB Last administered on 01/12/17 08:51; Admin Dose 81 MG; Start 01/07/17 at 09:00 Bethanechol Chloride (Urecholine) 25 mg TID GTB Last administered on 01/12/17 08:51; Admin Dose 25 MG; Start 01/06/17 at 21:00 Calcium/Vitamin D (Oyster Shell/ Vit-D (500/200)) 1 tab DAILY GTB Last administered on 01/12/17 08:51; Admin Dose 1 TAB; Start 01/07/17 at 09:00 Chlorhexidine Gluconate (Peridex) 15 ml Q12 MM Last administered on 01/12/17 08:51; Admin Dose 15 ML; Start 01/06/17 at 21:00 Ferrous Sulfate (Feosol Liquid Cup) 300 mg DAILY GTB Last administered on 08:51; Admin Dose 300 MG; Start 01/06/17 at 16:00 Acetaminophen/ Hydrocodone Bitart ([place] (5/325)) 1 tab Q6H PRN GTB PAIN LEVEL 7-9/10; Start 01/06/17 at 15:30 Ondansetron HCl (Zofran Tab) 4 mg Q6H PRN GTB NAUSEA AND/OR VOMITING; Start at 15:30 Senna (Senokot) 1 tab QHS GTB Last administered on 01/11/17 21:35; Admin Dose 1 TAB; Start 01/06/17 at 21:00 Zinc Sulfate (Zinc Sulfate) 220 mg DAILY GTB Last administered on 01/12/17 08: 51; Admin Dose 220 MG; Start 01/07/17 at 09:00 Lactobacillus Acidophilus/ Rhamnosus (Culturelle) 1 cap BID GTB Last administered on 01/12/17 08:51; Admin Dose 1 CAP; Start 01/06/17 at 21:00 Multivitamins (Multivitamin) 30 ml DAILY GTB Last administered on 01/12/17 08: 51; Admin Dose 30 ML; Start 01/07/17 at 09:00 Acetaminophen (Tylenol Tab) 650 mg Q6H PRN PO PAIN LEVEL 1-3 OR FEVER; Start at 15:30 Acetaminophen (Tylenol Supp) 650 mg Q6H PRN [place] PAIN LEVEL 1-3 OR FEVER; Start 01/06/17 at 15:30 Morphine Sulfate (morphine) 2 mg Q4H PRN IV SEVERE PAIN LEVEL 7-10; Start 01/06 at 15:30 Docusate Sodium (Colace Liquid Cup) 100 mg Q12H PRN GTB CONSTIPATION; Start at 16:00 Magnesium Hydroxide (Milk Of Mag) 30 ml DAILY PRN PO CONSTIPATION; Start at 15:30 Bisacodyl 10 mg 10 mg DAILY PRN [place] CONSTIPATION; Start 01/06/17 at 15:30 Ceftazidime (Fortaz 1gm/50 ml (Pmx)) 50 ml @ 100 mls/hr Q8 IVPB Last administered on 01/12/17 05:19; Admin Dose 100 MLS/HR; Start 01/10/17 at 14:00 Lansoprazole (Prevacid) 30 mg DAILY@06 GTB Last administered on 01/12/17 05:19 ; Admin Dose 30 MG; Start 01/11/17 at 06:00 ROXANNE HOROWITZ MD 01/12/17 1555: Assessment/Plan Assessment/Plan Additional Assessment/Plan Agree with PLASTICS NURSE note above Exam/Review of Systems Results Result Diagram: 01/11/17 0810 01/11/17 0810 KARTHIKEYAN SUERO Jan 12, 2017 12:48 ROXANNE HOROWITZ MD Jan 12, 2017 15:55
--- NOTE | 2017-01-12 14:14 | CONS ---
Date/Time of Note Date/Time of Note DATE: 01/12/17 TIME: 14:13 Assessment/Plan Assessment/Plan Chief Complaint/Hosp Course SUBJECTIVE DATA: Alert, looks comfortable, no fevers Sputum culture growing multidrug-resistant pseudomonas aeruginosa and Providencia stuartii. Sputum smear for AFB -2 sets INDWELLINGS: Trach, PEG, Zepeda. ANTIMICROBIALS: 1. Tobramycin inhalation. 2. Ceftazidime PHYSICAL EXAMINATION: GENERAL: This is a fragile, chronically ill-appearing, elderly man, who is in no distress. HEENT: Head atraumatic, normocephalic. Sclerae anicteric. Buccal mucosa dry. NECK: Supple. CHEST: Rise symmetrical. Breath sounds diminished at the bases. HEART: S1, S2. ABDOMEN: Soft, bowel sounds present. EXTREMITIES: Without cyanosis. ASSESSMENT: 1. Hemoptysis, resolving, likely secondary to acute bronchitis. 2. 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 3. Emphysema. 4. Dysphagia. 5. Cachexia. PLAN: The patient remains stable. Continue present care, antibiotics, follow pulmonary recommendations, consider dc isolation Problems: Consultation Date/Type/Reason Admit Date/Time Jan 06, 2017 at 13:44 Type of Consultation: ID Exam/Review of Systems Vital Signs Vitals Vital Signs Date Time Temp Pulse Resp B/P Pulse Ox O2 Delivery O2 Flow Rate FiO2 01/12/17 12:15 98.3 98 19 97/55 95 01/12/17 10:20 10.0 70 01/12/17 10:20 Aerosol Intake and Output 01/11/17 01/11/17 01/12/17 15:00 23:00 07:00 Intake Total 800 ml 700 ml Output Total 50 ml Balance 750 ml 700 ml Results Result Diagram: 01/11/17 0810 01/11/17 0810 Medications Medications Current Medications Acetaminophen (Tylenol Tab) 1,000 mg Q4H PRN PO PAIN LEVEL 4-6/10; Start at 15:30 Ascorbic Acid (Vitamin C) 500 mg DAILY GTB Last administered on 01/12/17 08:51 ; Admin Dose 500 MG; Start 01/07/17 at 09:00 Aspirin (Aspirin) 81 mg DAILY GTB Last administered on 01/12/17 08:51; Admin Dose 81 MG; Start 01/07/17 at 09:00 Bethanechol Chloride (Urecholine) 25 mg TID GTB Last administered on 01/12/17 13:42; Admin Dose 25 MG; Start 01/06/17 at 21:00 Calcium/Vitamin D (Oyster Shell/ Vit-D (500/200)) 1 tab DAILY GTB Last administered on 01/12/17 08:51; Admin Dose 1 TAB; Start 01/07/17 at 09:00 Chlorhexidine Gluconate (Peridex) 15 ml Q12 MM Last administered on 01/12/17 08:51; Admin Dose 15 ML; Start 01/06/17 at 21:00 Ferrous Sulfate (Feosol Liquid Cup) 300 mg DAILY GTB Last administered on 08:51; Admin Dose 300 MG; Start 01/06/17 at 16:00 Acetaminophen/ Hydrocodone Bitart ([place] (5/325)) 1 tab Q6H PRN GTB PAIN LEVEL 7-9/10; Start 01/06/17 at 15:30 Ondansetron HCl (Zofran Tab) 4 mg Q6H PRN GTB NAUSEA AND/OR VOMITING; Start at 15:30 Senna (Senokot) 1 tab QHS GTB Last administered on 01/11/17 21:35; Admin Dose 1 TAB; Start 01/06/17 at 21:00 Zinc Sulfate (Zinc Sulfate) 220 mg DAILY GTB Last administered on 01/12/17 08: 51; Admin Dose 220 MG; Start 01/07/17 at 09:00 Lactobacillus Acidophilus/ Rhamnosus (Culturelle) 1 cap BID GTB Last administered on 01/12/17 08:51; Admin Dose 1 CAP; Start 01/06/17 at 21:00 Multivitamins (Multivitamin) 30 ml DAILY GTB Last administered on 01/12/17 08: 51; Admin Dose 30 ML; Start 01/07/17 at 09:00 Acetaminophen (Tylenol Tab) 650 mg Q6H PRN PO PAIN LEVEL 1-3 OR FEVER; Start at 15:30 Acetaminophen (Tylenol Supp) 650 mg Q6H PRN [place] PAIN LEVEL 1-3 OR FEVER; Start 01/06/17 at 15:30 Morphine Sulfate (morphine) 2 mg Q4H PRN IV SEVERE PAIN LEVEL 7-10; Start 01/06 at 15:30 Docusate Sodium (Colace Liquid Cup) 100 mg Q12H PRN GTB CONSTIPATION; Start at 16:00 Magnesium Hydroxide (Milk Of Mag) 30 ml DAILY PRN PO CONSTIPATION; Start at 15:30 Bisacodyl 10 mg 10 mg DAILY PRN [place] CONSTIPATION; Start 01/06/17 at 15:30 Ceftazidime (Fortaz 1gm/50 ml (Pmx)) 50 ml @ 100 mls/hr Q8 IVPB Last administered on 01/12/17 05:19; Admin Dose 100 MLS/HR; Start 01/10/17 at 14:00 Lansoprazole (Prevacid) 30 mg DAILY@06 GTB Last administered on 01/12/17 05:19 ; Admin Dose 30 MG; Start 01/11/17 at 06:00 VICTORINO YEBOAH NP Jan 12, 2017 14:14
--- NOTE | 2017-01-12 17:10 | CONS ---
Date/Time of Note Date/Time of Note DATE: 01/12/17 TIME: 17:02 Consult Date/Type/Reason Admit Date/Time Jan 06, 2017 at 13:44 Type of Consultation: Pulm Subjective Comfortable. Objective Vital Signs Date Time Temp Pulse Resp B/P Pulse Ox O2 Delivery O2 Flow Rate FiO2 01/12/17 15:45 98.3 99 19 105/69 96 01/12/17 10:20 10.0 70 01/12/17 10:20 Aerosol Intake and Output 01/11/17 01/11/17 01/12/17 15:00 23:00 07:00 Intake Total 800 ml 700 ml Output Total 50 ml Balance 750 ml 700 ml Exam GENERAL: VITAL SIGNS: per chart NECK: Supple. No JVD or lymphadenopathy. CARDIAC EXAM: S1, S2. No added sounds or murmurs. CHEST: clear bilaterally, No added sounds, rales or wheezes ABDOMEN: Soft, nontender. No guarding or rebound. EXTREMITIES: No cyanosis, clubbing or edema. NEUROLOGIC: Generalized weakness. No focal deficits. Chronically ill- appearing gentleman with tracheostomy on cool aerosol Results/Medications Result Diagram: 01/11/1710 01/11/17 0810 Medications Current Medications Acetaminophen (Tylenol Tab) 1,000 mg Q4H PRN PO PAIN LEVEL 4-6/10; Start at 15:30 Ascorbic Acid (Vitamin C) 500 mg DAILY GTB Last administered on 01/12/17 08:51 ; Admin Dose 500 MG; Start 01/07/17 at 09:00 Aspirin (Aspirin) 81 mg DAILY GTB Last administered on 01/12/17 08:51; Admin Dose 81 MG; Start 01/07/17 at 09:00 Bethanechol Chloride (Urecholine) 25 mg TID GTB Last administered on 01/12/17 13:42; Admin Dose 25 MG; Start 01/06/17 at 21:00 Calcium/Vitamin D (Oyster Shell/ Vit-D (500/200)) 1 tab DAILY GTB Last administered on 01/12/17 08:51; Admin Dose 1 TAB; Start 01/07/17 at 09:00 Chlorhexidine Gluconate (Peridex) 15 ml Q12 MM Last administered on 01/12/17 08:51; Admin Dose 15 ML; Start 01/06/17 at 21:00 Ferrous Sulfate (Feosol Liquid Cup) 300 mg DAILY GTB Last administered on 08:51; Admin Dose 300 MG; Start 01/06/17 at 16:00 Acetaminophen/ Hydrocodone Bitart ([place] (5/325)) 1 tab Q6H PRN GTB PAIN LEVEL 7-9/10; Start 01/06/17 at 15:30 Ondansetron HCl (Zofran Tab) 4 mg Q6H PRN GTB NAUSEA AND/OR VOMITING; Start at 15:30 Senna (Senokot) 1 tab QHS GTB Last administered on 01/11/17 21:35; Admin Dose 1 TAB; Start 01/06/17 at 21:00 Zinc Sulfate (Zinc Sulfate) 220 mg DAILY GTB Last administered on 01/12/17 08: 51; Admin Dose 220 MG; Start 01/07/17 at 09:00 Lactobacillus Acidophilus/ Rhamnosus (Culturelle) 1 cap BID GTB Last administered on 01/12/17 08:51; Admin Dose 1 CAP; Start 01/06/17 at 21:00 Multivitamins (Multivitamin) 30 ml DAILY GTB Last administered on 01/12/17 08: 51; Admin Dose 30 ML; Start 01/07/17 at 09:00 Acetaminophen (Tylenol Tab) 650 mg Q6H PRN PO PAIN LEVEL 1-3 OR FEVER; Start at 15:30 Acetaminophen (Tylenol Supp) 650 mg Q6H PRN [place] PAIN LEVEL 1-3 OR FEVER; Start 01/06/17 at 15:30 Morphine Sulfate (morphine) 2 mg Q4H PRN IV SEVERE PAIN LEVEL 7-10; Start 01/06 at 15:30 Docusate Sodium (Colace Liquid Cup) 100 mg Q12H PRN GTB CONSTIPATION; Start at 16:00 Magnesium Hydroxide (Milk Of Mag) 30 ml DAILY PRN PO CONSTIPATION; Start at 15:30 Bisacodyl 10 mg 10 mg DAILY PRN OR CONSTIPATION; Start 01/06/17 at 15:30 Ceftazidime (Fortaz 1gm/50 ml (Pmx)) 50 ml @ 100 mls/hr Q8 IVPB Last administered on 01/12/17 16:26; Admin Dose 100 MLS/HR; Start 01/10/17 at 14:00 Lansoprazole (Prevacid) 30 mg DAILY@06 GTB Last administered on 01/12/17 05:19 ; Admin Dose 30 MG; Start 01/11/17 at 06:00 Assessment/Plan Chief Complaint/Hosp Course Assessment: 1. Patient admitted with chronic hemoptysis with multiple admissions at [facility] due to underlying right upper lobe fibrocavitary lung disease. However there has been interval resolution since admission over here. Pseudomonas aeruginosa has been isolated from sputum. 2. COPD. 3. History of respiratory failure patient however very well on tracheostomy with T-piece. 4. Generalized deconditioning. Plan: 1. Continue ID recs 2. Continue cool aerosol. rowena abarca. Problems: SILVERIO MANNING [facility], [facility] Jan 12, 2017 17:09
[2017-01-12] MEDS: SENNA TAB GTB SCH (20:55)
[2017-01-13] VITALS (11 sets, daily range): BP systolic 91–127; BP diastolic 51–61; PULSE 72–90; RESP 18–20
[2017-01-13] MEDS: LANSOPRAZOLE 30 MG CAP GTB SCH (05:06)
[2017-01-13] MEDS: METOCLOPRAMIDE (1 MG/ML) 10 ML CUP GTB SCH ×3 (05:06→12:32)
[2017-01-13] MEDS: CEFTAZIDIME 1GM/50 ML (PMX) 50 ML IVPB SCH ×3 (05:06→21:18)
[2017-01-13 07:19] LABS: BASOPHIL # 0.1 10^3/ul (0.0-0.1); BASOPHILS % 0.5 % (0.0-2.0); EOSINOPHILS # 0.4 10^3/ul (0.0-0.5); EOSINOPHILS % 3.9 % (0.0-7.0); HEMATOCRIT 27.6 % (42.0-52.0); HEMOGLOBIN 9.2 g/dl (14.0-18.0); LYMPHOCYTES # 2.9 10^3/ul (0.8-2.9); LYMPHOCYTES % 30.4 % (15.0-51.0); MEAN CORPUSCULAR HEMOGLOBIN 26.1 pg (29.0-33.0); MEAN CORPUSCULAR HGB CONC 33.3 g/dl (32.0-37.0); MEAN CORPUSCULAR VOLUME 78.4 fl (82.0-101.0); MEAN PLATELET VOLUME 8.6 fl (7.4-10.4); MONOCYTE # 0.6 10^3/ul (0.3-0.9); MONOCYTES % 6.6 % (0.0-11.0); NEUTROPHIL # 5.6 10^3/ul (1.6-7.5); NEUTROPHILS % 58.2 % (39.0-77.0); NUCLEATED RED BLOOD CELLS% 0.2 /100WBC (0.0-0.0); PLATELET COUNT 397 10^3/UL (140-415); RED BLOOD COUNT 3.52 10^6/ul (4.70-6.10); RED CELL DISTRIBUTION WIDTH 19.8 % (11.5-14.5); WHITE BLOOD COUNT 9.6 10^3/ul (4.8-10.8)
[2017-01-13 07:43] LABS: MAGNESIUM 1.7 mg/dl (1.7-2.5); PHOSPHORUS 3.5 mg/dl (2.5-4.9)
[2017-01-13 07:49] LABS: CALCIUM 9.5 mg/dl (8.4-10.2); CREATININE 0.78 mg/dl (0.61-1.24); POTASSIUM 4.6 mmol/L (3.5-5.1)
[2017-01-13] MEDS: TOBRAMYCIN/0.25NS 300 MG/5 ML INHAL NEB SCH ×2 (08:10→19:34)
[2017-01-13] MEDS: ZINC SULFATE 220 MG CAP GTB SCH (09:08)
[2017-01-13] MEDS: ASPIRIN 81 MG TAB GTB SCH (09:08)
[2017-01-13] MEDS: MULTIVITAMINS 30 ML CUP GTB SCH (09:08)
[2017-01-13] MEDS: CHLORHEXIDINE GLUCONATE 15 ML UD CUP MM SCH ×2 (09:08→21:16)
[2017-01-13] MEDS: FERROUS SULFATE 60 MG/ML 5ML CUP GTB SCH (09:08)
[2017-01-13] MEDS: CALCIUM/VITAMIN D (500/200) TAB GTB SCH (09:08)
[2017-01-13] MEDS: LACTOBACILLUS RHAMNOSUS CAP GTB SCH ×2 (09:08→21:16)
[2017-01-13] MEDS: ASCORBIC ACID 500 MG TAB GTB SCH (09:09)
[2017-01-13] MEDS: BETHANECHOL 25 MG TAB GTB SCH ×3 (09:09→21:16)
--- NOTE | 2017-01-13 12:06 | PN ---
Date/Time of Note Date/Time of Note DATE: 01/13/17 TIME: 12:05 Assessment/Plan VTE Prophylaxis VTE Prophylaxis Intervention: SCD's Lines/Catheters IV Catheter Type (from [facility]): Peripheral IV Urinary Cath still in place: No Assessment/Plan Chief Complaint/Hosp Course 1. Bleeding from tracheostomy site. CT scan showing extensive centrilobular emphysema with a right upper lobe cavitary lesion. Being followed by pulmonary and infectious diseases. Sputum AFB 2 negative. 2. Status post sepsis with leukocytosis and lactic acidosis upon admission. No evidence of septic shock. Continue antimicrobials as per infectious diseases. 3. Healthcare associated pneumonia. 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 Antimicrobials as per infectious diseases. 4. Microcytic, hypochromic anemia. Continue iron supplements. 5. Acute kidney injury. Resolved. Being followed by nephrology. 6. Chronic respiratory failure. Continue inhaled bronchodilators. Tracheostomy currently to cool aerosol mask. 7. COPD. Continue inhaled bronchodilators. 8. Dysphagia. Continue G-tube feeds. 9. Fluids, electrolytes, and nutrition. G-tube feeds. 10. DVT prophylaxis. Bilateral sequential compression devices. 11. Plan. Continue antimicrobials as per infectious diseases. Await further recommendations from pulmonology and infectious diseases. Meanwhile, [facility] evaluation is pending. Problems: Subjective 24 Hr Interval Summary Free Text/Dictation No changes in status. Exam/Review of Systems Vital Signs Vitals Vital Signs Date Time Temp Pulse Resp B/P Pulse Ox O2 Delivery O2 Flow Rate FiO2 01/13/17 12:01 98.2 98 19 91/51 98 01/13/17 08:10 Aerosol 70 T Tube 01/13/17 04:30 10.0 Intake and Output 01/12/17 01/12/17 01/13/17 15:00 23:00 07:00 Intake Total 720 ml 700 ml Output Total 1500 ml Balance -780 ml 700 ml Exam General: Adequately build 71 year-old male lying in bed in no apparent distress. HEENT: Normocephalic, atraumatic. Eyes: Anicteric sclerae, conjunctivae clear. ENT: Nasal septum midline, oral mucosa moist. Neck. Tracheostomy connected to cool aerosol mask. Respiratory: Bilaterally diminished breath sounds. No use of accessory muscles of respiration. No adventitious breath sounds. Cardiovascular: S1, S2 heard. No murmurs or gallops. Abdomen: Soft, nontender, and nondistended. Bowel sounds positive in all 4 quadrants. Genitourinary: Deferred. Extremities: No cyanosis, no clubbing, no edema. Peripheral pulses palpable. Neurologic: The patient is awake, alert, and oriented. Follows commands. Results Result Diagram: 01/13/17 0632 01/13/17 0556 Results 24 hrs Laboratory Tests Test 01/13/17 05:56 01/13/17 06:32 01/13/17 06:49 Sodium Level 134 L Potassium Level 4.6 Chloride Level 101 Carbon Dioxide Level 26 Anion Gap 12 Blood Urea Nitrogen 16 Creatinine 0.78 Glucose Level 103 Calcium Level 9.5 White Blood Count 9.6 Red Blood Count 3.52 L Hemoglobin 9.2 L Hematocrit 27.6 L Mean Corpuscular Volume 78.4 L Mean Corpuscular Hemoglobin 26.1 L Mean Corpuscular Hemoglobin Concent 33.3 Red Cell Distribution Width 19.8 H Platelet Count 397 Mean Platelet Volume 8.6 Neutrophils % 58.2 Lymphocytes % 30.4 Monocytes % 6.6 Eosinophils % 3.9 Basophils % 0.5 Nucleated Red Blood Cells % 0.2 H Neutrophils # 5.6 Lymphocytes # 2.9 Monocytes # 0.6 Eosinophils # 0.4 Basophils # 0.1 Nucleated Red Blood Cells # 0.0 Phosphorus Level 3.5 Magnesium Level 1.7 Medications Medications Current Medications Acetaminophen (Tylenol Tab) 1,000 mg Q4H PRN PO PAIN LEVEL 4-6/10; Start at 15:30 Ascorbic Acid (Vitamin C) 500 mg DAILY GTB Last administered on 01/13/17 09:09 ; Admin Dose 500 MG; Start 01/07/17 at 09:00 Aspirin (Aspirin) 81 mg DAILY GTB Last administered on 01/13/17 09:08; Admin Dose 81 MG; Start 01/07/17 at 09:00 Bethanechol Chloride (Urecholine) 25 mg TID GTB Last administered on 01/13/17 09:09; Admin Dose 25 MG; Start 01/06/17 at 21:00 Calcium/Vitamin D (Oyster Shell/ Vit-D (500/200)) 1 tab DAILY GTB Last administered on 01/13/17 09:08; Admin Dose 1 TAB; Start 01/07/17 at 09:00 Chlorhexidine Gluconate (Peridex) 15 ml Q12 MM Last administered on 01/13/17 09:08; Admin Dose 15 ML; Start 01/06/17 at 21:00 Ferrous Sulfate (Feosol Liquid Cup) 300 mg DAILY GTB Last administered on 09:08; Admin Dose 300 MG; Start 01/06/17 at 16:00 Acetaminophen/ Hydrocodone Bitart ([place] (5/325)) 1 tab Q6H PRN GTB PAIN LEVEL 7-9/10; Start 01/06/17 at 15:30 Ondansetron HCl (Zofran Tab) 4 mg Q6H PRN GTB NAUSEA AND/OR VOMITING; Start at 15:30 Senna (Senokot) 1 tab QHS GTB Last administered on 01/12/17 20:55; Admin Dose 1 TAB; Start 01/06/17 at 21:00 Zinc Sulfate (Zinc Sulfate) 220 mg DAILY GTB Last administered on 01/13/17 09: 08; Admin Dose 220 MG; Start 01/07/17 at 09:00 Lactobacillus Acidophilus/ Rhamnosus (Culturelle) 1 cap BID GTB Last administered on 01/13/17 09:08; Admin Dose 1 CAP; Start 01/06/17 at 21:00 Multivitamins (Multivitamin) 30 ml DAILY GTB Last administered on 01/13/17 09: 08; Admin Dose 30 ML; Start 01/07/17 at 09:00 Acetaminophen (Tylenol Tab) 650 mg Q6H PRN PO PAIN LEVEL 1-3 OR FEVER; Start at 15:30 Acetaminophen (Tylenol Supp) 650 mg Q6H PRN [place] PAIN LEVEL 1-3 OR FEVER; Start 01/06/17 at 15:30 Morphine Sulfate (morphine) 2 mg Q4H PRN IV SEVERE PAIN LEVEL 7-10; Start 01/06 at 15:30 Docusate Sodium (Colace Liquid Cup) 100 mg Q12H PRN GTB CONSTIPATION; Start at 16:00 Magnesium Hydroxide (Milk Of Mag) 30 ml DAILY PRN PO CONSTIPATION; Start at 15:30 Bisacodyl 10 mg 10 mg DAILY PRN [place] CONSTIPATION; Start 01/06/17 at 15:30 Ceftazidime (Fortaz 1gm/50 ml (Pmx)) 50 ml @ 100 mls/hr Q8 IVPB Last administered on 01/13/17 05:06; Admin Dose 100 MLS/HR; Start 01/10/17 at 14:00 Lansoprazole (Prevacid) 30 mg DAILY@06 GTB Last administered on 01/13/17 05:06 ; Admin Dose 30 MG; Start 01/11/17 at 06:00 ARACELY THOMAS NP Jan 13, 2017 12:06
--- NOTE | 2017-01-13 12:40 | CONS ---
Date/Time of Note Date/Time of Note DATE: 01/13/17 TIME: 12:38 Assessment/Plan Assessment/Plan Additional Assessment/Plan Assessment and recommendations; 1. Patient admitted with recurrent hemoptysis with interval improvement. 2. History of respiratory failure in the past doing very well on tracheal T piece. 3. Right upper lobe chronic fibrocavitary disease. 4. Pseudomonas isolated from sputum. Continue current treatment. Consider discharge. Consultation Date/Type/Reason Admit Date/Time Jan 06, 2017 at 13:44 Type of Consultation: Pulm 24 HR Interval Summary Free Text/Dictation Patient's condition stable. Remains awake alert. Denies any shortness of breath. Hemoptysis has resolved. General exam; elderly male, awake, currently in no distress. Exam/Review of Systems Vital Signs Vitals Vital Signs Date Time Temp Pulse Resp B/P Pulse Ox O2 Delivery O2 Flow Rate FiO2 01/13/17 12:01 98.2 98 19 91/51 98 01/13/17 08:10 Aerosol 70 T Tube 01/13/17 04:30 10.0 Intake and Output 01/12/17 01/12/17 01/13/17 15:00 23:00 07:00 Intake Total 720 ml 700 ml Output Total 1500 ml Balance -780 ml 700 ml Exam HEENT exam; supple neck, no JVD. No lymphadenopathy. Midline trachea. No thyromegaly. Tracheostomy in place. Patient has T-piece applied to tracheostomy. He is edentulous. Chest exam; diminished but clear breath sounds. S1-S2 audible, no murmurs. Regular rhythm. Abdomen exam; soft, no organomegaly. Bowel sounds audible. Nontender. Extremity exam; no peripheral edema. [employer] exam; no focal deficit. Results Result Diagram: 01/13/17 0632 01/13/17 0556 Results 24 hrs Laboratory Tests Test 01/13/17 05:56 01/13/17 06:32 01/13/17 06:49 Sodium Level 134 L Potassium Level 4.6 Chloride Level 101 Carbon Dioxide Level 26 Anion Gap 12 Blood Urea Nitrogen 16 Creatinine 0.78 Glucose Level 103 Calcium Level 9.5 White Blood Count 9.6 Red Blood Count 3.52 L Hemoglobin 9.2 L Hematocrit 27.6 L Mean Corpuscular Volume 78.4 L Mean Corpuscular Hemoglobin 26.1 L Mean Corpuscular Hemoglobin Concent 33.3 Red Cell Distribution Width 19.8 H Platelet Count 397 Mean Platelet Volume 8.6 Neutrophils % 58.2 Lymphocytes % 30.4 Monocytes % 6.6 Eosinophils % 3.9 Basophils % 0.5 Nucleated Red Blood Cells % 0.2 H Neutrophils # 5.6 Lymphocytes # 2.9 Monocytes # 0.6 Eosinophils # 0.4 Basophils # 0.1 Nucleated Red Blood Cells # 0.0 Phosphorus Level 3.5 Magnesium Level 1.7 Medications Medications Current Medications Acetaminophen (Tylenol Tab) 1,000 mg Q4H PRN PO PAIN LEVEL 4-6/10; Start at 15:30 Ascorbic Acid (Vitamin C) 500 mg DAILY GTB Last administered on 01/13/17 09:09 ; Admin Dose 500 MG; Start 01/07/17 at 09:00 Aspirin (Aspirin) 81 mg DAILY GTB Last administered on 01/13/17 09:08; Admin Dose 81 MG; Start 01/07/17 at 09:00 Bethanechol Chloride (Urecholine) 25 mg TID GTB Last administered on 01/13/17 12:33; Admin Dose 25 MG; Start 01/06/17 at 21:00 Calcium/Vitamin D (Oyster Shell/ Vit-D (500/200)) 1 tab DAILY GTB Last administered on 01/13/17 09:08; Admin Dose 1 TAB; Start 01/07/17 at 09:00 Chlorhexidine Gluconate (Peridex) 15 ml Q12 MM Last administered on 01/13/17 09:08; Admin Dose 15 ML; Start 01/06/17 at 21:00 Ferrous Sulfate (Feosol Liquid Cup) 300 mg DAILY GTB Last administered on 09:08; Admin Dose 300 MG; Start 01/06/17 at 16:00 Acetaminophen/ Hydrocodone Bitart ([place] (5/325)) 1 tab Q6H PRN GTB PAIN LEVEL 7-9/10; Start 01/06/17 at 15:30 Ondansetron HCl (Zofran Tab) 4 mg Q6H PRN GTB NAUSEA AND/OR VOMITING; Start at 15:30 Senna (Senokot) 1 tab QHS GTB Last administered on 01/12/17 20:55; Admin Dose 1 TAB; Start 01/06/17 at 21:00 Zinc Sulfate (Zinc Sulfate) 220 mg DAILY GTB Last administered on 01/13/17 09: 08; Admin Dose 220 MG; Start 01/07/17 at 09:00 Lactobacillus Acidophilus/ Rhamnosus (Culturelle) 1 cap BID GTB Last administered on 01/13/17 09:08; Admin Dose 1 CAP; Start 01/06/17 at 21:00 Multivitamins (Multivitamin) 30 ml DAILY GTB Last administered on 01/13/17 09: 08; Admin Dose 30 ML; Start 01/07/17 at 09:00 Acetaminophen (Tylenol Tab) 650 mg Q6H PRN PO PAIN LEVEL 1-3 OR FEVER; Start at 15:30 Acetaminophen (Tylenol Supp) [address] PAIN LEVEL 1-3 OR FEVER; Start 01/06/17 at 15:30 Morphine Sulfate (morphine) 2 mg Q4H PRN IV SEVERE PAIN LEVEL 7-10; Start 01/06 at 15:30 Docusate Sodium (Colace Liquid Cup) 100 mg Q12H PRN GTB CONSTIPATION; Start at 16:00 Magnesium Hydroxide (Milk Of Mag) 30 ml DAILY PRN PO CONSTIPATION; Start at 15:30 Bisacodyl 10 mg [address] CONSTIPATION; Start 01/06/17 at 15:30 Ceftazidime (Fortaz 1gm/50 ml (Pmx)) 50 ml @ 100 mls/hr Q8 IVPB Last administered on 01/13/17 05:06; Admin Dose 100 MLS/HR; Start 01/10/17 at 14:00 Lansoprazole (Prevacid) 30 mg DAILY@06 GTB Last administered on 01/13/17 05:06 ; Admin Dose 30 MG; Start 01/11/17 at 06:00 FLACO NICHOLS Jan 13, 2017 12:40
--- NOTE | 2017-01-13 12:53 | CONS ---
Date/Time of Note Date/Time of Note DATE: 01/13/17 TIME: 12:50 Assessment/Plan Assessment/Plan Chief Complaint/Hosp Course 1. RITA likely prerenal from sepsis/lactic acidosis resolved 2. Bleeding from tracheostomy site, resolved. 3. Sepsis with leukocytosis and lactic acidosis upon admission. No evidence of septic shock. Continue microbials as per infectious diseases. 4. Healthcare associated pneumonia. . 5. Chronic respiratory failure with COPD 6. G tube status 7. cachexia. 8. CT scan showing extensive centrilobular emphysema with a right upper lobe cavitary lesion. 9. hyponatremia Problems: Additional Assessment/Plan 1. continue current treatment 2. fluid restrictions 1200 ml/day Consultation Date/Type/Reason Admit Date/Time Jan 06, 2017 at 13:44 Initial Consult Date 01/06/17 Type of Consultation: nephrology Reason for Consultation Dr izquierdo Exam/Review of Systems Vital Signs Vitals Vital Signs Date Time Temp Pulse Resp B/P Pulse Ox O2 Delivery O2 Flow Rate FiO2 01/13/17 12:01 98.2 98 19 91/51 98 01/13/17 08:10 Aerosol 70 T Tube 01/13/17 04:30 10.0 Intake and Output 01/12/17 01/12/17 01/13/17 15:00 23:00 07:00 Intake Total 720 ml 700 ml Output Total 1500 ml Balance -780 ml 700 ml Exam Constitutional: alert Neck: other (tracheostomy) Respiratory: diminished breath sounds Musculoskeletal: muscle weakness Results Result Diagram: 01/13/17 0632 01/13/17 0556 Results 24 hrs Laboratory Tests Test 01/13/17 05:56 01/13/17 06:32 01/13/17 06:49 Sodium Level 134 L Potassium Level 4.6 Chloride Level 101 Carbon Dioxide Level 26 Anion Gap 12 Blood Urea Nitrogen 16 Creatinine 0.78 Glucose Level 103 Calcium Level 9.5 White Blood Count 9.6 Red Blood Count 3.52 L Hemoglobin 9.2 L Hematocrit 27.6 L Mean Corpuscular Volume 78.4 L Mean Corpuscular Hemoglobin 26.1 L Mean Corpuscular Hemoglobin Concent 33.3 Red Cell Distribution Width 19.8 H Platelet Count 397 Mean Platelet Volume 8.6 Neutrophils % 58.2 Lymphocytes % 30.4 Monocytes % 6.6 Eosinophils % 3.9 Basophils % 0.5 Nucleated Red Blood Cells % 0.2 H Neutrophils # 5.6 Lymphocytes # 2.9 Monocytes # 0.6 Eosinophils # 0.4 Basophils # 0.1 Nucleated Red Blood Cells # 0.0 Phosphorus Level 3.5 Magnesium Level 1.7 Medications Medications Current Medications Acetaminophen (Tylenol Tab) 1,000 mg Q4H PRN PO PAIN LEVEL 4-6/10; Start at 15:30 Ascorbic Acid (Vitamin C) 500 mg DAILY GTB Last administered on 01/13/17 09:09 ; Admin Dose 500 MG; Start 01/07/17 at 09:00 Aspirin (Aspirin) 81 mg DAILY GTB Last administered on 01/13/17 09:08; Admin Dose 81 MG; Start 01/07/17 at 09:00 Bethanechol Chloride (Urecholine) 25 mg TID GTB Last administered on 01/13/17 12:33; Admin Dose 25 MG; Start 01/06/17 at 21:00 Calcium/Vitamin D (Oyster Shell/ Vit-D (500/200)) 1 tab DAILY GTB Last administered on 01/13/17 09:08; Admin Dose 1 TAB; Start 01/07/17 at 09:00 Chlorhexidine Gluconate (Peridex) 15 ml Q12 MM Last administered on 01/13/17 09:08; Admin Dose 15 ML; Start 01/06/17 at 21:00 Ferrous Sulfate (Feosol Liquid Cup) 300 mg DAILY GTB Last administered on 09:08; Admin Dose 300 MG; Start 01/06/17 at 16:00 Acetaminophen/ Hydrocodone Bitart ([place] (5/325)) 1 tab Q6H PRN GTB PAIN LEVEL 7-9/10; Start 01/06/17 at 15:30 Ondansetron HCl (Zofran Tab) 4 mg Q6H PRN GTB NAUSEA AND/OR VOMITING; Start at 15:30 Senna (Senokot) 1 tab QHS GTB Last administered on 01/12/17 20:55; Admin Dose 1 TAB; Start 01/06/17 at 21:00 Zinc Sulfate (Zinc Sulfate) 220 mg DAILY GTB Last administered on 01/13/17 09: 08; Admin Dose 220 MG; Start 01/07/17 at 09:00 Lactobacillus Acidophilus/ Rhamnosus (Culturelle) 1 cap BID GTB Last administered on 01/13/17 09:08; Admin Dose 1 CAP; Start 01/06/17 at 21:00 Multivitamins (Multivitamin) 30 ml DAILY GTB Last administered on 01/13/17 09: 08; Admin Dose 30 ML; Start 01/07/17 at 09:00 Acetaminophen (Tylenol Tab) 650 mg Q6H PRN PO PAIN LEVEL 1-3 OR FEVER; Start at 15:30 Acetaminophen (Tylenol Supp) 650 mg Q6H PRN [place] PAIN LEVEL 1-3 OR FEVER; Start 01/06/17 at 15:30 Morphine Sulfate (morphine) 2 mg Q4H PRN IV SEVERE PAIN LEVEL 7-10; Start 01/06 at 15:30 Docusate Sodium (Colace Liquid Cup) 100 mg Q12H PRN GTB CONSTIPATION; Start at 16:00 Magnesium Hydroxide (Milk Of Mag) 30 ml DAILY PRN PO CONSTIPATION; Start at 15:30 Bisacodyl 10 mg 10 mg DAILY PRN [place] CONSTIPATION; Start 01/06/17 at 15:30 Ceftazidime (Fortaz 1gm/50 ml (Pmx)) 50 ml @ 100 mls/hr Q8 IVPB Last administered on 01/13/17 05:06; Admin Dose 100 MLS/HR; Start 01/10/17 at 14:00 Lansoprazole (Prevacid) 30 mg DAILY@06 GTB Last administered on 01/13/17 05:06 ; Admin Dose 30 MG; Start 01/11/17 at 06:00 KARTHIKEYAN SUERO Jan 13, 2017 12:53
--- NOTE | 2017-01-13 14:17 | CONS ---
Date/Time of Note Date/Time of Note DATE: 01/13/17 TIME: 14:16 Assessment/Plan Assessment/Plan Chief Complaint/Hosp Course SUBJECTIVE DATA: Loks comfortable, no fevers Sputum culture growing multidrug-resistant pseudomonas aeruginosa and Providencia stuartii. Sputum smear for AFB -2 sets INDWELLINGS: Trach, PEG, Zepeda. ANTIMICROBIALS: 1. Tobramycin inhalation. 2. Ceftazidime PHYSICAL EXAMINATION: GENERAL: This is a fragile, chronically ill-appearing, elderly man, who is in no distress. HEENT: Head atraumatic, normocephalic. Sclerae anicteric. Buccal mucosa dry. NECK: Supple. CHEST: Rise symmetrical. Breath sounds diminished at the bases. HEART: S1, S2. ABDOMEN: Soft, bowel sounds present. EXTREMITIES: Without cyanosis. ASSESSMENT: 1. Hemoptysis, resolving, likely secondary to acute bronchitis. 2. 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 3. Emphysema. 4. Dysphagia. 5. Cachexia. PLAN: The patient remains stable. Continue present care, antibiotics, follow pulmonary recommendations, dc isolation Problems: Consultation Date/Type/Reason Admit Date/Time Jan 06, 2017 at 13:44 Type of Consultation: ID Exam/Review of Systems Vital Signs Vitals Vital Signs Date Time Temp Pulse Resp B/P Pulse Ox O2 Delivery O2 Flow Rate FiO2 01/13/17 12:04 77 01/13/17 12:01 98.2 19 91/51 98 01/13/17 08:10 Aerosol 70 T Tube 01/13/17 04:30 10.0 Intake and Output 01/12/17 01/12/17 01/13/17 15:00 23:00 07:00 Intake Total 720 ml 700 ml Output Total 1500 ml Balance -780 ml 700 ml Results Result Diagram: 01/13/17 0632 01/13/17 0556 Results 24 hrs Laboratory Tests Test 01/13/17 05:56 01/13/17 06:32 01/13/17 06:49 Sodium Level 134 L Potassium Level 4.6 Chloride Level 101 Carbon Dioxide Level 26 Anion Gap 12 Blood Urea Nitrogen 16 Creatinine 0.78 Glucose Level 103 Calcium Level 9.5 White Blood Count 9.6 Red Blood Count 3.52 L Hemoglobin 9.2 L Hematocrit 27.6 L Mean Corpuscular Volume 78.4 L Mean Corpuscular Hemoglobin 26.1 L Mean Corpuscular Hemoglobin Concent 33.3 Red Cell Distribution Width 19.8 H Platelet Count 397 Mean Platelet Volume 8.6 Neutrophils % 58.2 Lymphocytes % 30.4 Monocytes % 6.6 Eosinophils % 3.9 Basophils % 0.5 Nucleated Red Blood Cells % 0.2 H Neutrophils # 5.6 Lymphocytes # 2.9 Monocytes # 0.6 Eosinophils # 0.4 Basophils # 0.1 Nucleated Red Blood Cells # 0.0 Phosphorus Level 3.5 Magnesium Level 1.7 Medications Medications Current Medications Acetaminophen (Tylenol Tab) 1,000 mg Q4H PRN PO PAIN LEVEL 4-6/10; Start at 15:30 Ascorbic Acid (Vitamin C) 500 mg DAILY GTB Last administered on 01/13/17 09:09 ; Admin Dose 500 MG; Start 01/07/17 at 09:00 Aspirin (Aspirin) 81 mg DAILY GTB Last administered on 01/13/17 09:08; Admin Dose 81 MG; Start 01/07/17 at 09:00 Bethanechol Chloride (Urecholine) 25 mg TID GTB Last administered on 01/13/17 12:33; Admin Dose 25 MG; Start 01/06/17 at 21:00 Calcium/Vitamin D (Oyster Shell/ Vit-D (500/200)) 1 tab DAILY GTB Last administered on 01/13/17 09:08; Admin Dose 1 TAB; Start 01/07/17 at 09:00 Chlorhexidine Gluconate (Peridex) 15 ml Q12 MM Last administered on 01/13/17 09:08; Admin Dose 15 ML; Start 01/06/17 at 21:00 Ferrous Sulfate (Feosol Liquid Cup) 300 mg DAILY GTB Last administered on 09:08; Admin Dose 300 MG; Start 01/06/17 at 16:00 Acetaminophen/ Hydrocodone Bitart ([place] (5/325)) 1 tab Q6H PRN GTB PAIN LEVEL 7-9/10; Start 01/06/17 at 15:30 Ondansetron HCl (Zofran Tab) 4 mg Q6H PRN GTB NAUSEA AND/OR VOMITING; Start at 15:30 Senna (Senokot) 1 tab QHS GTB Last administered on 01/12/17 20:55; Admin Dose 1 TAB; Start 01/06/17 at 21:00 Zinc Sulfate (Zinc Sulfate) 220 mg DAILY GTB Last administered on 01/13/17 09: 08; Admin Dose 220 MG; Start 01/07/17 at 09:00 Lactobacillus Acidophilus/ Rhamnosus (Culturelle) 1 cap BID GTB Last administered on 01/13/17 09:08; Admin Dose 1 CAP; Start 01/06/17 at 21:00 Multivitamins (Multivitamin) 30 ml DAILY GTB Last administered on 01/13/17 09: 08; Admin Dose 30 ML; Start 01/07/17 at 09:00 Acetaminophen (Tylenol Tab) 650 mg Q6H PRN PO PAIN LEVEL 1-3 OR FEVER; Start at 15:30 Acetaminophen (Tylenol Supp) 650 mg Q6H PRN [place] PAIN LEVEL 1-3 OR FEVER; Start 01/06/17 at 15:30 Morphine Sulfate (morphine) 2 mg Q4H PRN IV SEVERE PAIN LEVEL 7-10; Start 01/06 at 15:30 Docusate Sodium (Colace Liquid Cup) 100 mg Q12H PRN GTB CONSTIPATION; Start at 16:00 Magnesium Hydroxide (Milk Of Mag) 30 ml DAILY PRN PO CONSTIPATION; Start at 15:30 Bisacodyl 10 mg 10 mg DAILY PRN [place] CONSTIPATION; Start 01/06/17 at 15:30 Ceftazidime (Fortaz 1gm/50 ml (Pmx)) 50 ml @ 100 mls/hr Q8 IVPB Last administered on 01/13/17 05:06; Admin Dose 100 MLS/HR; Start 01/10/17 at 14:00 Lansoprazole (Prevacid) 30 mg DAILY@06 GTB Last administered on 01/13/17 05:06 ; Admin Dose 30 MG; Start 01/11/17 at 06:00 VICTORINO YEBOAH NP Jan 13, 2017 14:17
[2017-01-13] MEDS: SENNA TAB GTB SCH (21:16)
[2017-01-14] VITALS (12 sets, daily range): BP systolic 98–132; BP diastolic 57–70; PULSE 84–105; RESP 17–18
[2017-01-14] MEDS: CEFTAZIDIME 1GM/50 ML (PMX) 50 ML IVPB SCH ×3 (06:20→21:01)
[2017-01-14] MEDS: LANSOPRAZOLE 30 MG CAP GTB SCH (06:20)
[2017-01-14] MEDS: TOBRAMYCIN/0.25NS 300 MG/5 ML INHAL NEB SCH ×2 (08:35→19:44)
--- NOTE | 2017-01-14 09:27 | PN ---
Date/Time of Note Date/Time of Note DATE: 01/14/17 TIME: 09:26 Assessment/Plan VTE Prophylaxis VTE Prophylaxis Intervention: SCD's Lines/Catheters IV [facility]from [facility] Peripheral IV Urinary Cath still in place: No Assessment/Plan Chief Complaint/Hosp Course 1. Bleeding from tracheostomy site. CT scan showing extensive centrilobular emphysema with a right upper lobe cavitary lesion. Being followed by pulmonary and infectious diseases. Sputum AFB 3 negative. 2. Status post sepsis with leukocytosis and lactic acidosis upon admission. No evidence of septic shock. Continue antimicrobials as per infectious diseases. 3. Healthcare associated pneumonia. 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 Antimicrobials as per infectious diseases. 4. Microcytic, hypochromic anemia. Continue iron supplements. 5. Acute kidney injury. Resolved. Being followed by nephrology. 6. Chronic respiratory failure. Continue inhaled bronchodilators. Tracheostomy currently to cool aerosol mask. 7. COPD. Continue inhaled bronchodilators. 8. Dysphagia. Continue G-tube feeds. 9. Fluids, electrolytes, and nutrition. G-tube feeds. 10. DVT prophylaxis. Bilateral sequential compression devices. 11. Plan. Continue antimicrobials as per infectious diseases. Await further recommendations from pulmonology and infectious diseases. Meanwhile, Cannon evaluation is pending. Problems: Subjective 24 Hr Interval Summary Free Text/Dictation The patient remains afebrile. Exam/Review of Systems Vital Signs Vitals Vital Signs Date Time Temp Pulse Resp B/P Pulse Ox O2 Delivery O2 Flow Rate FiO2 01/14/17 08:40 109 30 94 60 01/14/17 08:10 98.2 98/57 01/14/17 05:50 Aerosol 10.0 T Tube Intake and Output 01/13/17 01/13/17 01/14/17 15:00 23:00 07:00 Intake Total 800 ml Balance 800 ml Exam General: Adequately build 71 year-old male lying in bed in no apparent distress. HEENT: Normocephalic, atraumatic. Eyes: Anicteric sclerae, conjunctivae clear. ENT: Nasal septum midline, oral mucosa moist. Neck. Tracheostomy connected to cool aerosol mask. Respiratory: Bilaterally diminished breath sounds. No use of accessory muscles of respiration. No adventitious breath sounds. Cardiovascular: S1, S2 heard. No murmurs or gallops. Abdomen: Soft, nontender, and nondistended. Bowel sounds positive in all 4 quadrants. Genitourinary: Deferred. Extremities: No cyanosis, no clubbing, no edema. Peripheral pulses palpable. Neurologic: The patient is awake, alert, and oriented. Follows commands. Results Result Diagram: 01/13/17 0632 01/13/17 0556 Medications Medications Current Medications Acetaminophen (Tylenol Tab) 1,000 mg Q4H PRN PO PAIN LEVEL 4-6/10; Start at 15:30 Ascorbic Acid (Vitamin C) 500 mg DAILY GTB Last administered on 01/13/17 09:09 ; Admin Dose 500 MG; Start 01/07/17 at 09:00 Aspirin (Aspirin) 81 mg DAILY GTB Last administered on 01/13/17 09:08; Admin Dose 81 MG; Start 01/07/17 at 09:00 Bethanechol Chloride (Urecholine) 25 mg TID GTB Last administered on 01/13/17 21:16; Admin Dose 25 MG; Start 01/06/17 at 21:00 Calcium/Vitamin D (Oyster Shell/ Vit-D (500/200)) 1 tab DAILY GTB Last administered on 01/13/17 09:08; Admin Dose 1 TAB; Start 01/07/17 at 09:00 Chlorhexidine Gluconate (Peridex) 15 ml Q12 MM Last administered on 01/13/17 21:16; Admin Dose 15 ML; Start 01/06/17 at 21:00 Ferrous Sulfate (Feosol Liquid Cup) 300 mg DAILY GTB Last administered on 09:08; Admin Dose 300 MG; Start 01/06/17 at 16:00 Acetaminophen/ Hydrocodone Bitart ([place] (5/325)) 1 tab Q6H PRN GTB PAIN LEVEL 7-9/10; Start 01/06/17 at 15:30 Ondansetron HCl (Zofran Tab) 4 mg Q6H PRN GTB NAUSEA AND/OR VOMITING; Start at 15:30 Senna (Senokot) 1 tab QHS GTB Last administered on 01/13/17 21:16; Admin Dose 1 TAB; Start 01/06/17 at 21:00 Zinc Sulfate (Zinc Sulfate) 220 mg DAILY GTB Last administered on 01/13/17 09: 08; Admin Dose 220 MG; Start 01/07/17 at 09:00 Lactobacillus Acidophilus/ Rhamnosus (Culturelle) 1 cap BID GTB Last administered on 01/13/17 21:16; Admin Dose 1 CAP; Start 01/06/17 at 21:00 Multivitamins (Multivitamin) 30 ml DAILY GTB Last administered on 01/13/17 09: 08; Admin Dose 30 ML; Start 01/07/17 at 09:00 Acetaminophen (Tylenol Tab) 650 mg Q6H PRN PO PAIN LEVEL 1-3 OR FEVER; Start at 15:30 Acetaminophen (Tylenol Supp) 650 mg Q6H PRN [place] PAIN LEVEL 1-3 OR FEVER; Start 01/06/17 at 15:30 Morphine Sulfate (morphine) 2 mg Q4H PRN IV SEVERE PAIN LEVEL 7-10; Start 01/06 at 15:30 Docusate Sodium (Colace Liquid Cup) 100 mg Q12H PRN GTB CONSTIPATION; Start at 16:00 Magnesium Hydroxide (Milk Of Mag) 30 ml DAILY PRN PO CONSTIPATION; Start at 15:30 Bisacodyl 10 mg 10 mg DAILY PRN [place] CONSTIPATION; Start 01/06/17 at 15:30 Ceftazidime (Fortaz 1gm/50 ml (Pmx)) 50 ml @ 100 mls/hr Q8 IVPB Last administered on 01/14/17 06:20; Admin Dose 100 MLS/HR; Start 01/10/17 at 14:00 Lansoprazole (Prevacid) 30 mg DAILY@06 GTB Last administered on 01/14/17 06:20 ; Admin Dose 30 MG; Start 01/11/17 at 06:00 ARACELY THOMAS NP Jan 14, 2017 09:27
[2017-01-14] MEDS: MULTIVITAMINS 30 ML CUP GTB SCH (09:31)
[2017-01-14] MEDS: ASPIRIN 81 MG TAB GTB SCH (09:31)
[2017-01-14] MEDS: FERROUS SULFATE 60 MG/ML 5ML CUP GTB SCH (09:31)
[2017-01-14] MEDS: ZINC SULFATE 220 MG CAP GTB SCH (09:31)
[2017-01-14] MEDS: LACTOBACILLUS RHAMNOSUS CAP GTB SCH ×2 (09:31→21:01)
[2017-01-14] MEDS: ASCORBIC ACID 500 MG TAB GTB SCH (09:31)
[2017-01-14] MEDS: CHLORHEXIDINE GLUCONATE 15 ML UD CUP MM SCH ×2 (09:31→21:00)
[2017-01-14] MEDS: BETHANECHOL 25 MG TAB GTB SCH ×3 (09:31→21:01)
[2017-01-14] MEDS: METOCLOPRAMIDE (1 MG/ML) 10 ML CUP GTB SCH ×3 (09:31→17:30)
[2017-01-14] MEDS: CALCIUM/VITAMIN D (500/200) TAB GTB SCH (09:31)
--- NOTE | 2017-01-14 11:07 | CONS ---
Date/Time of Note Date/Time of Note DATE: 01/14/17 TIME: 11:06 Assessment/Plan Assessment/Plan Chief Complaint/Hosp Course 1. RITA likely prerenal from sepsis/lactic acidosis resolved 2. Bleeding from tracheostomy site, resolved. 3. Sepsis with leukocytosis and lactic acidosis upon admission. No evidence of septic shock. Continue microbials as per infectious diseases. 4. Healthcare associated pneumonia. . 5. Chronic respiratory failure with COPD 6. G tube status 7. cachexia. 8. CT scan showing extensive centrilobular emphysema with a right upper lobe cavitary lesion. 9. hyponatremia Problems: Additional Assessment/Plan 1. Fluid restrictions 1600 ml a day Consultation Date/Type/Reason Admit Date/Time Jan 06, 2017 at 13:44 Initial Consult Date 01/06/17 Type of Consultation: nephrology Reason for Consultation Dr Fay Exam/Review of Systems Vital Signs Vitals Vital Signs Date Time Temp Pulse Resp B/P Pulse Ox O2 Delivery O2 Flow Rate FiO2 01/14/17 08:40 109 30 94 60 01/14/17 08:10 98.2 98/57 01/14/17 08:00 Simple Mask 01/14/17 05:50 10.0 Intake and Output 01/13/17 01/13/17 01/14/17 15:00 23:00 07:00 Intake Total 800 ml Balance 800 ml Exam Constitutional: alert, oriented Neck: other (tracheostomy) Respiratory: diminished breath sounds Gastrointestinal: other (gt), soft Results Result Diagram: 01/13/17 0632 01/13/17 0556 Medications Medications Current Medications Acetaminophen (Tylenol Tab) 1,000 mg Q4H PRN PO PAIN LEVEL 4-6/10; Start at 15:30 Ascorbic Acid (Vitamin C) 500 mg DAILY GTB Last administered on 01/14/17 09:31 ; Admin Dose 500 MG; Start 01/07/17 at 09:00 Aspirin (Aspirin) 81 mg DAILY GTB Last administered on 01/14/17 09:31; Admin Dose 81 MG; Start 01/07/17 at 09:00 Bethanechol Chloride (Urecholine) 25 mg TID GTB Last administered on 01/14/17 09:31; Admin Dose 25 MG; Start 01/06/17 at 21:00 Calcium/Vitamin D (Oyster Shell/ Vit-D (500/200)) 1 tab DAILY GTB Last administered on 01/14/17 09:31; Admin Dose 1 TAB; Start 01/07/17 at 09:00 Chlorhexidine Gluconate (Peridex) 15 ml Q12 MM Last administered on 01/14/17 09:31; Admin Dose 15 ML; Start 01/06/17 at 21:00 Ferrous Sulfate (Feosol Liquid Cup) 300 mg DAILY GTB Last administered on 09:31; Admin Dose 300 MG; Start 01/06/17 at 16:00 Acetaminophen/ Hydrocodone Bitart ([place] (5/325)) 1 tab Q6H PRN GTB PAIN LEVEL 7-9/10; Start 01/06/17 at 15:30 Ondansetron HCl (Zofran Tab) 4 mg Q6H PRN GTB NAUSEA AND/OR VOMITING; Start at 15:30 Senna (Senokot) 1 tab QHS GTB Last administered on 01/13/17 21:16; Admin Dose 1 TAB; Start 01/06/17 at 21:00 Zinc Sulfate (Zinc Sulfate) 220 mg DAILY GTB Last administered on 01/14/17 09: 31; Admin Dose 220 MG; Start 01/07/17 at 09:00 Lactobacillus Acidophilus/ Rhamnosus (Culturelle) 1 cap BID GTB Last administered on 01/14/17 09:31; Admin Dose 1 CAP; Start 01/06/17 at 21:00 Multivitamins (Multivitamin) 30 ml DAILY GTB Last administered on 01/14/17 09: 31; Admin Dose 30 ML; Start 01/07/17 at 09:00 Acetaminophen (Tylenol Tab) 650 mg Q6H PRN PO PAIN LEVEL 1-3 OR FEVER; Start at 15:30 Acetaminophen (Tylenol Supp) 650 mg Q6H PRN [place] PAIN LEVEL 1-3 OR FEVER; Start 01/06/17 at 15:30 Morphine Sulfate (morphine) 2 mg Q4H PRN IV SEVERE PAIN LEVEL 7-10; Start 01/06 at 15:30 Docusate Sodium (Colace Liquid Cup) 100 mg Q12H PRN GTB CONSTIPATION; Start at 16:00 Magnesium Hydroxide (Milk Of Mag) 30 ml DAILY PRN PO CONSTIPATION; Start at 15:30 Bisacodyl 10 mg 10 mg DAILY PRN [place] CONSTIPATION; Start 01/06/17 at 15:30 Ceftazidime (Fortaz 1gm/50 ml (Pmx)) 50 ml @ 100 mls/hr Q8 IVPB Last administered on 01/14/17 06:20; Admin Dose 100 MLS/HR; Start 01/10/17 at 14:00 Lansoprazole (Prevacid) 30 mg DAILY@06 GTB Last administered on 01/14/17 06:20 ; Admin Dose 30 MG; Start 01/11/17 at 06:00 KARTHIKEYAN SUERO Jan 14, 2017 11:07
--- NOTE | 2017-01-14 12:10 | CONS ---
Date/Time of Note Date/Time of Note DATE: 01/14/17 TIME: 12:08 Assessment/Plan Assessment/Plan Additional Assessment/Plan Assessment and recommendations; 1. 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 2. Pseudomonas colonization/pneumonia. 3. Status post tracheostomy maintained on T-piece. 4. Generalized deconditioning. Continue current treatment. Consultation Date/Type/Reason Admit Date/Time Jan 06, 2017 at 13:44 Type of Consultation: Pulmonary 24 HR Interval Summary Free Text/Dictation Patient condition stable. No further hemoptysis. Denies any shortness of breath. General exam; elderly male, appears quite emaciated. Currently in no distress. Awake and alert. Exam/Review of Systems Vital Signs Vitals Vital Signs Date Time Temp Pulse Resp B/P Pulse Ox O2 Delivery O2 Flow Rate FiO2 01/14/17 11:49 98.2 82 18 107/58 98 01/14/17 08:40 60 01/14/17 08:00 Simple Mask 01/14/17 05:50 10.0 Intake and Output 01/13/17 01/13/17 01/14/17 15:00 23:00 07:00 Intake Total 800 ml Balance 800 ml Exam HEENT exam; supple neck, no JVD. No lymphadenopathy. Midline trachea. No thyromegaly. Patient is edentulous. Tracheostomy in place at S2 T-piece. No blood seen in tracheostomy circuit. Chest exam; diminished but clear breath sounds. S1-S2 audible, no murmurs. Regular rhythm. Abdomen exam; soft, scaphoid. Nontender. No organomegaly. Bowel sounds audible. Extremity exam; no peripheral edema. [employer] exam; no focal motor deficit. Results Result Diagram: 01/13/17 0632 01/13/17 0556 Medications Medications Current Medications Acetaminophen (Tylenol Tab) 1,000 mg Q4H PRN PO PAIN LEVEL 4-6/10; Start at 15:30 Ascorbic Acid (Vitamin C) 500 mg DAILY GTB Last administered on 01/14/17 09:31 ; Admin Dose 500 MG; Start 01/07/17 at 09:00 Aspirin (Aspirin) 81 mg DAILY GTB Last administered on 01/14/17 09:31; Admin Dose 81 MG; Start 01/07/17 at 09:00 Bethanechol Chloride (Urecholine) 25 mg TID GTB Last administered on 01/14/17 09:31; Admin Dose 25 MG; Start 01/06/17 at 21:00 Calcium/Vitamin D (Oyster Shell/ Vit-D (500/200)) 1 tab DAILY GTB Last administered on 01/14/17 09:31; Admin Dose 1 TAB; Start 01/07/17 at 09:00 Chlorhexidine Gluconate (Peridex) 15 ml Q12 MM Last administered on 01/14/17 09:; Admin Dose 15 ML; Start 01/06/17 at 21:00 Ferrous Sulfate (Feosol Liquid Cup) 300 mg DAILY GTB Last administered on 09:; Admin Dose 300 MG; Start 01/06/17 at 16:00 Acetaminophen/ Hydrocodone Bitart ([place] (5/325)) 1 tab Q6H PRN GTB PAIN LEVEL 7-9/10; Start 01/06/17 at 15:30 Ondansetron HCl (Zofran Tab) 4 mg Q6H PRN GTB NAUSEA AND/OR VOMITING; Start at 15:30 Senna (Senokot) 1 tab QHS GTB Last administered on 01/13/17 21:16; Admin Dose 1 TAB; Start 01/06/17 at 21:00 Zinc Sulfate (Zinc Sulfate) 220 mg DAILY GTB Last administered on 01/14/17 09: ; Admin Dose 220 MG; Start 01/07/17 at 09:00 Lactobacillus Acidophilus/ Rhamnosus (Culturelle) 1 cap BID GTB Last administered on 01/14/17 09:31; Admin Dose 1 CAP; Start 01/06/17 at 21:00 Multivitamins (Multivitamin) 30 ml DAILY GTB Last administered on 01/14/17 09: 31; Admin Dose 30 ML; Start 01/07/17 at 09:00 Acetaminophen (Tylenol Tab) 650 mg Q6H PRN PO PAIN LEVEL 1-3 OR FEVER; Start at 15:30 Acetaminophen (Tylenol Supp) 650 mg Q6H PRN [place] PAIN LEVEL 1-3 OR FEVER; Start 01/06/17 at 15:30 Morphine Sulfate (morphine) 2 mg Q4H PRN IV SEVERE PAIN LEVEL 7-10; Start 01/06 at 15:30 Docusate Sodium (Colace Liquid Cup) 100 mg Q12H PRN GTB CONSTIPATION; Start at 16:00 Magnesium Hydroxide (Milk Of Mag) 30 ml DAILY PRN PO CONSTIPATION; Start at 15:30 Bisacodyl 10 mg 10 mg DAILY PRN [place] CONSTIPATION; Start 01/06/17 at 15:30 Ceftazidime (Fortaz 1gm/50 ml (Pmx)) 50 ml @ 100 mls/hr Q8 IVPB Last administered on 01/14/17 06:20; Admin Dose 100 MLS/HR; Start 01/10/17 at 14:00 Lansoprazole (Prevacid) 30 mg DAILY@06 GTB Last administered on 01/14/17 06:20 ; Admin Dose 30 MG; Start 01/11/17 at 06:00 FLACO NICHOLS Jan 14, 2017 12:10
--- NOTE | 2017-01-14 16:27 | CONS ---
Date/Time of Note Date/Time of Note DATE: 01/14/17 TIME: 16:21 Assessment/Plan Assessment/Plan Chief Complaint/Hosp Course Assessment/Plan Chief Complaint/Hosp Course SUBJECTIVE DATA: Awake. Responsive. No Acute Distress. Sputum culture growing multidrug-resistant pseudomonas aeruginosa and Providencia stuartii. Sputum smear for AFB -2 sets INDWELLINGS: Trach, PEG, Zepeda. ANTIMICROBIALS: 1. Tobramycin inhalation. 2. Ceftazidime PHYSICAL EXAMINATION: GENERAL: This is a fragile, chronically ill-appearing, elderly man, who is in no distress. HEENT: Head atraumatic, normocephalic. Sclerae anicteric. Buccal mucosa dry. NECK: Supple. CHEST: Rise symmetrical. Breath sounds diminished at the bases. HEART: S1, S2. ABDOMEN: Soft, bowel sounds present. EXTREMITIES: Without cyanosis. ASSESSMENT: 1. Hemoptysis, resolving, likely secondary to acute bronchitis. 2. 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 3. Emphysema. 4. Dysphagia. 5. Cachexia. PLAN: Patient remains stable. Continue present care, antibiotics, follow pulmonary recommendations, dc isolation Problems: Consultation Date/Type/Reason Admit Date/Time Jan 06, 2017 at 13:44 Initial Consult Date Type of Consultation: id Exam/Review of Systems Vital Signs Vitals Vital Signs Date Time Temp Pulse Resp B/P Pulse Ox O2 Delivery O2 Flow Rate FiO2 01/14/17 16:01 98.2 92 18 99/57 98 01/14/17 08:40 60 01/14/17 08:00 Simple Mask 01/14/17 05:50 10.0 Intake and Output 01/13/17 01/13/17 01/14/17 15:00 23:00 07:00 Intake Total 800 ml Balance 800 ml Results Result Diagram: 01/13/17 0632 01/13/17 0556 Medications Medications Current Medications Acetaminophen (Tylenol Tab) 1,000 mg Q4H PRN PO PAIN LEVEL 4-6/10; Start at 15:30 Ascorbic Acid (Vitamin C) 500 mg DAILY GTB Last administered on 01/14/17 09:31 ; Admin Dose 500 MG; Start 01/07/17 at 09:00 Aspirin (Aspirin) 81 mg DAILY GTB Last administered on 01/14/17 09:31; Admin Dose 81 MG; Start 01/07/17 at 09:00 Bethanechol Chloride (Urecholine) 25 mg TID GTB Last administered on 01/14/17 13:25; Admin Dose 25 MG; Start 01/06/17 at 21:00 Calcium/Vitamin D (Oyster Shell/ Vit-D (500/200)) 1 tab DAILY GTB Last administered on 01/14/17 09:; Admin Dose 1 TAB; Start 01/07/17 at 09:00 Chlorhexidine Gluconate (Peridex) 15 ml Q12 MM Last administered on 01/14/17 09:; Admin Dose 15 ML; Start 01/06/17 at 21:00 Ferrous Sulfate (Feosol Liquid Cup) 300 mg DAILY GTB Last administered on 09:; Admin Dose 300 MG; Start 01/06/17 at 16:00 Acetaminophen/ Hydrocodone Bitart ([place] (5/325)) 1 tab Q6H PRN GTB PAIN LEVEL 7-9/10; Start 01/06/17 at 15:30 Ondansetron HCl (Zofran Tab) 4 mg Q6H PRN GTB NAUSEA AND/OR VOMITING; Start at 15:30 Senna (Senokot) 1 tab QHS GTB Last administered on 01/13/17 21:16; Admin Dose 1 TAB; Start 01/06/17 at 21:00 Zinc Sulfate (Zinc Sulfate) 220 mg DAILY GTB Last administered on 01/14/17 09: ; Admin Dose 220 MG; Start 01/07/17 at 09:00 Lactobacillus Acidophilus/ Rhamnosus (Culturelle) 1 cap BID GTB Last administered on 01/14/17 09:31; Admin Dose 1 CAP; Start 01/06/17 at 21:00 Multivitamins (Multivitamin) 30 ml DAILY GTB Last administered on 01/14/17 09: 31; Admin Dose 30 ML; Start 01/07/17 at 09:00 Acetaminophen (Tylenol Tab) 650 mg Q6H PRN PO PAIN LEVEL 1-3 OR FEVER; Start at 15:30 Acetaminophen (Tylenol Supp) 650 mg Q6H PRN [place] PAIN LEVEL 1-3 OR FEVER; Start 01/06/17 at 15:30 Morphine Sulfate (morphine) 2 mg Q4H PRN IV SEVERE PAIN LEVEL 7-10; Start 01/06 at 15:30 Docusate Sodium (Colace Liquid Cup) 100 mg Q12H PRN GTB CONSTIPATION; Start at 16:00 Magnesium Hydroxide (Milk Of Mag) 30 ml DAILY PRN PO CONSTIPATION; Start at 15:30 Bisacodyl 10 mg 10 mg DAILY PRN [place] CONSTIPATION; Start 01/06/17 at 15:30 Ceftazidime (Fortaz 1gm/50 ml (Pmx)) 50 ml @ 100 mls/hr Q8 IVPB Last administered on 01/14/17 13:25; Admin Dose 100 MLS/HR; Start 01/10/17 at 14:00 Lansoprazole (Prevacid) 30 mg DAILY@06 GTB Last administered on 01/14/17 06:20 ; Admin Dose 30 MG; Start 01/11/17 at 06:00 SHARA PATEL NP Jan 14, 2017 16:27
[2017-01-14] MEDS: SENNA TAB GTB SCH (21:01)
[2017-01-15] VITALS (11 sets, daily range): BP systolic 92–138; BP diastolic 58–70; PULSE 83–100; RESP 17–18
[2017-01-15] MEDS: LANSOPRAZOLE 30 MG CAP GTB SCH (06:09)
[2017-01-15] MEDS: CEFTAZIDIME 1GM/50 ML (PMX) 50 ML IVPB SCH ×2 (06:09→13:27)
[2017-01-15] MEDS: CHLORHEXIDINE GLUCONATE 15 ML UD CUP MM SCH (09:38)
[2017-01-15] MEDS: FERROUS SULFATE 60 MG/ML 5ML CUP GTB SCH (09:38)
[2017-01-15] MEDS: BETHANECHOL 25 MG TAB GTB SCH ×2 (09:39→13:27)
[2017-01-15] MEDS: LACTOBACILLUS RHAMNOSUS CAP GTB SCH (09:39)
[2017-01-15] MEDS: METOCLOPRAMIDE (1 MG/ML) 10 ML CUP GTB SCH ×3 (09:39→17:35)
[2017-01-15] MEDS: CALCIUM/VITAMIN D (500/200) TAB GTB SCH (09:39)
[2017-01-15] MEDS: ASCORBIC ACID 500 MG TAB GTB SCH (09:39)
[2017-01-15] MEDS: MULTIVITAMINS 30 ML CUP GTB SCH (09:39)
[2017-01-15] MEDS: ASPIRIN 81 MG TAB GTB SCH (09:39)
[2017-01-15] MEDS: ZINC SULFATE 220 MG CAP GTB SCH (09:51)
[2017-01-15] MEDS: TOBRAMYCIN/0.25NS 300 MG/5 ML INHAL NEB SCH ×2 (09:55→20:00)
--- NOTE | 2017-01-15 11:08 | CONS ---
Date/Time of Note Date/Time of Note DATE: 01/15/17 TIME: 11:06 Assessment/Plan Assessment/Plan Additional Assessment/Plan Assessment and recommendations; 1. 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 2. History of chronic respiratory failure however patient doing very well on tracheal T piece. 3. Advanced COPD. 4. Generalized deconditioning. Continue current treatment. Consultation Date/Type/Reason Admit Date/Time Jan 06, 2017 at 13:44 Type of Consultation: Pulmonary 24 HR Interval Summary Free Text/Dictation Patient condition remains stable. Now again having intermittent hemoptysis. But denies any shortness of breath wheezing or chest pain. General exam; elderly male, awake and alert. Currently in no distress. Exam/Review of Systems Vital Signs Vitals Vital Signs Date Time Temp Pulse Resp B/P Pulse Ox O2 Delivery O2 Flow Rate FiO2 01/15/17 08:11 97.6 97 18 110/68 93 01/15/17 05:21 Aerosol 10.0 60 T Tube Intake and Output 01/14/17 01/14/17 01/15/17 15:00 23:00 07:00 Intake Total 700 ml 500 ml 640 ml Balance 700 ml 500 ml 640 ml Exam HEENT exam; supple neck, no JVD. No lymphadenopathy. Midline trachea. No thyromegaly. Tracheostomy in place. Patient is edentulous. Chest exam; diminished but clear breath sounds. S1-S2 audible, no murmurs. Regular rhythm. Abdomen exam; soft, nontender. No organomegaly. Bowel sounds audible. Scaphoid. Next Extremity exam; no peripheral edema. 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 Results Result Diagram: 01/13/17 0632 01/13/17 0556 Medications Medications Current Medications Acetaminophen (Tylenol Tab) 1,000 mg Q4H PRN PO PAIN LEVEL 4-6/10; Start at 15:30 Ascorbic Acid (Vitamin C) 500 mg DAILY GTB Last administered on 01/15/17 09:39 ; Admin Dose 500 MG; Start 01/07/17 at 09:00 Aspirin (Aspirin) 81 mg DAILY GTB Last administered on 01/15/17 09:39; Admin Dose 81 MG; Start 01/07/17 at 09:00 Bethanechol Chloride (Urecholine) 25 mg TID GTB Last administered on 01/15/17 09:39; Admin Dose 25 MG; Start 01/06/17 at 21:00 Calcium/Vitamin D (Oyster Shell/ Vit-D (500/200)) 1 tab DAILY GTB Last administered on 01/15/17 09:39; Admin Dose 1 TAB; Start 01/07/17 at 09:00 Chlorhexidine Gluconate (Peridex) 15 ml Q12 MM Last administered on 01/15/17 09:38; Admin Dose 15 ML; Start 01/06/17 at 21:00 Ferrous Sulfate (Feosol Liquid Cup) 300 mg DAILY GTB Last administered on 09:38; Admin Dose 300 MG; Start 01/06/17 at 16:00 Acetaminophen/ Hydrocodone Bitart ([place] (5/325)) 1 tab Q6H PRN GTB PAIN LEVEL 7-9/10; Start 01/06/17 at 15:30 Ondansetron HCl (Zofran Tab) 4 mg Q6H PRN GTB NAUSEA AND/OR VOMITING; Start at 15:30 Senna (Senokot) 1 tab QHS GTB Last administered on 01/14/17 21:01; Admin Dose 1 TAB; Start 01/06/17 at 21:00 Zinc Sulfate (Zinc Sulfate) 220 mg DAILY GTB Last administered on 01/15/17 09: 51; Admin Dose 220 MG; Start 01/07/17 at 09:00 Lactobacillus Acidophilus/ Rhamnosus (Culturelle) 1 cap BID GTB Last administered on 01/15/17 09:39; Admin Dose 1 CAP; Start 01/06/17 at 21:00 Multivitamins (Multivitamin) 30 ml DAILY GTB Last administered on 01/15/17 09: 39; Admin Dose 30 ML; Start 01/07/17 at 09:00 Acetaminophen (Tylenol Tab) 650 mg Q6H PRN PO PAIN LEVEL 1-3 OR FEVER; Start at 15:30 Acetaminophen (Tylenol Supp) 650 mg Q6H PRN [place] PAIN LEVEL 1-3 OR FEVER; Start 01/06/17 at 15:30 Morphine Sulfate (morphine) 2 mg Q4H PRN IV SEVERE PAIN LEVEL 7-10; Start 01/06 at 15:30 Docusate Sodium (Colace Liquid Cup) 100 mg Q12H PRN GTB CONSTIPATION; Start at 16:00 Magnesium Hydroxide (Milk Of Mag) 30 ml DAILY PRN PO CONSTIPATION; Start at 15:30 Bisacodyl 10 mg 10 mg DAILY PRN [place] CONSTIPATION; Start 01/06/17 at 15:30 Ceftazidime (Fortaz 1gm/50 ml (Pmx)) 50 ml @ 100 mls/hr Q8 IVPB Last administered on 01/15/17 06:09; Admin Dose 100 MLS/HR; Start 01/10/17 at 14:00 Lansoprazole (Prevacid) 30 mg DAILY@06 GTB Last administered on 01/15/17 06:09 ; Admin Dose 30 MG; Start 01/11/17 at 06:00 FLACO NICHOLS Jan 15, 2017 11:08
--- NOTE | 2017-01-15 13:55 | CONS ---
Date/Time of Note Date/Time of Note DATE: 01/15/17 TIME: 13:53 Assessment/Plan Assessment/Plan Chief Complaint/Hosp Course 71 y/o with # RITA likely prerenal from sepsis/lactic acidosis resolved # Bleeding from tracheostomy site. CT scan showing extensive centrilobular emphysema with a right upper lobe cavitary lesion. # sepsis with leukocytosis and lactic acidosis upon admission. No evidence of septic shock. Continue microbials as per infectious diseases. # Healthcare associated pneumonia. . #. Chronic respiratory failure with COPD # G tube status Recs - labs am - on cef tazidime and tobramycin - Kidney function stable Problems: Consultation Date/Type/Reason Admit Date/Time Jan 06, 2017 at 13:44 Type of Consultation: Renal 24 HR Interval Summary Free Text/Dictation No acute events Exam/Review of Systems Vital Signs Vitals Vital Signs Date Time Temp Pulse Resp B/P Pulse Ox O2 Delivery O2 Flow Rate FiO2 01/15/17 12:00 90 01/15/17 11:58 98.4 18 92/58 94 01/15/17 09:55 Aerosol 10.0 60 T Tube Intake and Output 01/14/17 01/14/17 01/15/17 15:00 23:00 07:00 Intake Total 700 ml 500 ml 640 ml Balance 700 ml 500 ml 640 ml Exam Constitutional: alert, oriented Neck: other (tracheostomy) Respiratory: diminished breath sounds Gastrointestinal: other (gt), soft Results Result Diagram: 01/13/17 0632 01/13/17 0556 Medications Medications Current Medications Acetaminophen (Tylenol Tab) 1,000 mg Q4H PRN PO PAIN LEVEL 4-6/10; Start at 15:30 Ascorbic Acid (Vitamin C) 500 mg DAILY GTB Last administered on 01/15/17 09:39 ; Admin Dose 500 MG; Start 01/07/17 at 09:00 Aspirin (Aspirin) 81 mg DAILY GTB Last administered on 01/15/17 09:39; Admin Dose 81 MG; Start 01/07/17 at 09:00 Bethanechol Chloride (Urecholine) 25 mg TID GTB Last administered on 01/15/17 13:27; Admin Dose 25 MG; Start 01/06/17 at 21:00 Calcium/Vitamin D (Oyster Shell/ Vit-D (500/200)) 1 tab DAILY GTB Last administered on 01/15/17 09:39; Admin Dose 1 TAB; Start 01/07/17 at 09:00 Chlorhexidine Gluconate (Peridex) 15 ml Q12 MM Last administered on 01/15/17 09:38; Admin Dose 15 ML; Start 01/06/17 at 21:00 Ferrous Sulfate (Feosol Liquid Cup) 300 mg DAILY GTB Last administered on 09:38; Admin Dose 300 MG; Start 01/06/17 at 16:00 Acetaminophen/ Hydrocodone Bitart ([place] (5/325)) 1 tab Q6H PRN GTB PAIN LEVEL 7-9/10; Start 01/06/17 at 15:30 Ondansetron HCl (Zofran Tab) 4 mg Q6H PRN GTB NAUSEA AND/OR VOMITING; Start at 15:30 Senna (Senokot) 1 tab QHS GTB Last administered on 01/14/17 21:01; Admin Dose 1 TAB; Start 01/06/17 at 21:00 Zinc Sulfate (Zinc Sulfate) 220 mg DAILY GTB Last administered on 01/15/17 09: 51; Admin Dose 220 MG; Start 01/07/17 at 09:00 Lactobacillus Acidophilus/ Rhamnosus (Culturelle) 1 cap BID GTB Last administered on 01/15/17 09:39; Admin Dose 1 CAP; Start 01/06/17 at 21:00 Multivitamins (Multivitamin) 30 ml DAILY GTB Last administered on 01/15/17 09: 39; Admin Dose 30 ML; Start 01/07/17 at 09:00 Acetaminophen (Tylenol Tab) 650 mg Q6H PRN PO PAIN LEVEL 1-3 OR FEVER; Start at 15:30 Acetaminophen (Tylenol Supp) 650 mg Q6H PRN [place] PAIN LEVEL 1-3 OR FEVER; Start 01/06/17 at 15:30 Morphine Sulfate (morphine) 2 mg Q4H PRN IV SEVERE PAIN LEVEL 7-10; Start 01/06 at 15:30 Docusate Sodium (Colace Liquid Cup) 100 mg Q12H PRN GTB CONSTIPATION; Start at 16:00 Magnesium Hydroxide (Milk Of Mag) 30 ml DAILY PRN PO CONSTIPATION; Start at 15:30 Bisacodyl 10 mg 10 mg DAILY PRN [place] CONSTIPATION; Start 01/06/17 at 15:30 Ceftazidime (Fortaz 1gm/50 ml (Pmx)) 50 ml @ 100 mls/hr Q8 IVPB Last administered on 01/15/17 13:27; Admin Dose 100 MLS/HR; Start 01/10/17 at 14:00 Lansoprazole (Prevacid) 30 mg DAILY@06 GTB Last administered on 01/15/17 06:09 ; Admin Dose 30 MG; Start 01/11/17 at 06:00 ROXANNE HOROWITZ MD Jan 15, 2017 13:55
--- NOTE | 2017-01-15 15:55 | CONS ---
Date/Time of Note Date/Time of Note DATE: 01/15/17 TIME: 15:50 Consultation Date/Type/Reason Admit Date/Time Jan 06, 2017 at 13:44 Initial Consult Date Assessment/Plan Assessment/Plan Chief Complaint/Hosp Course Assessment/Plan Chief Complaint/Hosp Course SUBJECTIVE DATA: Awake. Responsive. No Acute Distress. Denies pain, fever, SOB. Pt is being treated for sepsis and PNA. No acute events. VS: 92/58 HR:98 R:18; TEMP:98.4 O2S: 94% LABS: Reviewed. none today. Last WBC on - 9.6. BUN/Creat-stable. Sputum culture growing multidrug-resistant pseudomonas aeruginosa and Providencia stuartii. Sputum smear for AFB -2 sets INDWELLINGS: Trach, PEG, Zepeda. ANTIMICROBIALS: 1. Tobramycin inhalation. 2. Ceftazidime PHYSICAL EXAMINATION: GENERAL: This is a fragile, chronically ill-appearing, elderly man, who is in no distress. HEENT: Head atraumatic, normocephalic. Sclerae anicteric. Buccal mucosa dry. NECK: Supple. CHEST: Rise symmetrical. Breath sounds diminished at the bases. HEART: S1, S2. ABDOMEN: Soft, bowel sounds present. EXTREMITIES: Without cyanosis. No edema ASSESSMENT: 1. Hemoptysis, resolving, likely secondary to acute bronchitis. 2. 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 3. Emphysema. 4. Dysphagia. 5. Cachexia. PLAN: Patient remains stable. Continue present antibiotics, follow pulmonary recommendations. Consultation Date/Type/Reason Admit Date/Time Jan 06, 2017 at 13:44 Initial Consult Date Type of Consultation: ID Type of Consultation: ID Exam/Review of Systems Vital Signs Vitals Vital Signs Date Time Temp Pulse Resp B/P Pulse Ox O2 Delivery O2 Flow Rate FiO2 01/15/17 12:00 90 01/15/17 11:58 98.4 18 92/58 94 01/15/17 09:55 Aerosol 10.0 60 T Tube Intake and Output 01/14/17 01/14/17 01/15/17 15:00 23:00 07:00 Intake Total 700 ml 500 ml 640 ml Balance 700 ml 500 ml 640 ml Results Result Diagram: 01/13/17 0632 01/13/17 0556 Medications Medications Current Medications Acetaminophen (Tylenol Tab) 1,000 mg Q4H PRN PO PAIN LEVEL 4-6/10; Start at 15:30 Ascorbic Acid (Vitamin C) 500 mg DAILY GTB Last administered on 01/15/17 09:39 ; Admin Dose 500 MG; Start 01/07/17 at 09:00 Aspirin (Aspirin) 81 mg DAILY GTB Last administered on 01/15/17 09:39; Admin Dose 81 MG; Start 01/07/17 at 09:00 Bethanechol Chloride (Urecholine) 25 mg TID GTB Last administered on 01/15/17 13:27; Admin Dose 25 MG; Start 01/06/17 at 21:00 Calcium/Vitamin D (Oyster Shell/ Vit-D (500/200)) 1 tab DAILY GTB Last administered on 01/15/17 09:39; Admin Dose 1 TAB; Start 01/07/17 at 09:00 Chlorhexidine Gluconate (Peridex) 15 ml Q12 MM Last administered on 01/15/17 09:38; Admin Dose 15 ML; Start 01/06/17 at 21:00 Ferrous Sulfate (Feosol Liquid Cup) 300 mg DAILY GTB Last administered on 09:38; Admin Dose 300 MG; Start 01/06/17 at 16:00 Acetaminophen/ Hydrocodone Bitart ([place] (5/325)) 1 tab Q6H PRN GTB PAIN LEVEL 7-9/10; Start 01/06/17 at 15:30 Ondansetron HCl (Zofran Tab) 4 mg Q6H PRN GTB NAUSEA AND/OR VOMITING; Start at 15:30 Senna (Senokot) 1 tab QHS GTB Last administered on 01/14/17 21:01; Admin Dose 1 TAB; Start 01/06/17 at 21:00 Zinc Sulfate (Zinc Sulfate) 220 mg DAILY GTB Last administered on 01/15/17 09: 51; Admin Dose 220 MG; Start 01/07/17 at 09:00 Lactobacillus Acidophilus/ Rhamnosus (Culturelle) 1 cap BID GTB Last administered on 01/15/17 09:39; Admin Dose 1 CAP; Start 01/06/17 at 21:00 Multivitamins (Multivitamin) 30 ml DAILY GTB Last administered on 01/15/17 09: 39; Admin Dose 30 ML; Start 01/07/17 at 09:00 Acetaminophen (Tylenol Tab) 650 mg Q6H PRN PO PAIN LEVEL 1-3 OR FEVER; Start at 15:30 Acetaminophen (Tylenol Supp) 650 mg Q6H PRN [place] PAIN LEVEL 1-3 OR FEVER; Start 01/06/17 at 15:30 Morphine Sulfate (morphine) 2 mg Q4H PRN IV SEVERE PAIN LEVEL 7-10; Start 01/06 at 15:30 Docusate Sodium (Colace Liquid Cup) 100 mg Q12H PRN GTB CONSTIPATION; Start at 16:00 Magnesium Hydroxide (Milk Of Mag) 30 ml DAILY PRN PO CONSTIPATION; Start at 15:30 Bisacodyl 10 mg 10 mg DAILY PRN [place] CONSTIPATION; Start 01/06/17 at 15:30 Ceftazidime (Fortaz 1gm/50 ml (Pmx)) 50 ml @ 100 mls/hr Q8 IVPB Last administered on 01/15/17 13:27; Admin Dose 100 MLS/HR; Start 01/10/17 at 14:00 Lansoprazole (Prevacid) 30 mg DAILY@06 GTB Last administered on 01/15/17 06:09 ; Admin Dose 30 MG; Start 01/11/17 at 06:00 JUD GONZALEZ Jan 15, 2017 15:55
--- NOTE | 2017-01-15 16:02 | PDOCDIS ---
Discharge Instructions DIAGNOSIS Discharge Diagnosis 1. Bleeding from tracheostomy site. 2. Status post sepsis with leukocytosis and lactic acidosis upon admission. 3. Healthcare associated pneumonia. 4. Microcytic, hypochromic anemia. 5. Acute kidney injury. R 6. Chronic respiratory failure. 7. COPD 8. Dysphagia. HOME CARE INSTRUCTIONS: Special Diet: npo FOLLOW UP/APPOINTMENTS Follow-up Plan Further care and management per [facility] NORBERTO PRYOR Jan 15, 2017 16:02
--- NOTE | 2017-01-22 14:09 | DS ---
Date/Time of Note Date/Time of Note DATE: 01/22/17 TIME: 14:08 Discharge Summary Admission/Discharge Info Admit Date/Time Jan 06, 2017 at 13:44 Discharge Date/Time Jan 15, 2017 at 21:10 Discharge Diagnosis 1. Bleeding from tracheostomy site. 2. Status post sepsis with leukocytosis and lactic acidosis upon admission. 3. Healthcare associated pneumonia. 4. Microcytic, hypochromic anemia. 5. Acute kidney injury. R 6. Chronic respiratory failure. 7. COPD 8. Dysphagia. Patient Condition: Stable Hx of Present Illness This is a 71-year-old male with history of chronic respiratory failure status post tracheostomy she is not currently vent dependent), anxiety, GERD, COPD, CKD , anemia, dysphagia, essential hypertension, debility, bedbound status, constipation, who came to [facility] after reportedly having some bleeding from his tracheostomy site. No other reported symptoms were mentioned including shortness of breath or chest pain or dysuria. Patient was in his normal state of health but due to the bleeding on his tracheostomy site was brought to [facility] for further evaluation. Incidentally on laboratory findings he will had a white count of 21. There is also slightly anemic with hemoglobin of 10.7 and hematocrit 31.0, likely of chronic disease. There is also noted with acute renal insufficiency with creatinine of 1.38. Lactic acid was 1.4. No fever was seen. He was slightly hypotensive with blood pressure as low as 87/58. Initial chest x-ray did show increased cavitation at the right lung apex with pleural thickening or fluid with clinical picture of that of pneumonia. Patient remains alert he is aware but dysphasic and aphasic at this time. We will evaluate him for the aformentiond issues. Hospital Course This is a 71-year-old male with history of chronic respiratory failure status post tracheostomy, anxiety, GERD, COPD, CKD, anemia, dysphagia, essential hypertension, debility, bedbound status, who came to [facility] after reports of having bleeding from tracheostomy site. No other reported mental symptoms were mentioned including shortness of breath or chest pain. He is reportedly in his normal state of health but due to the bleeding from his tracheostomy site was brought to [facility] for further evaluation. Was noted that he did have leukocytosis on arrival and was slightly anemic as well. He had some renal insufficiency with creatinine of 1.38. Patient was also noted to be slightly hypotensive with blood pressure as low as 87/58. Initial chest x-ray also showed increased cavitation at the right lung apex with pleural thickening with clinical picture of that of pneumonia. Patient did have multiple consultations including with quality technician fiberglass and infectious disease physician. He was placed on appropriate antibiotics. They did test him for sputum AFB which were negative also. Patient was noted with healthcare associated pneumonia. Suspect his bleeding may have been from cavitary lesion. He was optimized with antibiotics and this did resolve during his course of stay. Patient did have good response antibiotics and his sepsis did resolve. He is otherwise optimized medically. He is noted to be anemic and with low iron levels for which we did provide him with appropriate supplement. He was seen by mail opener as well for his acute renal insufficiency and we did renally dose his medications and it did improve. For his chronic respiratory failure he is continued on bronchodilators and placed on aerosol mask via his trach. He was also continued on aspiration precautions while on G-tube feedings. During his course of stay he did improve. The plan of care was discussed with the patient and family and family did verbalize understanding. On the day of discharge patient was in stable condition Discussed plan of care with Dr. Jacobs [place] Meds Reported Medications Ondansetron Hcl* (Zofran*) 4 Mg Tab, 4 MG GTB Q6H Y for NAUSEA AND OR VOMITING, TAB 01/06/17 Zinc Sulfate* (Zinc Sulfate*) 220 Mg Tablet, 220 MG GTB DAILY, TAB 01/06/17 Ascorbic Acid (Vitamin C) 500 Mg Tab, 500 MG GTB DAILY, TAB 01/06/17 Acetaminophen* (Tylenol*) 500 Mg Tab, 1000 MG GTB Q4H Y for PAIN LEVEL 4-6/10, TAB 01/06/17 Acetaminophen* (Tylenol*) 325 Mg Tablet, 650 MG GTB BID Y for PRN, TAB 01/06/17 Acetaminophen* (Tylenol*) 325 Mg Tablet, 650 MG GTB Q4H Y for MILD PAIN LEVEL 1- 3, TAB FOR FEVER 101 AND ABOVE 01/06/17 Acetaminophen* (Tylenol*) 325 Mg Tablet, 650 MG GTB NEEDED Y for TRACH TUBE CHANGE, TAB 01/06/17 Sennosides* (Senna Lax*) 8.6 Mg Tablet, 1 TAB GTB QHS, TAB 01/06/17 Metoclopramide* (Reglan*) 5 Mg Tablet, 5 MG GTB AC MEALS, TAB 01/06/17 Calcium Carbonate/Vitamin D3 (Oyster Shell Calcium +D Tablet) 1 Each Tablet, 1 EACH GTB DAILY, TAB TAKE [id number] 01/06/17 Hydrocodone/Acetaminophen ([place] 5-325 Tablet) 1 Each Tablet, 1 EACH GTB Q6H Y for PAIN LEVEL 7-910, TAB 01/06/17 Multivitamin with Minerals (Multivitamins with Minerals) 1 Each Tablet, 1 EACH GTB DAILY, TAB 01/06/17 Magnesium Hydroxide* (Milk Of Magnesia*) 400 Mg/5 Ml Oral.susp, 30 ML GTB Q24H for CONSTIPATION, ML 01/06/17 Enoxaparin Sodium* (Enoxaparin Sodium*) 40 Mg/0.4 Ml Syringe, 40 MG SC DAILY, SYR 01/06/17 Lansoprazole* (Lansoprazole*) 30 Mg Capsule.dr, 30 MG GTB DAILY, CAP 01/06/17 Mineral Oil (Fleet Mineral Oil Enema) 133 Ml Enema, 1 APPLIC RC Q2DAYS, ENEMA 01/06/17 Na Phos,M-B/Na Phos,Di-Ba (Fleet Enema Extra) 230 Ml Enema, 230 ML RC, ENEMA 01/06/17 Ferrous Sulfate* (Ferrous Sulfate*) 220 Mg/5 Ml Solution, 7.5 ML GTB DAILY, ML 01/06/17 Bisacodyl* (Bisacodyl*) 10 Mg Supp, 10 MG RI Q24H for CONSTIPATION, SUPP 01/06/17 Chlorhexidine Gluconate (Paroex) 473 Ml Mouthwash, 473 ML MM Q12H, BOTTLE 01/06/17 Bethanechol Chloride* (Bethanechol Chloride*) 25 Mg Tablet, 25 MG GTB TID, TAB 01/06/17 Aspirin* (Aspirin* Chew) 81 Mg Tab.chew, 81 MG GTB DAILY, TAB.CHEW 01/06/17 Albuterol Sulfate* (Albuterol Sulfate* Neb) 0.083%-3 Ml Neb, 2.5 MG NEB Q6H, # 30 VIAL SOB,WHEEZING AND RESPIRATORY DISTRESS 2ND TO RESPIRETORY FAILURE 01/06/17 Albuterol Sulfate* (Albuterol Sulfate* Neb) 0.083%-3 Ml Neb, 2.5 MG NEB Q3H Y for WHEEZING AND SOB, #30 VIAL 01/06/17 Lactobacillus Acidophilus* (Lactinex*) 1 Tab Chew, 1 TAB GTB BID, TAB 01/06/17 Follow-up Plan Further care and management per [facility] Primary Care Provider [facility] [place] Time spent on discharge: > 30 minutes NORBERTO PRYOR Jan 22, 2017 14:09
== END 2017-01-15 21:10 | DRG 871 ==
LOC: E/R 11:55 → MS4 13:44
PROVIDERS: ADMIT Hospitalist; ATTEND Hospitalist
DX: A41.9 Sepsis, unspecified organism (principal); J18.9 Pneumonia, unspecified organism; N17.9 Acute kidney failure, unspecified; L89.151 Pressure ulcer of sacral region, stage 1; J96.10 Chronic respiratory failure, unspecified whether with hypoxia or hypercapnia; R64 Cachexia; L89.152 Pressure ulcer of sacral region, stage 2; J95.01 Hemorrhage from tracheostomy stoma; R13.10 Dysphagia, unspecified; R04.2 Hemoptysis; E87.1 Hypo-osmolality and hyponatremia; J44.0 Chronic obstructive pulmonary disease with (acute) lower respiratory infection; Z93.0 Tracheostomy status; D63.8 Anemia in other chronic diseases classified elsewhere; J20.9 Acute bronchitis, unspecified; J98.4 Other disorders of lung; R53.81 Other malaise; E86.0 Dehydration; J43.9 Emphysema, unspecified; Z93.1 Gastrostomy status; I12.9 Hypertensive chronic kidney disease with stage 1 through stage 4 chronic kidney disease, or unspecified chronic kidney disease; D50.9 Iron deficiency anemia, unspecified; N18.9 Chronic kidney disease, unspecified; F41.9 Anxiety disorder, unspecified; Z68.22 Body mass index [BMI] 22.0-22.9, adult; B96.5 Pseudomonas (aeruginosa) (mallei) (pseudomallei) as the cause of diseases classified elsewhere; Z74.01 Bed confinement status; Z87.891 Personal history of nicotine dependence; Z16.24 Resistance to multiple antibiotics
CPT/HCPCS: 36415; 71010; 71250; 80048; 80053; 80061; 80076; 81001; 81003; 82550; 82553; 82570; 82728; 83036; 83540; 83605; 83735; 84100; 84155; 84300; 84436; 84443; 84479; 84484; 85025; 85610; 85730; 86580; 87040; 87070; 87081; 87086; 87116; 89220; 93005; 94640; 94664; 96374; 96375; C9113; J0692; J3370; J7030